=== PATIENT | female | born 1935 | race Caucasian/White ===

== ENCOUNTER 2021-05-10 11:01 | Inpatient (IN) | payer MEDICARE, OTHER, SELFPAY ==
--- NOTE | 2021-05-10 | ECHO_ITS ---
Patient Info Name: Lyndsay Manriquez Age: 86 years : 1935 Gender: Female Ht: 65 in Wt: 143 lbs BSA: 1.73 m2 HR: 103 bpm BP: 168 / 89 mmHg Heart Rhythm: Atrial Fibrillation Technical Quality: Fair Exam Date: 05/10/2021 4:38 PM Exam Location: [facility] Card Pulmonary Patient Status: Emergency Admit Date: 05/10/2021 Staff Ordering Physician: Makenzie Flowers APRN Core Analyst: Eleanor Mahoney RDCS Attending Provider: Adryan Clark MD Exam Type: CA echo doppler color flow Study Info Complete two-dimensional, color flow and Doppler transthoracic echocardiogram is performed. Summary 1. Complete two-dimensional, color flow and Doppler transthoracic echocardiogram is performed. 2. Left ventricular chamber dimension is mildly enlarged. 3. Left ventricular systolic function is mildly to moderately reduced, estimated at 40-45%. 4. There is mildly increased left ventricular wall thickness. 5. The left ventricular diastolic function is indeterminate. 6. There is moderate mitral valve regurgitation. 7. There is mild tricuspid valve regurgitation. 8. Moderate pulmonary hypertension, estimated pulmonary arterial systolic pressure is 46 mmHg. 9. Large left pleural effusion. Left Ventricle Left ventricular chamber dimension is mildly enlarged. Left ventricular systolic function is mildly to moderately reduced, estimated at 40-45%. There is mildly increased left ventricular wall thickness. The left ventricular diastolic function is indeterminate. Right Ventricle Right ventricular chamber dimension is normal. Right ventricular systolic function is normal. Left Atria Left atrial chamber dimension is mildly enlarged. Right Atria Right atrial chamber dimension is mildly enlarged. Aortic Valve The aortic valve is trileaflet. There is mild aortic valve sclerosis. There is no aortic valve stenosis. There is no aortic valve regurgitation. Pulmonic Valve The pulmonic valve is not well visualized. There is trace pulmonic regurgitation. Mitral Valve The mitral valve has thickened leaflets. There is moderate mitral valve regurgitation. The mitral valve annulus is moderately calcified. Tricuspid Valve The tricuspid valve leaflets are normal. There is mild tricuspid valve regurgitation. Moderate pulmonary hypertension, estimated pulmonary arterial systolic pressure is 46 mmHg. Pericardium/Pleural The pericardium appears epicardial fat pad. There is trivial pericardial effusion. Large left pleural effusion. Inferior Vena Cava Normal inferior vena cava with >50% collapse upon inspiration consistent with normal right atrial pressure, 5 mmHg. Aorta The aortic root size at the sinus of Valsalva is normal. There is mild aortic atherosclerosis. Left Ventricular Outflow Tract Name Value Normal LVOT 2D LVOT Diameter 2.0 cm LVOT Doppler LVOT Peak Gradient 3 mmHg LVOT Mean Gradient 1 mmHg LVOT VTI 15 cm LVOT VTI/AV VTI Ratio 0.5 LVOT Stroke Volume 48
--- NOTE | ~2021-05-10 | XR_ITS ---
XR chest 1V portable DATE: 05/11/2021 08:20 INDICATION: Orthopnea. Covid-positive. TECHNIQUE: Portable upright AP chest on May 11, 2021 at 0811 hours COMPARISON: May 10, 2021 portable AP chest at 1247 hours FINDINGS: There is cardiomegaly. There is pulmonary vascular congestion and redistribution. There are bilateral diffuse pulmonary infiltrates, most prominent in the right lung and left lower lung. Diffe rential diagnosis includes bilateral pneumonia and/or pulmonary edema. Minimal pleural effusions are suggested. No pneumothorax. Aortic calcification. Diffuse osteopenia. IMPRESSION: Cardiomegaly, pulmonary vascular congestion, bilateral infiltrates, suggesting congestive heart failure, pulmonary edema. Pneumonia is not excluded Little interval change since May 10, 2021 Reviewed, dictated and finalized at location B. STRIAL ELECTRICAL ENGINEER IMPRESSION: Cardiomegaly, pulmonary vascular congestion, bilateral infiltrates, suggesting congestive heart failure, pulmonary edema. Pneumonia is not exclude d Little interval change since May 10, 2021
--- NOTE | ~2021-05-10 | XR_ITS ---
EXAMINATION: XR chest 1V portable DATE: 05/10/2021 12:49 INDICATION: New onset atrial fibrillation. TECHNIQUE: A single frontal view of the chest was obtained. COMPARISON: Chest single view 11/29/2018, 11/04/2014 FINDINGS: There is a diffuse interstitial pattern in the lungs. There are airspace opacities in the p erihilar regions. No pleural effusion or pneumothorax. Cardiomegaly is noted. Surgical clips in the r ight upper quadrant are likely from cholecystectomy. IMPRESSION: 1. Diffuse lung disease, likely mild pulmonary edema. 2. Cardiomegaly. Reviewed, dictated and finalized at location A. [employer]
--- NOTE | ~2021-05-10 | US_ITS ---
EXAMINATION: US venous doppler [facility] DATE: 05/10/2021 17:28 INDICATION: Bilateral lower limb swelling TECHNIQUE: Grayscale ultrasound images without and with compression and Doppler ultrasound images of the bilateral lower extremity veins were obtained. COMPARISON: None. FINDINGS: The visualized portions of right common femoral vein, profunda (deep) femoral vein, femoral vein, pop liteal vein, posterior tibial veins, peroneal veins, gastrocnemius vein and greater saphenous vein ou tflow are patent. The visualized portions of left common femoral vein, profunda femoral vein, femoral vein, popliteal v ein, posterior tibial veins, peroneal veins, gastrocnemius vein and greater saphenous vein outflow ar e patent. IMPRESSION: 1. No deep venous thrombosis in either lower limb. Reviewed, dictated and finalized at location A. UTER SCIENCE TEACHER
--- NOTE | ~2021-05-10 | XR_ITS ---
EXAMINATION: XR chest 1V portable DATE: 05/13/2021 05:48 INDICATION: Shortness of breath TECHNIQUE: frontal view of the chest was obtained. COMPARISON: Chest radiograph dated 05/11/2021 FINDINGS: Cardiomegaly with pulmonary vascular congestion. Persistent groundglass opacities and mild increased interstitial pattern consistent with mild pulmonary edema. No pleural effusion or pneumothorax. Cardi omegaly. Cholecystectomy clips in right upper quadrant. IMPRESSION: 1. No significant change in diffuse bilateral lung disease and favor congestive heart failure related mild pulmonary edema although differential includes pneumonia. 2. Cardiomegaly. Reviewed, dictated and finalized at location A. LRY MODEL MAKER IMPRESSION: 1. No significant change in diffuse bilateral lung disease and favor congestive heart failure related mild pulmonary edema although differential includes pneu monia. 2. Cardiomegaly.
[2021-05-10 11:09] VITALS: BP 120/75; PULSE 103; RESP 16; TEMP 36.6; O2SAT 100
--- NOTE | 2021-05-10 11:12 | ECG_ITS ---
Measurements Intervals [place] Rate: 85 P: SC: 0 QRS: 20 QRSD: 126 T: -1 QT: 402 QTc: 480 Interpretive Statements SINUS RHYTHM FREQUENT ATRIAL PREMATURE COMPLEXES RIGHT BUNDLE BRANCH BLOCK BASELINE ARTIFACT- I, III, AVL, V3 ABNORMAL ECG Electronically Signed On 05-10-2021 12:07:48 BAG PRESSER by Elmer Coronel D.O.
[2021-05-10 12:29] VITALS: BP 151/87; PULSE 96; RESP 20; TEMP 36.7; O2SAT 99
[2021-05-10 12:38] LABS: Basophils Percent Auto 0.4 % (0.2-1.2); Eosinophils Percent Auto 0.5 % (0-4.4); Hematocrit 35.4 % (37.0-47.0); Hemoglobin 10.9 g/dL (12.0-15.0); Immature Granulocyte Absolute 0.02 K/mm3 (0.00-0.031); Immature Granulocyte Percent A 0.3 % (0-0.5); Lymphocytes Absolute Auto 1.53 K/mm3 (0.9-3.2); Lymphocytes Percent Auto 20.6 % (18.3-44.2); Mean Corpuscular HGB Conc 30.8 g/dl (32-36); Mean Corpuscular Volume 110.3 fl (80-100); Mean Platelet Volume 9.3 fl (7.4-10.4); Monocytes Absolute Auto 0.5 K/mm3 (0.1-0.6); Monocytes Percent Auto 6.2 % (2.6-8.5); Neutrophils Absolute Auto 5.3 K/mm3 (1.3-6.7); Platelet Count Result 226 k/mm3 (150-375); Red Blood Count 3.21 M/mm3 (4.2-5.4); Red Cell Distribution Width 15.5 % (11.5-14.5); White Blood Count 7.4 K/mm3 (4.5-10.0)
--- NOTE | 2021-05-10 12:38 | ED.GENADULT ---
HPI - General Adult General Chief complaint: Recheck/Abnormal Lab/Rx Stated complaint: new onset a fib Time Seen by Provider: 05/10/21 12:19 Source: patient and RN notes reviewed Limitations: no limitations History of Present Illness HPI narrative: 86-year-old female presented to the emergency department for evaluation of 3 days of generalized fatigue. Patient had follow-up with her primary care physician today and was diagnosed with atrial fibrillation. Upon arrival to the emergency department patient is in normal sinus rhythm with some PVCs. Patient denies any complaints and states she feels improved. Patient states she has had decreased p.o. intake over the last few days. Related Data Allergies Allergy/AdvReac Type Severity Reaction Status Date / Time No Known Allergies Allergy Verified 05/10/21 09:53 Review of Systems Review of Systems: CONSTITUTIONAL: Generalized fatigue over the last few days EYES: Denies visual changes, redness, or discharge. ENT: Denies rhinorrhea, congestion, sore throat, or otalgia. CARDIOVASCULAR: Denies chest pain, palpitations, or edema. RESPIRATORY: Denies cough or dyspnea. GASTROINTESTINAL: Denies abdominal pain, nausea, vomiting, or diarrhea. GENITOURINARY: Denies dysuria or hematuria. SKIN: Denies rash or itching. MUSCULOSKELETAL: Denies back pain, joint pain, or myalgia. NEUROLOGIC: Denies headache, numbness, or weakness. [facility] Past Medical History Medical History Benign reactive hypertension Diabetic neuropathy Glaucoma [place] (hard of hearing) Hx of fracture of femur Macular degeneration Surgical History Surgical History History of open reduction and internal fixation (ORIF) procedure Hx of cholecystectomy Hx of hysterectomy Family History Family History Mother Diabetes mellitus Social History Social History (Updated 05/10/21 @ 09:53 by Nohemy Todd) Social History: Years smoked: 40 Smoking status: Former smoker Tobacco type: cigarettes Second hand tobacco smoke exposure: No Smoking end date: 10/04/99 Alcohol intake: never Substance use: never Substance use type: does not use Gender identity (if verbalized by the patient): Female Sexual Orientation (if Verbalized by the Patient): Straight or Heterosexual Exam Narrative: APPEARANCE: Well appearing, no pain, no distress, well-nourished. HEAD: normocephalic, atraumatic. EYES: PERRLA/EOMI, conjunctivae clear. NECK: Supple. No adenopathy, no masses. RESPIRATORY: Airway patent, respirations nonlabored. Clear to auscultation bilaterally, no rales, rhonchi, wheezing. CARDIOVASCULAR: Regular rate and rhythm without murmurs rubs or gallops. ABDOMINAL: Soft, nontender, nondistended, normal bowel sounds MUSCULOSKELETAL: Moves all extremities. Strength/ROM intact, No edema, No calf tenderness. NEURO: Alert. Cranial nerves II through XII intact. Good gait. Good coordination SKIN: Warm, dry. Normal Color Course Course Emergency Course: Case discussed with the hospitalist and patient was accepted for admission. Due to the patient's elevated BNP and troponin cardiology was also consulted. No evidence of STEMI on EKG. Troponin is most likely a leak due to her elevated BNP. Patient was also found to be Covid positive. Consultations Consultation #1: Dr Rao was consulted and will see the patient as consult. Vital Signs Vital signs: Vital Signs Temperature 97.8 F 05/10/21 11:09 Pulse Rate 103 H 05/10/21 11:09 Respiratory Rate 16 05/10/21 11:09 Blood Pressure 120/75 05/10/21 11:09 Pulse Oximetry 100 05/10/21 11:09 Temperature 98.0 F 05/10/21 12:29 Pulse Rate 78 05/10/21 17:12 Respiratory Rate 18 05/10/21 17:12 Blood Pressure 138/78 05/10/21 17:12 Pulse Oximetry 99 05/10/21 17:12 Medical Decision Making
[2021-05-10 12:47] LABS: INR 1.1; Partial Thromboplastin Time 27.6 SECONDS (22.3-36.8); Prothrombin Time 13.8 Seconds (11.1-14.7)
[2021-05-10] MEDS: SODIUM CHLORIDE 0.9% IV 500 ML 999 ML IV CONT (12:47)
[2021-05-10 13:12] LABS: Alanine Aminotransferase 27 U/L (4-35); Albumin Level 3.9 g/dL (3.5-5.1); Alkaline Phosphatase 97 U/L (38-126); Anion Gap 9 mmol/L (8-16); Aspartate Amino Transferase 38 U/L (14-36); Bilirubin,Total 0.3 mg/dL (0.2-1.3); Blood Urea Nitrogen 21 mg/dL (7-17); Calcium 9.4 mg/dL (8.4-10.2); Carbon Dioxide 21 mmol/L (22-30); Chloride 110 mmol/L (98-107); Estimated CRCL calculation 27 ml/min; Estimated Glomerular Filt Rate 39; Glucose 164 mg/dL (65-110); Potassium 4.9 mmol/L (3.4-5.0); Sodium 140 mmol/L (137-145)
[2021-05-10 13:30] LABS: Troponin I 0.271 ng/mL (0.000-0.034)
[2021-05-10 14:08] VITALS: BP 136/80; PULSE 77; RESP 18; O2SAT 96
[2021-05-10 14:26] LABS: NT Pro B Type Natriuretic Pept 11000 pg/mL (5-100)
[2021-05-10 14:38] LABS: SARS-CoV-2 RNA PCR Positive
[2021-05-10] MEDS: FUROSEMIDE INJ 40 MG/4 ML VIAL IV PUSH (14:52)
[2021-05-10 15:15] VITALS: BP 168/89; PULSE 103; RESP 16; O2SAT 96
[2021-05-10 15:37] LABS: Add Urine Microscopic? YES; Appearance Urine Clear (Clear); Bilirubin Urine Negative (Negative); Blood Urine Negative (Negative); Color Urine Yellow (Yellow); Glucose Urine UA 1+ mg/dL (Negative); Ketones Urine Negative (Negative); Leukocyte Esterase Ur 1+ LEU/UL (Negative); Nitrate Urine Negative (Negative); Protein Urine 2+ mg/dL (Negative); RBC Urine 0-2 /hpf (0-2); Specific Grav Ur 1.019 (1.001-1.035); Squamous Epithelial Cell Urine Rare /hpf (Few); Urobilinogen Urine Negative mg/dL (<2.0); WBC Urine 16-20 /hpf
--- NOTE | 2021-05-10 15:41 | PM.IMHP ---
H&P: HPI History of Present Illness Date/Time: 05/10/21 15:41 Patient is an 86-year-old female with past medical history glaucoma, hypertension, diabetes mellitus, diabetic neuropathy and restless leg syndrome. She presents to the hospital due to generalized fatigue for the past 3 days. Patient a follow-up appointment with her primary care physician today and was diagnosed with AFib. Patient also endorsed orthopnea. Upon arrival to the emergency department a repeat EKG was performed which revealed normal sinus rhythm with PVCs. Patient did state she feels mildly improved. However she has had decreased oral intake and associated nausea, no emesis. While in the emergency department labs and imaging were obtained. WBC 7.4, hemoglobin 10.9, hematocrit 35.4, platelet 226, sodium 140, potassium 4.9, chloride 110, carbon dioxide 21, BUN 21, creatinine 1.3, and GFR of 39. Glucose was elevated at 164. AST mildly elevated at 38 other LFTs within normal limits. Troponin 0.271 and BNP elevated to 11,000. UA was obtained which revealed a abnormal urine specimen. she was incidently found to be positive for COVID-19, patient is not currently vaccinated. Cardiology was consulted for further evaluation for new CHF, elevated troponin and pending echocardiogram read. Pt received 40mg IVP Lasix in the ED. During my examination the patient had 2+ pitting edema to bilateral lower extremities with multiple scattered abrasions to bilateral lower extremity. She is mildly cognitively impaired and confused. She is able to follow simple commands and answer simple questions. Patient is extremely hard of hearing. She was at home alone. Although EHR reports the patient lives with a spouse. She has been admitted for COVID-19 pneumonia, CHF exacerbation-new diagnosis, and abnormal urine specimen. Chief Complaint: Covid 19, orthopnea, elevated troponin Review of Systems Review of Systems: All systems reviewed & are unremarkable except as noted in HPI and below PMFSH Past Medical History Medical History Benign reactive hypertension Diabetic neuropathy Glaucoma [place] (hard of hearing) Hx of fracture of femur Macular degeneration Surgical History Surgical History History of open reduction and internal fixation (ORIF) procedure Hx of cholecystectomy Hx of hysterectomy Family History Family History Mother Diabetes mellitus Social History Social History (Updated 05/10/21 @ 09:53 by Nohemy Todd) Social History: Years smoked: 40 Smoking status: Former smoker Tobacco type: cigarettes Second hand tobacco smoke exposure: No Smoking end date: 10/04/99 Alcohol intake: never Substance use: never Substance use type: does not use Gender identity (if verbalized by the patient): Female Sexual Orientation (if Verbalized by the Patient): Straight or Heterosexual Meds Home Medications and Allergies Home Medications Medication Instructions Recorded Confirmed Type blood sugar diagnostic #100 each 08/20/19 04/04/21 Rx alendronate 70 mg tablet 70 mg PO WEEKLY #14 tablet 10/25/20 04/04/21 Rx cyanocobalamin (vitamin B-12) 1,000 mcg IM MONTHLY #3 ml 10/25/20 04/04/21 Rx 1,000 mcg/mL injection solution ezetimibe 10 mg tablet See Rx Instructions .ROUTE 10/25/20 04/04/21 Rx .COMPLEX #90 tablet quinapril 40 mg tablet 40 mg PO DAILY #90 tablet 12/30/20 04/04/21 Rx fluticasone propionate 50 2 spray INTRANASAL BID #16 ml 03/15/21 04/04/21 Rx mcg/actuation nasal spray,suspension insulin detemir U-100 100 unit/mL See Rx Instructions .ROUTE 03/25/21 04/04/21 Rx (3 mL) subcutaneous pen .COMPLEX #15 ml ropinirole 2 mg tablet 2 mg PO TID #90 tablet 04/14/21 Rx Allergies Allergy/AdvReac Type Severity Reaction Status Date / Time No Known Allergies Allergy Verified
[2021-05-10 16:00] LABS: Troponin I 0.298 ng/mL (0.000-0.034)
[2021-05-10 17:12] VITALS: BP 138/78; PULSE 78; RESP 18; O2SAT 99
[2021-05-10 18:52] LABS: Troponin I 0.303 ng/mL (0.000-0.034)
[2021-05-10 21:51] VITALS: BMI 23.7
[2021-05-10 22:00] VITALS: BP 155/78; PULSE 114; PULSE 116; RESP 20; TEMP 35.8; O2SAT 99
--- NOTE | 2021-05-10 22:02 | ADMGEN ---
This patient, Lyndsay Manriquez, was admitted to IMU Room 211-01. Patient/family oriented to hospital policies and general routines including ID bracelet, bed and alarms, visiting hours, pain management, procedures, bathroom and other care routines, personal items, smoking policy, room service/diet, and visiting hours. Information on how to activate the Rapid Response Team has been discussed. Patient/Family are encouraged to report perceived risks to care and to ask questions if they do not understand what they are told or what they should do.
[2021-05-11] VITALS (10 sets, daily range): BP systolic 108–136; BP diastolic 53–91; PULSE 68–108; RESP 15–18; TEMP 36.6–37.3; O2SAT 95–98
--- NOTE | 2021-05-11 05:00 | ECG_ITS ---
Measurements Intervals [place] Rate: 89 P: MT: 0 QRS: 3 QRSD: 126 T: -5 QT: 406 QTc: 495 Interpretive Statements SINUS RHYTHM ATRIAL COUPLET AND ATRIAL PREMATURE COMPLEXES RIGHT BUNDLE BRANCH BLOCK MINIMAL Q WAVES- LAT/HIGH LAT LEADS BASELINE ARTIFACT- II, III, AVF, V3, V5 ABNORMAL ECG Electronically Signed On 05-11-2021 12:20:40 MEAT SCRUBBER by Elmer Coronel D.O.
[2021-05-11 05:04] LABS: Basophils Percent Auto 0.5 % (0.2-1.2); Eosinophils Absolute Auto 0.1 K/mm3 (0-0.3); Hematocrit 31.7 % (37.0-47.0); Immature Granulocyte Absolute 0.02 K/mm3 (0.00-0.031); Immature Granulocyte Percent A 0.3 % (0-0.5); Lymphocytes Absolute Auto 1.62 K/mm3 (0.9-3.2); Lymphocytes Percent Auto 25.4 % (18.3-44.2); Mean Corpuscular HGB Conc 31.5 g/dl (32-36); Mean Corpuscular Hemoglobin 33.2 pg (26-34); Mean Corpuscular Volume 105.3 fl (80-100); Mean Platelet Volume 9.4 fl (7.4-10.4); Monocytes Absolute Auto 0.5 K/mm3 (0.1-0.6); Monocytes Percent Auto 7.4 % (2.6-8.5); Neutrophils Absolute Auto 4.1 K/mm3 (1.3-6.7); Neutrophils Percent Auto 64.4 % (45.5-73.1); Platelet Count Result 205 k/mm3 (150-375); Red Blood Count 3.01 M/mm3 (4.2-5.4); Red Cell Distribution Width 15.5 % (11.5-14.5); White Blood Count 6.4 K/mm3 (4.5-10.0)
[2021-05-11 05:35] LABS: D Dimer 0.89 ug/mL (<0.48)
[2021-05-11 05:59] LABS: Alanine Aminotransferase 20 U/L (4-35); Albumin Level 3.2 g/dL (3.5-5.1); Alkaline Phosphatase 91 U/L (38-126); Anion Gap 6 mmol/L (8-16); Aspartate Amino Transferase 27 U/L (14-36); Bilirubin,Total 0.5 mg/dL (0.2-1.3); Blood Urea Nitrogen 18 mg/dL (7-17); CRP 1.9 mg/dL (<1.0); Calcium 8.8 mg/dL (8.4-10.2); Carbon Dioxide 24 mmol/L (22-30); Chloride 108 mmol/L (98-107); Estimated CRCL calculation 28 ml/min; Estimated Glomerular Filt Rate 43; Glucose 143 mg/dL (65-110); NT Pro B Type Natriuretic Pept 14800 pg/mL (5-100); Potassium 4.4 mmol/L (3.4-5.0); Sodium 138 mmol/L (137-145)
[2021-05-11] MEDS: EZETIMIBE 10 MG TABLET BY MOUTH (08:43)
[2021-05-11] MEDS: ASPIRIN 81 MG CHEWABLE TABLET PO (08:43)
[2021-05-11] MEDS: rOPINIRole HCL 1 MG TABLET 2 MG PO ×3 (08:44→17:35)
[2021-05-11] MEDS: lisinopriL 20 MG TABLET 40 MG PO (08:44)
[2021-05-11] MEDS: INSULIN GLARGINE (LANTUS) 1,000 UNITS/10 ML VIAL 10 UNITS SUB-Q (08:46)
[2021-05-11] MEDS: FUROSEMIDE INJ 40 MG/4 ML VIAL IV PUSH ×2 (08:46→17:36)
[2021-05-11 09:37] LABS: Glucose Point of Care 145 mg/dl (65-105)
--- NOTE | 2021-05-11 09:58 | PM.CNCAR ---
Assessment and Plan Assessment and plan (1) Acute HFrEF (heart failure with reduced ejection fraction): Code(s): I50.21 - Acute systolic (congestive) heart failure Status: Acute Assessment and Plan: New diagnosis moderate LV dysfunction EF 40-45% with acute decompensated heart failure with reduced ejection fraction etiology remains unclear at this time. Cannot exclude underlying CAD as contribution given diabetes mellitus, hypertension, advanced age mild troponin elevation. Cautious diuresis, accurate input and output, daily weight, less than 2 g daily sodium intake. Discussed implications of LV dysfunction, elevated troponin given her risk factors and probability of underlying CAD. While patient verbalized understanding she states she is not interested pursuing any invasive procedure or workup. Given that I explained the limited value proceeding with a stress test in which she would not agree to further evaluation of warranted. While we discussed this option she indicates she was not interested in proceeding with a stress test either. She wished only for conservative medical therapy citing her age. She acknowledged the potential risk in this regard and accepted. (2) Cardiomyopathy: Code(s): I42.9 - Cardiomyopathy, unspecified Status: Acute Assessment and Plan: New diagnosis mild to moderate LV dysfunction EF 40-45% without clear wall motion abnormalities mild LVH, moderate pulmonary hypertension RVSP 46 mm Hg, moderate MR, mild TR, mild biatrial enlargement. Etiology unknown possibly related to undiagnosed underlying CAD. Patient declines further workup in this regard. Continue lisinopril. Statin consideration if she could tolerate. Add Toprol XL 25 mg daily for LV support and reduction in tachyarrhythmia (3) PSVT (paroxysmal supraventricular tachycardia): Code(s): I47.1 - Supraventricular tachycardia Status: Acute Assessment and Plan: Brief intermittent SVT noted on telemetry, however, predominant sinus rhythm and sinus tachycardia with frequent premature atrial contractions. No clear atrial fibrillation identified, however, given her advanced age, risk factors, COVID positive status, frequent PACs development of atrial fibrillation quite likely. Continue telemetry for now. We discussed risk for embolic stroke if atrial fibrillation identified and potential recommendation for systemic anticoagulation. While not indicated at this time will continue to monitor. (4) NSVT (nonsustained ventricular tachycardia): Code(s): I47.2 - Ventricular tachycardia Status: Acute Assessment and Plan: Brief nonsustained VT noted on telemetry, asymptomatic. Conservative medical management. Add beta-carmina therapy. (5) Elevated troponin: Onset Date: ~05/10/21 Code(s): R77.8 - Other specified abnormalities of plasma proteins Status: Acute Assessment and Plan: Fairly flat curve may be a type 2 infarction without acute coronary syndrome and/or plaque rupture secondary to chronic kidney disease, decompensated heart failure and COVID positive status. While CAD has not been previously documented this cannot be excluded. As above, patient desires no further workup invasive or noninvasive. (6) Premature atrial contractions: Code(s): I49.1 - Atrial premature depolarization Status: Acute Assessment and Plan: No documentation of atrial fibrillation or prior history to date. She remains in sinus rhythm with frequent premature atrial contractions. However, given her age, risk factors and COVID positive status development of atrial fibrillation would not be unexpected. (7) COVID: Onset Date: ~05/10/21 Code(s): U07.1 - COVID-19 Status: Acute Assessment and Plan: COVID positive in isolation. Patient is unvaccinated. Management per primary service. Patient high risk for complications. 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
--- NOTE | 2021-05-11 11:11 | PM.IMPN ---
Progress Note: A&P Assessment and Plan (1) COVID: Onset Date: ~05/10/21 Code(s): U07.1 - COVID-19 Status: Acute Assessment and Plan: Place in COVID19 isolation precautions, cardiac monitoring, and continuous pulse ox Monitor serum electrolytes, CRP, Lactic acid, troponin, CBC, WBC, temperature curve and follow cultures Oxygen via NC; wean as tolerated. Keep spO2 greater than 91% Consider Consulting Pulmonary if the patient has an increased oxygen demand. Patient does not wear oxygen at baseline. When appropriate start CPAP or Vapotherm to maintain oxygen saturation Pt is not a candidate for Remdesivir and Dexamethasone, no current oxygen requirement albuterol MDI (2) Elevated troponin: Onset Date: ~05/10/21 Code(s): R77.8 - Other specified abnormalities of plasma proteins Status: Acute Assessment and Plan: Monitor serial troponins Keep serum potassium >4 and keep magnesium >2 Cardiology consulted, appreciate assistance and recommendations No significant interventions for the elevated troponin, consider relationship between chronic kidney disease, decompensated heart failure and positive COVID status. CAD cannot be ruled out completely (3) Elevated brain natriuretic peptide (BNP) level: Onset Date: ~05/10/21 Code(s): R79.89 - Other specified abnormal findings of blood chemistry Status: Acute Assessment and Plan: Monitor vital signs, I&Os, BUN/creatinine, daily weights Lasix 40 mg IV BID Echocardiogram performed revealed an LVEF of 40-45%. Mild left ventricular hypertrophy, moderate pulmonary hypertension, moderate mitral valve regurgitation, mild tricuspid valve regurgitation, and mild biatrial enlargement BLE venous duplex doppler- negative (4) New onset a-fib: Onset Date: ~05/10/21 Code(s): I48.91 - Unspecified atrial fibrillation Status: Acute Assessment and Plan: Continue telemetry monitoring No current documentation of AFib. Patient remains in sinus rhythm while on the floor. She does have frequent PACs. AFib may have been provoked unexpectedly by COVID?. Continue to monitor on tele (5) Type 2 diabetes mellitus with diabetic chronic kidney disease: Onset Date: Unknown Code(s): E11.22 - Type 2 diabetes mellitus with diabetic chronic kidney disease Status: Acute Assessment and Plan: Insulin Lispro sliding scale, Accu-checks qAc and HS and Hold oral hypoglycemics HgbA1c (6) COPD (chronic obstructive pulmonary disease): Code(s): J44.9 - Chronic obstructive pulmonary disease, unspecified Status: Acute Assessment and Plan: Monitor Oxygen saturation, Oxygen via NC; wean oxygen as tolerated, keep SpO2 greater than 88% Send sputum cultures if possible (7) UTI (urinary tract infection): Code(s): N39.0 - Urinary tract infection, site not specified Status: Acute Assessment and Plan: Obtain urine culture Follow temp curve, cultures, WBC, and VS Plan to de-escalate anti-biotics to cefdinir Patient reported urinary frequency Subjective Date/time seen: 05/11/21 11:11 Patient reports she feels better this morning. She was found to have 2 L of oxygen on per nasal cannula, nursing reports that this was placed on in the middle of the night for comfort. Patient does not require oxygen. RN to remove oxygen. SpO2 98% on room air. Vital signs otherwise stable. She continues to diurese with Lasix 40 mg b.i.d.. Cardiology evaluated the echocardiogram which revealed an LVEF of 40-45%. She has a new diagnosis of systolic heart failure. She will continue cautious diuresis, accurate I&Os and daily weights. Cardiac diet. No significant interventions for the elevated troponin, consider relationship between chronic kidney disease, decompensated heart failure and positive COVID status. No acute events overnight. Patient denies any chest pain, shortness breath, and nausea this
[2021-05-11] MEDS: INSULIN ASPART (*BKC) 100 UNITS/ML SUB-Q (13:08)
[2021-05-11] MEDS: ENOXAPARIN 40 MG/0.4 ML SYRINGE SUB-Q (13:09)
[2021-05-11 13:54] LABS: Glucose Point of Care 222 mg/dl (65-105)
[2021-05-11] MEDS: METOPROLOL SUCCINATE EXT REL 25 MG TABCR PO (17:35)
[2021-05-11 17:58] LABS: Glucose Point of Care 144 mg/dl (65-105)
[2021-05-11 20:43] LABS: Glucose Point of Care 216 mg/dl (65-105)
[2021-05-11 20:43] LABS: Glucose Point of Care 213 mg/dl (65-105)
[2021-05-11] MEDS: guaiFENesin/DEXTROMETHORPHAN 10 ML UDC PO (21:05)
[2021-05-11] MEDS: CEFDINIR 300 MG CAPSULE PO (21:05)
[2021-05-12] VITALS (13 sets, daily range): BP systolic 109–138; BP diastolic 46–76; PULSE 68–89; RESP 16–20; TEMP 36.5–37.5; O2SAT 89–99
[2021-05-12 09:17] LABS: Hematocrit 33.8 % (37.0-47.0); Hemoglobin 10.7 g/dL (12.0-15.0); Mean Corpuscular HGB Conc 31.7 g/dl (32-36); Mean Corpuscular Hemoglobin 34.4 pg (26-34); Mean Corpuscular Volume 108.7 fl (80-100); Mean Platelet Volume 9.6 fl (7.4-10.4); Platelet Count Result 215 k/mm3 (150-375); Red Blood Count 3.11 M/mm3 (4.2-5.4); Red Cell Distribution Width 15.8 % (11.5-14.5); White Blood Count 5.2 K/mm3 (4.5-10.0)
[2021-05-12 09:25] LABS: Alanine Aminotransferase 22 U/L (4-35); Albumin Level 3.6 g/dL (3.5-5.1); Alkaline Phosphatase 86 U/L (38-126); Anion Gap 5 mmol/L (8-16); Aspartate Amino Transferase 32 U/L (14-36); Bilirubin,Total 0.5 mg/dL (0.2-1.3); Blood Urea Nitrogen 29 mg/dL (7-17); Calcium 8.6 mg/dL (8.4-10.2); Carbon Dioxide 26 mmol/L (22-30); Chloride 107 mmol/L (98-107); Estimated CRCL calculation 24 ml/min; Estimated Glomerular Filt Rate 36; Glucose 161 mg/dL (65-110); Magnesium 1.8 mg/dL (1.6-2.3); Potassium 4.5 mmol/L (3.4-5.0); Sodium 138 mmol/L (137-145)
[2021-05-12 09:35] LABS: Glucose Point of Care 168 mg/dl (65-105)
[2021-05-12 09:35] LABS: NT Pro B Type Natriuretic Pept 10200 pg/mL (5-100)
--- NOTE | 2021-05-12 10:48 | WPDCDIQUERY2 ---
CDI Query Clarification Request - She has been admitted for COVID-19 pneumonia, CHF exacerbation-new diagnosis, and abnormal urine specimen. has been documented in the H&P -No further documentation of pneumonia Please clarify if covid pneumonia has been ruled in, ruled out or unable to determine. <Lyndsay Castellanos - Last Filed: 05/12/21 10:56> Provider Comments Further documentation is an my H&P. It reports that the patient has no active signs and symptoms related to COVID-19 pneumonia although she tested positive in the emergency department in to remain cautious <Makenzie Flowers APRN - Last Filed: 05/12/21 12:10>
[2021-05-12] MEDS: ASPIRIN 81 MG CHEWABLE TABLET PO (10:57)
--- NOTE | 2021-05-12 10:57 | P.CDI_ITS ---
CDI Query Clarification Request -05/10 Troponins 0.271, 0.298, 0303 -You have documented, Fairly flat curve may be a type 2 infarction without acute coronary syndrome and/or plaque rupture secondary to chronic kidney disease, decompensated heart failure and COVID positive status and She denies chest pain or palpitations. Troponins were obtained and were mildly elevated. She has no prior known history of CAD, CHF, DVT/PE, myocardial infarction or stroke. With no C/O of chest pain, no ischemic symptoms, ne EKG findings, please clarify diagnosis: * Non-ischemic myocardial injury * Type 2 [place] * Other * Unable to determine <Lyndsay Castellanos - Last Filed: 05/12/21 11:11> Type 2 infarction with explanation as documented related to CHF, renal failure, COVID-19 infection, and underlying cardiomyopathy. Not consistent with acute coronary syndrome and/or plaque rupture. <Mario Bustamante MD - Last Filed: 05/12/21 14:42>
[2021-05-12] MEDS: EZETIMIBE 10 MG TABLET BY MOUTH (10:58)
[2021-05-12] MEDS: CEFDINIR 300 MG CAPSULE PO ×2 (10:58→21:08)
[2021-05-12] MEDS: ENOXAPARIN 40 MG/0.4 ML SYRINGE SUB-Q (10:58)
[2021-05-12] MEDS: FUROSEMIDE INJ 40 MG/4 ML VIAL IV PUSH ×2 (10:59→18:02)
[2021-05-12] MEDS: lisinopriL 20 MG TABLET 40 MG PO (10:59)
[2021-05-12] MEDS: rOPINIRole HCL 1 MG TABLET 2 MG PO ×2 (11:00→18:01)
[2021-05-12] MEDS: INSULIN GLARGINE (LANTUS) 1,000 UNITS/10 ML VIAL 10 UNITS SUB-Q (11:02)
--- NOTE | 2021-05-12 11:06 | PCCCNOTE ---
On 05/12/21, the student, [Katherine Lama ], provided care and completed [facility] documentation on this patient. I have reviewed the student's documentation and agree with the findings.
--- NOTE | 2021-05-12 12:00 | PM.IMPN ---
Progress Note: A&P Assessment and Plan (1) COVID: Onset Date: ~05/10/21 Code(s): U07.1 - COVID-19 Status: Acute Assessment and Plan: Patient tested positive for COVID-19 in the emergency department. No current active symptoms. Continue for COVID-19 precautions as followed: Place in COVID19 isolation precautions, cardiac monitoring, and continuous pulse ox Oxygen via NC; wean as tolerated. Keep spO2 greater than 91% Pt is not a candidate for Remdesivir and Dexamethasone, no current oxygen requirement albuterol MDI PRN (2) Elevated troponin: Onset Date: ~05/10/21 Code(s): R77.8 - Other specified abnormalities of plasma proteins Status: Acute Assessment and Plan: Monitor serial troponins Keep serum potassium >4 and keep magnesium >2 Cardiology consulted, appreciate assistance and recommendations No significant interventions for the elevated troponin, consider relationship between chronic kidney disease, decompensated heart failure and positive COVID status. CAD cannot be ruled out completely (3) Elevated brain natriuretic peptide (BNP) level: Onset Date: ~05/10/21 Code(s): R79.89 - Other specified abnormal findings of blood chemistry Status: Acute Assessment and Plan: Monitor vital signs, I&Os, BUN/creatinine, daily weights Continue to diurese with Lasix 40 mg IV BID, appreciate assistance and recommendations by Cardiology Echocardiogram performed revealed an LVEF of 40-45%. Mild left ventricular hypertrophy, moderate pulmonary hypertension, moderate mitral valve regurgitation, mild tricuspid valve regurgitation, and mild biatrial enlargement BLE venous duplex doppler- negative I and O report-110 mL for the last 24 hours, weight significantly unchanged. (4) New onset a-fib: Onset Date: ~05/10/21 Code(s): I48.91 - Unspecified atrial fibrillation Status: Acute Assessment and Plan: Continue telemetry monitoring No current documentation of AFib. Patient remains in sinus rhythm while on the floor. She does have frequent PACs. AFib may have been provoked unexpectedly by COVID?. Continue to monitor on tele Brief episode of SVT noted on telemetry. Patient was started on a beta-carmina (5) Type 2 diabetes mellitus with diabetic chronic kidney disease: Onset Date: Unknown Code(s): E11.22 - Type 2 diabetes mellitus with diabetic chronic kidney disease Status: Acute Assessment and Plan: Insulin Lispro sliding scale, Accu-checks qAc and HS and Hold oral hypoglycemics HgbA1c (6) COPD (chronic obstructive pulmonary disease): Code(s): J44.9 - Chronic obstructive pulmonary disease, unspecified Status: Acute Assessment and Plan: Monitor Oxygen saturation, Oxygen via NC; wean oxygen as tolerated, keep SpO2 greater than 88% Send sputum cultures if possible (7) UTI (urinary tract infection): Code(s): N39.0 - Urinary tract infection, site not specified Status: Acute Assessment and Plan: Pending urine culture Follow cultures Cefdinir 300 b.i.d. Patient reported urinary frequency Subjective Date/time seen: 05/12/21 12:00 Patient was able to sit up side of the bed and discussed her plan of care. Patient reported that she has significant family in the hospital and she needs to get home to take care of her . Patient continues to be diuresed. Explained the risks and benefits of leading to early. Patient understood and was agreeable to stay 1 more night. She continues to be diuresed and Cardiology following. Patient is a new diagnosis of CHF. The patient reported that she does not wish to seek further medical intervention if needed. She would just like to be treated conservatively with medication management. She does not appear to be in distress. Patient reports she feels better. Swelling to bilateral lower extremities has improved. No acute events overnight. Vital
--- NOTE | 2021-05-12 12:21 | PM.PNCARD ---
Progress Note: A&P Assessment and Plan (1) Acute HFrEF (heart failure with reduced ejection fraction): Code(s): I50.21 - Acute systolic (congestive) heart failure <JOSE Benson - Last Filed: 05/12/21 12:34> Status: Acute <JOSE Benson - Last Filed: 05/12/21 12:34> Assessment and Plan: New diagnosis moderate LV dysfunction EF 40-45% with acute decompensated heart failure with reduced ejection fraction etiology remains unclear at this time. Cannot exclude underlying CAD as contribution given diabetes mellitus, hypertension, advanced age mild troponin elevation. However, patient does not wish to undergo ischemic workup, would like to manage with medical therapy. Cautious diuresis accurate input and output daily weight less than 2 g daily sodium intake. On medical therapy with lisinopril, metoprolol <JOSE Benson - Last Filed: 05/12/21 12:34> (2) Cardiomyopathy: Code(s): I42.9 - Cardiomyopathy, unspecified <JOSE Benson - Last Filed: 05/12/21 12:34> Status: Acute <JOSE Benson - Last Filed: 05/12/21 12:34> Assessment and Plan: New diagnosis mild to moderate LV dysfunction EF 40-45% without clear wall motion abnormalities mild LVH, moderate pulmonary hypertension RVSP 46 mm Hg, moderate MR, mild TR, mild biatrial enlargement. Etiology unknown possibly related to undiagnosed underlying CAD. Patient declines further workup in this regard. Continue lisinopril. Statin consideration if she could tolerate. Add Toprol XL 25 mg daily for LV support and reduction in tachyarrhythmia <JOSE Benson - Last Filed: 05/12/21 12:34> (3) PSVT (paroxysmal supraventricular tachycardia): Code(s): I47.1 - Supraventricular tachycardia <JOSE Benson - Last Filed: 05/12/21 12:34> Status: Acute <JOSE Benson - Last Filed: 05/12/21 12:34> Assessment and Plan: Brief intermittent SVT noted on telemetry, however, predominant sinus rhythm and sinus tachycardia with frequent premature atrial contractions. No clear atrial fibrillation identified, however, given her advanced age, risk factors, COVID positive status, frequent PACs development of atrial fibrillation quite likely. Continue telemetry for now. We discussed risk for embolic stroke if atrial fibrillation identified and potential recommendation for systemic anticoagulation. While not indicated at this time will continue to monitor. <JOSE Benson - Last Filed: 05/12/21 12:34> (4) NSVT (nonsustained ventricular tachycardia): Code(s): I47.2 - Ventricular tachycardia <JOSE Benson - Last Filed: 05/12/21 12:34> Status: Acute <JOSE Benson - Last Filed: 05/12/21 12:34> Assessment and Plan: Brief nonsustained VT noted on telemetry, asymptomatic. Conservative medical management. Add beta-carmina therapy. <JOSE Benson - Last Filed: 05/12/21 12:34> (5) Elevated troponin: Onset Date: ~05/10/21 <JOSE Benson - Last Filed: 05/12/21 12:34> Code(s): R77.8 - Other specified abnormalities of plasma proteins <JOSE Benson - Last Filed: 05/12/21 12:34> Status: Acute <JOSE Benson - Last Filed: 05/12/21 12:34> Assessment and Plan: Fairly flat curve may be a type 2 infarction without acute coronary syndrome and/or plaque rupture secondary to chronic kidney disease, decompensated heart failure and COVID positive status. While CAD has not been previously documented this cannot be excluded. As above, patient desires no further workup invasive or noninvasive. <JOSE Benson - Last Filed: 05/12/21 12:34> (6) Premature atrial contractions: Code(s): I49.1 - Atrial premature depolarization <JOSE Benson - Last Filed: 05/12/21 12:34> Status: Acute <CAROLYN Benson
[2021-05-12 13:11] LABS: Glucose Point of Care 215 mg/dl (65-105)
[2021-05-12 17:37] LABS: Glucose Point of Care 236 mg/dl (65-105)
[2021-05-12] MEDS: INSULIN ASPART (*BKC) 100 UNITS/ML SUB-Q (18:02)
[2021-05-12] MEDS: METOPROLOL SUCCINATE EXT REL 25 MG TABCR PO (18:02)
[2021-05-12 21:38] LABS: Glucose Point of Care 90 mg/dl (65-105)
[2021-05-13] VITALS (15 sets, daily range): BP systolic 103–127; BP diastolic 44–78; PULSE 62–90; RESP 14–26; TEMP 36.3–37.1; O2SAT 92–100
[2021-05-13 05:42] LABS: Hematocrit 30.8 % (37.0-47.0); Hemoglobin 9.8 g/dL (12.0-15.0); Mean Corpuscular HGB Conc 31.8 g/dl (32-36); Mean Corpuscular Hemoglobin 33.4 pg (26-34); Mean Corpuscular Volume 105.1 fl (80-100); Platelet Count Result 199 k/mm3 (150-375); Red Blood Count 2.93 M/mm3 (4.2-5.4); Red Cell Distribution Width 15.5 % (11.5-14.5); White Blood Count 5.7 K/mm3 (4.5-10.0)
[2021-05-13 05:55] LABS: Alanine Aminotransferase 28 U/L (4-35); Albumin Level 3.2 g/dL (3.5-5.1); Alkaline Phosphatase 84 U/L (38-126); Anion Gap 9 mmol/L (8-16); Aspartate Amino Transferase 42 U/L (14-36); Bilirubin,Total 0.3 mg/dL (0.2-1.3); Blood Urea Nitrogen 38 mg/dL (7-17); Calcium 8.5 mg/dL (8.4-10.2); Carbon Dioxide 22 mmol/L (22-30); Chloride 107 mmol/L (98-107); Estimated CRCL calculation 22 ml/min; Estimated Glomerular Filt Rate 33; Glucose 105 mg/dL (65-110); Magnesium 1.8 mg/dL (1.6-2.3); Potassium 3.9 mmol/L (3.4-5.0); Sodium 138 mmol/L (137-145)
[2021-05-13 09:20] LABS: NT Pro B Type Natriuretic Pept 9950 pg/mL (5-100)
[2021-05-13] MEDS: METOPROLOL SUCCINATE EXT REL 25 MG TABCR PO (09:25)
[2021-05-13] MEDS: ASPIRIN 81 MG CHEWABLE TABLET PO (09:25)
[2021-05-13] MEDS: CEFDINIR 300 MG CAPSULE PO ×2 (09:26→20:45)
[2021-05-13] MEDS: ENOXAPARIN 40 MG/0.4 ML SYRINGE SUB-Q (09:26)
[2021-05-13] MEDS: EZETIMIBE 10 MG TABLET BY MOUTH (09:27)
[2021-05-13] MEDS: lisinopriL 20 MG TABLET 40 MG PO (09:27)
[2021-05-13] MEDS: rOPINIRole HCL 1 MG TABLET 2 MG PO ×3 (09:28→18:00)
[2021-05-13] MEDS: EUCERIN CREAM 120 GM JAR 1 APPLIC TOPICAL (09:28)
[2021-05-13 09:31] LABS: Glucose Point of Care 122 mg/dl (65-105)
[2021-05-13] MEDS: INSULIN GLARGINE (LANTUS) 1,000 UNITS/10 ML VIAL 10 UNITS SUB-Q (09:35)
[2021-05-13] MEDS: FUROSEMIDE 40 MG TABLET PO (09:55)
[2021-05-13 13:25] LABS: Glucose Point of Care 235 mg/dl (65-105)
--- NOTE | 2021-05-13 14:24 | PM.IMPN ---
Progress Note: A&P Assessment and Plan (1) COVID: Onset Date: ~05/10/21 Code(s): U07.1 - COVID-19 Status: Acute Assessment and Plan: Patient tested positive for COVID-19 in the emergency department. No current active symptoms. Continue for COVID-19 precautions as followed: Place in COVID19 isolation precautions, cardiac monitoring, and continuous pulse ox Oxygen via NC; wean as tolerated. Keep spO2 greater than 91% Pt is not a candidate for Remdesivir and Dexamethasone, no current oxygen requirement albuterol MDI PRN (2) Elevated troponin: Onset Date: ~05/10/21 Code(s): R77.8 - Other specified abnormalities of plasma proteins Status: Acute Assessment and Plan: Monitor serial troponins Keep serum potassium >4 and keep magnesium >2 Cardiology consulted, appreciate assistance and recommendations No significant interventions for the elevated troponin, consider relationship between chronic kidney disease, decompensated heart failure and positive COVID status. CAD cannot be ruled out completely (3) Elevated brain natriuretic peptide (BNP) level: Onset Date: ~05/10/21 Code(s): R79.89 - Other specified abnormal findings of blood chemistry Status: Acute Assessment and Plan: Monitor vital signs, I&Os, BUN/creatinine, daily weights Continue to diurese with Lasix 40 mg oral daily, appreciate assistance and recommendations by Cardiology Echocardiogram performed revealed an LVEF of 40-45%. Mild left ventricular hypertrophy, moderate pulmonary hypertension, moderate mitral valve regurgitation, mild tricuspid valve regurgitation, and mild biatrial enlargement BLE venous duplex doppler- negative (4) New onset a-fib: Onset Date: ~05/10/21 Code(s): I48.91 - Unspecified atrial fibrillation Status: Acute Assessment and Plan: Continue telemetry monitoring No current documentation of AFib. Patient remains in sinus rhythm while on the floor. She does have frequent PACs. AFib may have been provoked unexpectedly by COVID?. Continue to monitor on tele Brief episode of SVT noted on telemetry. Patient was started on a beta-carmina (5) Type 2 diabetes mellitus with diabetic chronic kidney disease: Onset Date: Unknown Code(s): E11.22 - Type 2 diabetes mellitus with diabetic chronic kidney disease Status: Acute Assessment and Plan: Insulin Lispro sliding scale, Accu-checks qAc and HS and Hold oral hypoglycemics HgbA1c (6) COPD (chronic obstructive pulmonary disease): Code(s): J44.9 - Chronic obstructive pulmonary disease, unspecified Status: Acute Assessment and Plan: Monitor Oxygen saturation, Oxygen via NC; wean oxygen as tolerated, keep SpO2 greater than 88% Send sputum cultures if possible (7) UTI (urinary tract infection): Code(s): N39.0 - Urinary tract infection, site not specified Status: Acute Assessment and Plan: Pending urine culture Follow cultures Cefdinir 300 b.i.d. Patient reported urinary frequency Subjective Date/time seen: 05/13/21 14:25 patient was evaluated this morning at bedside. She appears to be doing significantly better. Dependent edema to bilateral lower extremities. Renal function did increase slightly, continue to monitor. Change IV Lasix to oral Lasix 40 mg 1 times daily. Patient is ready to go home. She was evaluated by Physical therapy and Occupational therapy. She does not require assistance at home. Patient has no concerns about discharge. Plan to DC on Saturday morning pending patient's clinical course. No acute events overnight reported by the RN. Patient denies any chest pain, shortness of breath, nausea or vomiting. Review of Systems Review of Systems: All systems reviewed & are unremarkable except as noted in HPI and below Exam Const: General: cooperative, healthy appearing and well groomed Nutritional Appearance: average body
[2021-05-13] MEDS: INSULIN ASPART (*BKC) 100 UNITS/ML SUB-Q ×2 (15:10→18:00)
[2021-05-13 16:52] LABS: Glucose Point of Care 298 mg/dl (65-105)
[2021-05-13 20:43] LABS: Glucose Point of Care 175 mg/dl (65-105)
[2021-05-14] VITALS (7 sets, daily range): BP systolic 114–131; BP diastolic 47–95; PULSE 58–68; RESP 14–18; TEMP 35.8–36.8; O2SAT 95–100
[2021-05-14] MEDS: ACETAMINOPHEN 325 MG TABLET 650 MG PO (03:12)
[2021-05-14] MEDS: ALPRAZolam (*CRX) 0.25 MG TABLET PO (05:57)
[2021-05-14] MEDS: FUROSEMIDE 40 MG TABLET PO (07:51)
[2021-05-14] MEDS: CEFDINIR 300 MG CAPSULE PO (07:51)
[2021-05-14] MEDS: lisinopriL 20 MG TABLET 40 MG PO (07:51)
[2021-05-14] MEDS: EZETIMIBE 10 MG TABLET BY MOUTH (07:51)
[2021-05-14] MEDS: ENOXAPARIN 40 MG/0.4 ML SYRINGE SUB-Q (07:52)
[2021-05-14] MEDS: INSULIN GLARGINE (LANTUS) 1,000 UNITS/10 ML VIAL 10 UNITS SUB-Q (07:53)
[2021-05-14] MEDS: METOPROLOL SUCCINATE EXT REL 25 MG TABCR PO (07:53)
[2021-05-14] MEDS: INSULIN ASPART (*BKC) 100 UNITS/ML SUB-Q (07:53)
[2021-05-14] MEDS: ASPIRIN 81 MG CHEWABLE TABLET PO (07:53)
[2021-05-14] MEDS: EUCERIN CREAM 120 GM JAR 1 APPLIC TOPICAL (07:54)
[2021-05-14] MEDS: rOPINIRole HCL 1 MG TABLET 2 MG PO (07:54)
[2021-05-14 08:09] LABS: Glucose Point of Care 213 mg/dl (65-105)
--- NOTE | 2021-05-14 08:28 | PM.DS ---
DS: Admitting Diagnosis Discharge Date May 14, 2021 Admitting Diagnosis Acute hypoxic respiratory failure Systolic heart failure-new diagnosis Diabetes mellitus type 2 Questionable new onset AFib? DS: Discharge Diagnosis Discharge Diagnosis (1) COVID: Onset Date: ~05/10/21 Code(s): U07.1 - COVID-19 Status: Acute Assessment and Plan: Patient tested positive for COVID-19 in the emergency department. No current active symptoms. Continue for COVID-19 precautions as followed: Place in COVID19 isolation precautions, cardiac monitoring, and continuous pulse ox Oxygen via NC; wean as tolerated. Keep spO2 greater than 91% Pt is not a candidate for Remdesivir and Dexamethasone, no current oxygen requirement albuterol MDI PRN (2) Elevated troponin: Onset Date: ~05/10/21 Code(s): R77.8 - Other specified abnormalities of plasma proteins Status: Acute Assessment and Plan: Monitor serial troponins Keep serum potassium >4 and keep magnesium >2 Cardiology consulted, appreciate assistance and recommendations No significant interventions for the elevated troponin, consider relationship between chronic kidney disease, decompensated heart failure and positive COVID status. CAD cannot be ruled out completely (3) Elevated brain natriuretic peptide (BNP) level: Onset Date: ~05/10/21 Code(s): R79.89 - Other specified abnormal findings of blood chemistry Status: Acute Assessment and Plan: Monitor vital signs, I&Os, BUN/creatinine, daily weights Continue to diurese with Lasix 40 mg oral daily, appreciate assistance and recommendations by Cardiology Echocardiogram performed revealed an LVEF of 40-45%. Mild left ventricular hypertrophy, moderate pulmonary hypertension, moderate mitral valve regurgitation, mild tricuspid valve regurgitation, and mild biatrial enlargement BLE venous duplex doppler- negative (4) New onset a-fib: Onset Date: ~05/10/21 Code(s): I48.91 - Unspecified atrial fibrillation Status: Acute Assessment and Plan: Continue telemetry monitoring No current documentation of AFib. Patient remains in sinus rhythm while on the floor. She does have frequent PACs. AFib may have been provoked unexpectedly by COVID?. Continue to monitor on tele Brief episode of SVT noted on telemetry. Patient was started on a beta-carmina (5) Type 2 diabetes mellitus with diabetic chronic kidney disease: Onset Date: Unknown Code(s): E11.22 - Type 2 diabetes mellitus with diabetic chronic kidney disease Status: Acute Assessment and Plan: Insulin Lispro sliding scale, Accu-checks qAc and HS and Hold oral hypoglycemics HgbA1c (6) COPD (chronic obstructive pulmonary disease): Code(s): J44.9 - Chronic obstructive pulmonary disease, unspecified Status: Acute Assessment and Plan: Monitor Oxygen saturation, Oxygen via NC; wean oxygen as tolerated, keep SpO2 greater than 88% Send sputum cultures if possible (7) UTI (urinary tract infection): Code(s): N39.0 - Urinary tract infection, site not specified Status: Acute Assessment and Plan: No growth in culture, stop antibiotic DS: Summary Hospital Course Reason for hospitalization: Acute systolic heart failure Hospital Course: Patient is an 86-year-old female with past medical history glaucoma, hypertension, diabetes mellitus, diabetic neuropathy and restless leg syndrome. She presents to the hospital due to generalized fatigue for the past 3 days. Patient a follow-up appointment with her primary care physician today and was diagnosed with AFib. Patient also endorsed orthopnea. Upon arrival to the emergency department a repeat EKG was performed which revealed normal sinus rhythm with PVCs. Patient did state she feels mildly improved. However she has had decreased oral intake and associated nausea, no emesis. While in the emergency depar
[2021-05-14 08:39] LABS: Hematocrit 36.5 % (37.0-47.0); Hemoglobin 10.5 g/dL (12.0-15.0); Mean Corpuscular HGB Conc 28.8 g/dl (32-36); Mean Corpuscular Hemoglobin 33.9 pg (26-34); Mean Corpuscular Volume 117.7 fl (80-100); Mean Platelet Volume 9.5 fl (7.4-10.4); Platelet Count Result 176 k/mm3 (150-375); Red Cell Distribution Width 15.7 % (11.5-14.5)
[2021-05-14 08:52] LABS: Anion Gap 9 mmol/L (8-16); Blood Urea Nitrogen 36 mg/dL (7-17); Calcium 8.9 mg/dL (8.4-10.2); Carbon Dioxide 21 mmol/L (22-30); Chloride 108 mmol/L (98-107); Estimated CRCL calculation 26 ml/min; Estimated Glomerular Filt Rate 39; Glucose 160 mg/dL (65-110); Sodium 138 mmol/L (137-145)
[2021-05-14 12:50] LABS: Glucose Point of Care 331 mg/dl (65-105)
== END 2021-05-14 13:26 | disposition home or self-care (01) | DRG 177 ==
LOC: ANHED 15:08 → ANHIMU 18:04
PROVIDERS: Emergency Medicine; Admitting Provider Family Medicine; Emergency Provider Emergency Medicine; PCP Family Medicine; Visit Provider Nurse Practitioner Family
DX: U07.1 COVID-19 (principal); I50.21 Acute systolic (congestive) heart failure; I21.A1 Myocardial infarction type 2; I13.0 Hypertensive heart and chronic kidney disease with heart failure and stage 1 through stage 4 chronic kidney disease, or unspecified chronic kidney disease; N39.0 Urinary tract infection, site not specified; I47.1 Supraventricular tachycardia; I42.9 Cardiomyopathy, unspecified; I47.2 Ventricular tachycardia; I49.1 Atrial premature depolarization; R35.0 Frequency of micturition; R79.89 Other specified abnormal findings of blood chemistry; R53.83 Other fatigue; R77.8 Other specified abnormalities of plasma proteins; E78.2 Mixed hyperlipidemia; E11.42 Type 2 diabetes mellitus with diabetic polyneuropathy; E11.22 Type 2 diabetes mellitus with diabetic chronic kidney disease; N18.30 Chronic kidney disease, stage 3 unspecified; G31.84 Mild cognitive impairment of uncertain or unknown etiology; G25.81 Restless legs syndrome; H91.90 Unspecified hearing loss, unspecified ear; H40.9 Unspecified glaucoma; H35.30 Unspecified macular degeneration; J44.9 Chronic obstructive pulmonary disease, unspecified; Z79.4 Long term (current) use of insulin; Z28.21 Immunization not carried out because of patient refusal; Z90.710 Acquired absence of both cervix and uterus; Z90.49 Acquired absence of other specified parts of digestive tract; Z87.891 Personal history of nicotine dependence
CPT/HCPCS: 36415; 71045; 80048; 80053; 81001; 82948; 83735; 83880; 84443; 84484; 85025; 85027; 85380; 85610; 85730; 86140; 87086; 93005; 93306; 93970; 96374; 97110; 97116; 97161; 97165; 97535; 99285; A9270; C9803; G0378; J1650; J1815; J1940; J7040; U0003; U0005

== ENCOUNTER 2021-05-24 14:53 | Outpatient (CLI) | payer OTHER, SELFPAY ==
--- NOTE | ~2021-05-24 | XR_ITS ---
XR chest 2V DATE: 05/24/2021 15:46 INDICATION: Congestive heart failure. Type 2 diabetes mellitus TECHNIQUE: AP and lateral views COMPARISON: May 13, 2021 portable AP chest FINDINGS: There is cardiomegaly. There is pulmonary vascular congestion and redistribution and pulmon michelle interstitial prominence including some Thad B-lines. There are diminished bilateral infiltrates since May 13, 2021. Aortic calcification. Small pleural effusions. Diffuse osteopenia. Status post cholecystectomy. IMPRESSION: Cardiomegaly, pulmonary vascular congestion, pulmonary interstitial edema, small pleural effusions, consistent with congestive heart failure, with improvement of pulmonary edema since 2021 Reviewed, dictated and finalized at location A. [employer] COORDINATOR IMPRESSION: Cardiomegaly, pulmonary vascular congestion, pulmonary interstitial edema, small pleural effusions, consistent with congestive heart failure, with improvement of pulmonary edema since May 13, 2021
[2021-05-24 15:27] LABS: Basophils Percent Auto 0.3 % (0.2-1.2); Eosinophils Absolute Auto 0.1 K/mm3 (0-0.3); Hematocrit 35.9 % (37.0-47.0); Hemoglobin 10.9 g/dL (12.0-15.0); Immature Granulocyte Absolute 0.02 K/mm3 (0.00-0.031); Immature Granulocyte Percent A 0.3 % (0-0.5); Lymphocytes Percent Auto 36.5 % (18.3-44.2); Mean Corpuscular HGB Conc 30.4 g/dl (32-36); Mean Corpuscular Hemoglobin 33.1 pg (26-34); Mean Corpuscular Volume 109.1 fl (80-100); Mean Platelet Volume 9.7 fl (7.4-10.4); Monocytes Absolute Auto 0.6 K/mm3 (0.1-0.6); Monocytes Percent Auto 8.7 % (2.6-8.5); Neutrophils Absolute Auto 3.4 K/mm3 (1.3-6.7); Neutrophils Percent Auto 52.2 % (45.5-73.1); Platelet Count Result 231 k/mm3 (150-375); Red Blood Count 3.29 M/mm3 (4.2-5.4); Red Cell Distribution Width 14.8 % (11.5-14.5); White Blood Count 6.6 K/mm3 (4.5-10.0)
[2021-05-24 15:40] LABS: Alanine Aminotransferase 23 U/L (4-35); Albumin Level 4.2 g/dL (3.5-5.1); Alkaline Phosphatase 87 U/L (38-126); Anion Gap 7 mmol/L (8-16); Aspartate Amino Transferase 34 U/L (14-36); Bilirubin,Total 0.2 mg/dL (0.2-1.3); Blood Urea Nitrogen 35 mg/dL (7-17); Calcium 8.8 mg/dL (8.4-10.2); Carbon Dioxide 31 mmol/L (22-30); Chloride 104 mmol/L (98-107); Estimated Glomerular Filt Rate 29; Glucose 161 mg/dL (65-110); Potassium 5.3 mmol/L (3.4-5.0); Sodium 142 mmol/L (137-145)
[2021-05-24 15:49] LABS: NT Pro B Type Natriuretic Pept 5300 pg/mL (5-100)
[2021-05-24 16:02] LABS: Hemoglobin A1C 7.2 % (<5.7)
== END 2021-05-24 14:54 | disposition home or self-care (01) ==
LOC: ANHLAB 15:00
PROVIDERS: PCP Family Medicine; Visit Provider Nurse Practitioner Gerontology
DX: E11.22 Type 2 diabetes mellitus with diabetic chronic kidney disease (principal); I50.9 Heart failure, unspecified; N18.30 Chronic kidney disease, stage 3 unspecified; I51.7 Cardiomegaly; J81.1 Chronic pulmonary edema; J90 Pleural effusion, not elsewhere classified
CPT/HCPCS: 36415; 71046; 80053; 83036; 83880; 85025

== ENCOUNTER 2021-06-24 01:07 | Inpatient (IN) | payer MEDICARE, OTHER, SELFPAY ==
[2021-06-24] VITALS (26 sets, daily range): BP systolic 108–153; BP diastolic 42–86; PULSE 64–95; RESP 18–44; TEMP 36.4–37.1; O2SAT 90–100; BMI 23.7
--- NOTE | ~2021-06-24 | XR_ITS ---
EXAMINATION: XR chest 1V portable INDICATION: Shortness of breath TECHNIQUE: Portable AP chest at 0154 hours COMPARISON: 05/24/2021 FINDINGS: There are diffuse interstitial and airspace opacities, right greater than left. There is no pleural effusion or pneumothorax. Cardiomegaly is noted. IMPRESSION: 1. Diffuse interstitial and airspace opacities, right greater than left, consistent with pneumonia an d/or pulmonary edema. 2. Cardiomegaly. Reviewed, dictated and finalized at location A. IMPRESSION: 1. Diffuse interstitial and airspace opacities, right greater than left, consis tent with pneumonia and/or pulmonary edema. 2. Cardiomegaly.
--- NOTE | ~2021-06-24 | NM_ITS ---
EXAMINATION: NM kavya stress w perfusion DATE: 06/26/2021 10:28 INDICATION: Heart failure. Cardiomyopathy. Elevated troponin. TECHNIQUE: Rest images were obtained following intravenous administration of 10.9 mCi Tc99m tetrofosm in (Myoview). The patient was infused intravenously with Lexiscan (regadenoson). Then, 33 mCi Tc99m t etrofosmin (Myoview) was administered intravenously, and stress images were obtained. Data was recons tructed into short axis and horizontal and vertical long axis SPECT images. Gated SPECT images were a lso obtained. COMPARISON: None. FINDINGS: There is a small, mild, fixed perfusion defect involving mid anterolateral and inferolatera l segments of left ventricle, consistent with infarct. No reversible component to suggest ischemia. There is no segmental wall motion abnormality. Left ventricular ejection fraction measures 48%. IMPRESSION: 1. Small area of mild infarct involving mid anterolateral and inferolateral segments of left ventricl e. 2. Left ventricular ejection fraction measuring 48%. Reviewed, dictated and finalized at location A. IMPRESSION: 1. Small area of mild infarct involving mid anterolateral and inferolateral seg ments of left ventricle. 2. Left ventricular ejection fraction measuring 48%.
--- NOTE | ~2021-06-24 | XR_ITS ---
EXAMINATION: XR chest 1V portable INDICATION: Shortness of breath TECHNIQUE: Portable AP chest at 0500 hours COMPARISON: 06/24/2021 FINDINGS: Diffuse interstitial and airspace opacities persist the lungs which have improved on the ri ght and increased in the left mid and upper lung zones. No pleural effusion or pneumothorax is identi fied. Cardiomegaly is noted. Surgical clips in the right upper quadrant are likely from prior cholecy stectomy. A healed fracture of the right humerus is noted. IMPRESSION: 1. Diffuse lung disease with slight improvement on the right and slight worsening on the left, consis tent with pneumonia and/or pulmonary edema. 2. Cardiomegaly. Reviewed, dictated and finalized at location A. IMPRESSION: 1. Diffuse lung disease with slight improvement on the right and slight worseni ng on the left, consistent with pneumonia and/or pulmonary edema. 2. Cardiomegaly.
--- NOTE | 2021-06-24 01:09 | ECG_ITS ---
Measurements Intervals Foster Rate: 88 P: UT: 0 QRS: -15 QRSD: 130 T: 6 QT: 376 QTc: 455 Interpretive Statements SINUS RHYTHM WITH OCCASIONAL PREMATURE VENTRICULAR CONTRACTION RIGHT BUNDLE BRANCH BLOCK [120+ ms QRS DURATION, UPRIGHT V1, 40+ ms S IN I/aVL/V4/V5/V6] BASELINE ARTIFACT NONSPECIFIC ST ABNORMALITY ABNORMAL ECG COMPARED TO ECG 05/11/2021 10:48:54 PVCS NOW PRESENT Electronically Signed On 06-24-2021 16:47:30 CDT by Mario Bustamante M.D.
[2021-06-24 01:27] LABS: Glucose Point of Care 149 mg/dl (65-105)
[2021-06-24 01:43] LABS: Basophils Percent Auto 0.3 % (0.2-1.2); Eosinophils Absolute Auto 0.1 K/mm3 (0-0.3); Eosinophils Percent Auto 0.8 % (0-4.4); Hematocrit 38.7 % (37.0-47.0); Hemoglobin 11.8 g/dL (12.0-15.0); Immature Granulocyte Absolute 0.05 K/mm3 (0.00-0.031); Immature Granulocyte Percent A 0.4 % (0-0.5); Lymphocytes Absolute Auto 1.64 K/mm3 (0.9-3.2); Lymphocytes Percent Auto 13.6 % (18.3-44.2); Mean Corpuscular HGB Conc 30.5 g/dl (32-36); Mean Corpuscular Hemoglobin 32.8 pg (26-34); Mean Corpuscular Volume 107.5 fl (80-100); Mean Platelet Volume 9.5 fl (7.4-10.4); Monocytes Absolute Auto 0.6 K/mm3 (0.1-0.6); Monocytes Percent Auto 5.2 % (2.6-8.5); Neutrophils Absolute Auto 9.6 K/mm3 (1.3-6.7); Neutrophils Percent Auto 79.7 % (45.5-73.1); Platelet Count Result 240 k/mm3 (150-375); Red Cell Distribution Width 14.9 % (11.5-14.5); White Blood Count 12.1 K/mm3 (4.5-10.0)
[2021-06-24 01:52] LABS: Alanine Aminotransferase 39 U/L (4-35); Albumin Level 4.3 g/dL (3.5-5.1); Alkaline Phosphatase 112 U/L (38-126); Anion Gap 10 mmol/L (8-16); Aspartate Amino Transferase 49 U/L (14-36); Bilirubin,Total 0.3 mg/dL (0.2-1.3); Blood Urea Nitrogen 38 mg/dL (7-17); Carbon Dioxide 25 mmol/L (22-30); Chloride 103 mmol/L (98-107); Estimated CRCL calculation 27 ml/min; Estimated Glomerular Filt Rate 39; Glucose 168 mg/dL (65-110); Potassium 4.6 mmol/L (3.4-5.0); Sodium 138 mmol/L (137-145)
[2021-06-24 02:00] LABS: NT Pro B Type Natriuretic Pept 9080 pg/mL (5-100)
[2021-06-24 02:19] LABS: SARS-CoV-2 RNA PCR Negative
--- NOTE | 2021-06-24 03:15 | ED.SOB ---
HPI - SOB/Dyspnea General Chief Complaint: Shortness of Breath/Dyspnea Stated Complaint: DIFF BREATHING AND SHAKING ALL OVER Time Seen by Provider: 06/24/21 01:19 History of Present Illness HPI Narrative: Patient is an 86-year-old female who presents ER with sudden onset shortness of breath. Patient reports she was seen at home when she suddenly felt short of breath and had new onset cough. Found to be hypoxic by EMS. Denies fevers or chills or sweats. No chest pain or heaviness. Patient recently admitted for [place]. She reports compliance with home medication including her Lasix. Related Data Home Medications Medication Instructions Recorded Confirmed Levemir FlexTouch U-100 Insuln 10 unit SUBCUT QAM 05/10/21 06/24/21 ezetimibe 10 mg PO DAILY 06/24/21 06/24/21 metoprolol succinate 25 mg PO DAILY 06/24/21 06/24/21 Allergies Allergy/AdvReac Type Severity Reaction Status Date / Time No Known Allergies Allergy Verified 06/24/21 01:26 Review of Systems Review of Systems: All systems reviewed & are unremarkable except as noted in HPI and below Constitutional: Constitutional: Denies chills, Denies fever(s) and Denies weakness ENT: Denies nasal congestion and Denies sore throat Cardiovascular: Cardiovascular: Denies rapid heart rate and Denies radiating jaw, neck or arm pain Respiratory: Respiratory: Denies cough, Reports dyspnea and Denies wheezing Gastrointestinal: Gastrointestinal: Denies abdominal pain, Denies diarrhea, Denies nausea and Denies vomiting Neurologic: Denies headache(s), Denies focal weakness and Denies numbness PMFSH Past Medical History Medical History Benign reactive hypertension Diabetic neuropathy Glaucoma [place] (hard of hearing) Hx of fracture of femur Macular degeneration Surgical History Surgical History History of open reduction and internal fixation (ORIF) procedure Hx of cholecystectomy Hx of hysterectomy Family History Family History Mother Diabetes mellitus Social History Social History (Updated 05/24/21 @ 14:15 by Nohemy Todd) Social History: Years smoked: 40 Smoking status: Former smoker Tobacco type: cigarettes Second hand tobacco smoke exposure: No Smoking end date: 10/04/99 Alcohol intake: never Substance use: never Substance use type: does not use Gender identity (if verbalized by the patient): Female Sexual Orientation (if Verbalized by the Patient): Straight or Heterosexual Spiritual care concerns: No Exam Narrative: GENERAL: Uncomfortable-appearing, well-nourished, and in mild distress. HEAD: Normocephalic, atraumatic. EYES: PERRL and EOMI. ENT: Mucous membranes moist. CHEST: Coarse crackles right greater than left. Mild respiratory distress. HEART: Irregular regular rate and rhythm. Normal peripheral pulses. ABDOMEN: Soft, nontender, nondistended. EXTREMITIES: Normal range of motion. No edema. SKIN: Warm, dry, no rash. NEURO: Alert and oriented x3. PSYCH: Normal mood and affect. Course Course Emergency Course: Patient feeling markedly improved with BiPAP. Receiving IV Lasix. Admit to hospitalist service. Due to sudden onset of dyspnea and cough it is felt more likely that patient is suffering from acute pulmonary edema and CHF as opposed to pneumonia. Vital Signs Vital signs: Vital Signs Temperature 97.6 F 06/24/21 01:09 Pulse Rate 94 06/24/21 01:09 Respiratory Rate 20 06/24/21 01:09 Blood Pressure 153/86 H 06/24/21 01:09 Pulse Oximetry 100 06/24/21 01:09 Temperature 97.8 F 06/24/21 04:00 Pulse Rate 85 06/24/21 04:27 Respiratory Rate 43 H 06/24/21 04:27 Blood Pressure 152/78 H 06/24/21 04:00 Pulse Oximetry 100 06/24/21 04:28 MDM - SOB/Dyspnea Lab Data Result diagrams: 06/24/21 01:33 06/24/21 0
[2021-06-24] MEDS: FUROSEMIDE INJ 40 MG/4 ML VIAL IV PUSH ×3 (03:30→21:37)
--- NOTE | 2021-06-24 04:32 | ADMGEN ---
This patient, Lyndsay Manriquez, was admitted to IMU Room 204-01. Patient/family oriented to hospital policies and general routines including ID bracelet, bed and alarms, visiting hours, pain management, procedures, bathroom and other care routines, personal items, smoking policy, room service/diet, and visiting hours. Information on how to activate the Rapid Response Team has been discussed. Patient/Family are encouraged to report perceived risks to care and to ask questions if they do not understand what they are told or what they should do.
[2021-06-24 08:28] LABS: Glucose Point of Care 89 mg/dl (65-105)
[2021-06-24] MEDS: METOPROLOL SUCCINATE EXT REL 25 MG TABCR PO (09:20)
[2021-06-24] MEDS: EZETIMIBE 10 MG TABLET PO (09:20)
[2021-06-24] MEDS: lisinopriL 20 MG TABLET 40 MG PO (09:20)
[2021-06-24] MEDS: rOPINIRole HCL 0.5 MG TABLET PO ×3 (09:20→17:12)
--- NOTE | 2021-06-24 09:27 | PM.IMHP ---
H&P: HPI History of Present Illness Date/Time: 06/24/21 09:27 Patient is an 86-year-old female with past medical history glaucoma, hypertension, diabetes mellitus, diabetic neuropathy and restless leg syndrome. She presents to the hospital due to generalized fatigue for the past 3 days.The patient was able to call 911 and was found to be hypoxic by the EMS. She was brought to [facility] for further evaluation. Upon arrival to the emergency department she required supplemental oxygen greater than 4 L in order to maintain SpO2 greater than 91%. The patient was unable to speak in complete sentences he was tachypneic. At that time the patient denied any chest pain or heaviness. Labs and imaging were obtained. The patient had a mild leukocytosis of 12.1, hemoglobin 11.8, hematocrit 38.7 and a platelet of 240, sodium 138, potassium 4.6, creatinine 1.3 and a BUN of 38-patient baseline, glucose 168 and mildly elevated AST and ALT ALT. BNP was elevated at 9080. Chest x-ray revealed bilateral infiltrates right greater than left consistent with pneumonia and/or pulmonary edema. Patient received 40 mg of IV Lasix in the emergency department and was placed on BiPAP. She is admitted to the hospitalist service and Cardiology was consulted for further evaluation of CHF exacerbation. Patient will be continued on IV furosemide b.i.d. and supplemental oxygen. PT/OT for further evaluation Chief Complaint: Shortness of breath Review of Systems Review of Systems: All systems reviewed & are unremarkable except as noted in HPI and below PMFSH Past Medical History Medical History Benign reactive hypertension Diabetic neuropathy Glaucoma [place] (hard of hearing) Hx of fracture of femur Macular degeneration Surgical History Surgical History History of open reduction and internal fixation (ORIF) procedure Hx of cholecystectomy Hx of hysterectomy Family History Family History Mother Diabetes mellitus Social History Social History (Updated 05/24/21 @ 14:15 by Nohemy Todd) Social History: Years smoked: 40 Smoking status: Former smoker Tobacco type: cigarettes Second hand tobacco smoke exposure: No Smoking end date: 10/04/99 Alcohol intake: never Substance use: never Substance use type: does not use Gender identity (if verbalized by the patient): Female Sexual Orientation (if Verbalized by the Patient): Straight or Heterosexual Spiritual care concerns: No Meds Home Medications and Allergies Home Medications Medication Instructions Recorded Confirmed Type blood sugar diagnostic #100 each 08/20/19 06/24/21 Rx cyanocobalamin (vitamin B-12) 1,000 mcg IM MONTHLY #3 ml 10/25/20 06/24/21 Rx 1,000 mcg/mL injection solution quinapril 40 mg tablet 40 mg PO DAILY #90 tablet 12/30/20 06/24/21 Rx Levemir FlexTouch U-100 Insuln 10 unit SUBCUT QAM 05/10/21 06/24/21 History furosemide 40 mg tablet 40 mg PO DAILY #30 tablet 05/24/21 06/24/21 Rx quetiapine 25 mg tablet 25 mg PO QHS #30 tablet 06/02/21 06/24/21 Rx alendronate 70 mg tablet See Rx Instructions .ROUTE 06/09/21 06/24/21 Rx .COMPLEX #12 tablet ropinirole 0.5 mg tablet 0.5 mg PO TID #90 tablet 06/09/21 06/24/21 Rx ezetimibe 10 mg PO DAILY 06/24/21 06/24/21 History metoprolol succinate 25 mg PO DAILY 06/24/21 06/24/21 History Allergies Allergy/AdvReac Type Severity Reaction Status Date / Time No Known Allergies Allergy Verified 06/24/21 01:26 Vital Signs Vital Signs - 24 hr 06/24/21 01:09 06/24/21 01:33 06/24/21 01:36 Temperature 97.6 F Pulse Rate 94 87 Respiratory Rate 20 34 H Blood Pressure 153/86 H Pulse Oximetry 100 99 100 06/24/21 01:37 06/24/21 01:39 06/24/21 02:16 Temperature Pulse Rate 86 84 76 Respiratory Rate 26 H Blood Pressure 136/74
[2021-06-24 10:57] LABS: Add Urine Microscopic? YES; Appearance Urine Clear (Clear); Bilirubin Urine Negative (Negative); Blood Urine Negative (Negative); Color Urine Yellow (Yellow); Glucose Urine UA Negative (Negative); Ketones Urine Negative (Negative); Leukocyte Esterase Ur Negative LEU/UL (NEGATIVE); Mucus Urine Rare /lpf; Nitrate Urine Negative (Negative); Protein Urine 1+ mg/dL (Negative); RBC Urine 0-2 /hpf (0-2); Specific Grav Ur 1.009 (1.001-1.035); Squamous Epithelial Cell Urine Rare /hpf (Few); Urobilinogen Urine Negative mg/dL (<2.0); WBC Urine 0-3 /hpf (0-3)
[2021-06-24 12:36] LABS: Glucose Point of Care 235 mg/dl (65-105)
[2021-06-24] MEDS: INSULIN ASPART (*BKC) 100 UNITS/ML SUB-Q ×2 (12:49→17:13)
--- NOTE | 2021-06-24 14:08 | PM.CNCAR ---
Assessment and Plan Assessment and plan (1) Acute on chronic HFrEF (heart failure with reduced ejection fraction): Code(s): I50.23 - Acute on chronic systolic (congestive) heart failure Status: Acute Assessment and Plan: Improved with BiPAP and diuresis initially with hypoxic respiratory failure. Still requires O2 supplementation although clinically she appears fairly euvolemic without significant edema or crackles on exam. EF 40-45% by echocardiogram. Previous recommendation to consider ischemic evaluation were declined. I discussed once again if she still wishes to defer any further evaluation which she was noncommittal. Subsequently family reports they would like to proceed with stress testing if appropriate on Saturday. -Check troponin -Continue IV diuresis Lasix 40 mg IV b.i.d., accurate input and output, daily weight. Low sodium intake. -Wean O2 supplementation as tolerated. I did discuss the concept of underlying CAD as potential contribute to ongoing symptoms, LV dysfunction and history of elevated troponin similar to our original discussion at time of diagnosis. I do not advise she required a left heart catheterization, however, I did discuss this possibility if we were to pursue noninvasive ischemic evaluation which was found to be abnormal. We discussed the risks with regards to bleeding, infection, stroke or worsening renal function and risks associated her advanced age. She would not be candidate for prior thoracic surgery or CABG if warranted. At this time, we do not know her LV dysfunction is ischemic versus nonischemic although given her risk factors advanced age CAD remains a primary concern. -resume aspirin 81 mg daily. Advise statin. Continue metoprolol, lisinopril. -NPO after midnight Saturday night in anticipation for Lexiscan nuclear stress test Saturday. Recommendation to follow. Need to make sure patient is stabilized from a respiratory perspective in the interval. Monitor renal function electrolytes with diuresis closely. (2) Cardiomyopathy: Code(s): I42.9 - Cardiomyopathy, unspecified Status: Acute Assessment and Plan: As above, mild to moderate LV dysfunction EF 40-45% by prior echocardiogram. (3) PSVT (paroxysmal supraventricular tachycardia): Code(s): I47.1 - Supraventricular tachycardia Status: Acute Assessment and Plan: Stable without recurrence of beta-carmina therapy. (4) Hypertension associated with diabetes: Code(s): E11.59 - Type 2 diabetes mellitus with other circulatory complications; I15.2 - Hypertension secondary to endocrine disorders Status: Acute Assessment and Plan: Reasonably controlled. Diabetes management per primary service. (5) CKD stage 3 due to type 2 diabetes mellitus: Code(s): E11.22 - Type 2 diabetes mellitus with diabetic chronic kidney disease; N18.30 - Chronic kidney disease, stage 3 unspecified Status: Acute Assessment and Plan: Stable, continue medical therapy. 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 History of Present Illness History of Present Illness Consult date/time: Date of service: 06/24/21 14:08 Cardiology consultation at the request of Makenzie Flowers of the [facility] service for opinion regarding CHF. Requesting physician: Makenzie Flowers APRN Consult reason: congestive heart failure Reason For Visit: CHF Exacerbation, Acute Respiratory Failure Narrative: Patient is a pleasant 86-year-old female with a past medical history significant for chronic kidney disease stage 3, type 2 diabetes mellitus, hypertension, hyperlipidemia, restless leg syndrome, mild to moderate LV systolic dysfunction, chronic heart failure with reduced ejection fractio
[2021-06-24] MEDS: ACETAMINOPHEN 325 MG TABLET 650 MG PO ×2 (15:24→21:41)
[2021-06-24 15:48] LABS: Troponin I 0.199 ng/mL (0.000-0.034)
[2021-06-24 16:13] LABS: Glucose Point of Care 273 mg/dl (65-105)
[2021-06-24] MEDS: QUEtiapine FUMARATE 25 MG TABLET PO (20:24)
[2021-06-24 20:50] LABS: Glucose Point of Care 196 mg/dl (65-105)
[2021-06-24] MEDS: INSULIN GLARGINE (*BKC) 100 UNITS/ML 10 UNITS SUB-Q (21:37)
[2021-06-25] VITALS (22 sets, daily range): BP systolic 95–125; BP diastolic 39–66; PULSE 62–80; RESP 16–36; TEMP 36.4–36.9; O2SAT 93–100
[2021-06-25 04:25] LABS: Basophils Percent Auto 0.3 % (0.2-1.2); Eosinophils Absolute Auto 0.2 K/mm3 (0-0.3); Eosinophils Percent Auto 3.4 % (0-4.4); Hematocrit 32.5 % (37.0-47.0); Hemoglobin 10.2 g/dL (12.0-15.0); Immature Granulocyte Absolute 0.01 K/mm3 (0.00-0.031); Immature Granulocyte Percent A 0.2 % (0-0.5); Lymphocytes Absolute Auto 2.88 K/mm3 (0.9-3.2); Lymphocytes Percent Auto 44.8 % (18.3-44.2); Mean Corpuscular HGB Conc 31.4 g/dl (32-36); Mean Corpuscular Hemoglobin 32.9 pg (26-34); Mean Corpuscular Volume 104.8 fl (80-100); Mean Platelet Volume 9.4 fl (7.4-10.4); Monocytes Absolute Auto 0.6 K/mm3 (0.1-0.6); Monocytes Percent Auto 9.3 % (2.6-8.5); Neutrophils Absolute Auto 2.7 K/mm3 (1.3-6.7); Platelet Count Result 166 k/mm3 (150-375); Red Cell Distribution Width 15.1 % (11.5-14.5); White Blood Count 6.4 K/mm3 (4.5-10.0)
[2021-06-25 05:24] LABS: Alanine Aminotransferase 24 U/L (4-35); Albumin Level 3.6 g/dL (3.5-5.1); Alkaline Phosphatase 80 U/L (38-126); Anion Gap 7 mmol/L (8-16); Aspartate Amino Transferase 28 U/L (14-36); Bilirubin,Total 0.5 mg/dL (0.2-1.3); Blood Urea Nitrogen 50 mg/dL (7-17); Calcium 8.5 mg/dL (8.4-10.2); Carbon Dioxide 26 mmol/L (22-30); Chloride 101 mmol/L (98-107); Estimated CRCL calculation 22 ml/min; Estimated Glomerular Filt Rate 31; Glucose 138 mg/dL (65-110); Magnesium 2.1 mg/dL (1.6-2.3); Potassium 4.7 mmol/L (3.4-5.0); Sodium 134 mmol/L (137-145)
[2021-06-25 08:05] LABS: Glucose Point of Care 153 mg/dl (65-105)
[2021-06-25] MEDS: METOPROLOL SUCCINATE EXT REL 25 MG TABCR PO (08:43)
[2021-06-25] MEDS: INSULIN GLARGINE (*BKC) 100 UNITS/ML 20 UNITS SUB-Q (08:43)
[2021-06-25] MEDS: rOPINIRole HCL 0.5 MG TABLET PO ×3 (08:43→16:28)
[2021-06-25] MEDS: FUROSEMIDE INJ 40 MG/4 ML VIAL IV PUSH (08:44)
[2021-06-25] MEDS: ASPIRIN 81 MG ENTERIC TABLET PO (08:44)
[2021-06-25] MEDS: ATORVASTATIN 20 MG TABLET PO (08:44)
--- NOTE | 2021-06-25 11:18 | PM.IMPN ---
Progress Note: A&P Assessment and Plan (1) CHF exacerbation: Code(s): I50.9 - Heart failure, unspecified Status: Acute Assessment and Plan: Monitor vital signs, I&Os, BUN/creatinine, daily weights, neuro status and patient is a fall risk Monitor serum electrolytes, Keep serum Potassium>4 and serum Magnesium>2 and CBC Echocardiogram performed May 10, 2021. She had an LVEF of 40-45% with moderate pulmonary hypertension Lasix 40 mg IV q12H Consult cardiology for further management, appreciate assistance and recommendations (2) Acute respiratory failure: Code(s): J96.00 - Acute respiratory failure, unspecified whether with hypoxia or hypercapnia Status: Acute Assessment and Plan: 2/2 above Patient currently requiring 4 L of oxygen per high-flow nasal cannula. Chest xray reviewed, believed to be less likely CAP, however will monitor the patients clinical course. (3) Weakness: Code(s): R53.1 - Weakness Status: Acute Assessment and Plan: PT/OT eval and treat (4) CKD stage 3 due to type 2 diabetes mellitus: Code(s): E11.22 - Type 2 diabetes mellitus with diabetic chronic kidney disease; N18.30 - Chronic kidney disease, stage 3 unspecified Status: Acute Assessment and Plan: Monitor renal function (5) Type 2 diabetes mellitus with diabetic chronic kidney disease: Onset Date: Unknown Code(s): E11.22 - Type 2 diabetes mellitus with diabetic chronic kidney disease Status: Acute Assessment and Plan: Insulin Lispro sliding scale, Accu-checks qAc and HS and Hold oral hypoglycemics Consistent carb diet (6) Tachyarrhythmia: Code(s): R00.0 - Tachycardia, unspecified Status: Acute Assessment and Plan: Monitor serum electrolytes, and cbc Keep serum potassium >4 and keep magnesium >2 Consulted Cardiology for further management, appreciate assistance and recommendations During the patient's last hospitalization it was reported that she had a brief episode of AFib however it was found to have intermittent SVT with predominant rhythm was sinus with sinus tachycardia frequent PACs. No clear AFib was identified. The patient was subsequently started on metoprolol succinate 25 mg daily for tachyarrhythmia and LV dysfunction Subjective Date/time seen: 06/25/21 11:18 Patient is alert and oriented. She denies any chest pain, shortness a breath, acute changes during the night. Patient will have a stress test performed with Cardiology on 06/26/2021 and she will be made NPO tonight midnight. He no acute changes reported by RN during the night. Patient's troponin was mildly elevated normal labs, creatinine is mildly elevated from her baseline. Baseline 1.4. Repeat chest x-ray showed slight improvement of the right and slight worsening of left, consistent with pneumonia or pulmonary edema. Given the patient's lack of leukocytosis suggestive of pulmonary edema. We will continue diuresis with 40 mg of furosemide b.i.d.. Review of Systems Review of Systems: All systems reviewed & are unremarkable except as noted in HPI and below Exam Narrative: General: No acute distress. Mental Status: Awake, alert and oriented to person, place, and time with clear speech. Skin: Skin in warm, dry and intact without rashes or lesions. Head: Normocephalic and atraumatic. Eyes: Conjunctivae are clear without exudates or hemorrhage. Sclera is non-icteric. EOM are intact, PERRLA. Ears: The external ear and canal are non-tender and without swelling or discharge. Nose: Nasal mucosa is pink and moist. Septum midline. Nares patent bilaterally. Throat: Oral mucosa pink and moist with good dentition. Tongue midline. Neck: The neck supple without adenopathy. Trachea midline. No JVD. Cardiac: S1 and S2 regular rate and irregular rhythm. No murmurs, gallops, or rubs auscultated. Respiratory: Chest wall symmetric, nontender and without deformity or trauma. Respi
[2021-06-25] MEDS: INSULIN ASPART (*BKC) 100 UNITS/ML SUB-Q (12:07)
[2021-06-25 12:16] LABS: Glucose Point of Care 335 mg/dl (65-105)
--- NOTE | 2021-06-25 15:35 | PM.PNCARD ---
Progress Note: A&P Assessment and Plan (1) Acute on chronic HFrEF (heart failure with reduced ejection fraction): Code(s): I50.23 - Acute on chronic systolic (congestive) heart failure Status: Acute Assessment and Plan: Improved with BiPAP and diuresis initially with hypoxic respiratory failure. Still requires O2 supplementation although clinically she appears fairly euvolemic without significant edema or crackles on exam. EF 40-45% by echocardiogram. Recommendation to consider ischemic evaluation declined last admission. -troponin mildly elevated 0.199. Patient chronically elevated fairly flat troponin since April. Do not suspect this is a function of acute myocardial infarction but can not exclude underlying demand ischemia. Given recent COVID can not entirely exclude mild pericarditis although patient without chest pain at any time. Primary concern would be underlying CAD is explanation for troponin elevation, exacerbation of recurrent heart failure, and LV dysfunction. This was discussed at length with the patient and her daughter. All questions answered to their satisfaction. The now wished to proceed with further evaluation with Lexiscan nuclear stress test. We discussed the risks, limitations and potential benefits of noninvasive and possible recommendation for invasive angiography. Explained my concerns given patient's advanced age, multiple comorbidities, acute on chronic renal insufficiency relative risk benefit medical management versus invasive angiography. While they understand these risks they are least willing to further evaluate things with noninvasive study. We with through various scenarios in this regard which may influence how we proceed. They understand but would like further clarification given patient's ongoing symptoms. -NPO after midnight for Lexiscan nuclear stress test. Further recommendation to follow. -Continue IV diuresis may need to reduce Lasix as volume status appears to be nearing euvolemia and acute on chronic renal insufficiency. Monitor renal function electrolytes closely. Continue accurate input and output, daily weight. Low sodium intake. -Wean O2 supplementation as tolerated. -added aspirin 81 mg daily and statin. Continue metoprolol, lisinopril. Reduce lisinopril given renal insufficiency and relative hypotension. -NPO after midnight Saturday night in anticipation for Lexiscan nuclear stress test Saturday. Recommendation to follow. Need to make sure patient is stabilized from a respiratory perspective in the interval. Monitor renal function electrolytes with diuresis closely. (2) Cardiomyopathy: Code(s): I42.9 - Cardiomyopathy, unspecified Status: Acute Assessment and Plan: As above, mild to moderate LV dysfunction EF 40-45% by prior echocardiogram. Lexiscan stress test in a.m. for further clarification for CAD/myocardial ischemia as underlying etiology. Explained at length any decision for further evaluation in hopes benefit her must be made in concert with the associated risks. They understand and agree. (3) PSVT (paroxysmal supraventricular tachycardia): Code(s): I47.1 - Supraventricular tachycardia Status: Acute Assessment and Plan: Stable without recurrence of beta-carmina therapy. (4) Hypertension associated with diabetes: Code(s): E11.59 - Type 2 diabetes mellitus with other circulatory complications; I15.2 - Hypertension secondary to endocrine disorders Status: Acute Assessment and Plan: Reasonably controlled although relatively hypotensive this morning. Reduce lisinopril to 10 mg daily. Reduce Lasix to daily likely will be able to transition to oral regimen.. Diabetes management per primary service. (5) CKD stage 3 due to type 2 diabetes mellitus: Code(s): E11.22 - Type 2 diabetes mellitus with diabetic chronic kidney disease; N18.30 - Chronic kidney disease, stage 3 unspecified Sta
[2021-06-25 16:44] LABS: Glucose Point of Care 104 mg/dl (65-105)
[2021-06-25 19:58] LABS: Glucose Point of Care 266 mg/dl (65-105)
[2021-06-25] MEDS: QUEtiapine FUMARATE 25 MG TABLET PO (20:03)
[2021-06-25] MEDS: ACETAMINOPHEN 325 MG TABLET 650 MG PO (20:03)
[2021-06-25] MEDS: INSULIN GLARGINE (*BKC) 100 UNITS/ML 10 UNITS SUB-Q (20:04)
[2021-06-26] VITALS (11 sets, daily range): BP systolic 106–128; BP diastolic 47–49; PULSE 61–84; RESP 18–22; TEMP 36.1–36.6; O2SAT 94–98
--- NOTE | 2021-06-26 | EST_ITS ---
Patient Info Name: Lyndsay Manriquez Age: 86 years : 1935 Gender: Female Ht: 66 in Wt: 148 lbs BSA: 1.78 m2 HR: 71 bpm BP: 138 / 67 mmHg Heart Rhythm: Sinus Rhythm Exam Date: 06/26/2021 9:05 AM Exam Location: [facility] Stress Patient Status: Inpatient Admit Date: 06/25/2021 Staff Ordering Physician: Mario Bustamante MD Attending Provider: Anika Grant MD Exercise Technologist: Ewa Velez CT Nurse: MATHEUS FABIAN Exam Type: CA stress kavya w NM Study Info Indications I51.7 - Cardiomegaly A regadenoson stress test was performed. Summary 1. ECG portion of pharmacological stress test did not meet criteria for ischemia. Correlate with myocardial perfusion imaging. Protocol: Lexiscan Stress ECG Details Stage: REST Duration (min): 1 min : 4 sec HR (bpm): 75 SBP (mmHg): 138 DBP (mmHg): 67 Stage: REST Duration (min): 6 min : 25 sec HR (bpm): 69 SBP (mmHg): 138 DBP (mmHg): 67 Stage: STAGE 1 Duration (min): 1 min : 0 sec HR (bpm): 75 SBP (mmHg): 132 DBP (mmHg): 64 Stage: RECOVERY Duration (min): 1 min : 0 sec HR (bpm): 82 SBP (mmHg): 132 DBP (mmHg): 64 Stage: RECOVERY Duration (min): 2 min : 0 sec HR (bpm): 81 SBP (mmHg): 132 DBP (mmHg): 64 Stage: RECOVERY Duration (min): 3 min : 0 sec HR (bpm): 80 SBP (mmHg): 138 DBP (mmHg): 64 Stage: RECOVERY Duration (min): 3 min : 30 sec HR (bpm): 80 SBP (mmHg): 138 DBP (mmHg): 64 Rest HR: 69 bpm Peak HR: 84 bpm Rest Sys BP: 138 mmHg Peak Sys BP: 138 mmHg Max Pred HR: 135 bpm % Max Pred HR: 62 % Target HR: 115 bpm Max RPP: 11,592 bpm*mmHg Total Time: 1 min : 0 sec Rest Maravilla BP: 67 mmHg Peak Maravilla BP: 64 mmHg Total Dose: 0.4 mg Resting ECG Sinus rhythm, incomplete right bundle-branch block, PACs, nonspecific ST-T abnormality. Stress ECG Do not meet criteria for ischemia. Arrhythmias PVCs, PACs. Report Signatures
[2021-06-26 04:32] LABS: Basophils Percent Auto 0.5 % (0.2-1.2); Eosinophils Absolute Auto 0.3 K/mm3 (0-0.3); Eosinophils Percent Auto 4.9 % (0-4.4); Hematocrit 31.1 % (37.0-47.0); Hemoglobin 9.8 g/dL (12.0-15.0); Immature Granulocyte Absolute 0.01 K/mm3 (0.00-0.031); Immature Granulocyte Percent A 0.2 % (0-0.5); Lymphocytes Absolute Auto 2.26 K/mm3 (0.9-3.2); Lymphocytes Percent Auto 41.2 % (18.3-44.2); Mean Corpuscular HGB Conc 31.5 g/dl (32-36); Mean Corpuscular Hemoglobin 33.3 pg (26-34); Mean Corpuscular Volume 105.8 fl (80-100); Mean Platelet Volume 9.7 fl (7.4-10.4); Monocytes Absolute Auto 0.5 K/mm3 (0.1-0.6); Monocytes Percent Auto 9.5 % (2.6-8.5); Neutrophils Absolute Auto 2.4 K/mm3 (1.3-6.7); Neutrophils Percent Auto 43.7 % (45.5-73.1); Platelet Count Result 178 k/mm3 (150-375); Red Blood Count 2.94 M/mm3 (4.2-5.4); Red Cell Distribution Width 14.6 % (11.5-14.5); White Blood Count 5.5 K/mm3 (4.5-10.0)
[2021-06-26 04:41] LABS: Alanine Aminotransferase 23 U/L (4-35); Albumin Level 3.6 g/dL (3.5-5.1); Alkaline Phosphatase 74 U/L (38-126); Anion Gap 8 mmol/L (8-16); Aspartate Amino Transferase 23 U/L (14-36); Bilirubin,Total 0.3 mg/dL (0.2-1.3); Blood Urea Nitrogen 60 mg/dL (7-17); Calcium 8.4 mg/dL (8.4-10.2); Carbon Dioxide 24 mmol/L (22-30); Chloride 106 mmol/L (98-107); Cholesterol 146 mg/dL (0-200); Estimated CRCL calculation 22 ml/min; Estimated Glomerular Filt Rate 31; Glucose 73 mg/dL (65-110); HDL Direct 40 mg/dL; Potassium 4.2 mmol/L (3.4-5.0); Sodium 138 mmol/L (137-145); Triglycerides 103 mg/dL (<150)
[2021-06-26 04:52] LABS: LDL Cholesterol Direct 67 mg/dL
--- NOTE | 2021-06-26 09:29 | PM.PNCARD ---
Progress Note: A&P Assessment and Plan (1) Acute on chronic HFrEF (heart failure with reduced ejection fraction): Code(s): I50.23 - Acute on chronic systolic (congestive) heart failure Status: Acute Assessment and Plan: Improved with BiPAP and diuresis initially with hypoxic respiratory failure. Still requires O2 supplementation although clinically she appears fairly euvolemic without significant edema or crackles on exam. EF 40-45% by echocardiogram. Underwent Lexiscan stress test this morning. Further recommendations to follow review of results. Will shift her to p.o. furosemide today, 40mg daily for now. May need to decrease depending on kidney function, stable today. Continue accurate input and output Daily weight. Low sodium intake. Wean O2 supplementation as tolerated. Added aspirin 81 mg daily and statin. Continue metoprolol, lisinopril. (2) Cardiomyopathy: Code(s): I42.9 - Cardiomyopathy, unspecified Status: Acute Assessment and Plan: As above, mild to moderate LV dysfunction EF 40-45% by prior echocardiogram. Lexiscan stress test completed this morning for further clarification for CAD/myocardial ischemia as underlying etiology. Further recs when results are available. (3) PSVT (paroxysmal supraventricular tachycardia): Code(s): I47.1 - Supraventricular tachycardia Status: Acute Assessment and Plan: Stable without recurrence. Continue beta carmina. (4) Hypertension associated with diabetes: Code(s): E11.59 - Type 2 diabetes mellitus with other circulatory complications; I15.2 - Hypertension secondary to endocrine disorders Status: Acute Assessment and Plan: Reasonably controlled although relatively hypotensive this morning. Reduce lisinopril to 10 mg daily. Reduce Lasix to daily likely will be able to transition to oral regimen.. Diabetes management per primary service. (5) CKD stage 3 due to type 2 diabetes mellitus: Code(s): E11.22 - Type 2 diabetes mellitus with diabetic chronic kidney disease; N18.30 - Chronic kidney disease, stage 3 unspecified Status: Acute Assessment and Plan: Acute on chronic renal insufficiency med changes as above. Continue medical therapy. (6) Mixed diabetic hyperlipidemia associated with type 2 diabetes mellitus: Code(s): E11.69 - Type 2 diabetes mellitus with other specified complication; E78.2 - Mixed hyperlipidemia Status: Acute Assessment and Plan: Atorvastatin 20 mg at bedtime added. LDL 67 Subjective Date/time seen: 06/26/21 09:29 Cardiology follow up for CHF Patient feels well this morning and does not have any complaints of any kind. She denies any chest pain, no shortness of breath. Review of Systems Review of Systems: All systems reviewed & are unremarkable except as noted in HPI and below Constitutional: Constitutional: Reports as per HPI, Reports no additional constitutional complaints, Denies frequent falls and Denies headache(s) Eyes: Eyes: Reports as per HPI and Reports no additional eye complaints ENT: Reports system reviewed and no additional complaints, except as documented, Reports as per HPI, Denies headache(s) and Reports hearing loss Cardiovascular: Cardiovascular: Reports as per HPI, Reports no additional cardiovascular complaints, Denies chest pain at rest, Denies chest pain with activity, Reports pedal edema, Denies irregular heart rhythm, Reports leg edema, Denies lightheadedness, Denies palpitations and Denies dyspnea on exertion Respiratory: Respiratory: Reports as per HPI, Reports no additional respiratory complaints and Denies dyspnea on exertion Gastrointestinal: Gastrointestinal: Reports as per HPI and Reports no additional gastrointestinal complaints Genitourinary: Genitourinary: Reports as per HPI Musculoskeletal: Musculoskeletal: Reports no additional musculoskeletal complaints, Reports as per HPI and Reports arthralgia
[2021-06-26 10:10] LABS: Glucose Point of Care 102 mg/dl (65-105)
--- NOTE | 2021-06-26 11:00 | PM.DS ---
DS: Admitting Diagnosis Discharge Date 06/26/21 1100 Admitting Diagnosis CHF exacerbation DS: Discharge Diagnosis Discharge Diagnosis (1) CHF exacerbation: Code(s): I50.9 - Heart failure, unspecified Status: Acute Assessment and Plan: Monitor vital signs, I&Os, BUN/creatinine, daily weights, neuro status and patient is a fall risk Monitor serum electrolytes, Keep serum Potassium>4 and serum Magnesium>2 and CBC Echocardiogram performed May 10, 2021. She had an LVEF of 40-45% with moderate pulmonary hypertension Lasix 40 mg IV q12H Consult cardiology for further management, appreciate assistance and recommendations Acute on Chronic exacerbation of combined systolic and diastolic dysfunction (2) Acute respiratory failure: Code(s): J96.00 - Acute respiratory failure, unspecified whether with hypoxia or hypercapnia Status: Acute Assessment and Plan: 2/2 above Patient currently requiring 4 L of oxygen per high-flow nasal cannula. Chest xray reviewed, believed to be less likely CAP, however will monitor the patients clinical course. (3) Weakness: Code(s): R53.1 - Weakness Status: Acute Assessment and Plan: PT/OT eval and treat (4) CKD stage 3 due to type 2 diabetes mellitus: Code(s): E11.22 - Type 2 diabetes mellitus with diabetic chronic kidney disease; N18.30 - Chronic kidney disease, stage 3 unspecified Status: Acute Assessment and Plan: Monitor renal function (5) Type 2 diabetes mellitus with diabetic chronic kidney disease: Onset Date: Unknown Code(s): E11.22 - Type 2 diabetes mellitus with diabetic chronic kidney disease Status: Acute Assessment and Plan: Insulin Lispro sliding scale, Accu-checks qAc and HS and Hold oral hypoglycemics Consistent carb diet (6) Tachyarrhythmia: Code(s): R00.0 - Tachycardia, unspecified Status: Acute Assessment and Plan: Monitor serum electrolytes, and cbc Keep serum potassium >4 and keep magnesium >2 Consulted Cardiology for further management, appreciate assistance and recommendations During the patient's last hospitalization it was reported that she had a brief episode of AFib however it was found to have intermittent SVT with predominant rhythm was sinus with sinus tachycardia frequent PACs. No clear AFib was identified. The patient was subsequently started on metoprolol succinate 25 mg daily for tachyarrhythmia and LV dysfunction DS: Summary Hospital Course Hospital Course: Patient is an 86-year-old female with a past medical history of glaucoma, hypertension, diabetes, diabetic neuropathy and restless leg syndrome who presented the hospital for general fatigue for the past 3 days. When she presented the hospital patient was noted to have general fatigue and was found to be hypoxic by EMS. She was placed on supplemental oxygen and was noted to be in acute respiratory failure. Patient could not complete can sentences and was very tachypneic. Patient was placed on BiPAP and was given diuretics. Chest x-ray showed pulmonary vascular congestion, edema, effusions suggests congestive heart failure diuretics were changed to IV b.i.d. after diuresis patient was noted to have better breathing. Cardiology was consulted and patient went for a Lexiscan. Lexiscan showed that she had an EF of 49% and a couple areas of infarction of the lateral left ventricle. BNP was also noted to be elevated 9080. Renal function is borderline but is at the high end of her baseline. Patient denies any chest pain, shortness of breath, nausea, vomiting, diarrhea, weakness or fatigue. Patient is denies any urinary dysfunction and states that she feels back to her baseline is ready to go home. I did talk to Cardiology who did change her Lasix back to p.o. this morning. I reiterated the need for her to make sure that she takes her weight every day. Patient is stable for dis
[2021-06-26] MEDS: INSULIN GLARGINE (*BKC) 100 UNITS/ML 20 UNITS SUB-Q (11:09)
[2021-06-26] MEDS: rOPINIRole HCL 0.5 MG TABLET PO (11:10)
[2021-06-26] MEDS: lisinopriL 10 MG TABLET PO (11:10)
[2021-06-26] MEDS: FUROSEMIDE 40 MG TABLET PO (11:10)
[2021-06-26] MEDS: ASPIRIN 81 MG ENTERIC TABLET PO (11:11)
[2021-06-26] MEDS: ATORVASTATIN 20 MG TABLET PO (11:11)
[2021-06-26] MEDS: METOPROLOL SUCCINATE EXT REL 25 MG TABCR PO (11:12)
== END 2021-06-26 12:21 | disposition home or self-care (01) | DRG 291 ==
LOC: ANHED 01:40 → ANHIMU 03:44
PROVIDERS: Internal Medicine Cardiovascular Disease; Nurse Practitioner Family; Admitting Provider Internal Medicine; Emergency Provider Emergency Medicine; PCP Family Medicine; Visit Provider Nurse Practitioner
DX: I13.0 Hypertensive heart and chronic kidney disease with heart failure and stage 1 through stage 4 chronic kidney disease, or unspecified chronic kidney disease (principal); I50.43 Acute on chronic combined systolic (congestive) and diastolic (congestive) heart failure; J96.01 Acute respiratory failure with hypoxia; I47.1 Supraventricular tachycardia; I42.9 Cardiomyopathy, unspecified; N18.30 Chronic kidney disease, stage 3 unspecified; Z20.822 Contact with and (suspected) exposure to COVID-19; D72.829 Elevated white blood cell count, unspecified; E78.2 Mixed hyperlipidemia; E11.22 Type 2 diabetes mellitus with diabetic chronic kidney disease; E11.40 Type 2 diabetes mellitus with diabetic neuropathy, unspecified; E11.59 Type 2 diabetes mellitus with other circulatory complications; G25.81 Restless legs syndrome; H35.30 Unspecified macular degeneration; H91.90 Unspecified hearing loss, unspecified ear; H40.9 Unspecified glaucoma; I25.2 Old myocardial infarction; I27.20 Pulmonary hypertension, unspecified; E11.69 Type 2 diabetes mellitus with other specified complication; I15.2 Hypertension secondary to endocrine disorders; R60.0 Localized edema; R53.1 Weakness; Z90.49 Acquired absence of other specified parts of digestive tract; Z90.710 Acquired absence of both cervix and uterus; Z87.891 Personal history of nicotine dependence; Z79.4 Long term (current) use of insulin; Z86.16 Personal history of COVID-19
CPT/HCPCS: 36415; 71045; 78452; 80053; 80061; 81001; 82948; 83735; 83880; 84484; 85025; 93005; 93017; 94002; 94003; 94660; 96374; 96376; 97110; 97161; 97165; 99285; A9270; A9502; C9803; G0378; J1815; J1940; J2785; U0003; U0005

== ENCOUNTER 2021-08-01 10:37 | Outpatient (CLI) | payer OTHER, SELFPAY ==
[2021-08-01 11:20] LABS: Basophils Absolute Auto 0.1 K/mm3 (0.0-0.1); Basophils Percent Auto 0.8 % (0.2-1.2); Eosinophils Absolute Auto 0.3 K/mm3 (0-0.3); Hematocrit 34.8 % (37.0-47.0); Hemoglobin 10.6 g/dL (12.0-15.0); Immature Granulocyte Absolute 0.02 K/mm3 (0.00-0.031); Immature Granulocyte Percent A 0.3 % (0-0.5); Lymphocytes Absolute Auto 1.85 K/mm3 (0.9-3.2); Lymphocytes Percent Auto 24.8 % (18.3-44.2); Mean Corpuscular HGB Conc 30.5 g/dl (32-36); Mean Corpuscular Hemoglobin 32.9 pg (26-34); Mean Corpuscular Volume 108.1 fl (80-100); Mean Platelet Volume 9.8 fl (7.4-10.4); Monocytes Absolute Auto 0.6 K/mm3 (0.1-0.6); Monocytes Percent Auto 7.9 % (2.6-8.5); Neutrophils Absolute Auto 4.6 K/mm3 (1.3-6.7); Neutrophils Percent Auto 62.2 % (45.5-73.1); Platelet Count Result 222 k/mm3 (150-375); Red Blood Count 3.22 M/mm3 (4.2-5.4); Red Cell Distribution Width 14.2 % (11.5-14.5); White Blood Count 7.5 K/mm3 (4.5-10.0)
[2021-08-01 12:40] LABS: Folic Acid > 20.0 ng/mL (2.76->20)
== END 2021-08-01 10:38 | disposition home or self-care (01) ==
PROVIDERS: PCP Family Medicine; Visit Provider Family Medicine
DX: E11.9 Type 2 diabetes mellitus without complications (principal); E03.9 Hypothyroidism, unspecified; I10 Essential (primary) hypertension; R53.1 Weakness; D64.9 Anemia, unspecified
CPT/HCPCS: 36415; 82607; 82746; 83036; 84443; 85025

== ENCOUNTER 2021-08-23 13:56 | Emergency (ER) | payer OTHER, SELFPAY ==
--- NOTE | ~2021-08-23 | XR_ITS ---
EXAMINATION: XR ankle LT min 3V DATE: 08/23/2021 14:17 INDICATION: Left ankle pain and swelling and deformity. Fall. TECHNIQUE: 4 views of left ankle were obtained. COMPARISON: None. FINDINGS: There is an oblique fracture of distal fibula with medial aspect of the fracture line at th e level of the tibial plafond. The distal fracture fragment demonstrates 2 mm posterolateral displace ment. There is heterotopic ossification distal to medial malleolus. There is widening of medial ankle mortise. There is mild midfoot osteoarthritis. There are enthesophytes at the posterior and plantar aspects of calcaneal tuberosity. Ankle soft tissue swelling is noted. IMPRESSION: 1. Oblique fracture of distal fibula. 2. Heterotopic ossification distal to medial malleolus, which may be acute avulsion fracture or chron ic finding. Widening of the medial ankle mortise may be from a deltoid ligament tear or avulsion frac ture. Reviewed, dictated and finalized at location A. IMPRESSION: 1. Oblique fracture of distal fibula. 2. Heterotopic ossification distal to medial malleolus, which may be acute avul patrice fracture or chronic finding. Widening of the medial ankle mortise may be f rom a deltoid ligament tear or avulsion fracture.
[2021-08-23 13:58] VITALS: BP 139/44; PULSE 74; RESP 18; TEMP 36.8; O2SAT 95
[2021-08-23] MEDS: ACETAMINOPHEN 500 MG TABLET 1000 MG PO (16:12)
[2021-08-23 16:14] VITALS: BP 136/62; PULSE 72; RESP 20; O2SAT 97
--- NOTE | 2021-08-23 17:12 | ED.LOWEXIN ---
HPI - Extremity Injury (Lower) General Chief Complaint: Extremity Injury, Lower Stated Complaint: fall ankle pain L Time Seen by Provider: 08/23/21 14:07 Source: RN notes reviewed History of Present Illness HPI Narrative: Patient presents emergency department from home via EMS for left ankle pain. Patient states that she was in her basement when she tripped over a rug in the basement and fell she states she landed on carpet and twisted her ankle when she fell she denies striking her head or loss of consciousness she denies any pain other than her left ankle states she normally does not walk with a cane or walker states she did not take anything for pain and is requesting no pain medication at this time. Patient states pain is worse in the left ankle when she walks she denies any pain in the hip or knee Related Data Home Medications Medication Instructions Recorded Confirmed metoprolol succinate 25 mg 25 mg PO DAILY 06/24/21 08/01/21 tablet,extended release 24 hr Allergies Allergy/AdvReac Type Severity Reaction Status Date / Time No Known Allergies Allergy Verified 08/23/21 14:04 Review of Systems Review of Systems: Gen.: Denies fevers or chills Eyes: Denies eye pain or visual change ENT: Denies congestion Respiratory: Denies shortness of breath or cough CV: Denies chest pain or palpitations GI: Denies abdominal pain nausea, emesis Musculoskeletal: D see HPI Neuro: Denies numbness, tingling, weakness or focal weakness Skin: Denies rash Except as documented, all other systems reviewed and negative PMFSH Past Medical History Medical History Benign reactive hypertension Diabetic neuropathy Glaucoma [place] (hard of hearing) Hx of fracture of femur Macular degeneration Surgical History Surgical History History of open reduction and internal fixation (ORIF) procedure Hx of cholecystectomy Hx of hysterectomy Family History Family History Mother Diabetes mellitus Social History Social History Social History: Years smoked: 40 Smoking status: Former smoker Tobacco type: cigarettes Second hand tobacco smoke exposure: No Smoking end date: 07/12/00 Alcohol intake: never Substance use: never Substance use type: does not use Gender identity (if verbalized by the patient): Female Sexual Orientation (if Verbalized by the Patient): Straight or Heterosexual Spiritual care concerns: No Exam Narrative: APPEARANCE: No acute distress, nontoxic, resting in bed EYES: EOMI, PERRL HEENT: Normocephalic, atraumatic, OMM Neck: Supple no midline tenderness palpation full range of motion without pain RESPIRATORY: No respiratory distress Clear to auscultation bilaterally with no rhonchi wheezing or rales. CARDIOVASCULAR: Regular rate and rhythm without murmurs rubs or gallops. ABDOMINAL: Soft, nontender, nondistended, no rebound or guarding MUSCULOSKELETAl: Moves all extremities. No clubbing, cyanosis or edema. No tenderness palpation of bilateral upper and her right lower extremity, no tenderness of the left hip or knee, tender palpation of the left medial lateral ankle with swelling present dorsalis pedis pulse 2+ neurovascular intact NEURO: Awake and alert x 4. Following commands, speech normal, no focal deficits SKIN:: Warm, dry. No rashes lesions or abrasions PSYCHIATRIC: Normal affect/mood, Course Course Emergency Course: Discussed with patient her x-ray results discussed returning home with assistance by family versus admitting for rehab placement the patient's 3 days ago family is present the patient would prefer to return home discussed with orthopedics Discussed with Dr. Harding who was able to review the patient's imaging. This time he feels the patient
== END 2021-08-23 18:29 | disposition home or self-care (01) ==
PROVIDERS: Emergency Provider Emergency Medicine; PCP Family Medicine
DX: S82.832A Other fracture of upper and lower end of left fibula, initial encounter for closed fracture (principal); I10 Essential (primary) hypertension; E11.40 Type 2 diabetes mellitus with diabetic neuropathy, unspecified; H40.9 Unspecified glaucoma; H35.30 Unspecified macular degeneration; Z87.891 Personal history of nicotine dependence; Z79.4 Long term (current) use of insulin; Z79.82 Long term (current) use of aspirin; W18.09XA Striking against other object with subsequent fall, initial encounter
CPT/HCPCS: 29515; 73610; 99284; A9270

== ENCOUNTER 2021-11-07 10:14 | Outpatient (CLI) | payer OTHER, SELFPAY ==
[2021-11-07 10:46] LABS: Hematocrit 37.1 % (37.0-47.0); Hemoglobin 11.9 g/dL (12.0-15.0)
[2021-11-07 10:56] LABS: Anion Gap 10 mmol/L (8-16); Blood Urea Nitrogen 34 mg/dL (7-17); Calcium 9.1 mg/dL (8.4-10.2); Carbon Dioxide 30 mmol/L (22-30); Chloride 100 mmol/L (98-107); Estimated Glomerular Filt Rate 39; Glucose 104 mg/dL (65-110); Potassium 5.4 mmol/L (3.4-5.0); Sodium 140 mmol/L (137-145)
[2021-11-07 11:10] LABS: Prothrombin Time 13.1 Seconds (11.1-14.7)
== END 2021-11-07 10:15 | disposition home or self-care (01) ==
LOC: ANHSURGERY 10:23
PROVIDERS: Anesthesiology; PCP Family Medicine; Visit Provider Plastic Surgery
DX: D64.9 Anemia, unspecified (principal); E11.22 Type 2 diabetes mellitus with diabetic chronic kidney disease; N18.30 Chronic kidney disease, stage 3 unspecified; Z01.818 Encounter for other preprocedural examination
CPT/HCPCS: 36415; 80048; 85014; 85018; 85610; 85730

== ENCOUNTER 2021-11-09 01:18 | Day surgery (SDC) | payer OTHER, SELFPAY ==
[2021-11-06 09:49] VITALS: BMI 22.6
--- NOTE | 2021-11-06 10:04 | PC.NURSE ---
PRE-OP INSTRUCTIONS, PLEASE READ CAREFULLY Report to the Outpatient Waiting Room, entrance under the green pavilion located off [facility], at time _0700_ on date _11/09/21_. OR Time: _0900_. - You and your visitor will be asked to self-screen and do not enter if you have any COVID symptoms. - Only one visitor and NO children visitors are allowed at this time. - The patient visitor is requested to leave or wait in car when not with patient due to restrictions. - A mask is required within the hospital. Patients may have clear liquids (water, carbonated beverages, clear teas, apple juice) until 3 hours prior to surgery (0600 AM) with a maximum of 20 ounces. - No food from midnight until time of surgery Take the following medications with a SIP of water the morning of surgery: _METOPROLOL, - MAY REMAIN ON ASPIRIN PER DR. CALDWELL_ Medications to discontinue per physician ___N/A , Date to take last dose Please no make-up, nail english, hairspray, perfume, deodorant, or body powder the day of surgery. No jewelry (including any body piercings) or valuables the day of surgery, leave them at home. Please take a shower or bath the night before, or the morning of, surgery with an antibacterial soap. Wear comfortable, loose fitting clothing. Children are encouraged to wear pajamas. - Jewelry must be removed prior to entering the operating room. Rings and piercings that are not removed may be cut off. - The hospital will not accept responsibility for valuables. - Please leave all valuables, including medications, at home the day of surgery. If you are going home after surgery, a licensed sprinkler truck driver must drive you home. - NO public transportation without another adult. - We recommend that an adult stay with you for 24 hours following discharge. - We also recommend that you do not drive, make important decision, drink alcoholic beverages, or take any drugs that were not prescribed by your health care provider for at least 24 hours after your discharge time. Follow any additional instructions given to you from your surgeon. If you or anyone in your household have experienced Covid symptoms in the past week, please notify your surgeon or the nurse liaison at the phone number below for possible testing. Telephone instructions given to _PT'S DAUGHTER (BRETT)__and asked if any additional questions and then verbalized understanding. Patient advised to call surgeon office or pre surgery nurse liaison [phone] if any additional questions.
--- NOTE | 2021-11-09 07:06 | WPDHPUPDATE1 ---
History and Physical Update Update Date/Time: 11/09/21 07:06 History and Physical has been reviewed, including an updated exam of the patient. There are NO changes in the patient's condition. Risks, benefits, and alternatives have been discussed and questions answered. Patient agrees to proceed with procedure.
[2021-11-09] MEDS: LACTATED RINGERS 1,000 ML 30 ML IV CONT (07:45)
[2021-11-09 07:56] LABS: Glucose Point of Care 72 mg/dl (65-105)
[2021-11-09 08:00] VITALS: BP 144/66; PULSE 65; RESP 16; TEMP 36.1; O2SAT 100
--- NOTE | 2021-11-09 08:47 | WPDANESEPPF ---
Anes - Initial Pre Proc Eval Procedure: Operation Date: 11/09/21 09:00 Proposed Procedures p Excision Squamous Cell Carcinoma Right Mid Pre-Tibia with Frozen Section and Full Thickness Skin Graft - Avni Rubin MD Date/Time: 11/09/21 08:47 Surgeon: Avni Rubin MD Pre Op Diagnosis: sq cell ca right mid pre-tibia Patient Data Age: 86 Gender: F Height: 1.68 m Weight: 57.65 kg Last Vital Signs Temp 96.9 F L 11/09/21 08:00 Pulse 65 11/09/21 08:00 Resp 16 11/09/21 08:00 BP 144/66 H 11/09/21 08:00 Pulse Ox 100 11/09/21 08:00 Allergies Allergy/AdvReac Type Severity Reaction Status Date / Time No Known Allergies Allergy Verified 11/09/21 08:21 Home Medications Medication Instructions Recorded Confirmed Type cyanocobalamin (vitamin B-12) 1,000 mcg IM MONTHLY #3 mL 10/25/20 11/09/21 Rx 1,000 mcg/mL injection solution quinapril 40 mg tablet 40 mg PO DAILY #90 tabs 12/30/20 11/09/21 Rx alendronate 70 mg tablet See Rx Instructions .Route 06/09/21 11/09/21 Rx .COMPLEX #12 tabs metoprolol succinate 25 mg 25 mg PO DAILY 06/24/21 11/09/21 History tablet,extended release 24 hr aspirin 81 mg tablet,delayed 81 mg PO QAM #30 tabs 06/26/21 11/09/21 Rx release insulin detemir U-100 100 unit/mL 25 unit (0.25 mL) subcut QAM #15 mL 06/29/21 11/09/21 Rx (3 mL) subcutaneous pen (Levemir FlexTouch U-100 Insulin) quetiapine 25 mg tablet See Rx Instructions .Route 07/28/21 11/09/21 Rx .COMPLEX #90 tabs atorvastatin 20 mg tablet 20 mg PO DAILY #90 tabs 08/01/21 11/09/21 Rx lancets (Accu-Chek Softclix #100 ea 08/22/21 11/09/21 Rx Lancets) ropinirole 2 mg tablet See Rx Instructions .Route 09/20/21 11/09/21 Rx .COMPLEX #180 tabs polysaccharide iron complex 150 mg See Rx Instructions .Route 10/02/21 11/09/21 Rx iron capsule .COMPLEX #90 caps blood sugar diagnostic (Accu-Chek #300 strips 10/11/21 11/09/21 Rx Guide test strips) insulin detemir U-100 100 unit/mL See Rx Instructions .Route 11/06/21 11/09/21 Rx (3 mL) subcutaneous pen (Levemir .COMPLEX #15 mL FlexTouch U-100 Insulin) Laboratory Tests 11/09/21 07:51 POC Capillary Glucose 72 mg/dl mg/dl (65-105) Patient hx anesthesia problems: none Family hx anesthesia problems: none Results Review: All pre-operative results and documents have been reviewed as part of the pre-operative evaluation. [facility] Past Medical History Medical History (Updated 09/05/21 @ 11:49 by Orion Harding MD) Benign reactive hypertension Diabetes Diabetic neuropathy Glaucoma High cholesterol [place] (hard of hearing) Hx of fracture of femur Hypertension Macular degeneration Skin cancer Surgical History Surgical History History of open reduction and internal fixation (ORIF) procedure Hx of cholecystectomy Hx of hysterectomy Family History Family History Mother Diabetes mellitus Social History Social History (Updated 08/31/21 @ 10:33 by Shirley Sapp, RT(R)) Social History: Smoking packs per day: 0.5 Smoking cigarettes per day: 10.0 Years smoked: 30 Smoking pack-years: 15.00 Smoking status: Former smoker Tobacco type: cigarettes Second hand tobacco smoke exposure: No Smoking end date: 10/03/16 Alcohol intake: never Substance use: never Substance use type: does not use Living arrangements: with family Additional living arrangements comments: PT LIVES WITH DAUGHTER - BRETT Gender identity (if verbalized by the patient): Female Sexual Orientation (if Verbalized by the Patient): Straight or Heterosexual Spiritual care concerns: No Anes - Eval Final PreProcedure Day of Procedure 11/09/21 08:47 Patient weight: normal Heart: irregular rhythm Lungs: clear to auscultation Airway: Mallampati scale class II Neurological: alert and or
[2021-11-09] MEDS: LIDO 1%/EPINEPHRINE 1:100,000 50 ML VIAL 20 ML INFILTRATE (09:23)
--- NOTE | 2021-11-09 09:24 | SUR.OPER ---
Frozen section specimen sent with with SELENA Calero and received in pathology by
[2021-11-09 09:50] VITALS: BP 126/44; PULSE 69; RESP 16; TEMP 36.3; O2SAT 98
[2021-11-09 10:20] VITALS: BP 133/48; PULSE 61; RESP 16
[2021-11-09 10:45] VITALS: BP 141/48; PULSE 70; RESP 16
--- NOTE | 2021-11-09 12:01 | W.PM.PROC2 ---
Procedure Note - Detailed Date of Procedure 11/09/21 Pre-op Diagnosis sq cell ca right mid pre-tibia Post-op Diagnosis Same Procedure Performed 2.5 cm excision of squamous cell carcinoma of the right pretibial with frozen section and full-thickness skin graft 7.5 sq cm Surgeon Avni Rubin MD Cable Splicing Technician Leeann Anesthesia MAC Indications Biopsy-proven squamous cell carcinoma Description of Procedure The biopsy site on the right mid Pre tibia was marked in the holding area. Also marked was the right thigh donor site. She was taken to the operating room where she was placed supine on the operating table. She was given IV sedation. The right lower extremity was prepped and draped in usual fashion. The area to be excised around the biopsy site and adjacent keratotic mass was marked with a pen. This area was widely infiltrated with 1% lidocaine with epinephrine. The specimen was excised down to periosteum. The tibia was not exposed. The specimen was marked at its most superior end for orientation and sent for frozen section. The pathologist revealed that no tumor was present at the margin. The dimensions for skin graft harvest were marked on the thigh. This area was infiltrated with 1% lidocaine with epinephrine. The full-thickness skin was incised. The skin was elevated with a 15 blade off the dermis. It required almost no additional defatting. The donor area was reduced by excising the full-thickness of remaining dermis. The wound margins were undermined about 2 cm on all sides. That wound was closed with intradermal 2-0 Vicryl and glue. A standing cone was removed at the superior end. The full-thickness graft was applied to the recipient area and fixed with a running 5 0 nylon. A few quilting sutures were placed across the middle portion. The dressing included Mepilex sponge, gauze, Kerlix roll and 4 in Agustin wrap from the ankle to the knee. The patient was discharged from the operating room in stable condition. She is sent home with prescription for cephalexin 500 mg t.i.d. 15. And hydrocodone 5/325 number 6.
== END 2021-11-09 10:55 | disposition home or self-care (01) ==
PROVIDERS: PCP Family Medicine; Visit Provider Plastic Surgery
PROC: (CPT 11603; principal; 2021-11-09 09:00)
DX: C44.722 Squamous cell carcinoma of skin of right lower limb, including hip (principal); I10 Essential (primary) hypertension; E11.40 Type 2 diabetes mellitus with diabetic neuropathy, unspecified; E78.00 Pure hypercholesterolemia, unspecified; H40.9 Unspecified glaucoma; Z87.891 Personal history of nicotine dependence; Z79.82 Long term (current) use of aspirin; Z79.4 Long term (current) use of insulin
CPT/HCPCS: 11603; 15220; 36415; 80048; 82948; 85014; 85018; 85610; 85730; 88305; 88331; A9270; J2704; J3010; J7120

== ENCOUNTER 2022-01-08 08:51 | Outpatient (CLI) | payer OTHER, SELFPAY ==
[2022-01-08 09:09] LABS: Basophils Percent Auto 0.6 % (0.2-1.2); Eosinophils Absolute Auto 0.2 K/mm3 (0-0.3); Eosinophils Percent Auto 2.7 % (0-4.4); Hematocrit 36.1 % (37.0-47.0); Hemoglobin 11.6 g/dL (12.0-15.0); Immature Granulocyte Absolute 0.02 K/mm3 (0.00-0.031); Immature Granulocyte Percent A 0.3 % (0-0.5); Lymphocytes Absolute Auto 3.08 K/mm3 (0.9-3.2); Lymphocytes Percent Auto 44.2 % (18.3-44.2); Mean Corpuscular HGB Conc 32.1 g/dl (32-36); Mean Corpuscular Hemoglobin 35.7 pg (26-34); Mean Corpuscular Volume 111.1 fl (80-100); Mean Platelet Volume 9.4 fl (7.4-10.4); Monocytes Absolute Auto 0.5 K/mm3 (0.1-0.6); Monocytes Percent Auto 7.2 % (2.6-8.5); Neutrophils Absolute Auto 3.1 K/mm3 (1.3-6.7); Platelet Count Result 191 k/mm3 (150-375); Red Blood Count 3.25 M/mm3 (4.2-5.4); Red Cell Distribution Width 13.1 % (11.5-14.5)
[2022-01-08 09:19] LABS: Alanine Aminotransferase 28 U/L (6-35); Albumin Level 4.3 g/dL (3.5-5.1); Alkaline Phosphatase 89 U/L (38-126); Anion Gap 9 mmol/L (8-16); Aspartate Amino Transferase 29 U/L (14-36); Bilirubin,Total 0.4 mg/dL (0.2-1.3); Blood Urea Nitrogen 63 mg/dL (7-17); Carbon Dioxide 25 mmol/L (22-30); Chloride 106 mmol/L (98-107); Estimated Glomerular Filt Rate 29; Glucose 126 mg/dL (65-110); Potassium 4.8 mmol/L (3.4-5.0); Sodium 140 mmol/L (137-145)
[2022-01-08 10:06] LABS: Hemoglobin A1C 7.2 % (<5.7)
== END 2022-01-08 08:52 | disposition home or self-care (01) ==
PROVIDERS: PCP Family Medicine; Visit Provider Physician Assistant
DX: E11.69 Type 2 diabetes mellitus with other specified complication (principal); N18.30 Chronic kidney disease, stage 3 unspecified; E11.22 Type 2 diabetes mellitus with diabetic chronic kidney disease; E78.2 Mixed hyperlipidemia; D64.9 Anemia, unspecified
CPT/HCPCS: 36415; 80053; 83036; 85025

== ENCOUNTER 2022-05-09 00:32 | Day surgery (SDC) | payer OTHER, SELFPAY ==
--- NOTE | 2022-04-30 13:21 | PC.NURSE ---
Report to the Outpatient Waiting Room, entrance under the green pavilion located off [facility], at time __0600 on date _05/09/22 . Planned Procedure Time: _0730 . Time changes happen often and if your time is changed the preop area will call you the afternoon before. - You and your visitor will be asked to self-screen and do not enter if you have any COVID symptoms. - Only one visitor is requested with a max of two and NO children visitors are allowed at this time. - The patient visitor may be requested to leave or wait in car when not with patient due to distancing restrictions. - A mask is optional within the hospital at this time. Patients may have clear liquids (water, carbonated beverages, clear teas, apple juice) until 3 hours prior to surgery with a maximum of 20 ounces. - No food from midnight until time of surgery - Infants may have breast milk until 4 hours before surgery, infant formula 6 hours prior to surgery. - Children will be allowed to drink immediately following surgery. If applicable, please bring a bottle or sippy cup to assist with drinking. Juice, water, soda, and popsicles are readily available. For infants on formula, please bring formula the day of surgery. Pacifiers are allowed. Take the following medications with a SIP of water the morning of surgery: ___METOPROLOL DO NOT STOP ANY OF YOUR OTHER PRESCRIPTION MEDICATIONS PRIOR TO SURGERY ?EXCEPT THE FOLLOWING Medications to discontinue per physician ___ALL VITAMINS/SUPPLEMENTS 3 DAYS PRE OP . LAST DOSE 05/05/22 Please no make-up, nail georgian, hairspray, perfume, deodorant, or body powder the day of surgery. No jewelry (including any body piercings) or valuables the day of surgery, leave them at home. Please take a shower or bath the night before, or the morning of, surgery with an antibacterial soap. Wear comfortable, loose fitting clothing. Children are encouraged to wear pajamas. - Jewelry must be removed prior to entering the operating room. Rings and piercings that are not removed may be cut off. - The hospital will not accept responsibility for valuables. - Please leave all valuables, including medications, at home the day of surgery. If you are going home after surgery, a licensed local delivery truck driver must drive you home. - NO public transportation without another adult if you receive anesthesia. - We recommend that an adult stay with you for 24 hours following discharge. - We also recommend that you do not drive, make important decision, drink alcoholic beverages, or take any drugs that were not prescribed by your health care provider for at least 24 hours after your discharge time. Follow any additional instructions given to you from your surgeon. If you or anyone in your household have experienced Covid symptoms in the past week, please notify your surgeon or the nurse liaison at the phone number below for possible testing. Telephone instructions given to _DAUGHTER EFREN MAZARIEGOS and asked if any additional questions and then verbalized understanding. Patient advised to call surgeon office or pre surgery nurse liaison [phone] if any additional questions.
[2022-04-30 13:29] VITALS: BMI 22.6
--- NOTE | 2022-05-09 07:15 | WPDHPUPDATE1 ---
History and Physical Update Update Date/Time: 05/09/22 07:15 History and Physical has been reviewed, including an updated exam of the patient. There are NO changes in the patient's condition. Risks, benefits, and alternatives have been discussed and questions answered. Patient agrees to proceed with procedure.
--- NOTE | 2022-05-09 07:17 | WPDANESEPPF ---
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 Patient Data Age: 87 Gender: F Height: 1.68 m Weight: 63.6 kg Allergies Allergy/AdvReac Type Severity Reaction Status Date / Time No Known Allergies Allergy Verified 04/30/22 13:09 Home Medications Medication Instructions Recorded Confirmed Type lancets (Accu-Chek Softclix #100 ea 08/22/21 04/17/22 Rx Lancets) blood sugar diagnostic (Accu-Chek #300 strips 10/11/21 04/17/22 Rx Guide test strips) furosemide 40 mg tablet 40 mg PO DAILY CHF #90 tabs 11/13/21 04/30/22 Rx cyanocobalamin (vitamin B-12) 1,000 mcg IM MONTHLY #3 mL 12/25/21 04/30/22 Rx 1,000 mcg/mL injection solution alendronate 70 mg tablet See Rx Instructions .Route 03/12/22 04/30/22 Rx .COMPLEX #12 tabs polysaccharide iron complex 150 mg See Rx Instructions .Route 03/12/22 04/30/22 Rx iron capsule .COMPLEX #90 caps aspirin 81 mg tablet,delayed 81 mg PO QAM #90 tabs 04/17/22 04/30/22 Rx release atorvastatin 20 mg tablet 20 mg PO DAILY #90 tabs 04/17/22 04/30/22 Rx benazepril 40 mg tablet 40 mg PO DAILY #90 tabs 04/17/22 04/30/22 Rx metoprolol succinate 25 mg 25 mg PO DAILY #90 tabs 04/17/22 04/30/22 Rx tablet,extended release 24 hr quetiapine 25 mg tablet See Rx Instructions .Route 04/17/22 04/30/22 Rx .COMPLEX #90 tabs ropinirole 4 mg tablet 4 mg PO TID #90 tabs 04/17/22 04/30/22 Rx ezetimibe 10 mg tablet (Zetia) 10 mg PO DAILY 04/30/22 04/30/22 History insulin detemir U-100 100 unit/mL 25 unit (0.25 mL) subcut BID #15 mL 04/30/22 04/30/22 Rx (3 mL) subcutaneous pen (Levemir FlexPen) multivitamin 1 tablet PO DAILY 04/30/22 04/30/22 History Patient hx anesthesia problems: none Family hx anesthesia problems: none Results Review: All pre-operative results and documents have been reviewed as part of the pre-operative evaluation. [facility] Past Medical History Medical History Benign reactive hypertension Diabetes Diabetic neuropathy Glaucoma High cholesterol [place] (hard of hearing) Hx of fracture of femur Hypertension Macular degeneration Skin cancer Surgical History Surgical History History of open reduction and internal fixation (ORIF) procedure Hx of cholecystectomy Hx of hysterectomy Family History Family History Mother Diabetes mellitus Social History Social History Social History: Smoking packs per day: 0.5 Smoking cigarettes per day: 10.0 Years smoked: 30 Smoking pack-years: 15.00 Smoking status: Former smoker Tobacco type: cigarettes Second hand tobacco smoke exposure: No Smoking end date: 03/25/16 Alcohol intake: never Substance use: never Substance use type: does not use Living arrangements: with family Additional living arrangements comments: PT LIVES WITH DAUGHTER - BRETT Occupation/Education: retired Gender identity (if verbalized by the patient): Female Sexual Orientation (if Verbalized by the Patient): Straight or Heterosexual Spiritual care concerns: No Anes - Eval Final PreProcedure Day of Procedure 05/09/22 07:17 Patient weight: normal Heart: regular rate and rhythm Lungs: clear to auscultation Airway: Mallampati scale class II Neurological: alert and oriented Last oral intake: >/= 8 hours ASA classification: III Emergent: no Anesthetic plan: proceed Anesthesia type and monitoring: general GIVS and standard monitoring Results Review: All pre-operative res
[2022-05-09] MEDS: LACTATED RINGERS 1,000 ML 30 ML IV CONT (07:45)
[2022-05-09 07:54] LABS: Glucose Point of Care 90 mg/dl (65-105)
[2022-05-09 07:56] VITALS: BP 105/42; PULSE 59; RESP 20; TEMP 36.3; O2SAT 99
[2022-05-09] MEDS: LIDO 1%/EPINEPHRINE 1:100,000 20 ML VIAL 5 ML INFILTRATE (09:42)
[2022-05-09 10:45] VITALS: BP 106/43; PULSE 77; RESP 16; TEMP 36.8; O2SAT 97
[2022-05-09 10:49] LABS: Glucose Point of Care 125 mg/dl (65-105)
[2022-05-09 11:15] VITALS: BP 96/42; PULSE 71; RESP 16
--- NOTE | 2022-05-09 11:38 | W.PM.PROC2 ---
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 The patient was then taken to the operating room she was placed supine on the operating table. She was given sedation anesthetic. The left lower extremity was prepped and draped in usual fashion below the knee and in the area of the lateral thigh for potential skin graft. The site around the crusted mass on the distal medial leg was marked for a reasonable appearing incision, approximately 2 cm. This area was widely infiltrated with 1% lidocaine with epinephrine. The skin was incised through the full thickness into the subcutaneous tissue. The most superior aspect was marked with a suture for 12 o'clock. The specimen was then taken off the patient in the subcutaneous layer and sent to pathology. The pathologist reports that the margins were free but he did not indicate he saw additional squamous cell carcinoma in Situ. We will search the permanent report for an answer to that.. While waiting for the report, we tried to relax the skin at the leg around the wound and extensively undermined the wound margins 1/2-2 cm in all directions. This allowed complex repair with intradermal 3-0 Vicryl at multiple sites and interrupted 4-0 nylon in the skin. A soft moderately compressive bandage with Coban was applied. Estimated Blood Loss 2 Tourniquet Time 0 Drains No Packing No Pathology Yes Complications No immediate complications Condition Stable Disposition Same day
== END 2022-05-09 11:50 | disposition home or self-care (01) ==
PROVIDERS: PCP Family Medicine; Visit Provider Plastic Surgery
PROC: (CPT 11602; principal; 2022-05-09 09:00)
DX: D04.72 Carcinoma in situ of skin of left lower limb, including hip (principal); I10 Essential (primary) hypertension; E11.40 Type 2 diabetes mellitus with diabetic neuropathy, unspecified; E78.00 Pure hypercholesterolemia, unspecified; H35.30 Unspecified macular degeneration; H40.9 Unspecified glaucoma; Z79.82 Long term (current) use of aspirin; Z79.4 Long term (current) use of insulin; Z87.891 Personal history of nicotine dependence
CPT/HCPCS: 11602; 13121; 82948; 88305; 88331; 88332; A9270; J2370; J2704; J3010; J7120

== ENCOUNTER 2022-07-25 10:44 | Outpatient (CLI) | payer OTHER, SELFPAY ==
--- NOTE | ~2022-07-25 | XR_ITS ---
EXAMINATION: XR chest 2V DATE: 07/25/2022 11:07 INDICATION: Congestive heart failure. Shortness of breath. TECHNIQUE: Frontal and lateral views of the chest were obtained. COMPARISON: Chest single view 06/25/2021 FINDINGS: There is a diffuse interstitial pattern, consistent with mild pulmonary edema. No pleural e ffusion or pneumothorax. The heart size is normal. Surgical clips in the right upper quadrant are lik robin from cholecystectomy. There is an old healed fracture of proximal left humerus. IMPRESSION: 1. Mild pulmonary edema. Reviewed, dictated and finalized at location A. IMPRESSION: 1. Mild pulmonary edema.
== END 2022-07-25 10:45 | disposition home or self-care (01) ==
PROVIDERS: PCP Family Medicine; Visit Provider Physician Assistant
DX: I50.9 Heart failure, unspecified (principal); I50.21 Acute systolic (congestive) heart failure; I42.9 Cardiomyopathy, unspecified; I50.23 Acute on chronic systolic (congestive) heart failure; R06.02 Shortness of breath
CPT/HCPCS: 71046

== ENCOUNTER 2022-08-03 10:14 | Outpatient (CLI) | payer OTHER, SELFPAY ==
--- NOTE | ~2022-08-03 | XR_ITS ---
XR toe 2nd RT min 2V 08/03/2022 10:52 Indication: Diabetic ulcer. Procedure: 4 views of the right second toe Comparison: No prior studies for comparison. Findings: There are healing right third and fourth metatarsal neck fractures with callus formation. O steopenia. 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 Lisfranc joint is intac t. Small degenerative calcaneal enthesophyte. Impression: 1: Healing right third and fourth metatarsal neck fractures. Reviewed, dictated and finalized at location B. Impression: 1: Healing right third and fourth metatarsal neck fractures.
== END 2022-08-03 10:15 | disposition home or self-care (01) ==
LOC: ANHIMG 10:20
PROVIDERS: PCP Family Medicine; Visit Provider Physician Assistant
DX: S92.344A Nondisplaced fracture of fourth metatarsal bone, right foot, initial encounter for closed fracture (principal); S92.334A Nondisplaced fracture of third metatarsal bone, right foot, initial encounter for closed fracture; E11.621 Type 2 diabetes mellitus with foot ulcer; L97.509 Non-pressure chronic ulcer of other part of unspecified foot with unspecified severity; X58.XXXA Exposure to other specified factors, initial encounter
CPT/HCPCS: 73660

== ENCOUNTER 2022-09-14 08:58 | Emergency (ER) | payer OTHER, SELFPAY ==
--- NOTE | ~2022-09-14 | XR_ITS ---
XR hip LT 2V w AP pelvis 09/14/2022 09:39 Indication: Left hip pain after recent fall Procedure: 3 views left hip Comparison: No prior studies for comparison. Findings: Mild osteoarthritis left hip. No acute fracture or traumatic malalignment. There is a dynam ic compression screw involving the right femoral neck. Pelvic rings are intact. There is osteitis pub is. Osteopenia. There is atherosclerosis. Lower lumbar spondylosis partially visualized. Impression: 1: No acute fracture. Reviewed, dictated and finalized at location [] Impression: 1: No acute fracture.
--- NOTE | ~2022-09-14 | CT_ITS ---
EXAMINATION: CT lumbar spine wo con DATE: 09/14/2022 09:33 INDICATION: Low back pain post fall TECHNIQUE: Computed tomography (CT) of the lumbar spine was performed without intravenous contrast. A utomated exposure control and iterative reconstruction technique were employed. The dose-length produ ct was 584.74 mGy-cm. COMPARISON: None FINDINGS: Alignment is normal. Minimal chronic appearing likely physiologic anterior wedging at T12 and L1. Man y vertebral body heights are normal. No acute fracture. There are bridging or nearly bridging osteoph ytes at multiple levels in the spine, consistent with diffuse idiopathic skeletal hyperostosis (DISH) . Moderate disc height loss at L2-L3. Multilevel mild disc height loss at remaining levels from T11 t o 12 through L5-S1, several with vacuum phenomena. Bilateral renal atrophy with focal cortical scarri ng at the upper pole the right kidney. 1 cm exophytic cyst at the upper pole the right kidney. 7 mm h igh attenuation proteinaceous/hemorrhagic exophytic cyst at the lower pole of the left kidney. Sigmoi d diverticulosis without diverticulitis. The following disc levels are specifically discussed: T11-T12: The disc does not extend beyond the endplate margin. There is mild bilateral facet joint ost eoarthritis. There is no central canal stenosis. T12-L1: The disc does not extend beyond the endplate margin. There is mild right and moderate left fa cet joint osteoarthritis. There is no neural foraminal stenosis. There is no central canal stenosis. L1-L2: Left paracentral disc protrusion. There is moderate bilateral facet joint osteoarthritis. Ther e is mild left neural foraminal stenosis. There is mild central canal stenosis. L2-L3: Disc is bulging with likely partially calcified central disc extrusion extending cephalad to t he level of the inferior endplate of L2. There is mild bilateral facet joint osteoarthritis. There is mild bilateral neural foraminal stenosis. There is mild central canal stenosis. L3-L4: Disc is bulging. There is mild to moderate bilateral facet joint osteoarthritis. There is mild to moderate bilateral neural foraminal stenosis. There is mild to moderate central canal stenosis. L4-L5: Disc is bulging. There is moderate bilateral facet joint osteoarthritis. There is moderate cornelius ateral neural foraminal stenosis. There is moderate central canal stenosis. L5-S1: Disc is bulging. There is moderate bilateral facet joint osteoarthritis. There is mild to mode rate right and moderate left neural foraminal stenosis. There is mild central canal stenosis. IMPRESSION: 1. Moderate lumbar spondylosis. No acute osseous abnormality. Reviewed, dictated and finalized at location A.
[2022-09-14 09:04] VITALS: BP 169/61; PULSE 62; RESP 18; TEMP 36.4; O2SAT 100
--- NOTE | 2022-09-14 09:14 | ED.FALL ---
HPI - Fall General Chief Complaint: Fall Stated Complaint: back injury after fall Time Seen by Provider: 09/14/22 09:01 History of Present Illness HPI Narrative: 87-year-old female presents to the emergency room today for complaints of left hip pain and low back pain. She has a history of a ground-level fall about 2 weeks ago. She did not get any treatment after the fall. She has been having pain in her left hip and in her low back since the fall. She has been able to ambulate but reports that she has increased pain with weightbearing. She has been taking Celebrex and Tylenol but has not gotten much relief with this. She denies having any headache or dizziness. She denies any other injury from the fall. She does have a skin tear that is healing on her left lower leg. Related Data Home Medications Medication Instructions Recorded Confirmed ezetimibe 10 mg tablet (Zetia) 10 mg PO DAILY 04/30/22 08/08/22 multivitamin 1 tablet PO DAILY 04/30/22 08/08/22 Allergies Allergy/AdvReac Type Severity Reaction Status Date / Time No Known Allergies Allergy Verified 08/08/22 10:01 Review of Systems Review of Systems: CONSTITUTIONAL: Denies fever, chills, or sweats. EYES: Denies visual changes, redness, or discharge. ENT: Denies rhinorrhea, congestion, sore throat, or otalgia. CARDIOVASCULAR: Denies chest pain, palpitations, or edema. RESPIRATORY: Denies cough or dyspnea. GASTROINTESTINAL: Denies abdominal pain, nausea, vomiting, or diarrhea. GENITOURINARY: Denies dysuria or hematuria. SKIN: Denies rash or itching. Healing skin tear left lower leg MUSCULOSKELETAL: As per HPI NEUROLOGIC: Denies headache, numbness, dizziness, or weakness. PSYCHIATRIC: Denies anxiety or depression. [facility] Past Medical History Medical History Benign reactive hypertension Diabetes Diabetic neuropathy Glaucoma High cholesterol [place] (hard of hearing) Hx of fracture of femur Hypertension Macular degeneration Skin cancer Surgical History Surgical History History of open reduction and internal fixation (ORIF) procedure Hx of cholecystectomy Hx of hysterectomy Family History Family History Mother Diabetes mellitus Social History Social History Social History: Smoking packs per day: 0.5 Smoking cigarettes per day: 10.0 Years smoked: 30 Smoking pack-years: 15.00 Smoking status: Former smoker Tobacco type: cigarettes Second hand tobacco smoke exposure: No Smoking end date: 03/25/16 Alcohol intake: never Substance use: never Substance use type: does not use Living arrangements: with family Additional living arrangements comments: PT LIVES WITH DAUGHTER - BRETT Occupation/Education: retired Gender identity (if verbalized by the patient): Female Sexual Orientation (if Verbalized by the Patient): Straight or Heterosexual Spiritual care concerns: No Exam Narrative: GENERAL: Well-appearing, well-nourished, and in no acute distress. HEAD: Normocephalic, atraumatic. EYES: PERRLA and EOMI. NECK: Supple. No adenopathy or masses. CHEST: Clear to auscultation. No respiratory distress. No wheezes rales or rhonchi HEART: Regular rate and rhythm. No murmur heard. Normal peripheral pulses. ABDOMEN: Soft, nontender, nondistended, normal active bowel sounds. EXTREMITIES: Normal range of motion. No edema. No leg shortening. No tenderness with palpation of the left hip. No midline spinal tenderness of the lumbar spine. SKIN: Warm, dry, no rash. NEURO: No focal deficits. Alert and oriented x3. No focal weakness. No numbness or tingling. PSYCH: Normal mood and affect. Course Vital Signs Vital signs: Vital Signs Temperature 36.4 C 09/14/22 09:04 Pulse R
[2022-09-14 09:53] LABS: Basophils Percent Auto 0.4 % (0.2-1.2); Eosinophils Absolute Auto 0.2 K/mm3 (0-0.3); Eosinophils Percent Auto 3.9 % (0-4.4); Hematocrit 37.5 % (37.0-47.0); Hemoglobin 12.1 g/dL (12.0-15.0); Immature Granulocyte Absolute 0.02 K/mm3 (0.00-0.031); Immature Granulocyte Percent A 0.4 % (0-0.5); Lymphocytes Absolute Auto 1.87 K/mm3 (0.9-3.2); Lymphocytes Percent Auto 32.9 % (18.3-44.2); Mean Corpuscular HGB Conc 32.3 g/dl (32-36); Mean Corpuscular Volume 108.4 fl (80-100); Mean Platelet Volume 9.6 fl (7.4-10.4); Monocytes Absolute Auto 0.5 K/mm3 (0.1-0.6); Monocytes Percent Auto 8.3 % (2.6-8.5); Neutrophils Absolute Auto 3.1 K/mm3 (1.3-6.7); Neutrophils Percent Auto 54.1 % (45.5-73.1); Platelet Count Result 183 k/mm3 (150-375); Red Blood Count 3.46 M/mm3 (4.2-5.4); Red Cell Distribution Width 13.9 % (11.5-14.5); White Blood Count 5.7 K/mm3 (4.5-10.0)
[2022-09-14 10:07] LABS: Alanine Aminotransferase 21 U/L (6-35); Albumin Level 4.2 g/dL (3.5-5.1); Alkaline Phosphatase 87 U/L (38-126); Anion Gap 9 mmol/L (8-16); Aspartate Amino Transferase 30 U/L (14-36); Bilirubin,Total 0.4 mg/dL (0.2-1.3); Blood Urea Nitrogen 48 mg/dL (7-17); Calcium 8.5 mg/dL (8.4-10.2); Carbon Dioxide 25 mmol/L (22-30); Chloride 108 mmol/L (98-107); Estimated CRCL calculation 19 ml/min; Estimated Glomerular Filt Rate 27; Glucose 97 mg/dL (65-110); Platelet Estimate Adequate (Adequate); Sodium 142 mmol/L (137-145)
[2022-09-14 10:08] LABS: Macrocytosis 1+ (NORMAL); Schistocytes None Seen (NORMAL)
[2022-09-14 10:14] LABS: Ethanol < 10 mg/dL (<10)
[2022-09-14 10:40] VITALS: BP 150/61; PULSE 85; RESP 22; O2SAT 95
== END 2022-09-14 10:56 | disposition home or self-care (01) ==
PROVIDERS: Emergency Provider Nurse Practitioner Family; PCP Family Medicine
DX: M25.552 Pain in left hip (principal); M54.50 Low back pain, unspecified; E11.9 Type 2 diabetes mellitus without complications; I10 Essential (primary) hypertension; Z87.891 Personal history of nicotine dependence
CPT/HCPCS: 36415; 72131; 73502; 80053; 80307; 85025; 99284

== ENCOUNTER 2022-10-30 11:08 | Outpatient (CLI) | payer OTHER, SELFPAY ==
--- NOTE | ~2022-10-30 | XR_ITS ---
EXAMINATION: XR toe 2nd RT min 2V DATE: 10/30/2022 11:35 INDICATION: Diabetic presenting with foot ulcer at the right second toe TECHNIQUE: Dorsal plantar, lateral and oblique views of the right second toe were obtained. COMPARISON: 08/03/2022 FINDINGS: Diffuse osteopenia. Interval progression of now advanced healing fracture at the necks of the third a nd fourth metatarsals. No acute fracture. No evident cortical erosions or osteolysis to suggest osteo myelitis. Mild polyarticular osteoarthritis at multiple joints in the visualized mid and forefoot. No soft tissue gas or radiopaque foreign bodies. 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 2. Interval progression of now advanced healing at a now chronic fractures at the right third and fou rth metatarsal necks. Reviewed, dictated and finalized at location L. 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 2. Interval progression of now advanced healing at a now chronic fractures at t he right third and fourth metatarsal necks.
== END 2022-10-30 11:09 | disposition home or self-care (01) ==
PROVIDERS: PCP Family Medicine; Visit Provider Physician Assistant
DX: E11.621 Type 2 diabetes mellitus with foot ulcer (principal); L97.509 Non-pressure chronic ulcer of other part of unspecified foot with unspecified severity
CPT/HCPCS: 73660

== ENCOUNTER 2024-04-20 08:35 | Inpatient (IN) | payer MEDICARE, OTHER, SELFPAY ==
[2024-04-20] VITALS (14 sets, daily range): BP systolic 119–153; BP diastolic 62–108; PULSE 88–117; RESP 20–26; TEMP 36.4–36.6; O2SAT 94–97; BMI 20.1
--- NOTE | ~2024-04-20 | XR_ITS ---
Clinical Indication: Shortness of breath PA and lateral views of the chest: Comparison: 04/16/2024 Findings: Extensive hazy pulmonary disease compatible with moderate to advanced pulmonary edema. No d efinite pleural effusions.. Cardiomediastinal silhouette is stable. Bones and soft tissues are unrem arkable. Impression: Moderate to advanced pulmonary edema pattern. Findings are mildly worsened from prior exam. Reviewed, dictated and finalized at location . WIG HACKLER Impression: Moderate to advanced pulmonary edema pattern. Findings are mildly worsened from prior exam.
--- NOTE | ~2024-04-20 | XR_ITS ---
XR abdomen/kub 1V 04/24/2024 12:15 Indication: Urinary retention. Constipation. Procedure: KUB Comparison: No prior studies for comparison. Findings: There are cholecystectomy clips. Bowel gas pattern nonobstructive. Moderate colonic fecal l oading. Severe lumbar spondylosis. There is radiopaque material in the central aspect of the abdomen, possibly residual contrast in bowel. There is possible mild interstitial edema in the lung bases. Re commend correlation with chest x-ray.. Impression: 1: Nonobstructive bowel gas pattern. Reviewed, dictated and finalized at location A. UTER OPERATIONS SPECIALIST Impression: 1: Nonobstructive bowel gas pattern.
--- OUTSIDE RECORDS SUMMARY | 2024-04-20 08:51 | XMS_ITS | Encounter Summary ---
Author Organization [facility] Address [address] [place] [address] Care Team Providers Care Third Helper Name Role Phone Aravind Morales MD Primary Care Provider [phone] Deborah Llamas MD Primary Care Provider + Encounter Details Date Type Department Care Team (Late st Contact Info) Description 07/19/2021 Lab Requisition [facility] Care D[facility] Lab [address], [facility] [place] [id number] Ghassan Morgan MD [address] [place] [address] Social History Tobacco Use Types Packs/Day Years Used Date Smoking Tobacco: Never Assessed Sex and Gender Information Value Date Recorded Sex Assigned at Not on file Gender Identity Not on file Sexual Orientation Not on file documented as of this encounter Plan of Treatment Not on file documented as of this encounter Procedures Procedure Name Priority Date/Time Associated Diagnosis Comments DERMATOPATHOLOGY Routine 07/18/2021 12:0 0 AM CDT documented in this encounter Results * DERMATOPATHOLOGY (07/18/2021 12:00 AM CDT) Case Report Dermatopathology Report ? Case: [id number] ? Authorizing Provider: ??Ghassan Morgan MD ?Collected: ? 07/18/2021 12:00 AM ? Ordering Location: ? [facility] Lab ?Received: ?07/19/2021 02:02 PM ? Pathologist: ? Daphne Reddy MD ? Specimens: ?? A) - Skin, right calf ? B) - Skin, left sup deltoid ? 2 1:33 PM CDT DERMATOPATHOLOGY LABORATORY Final Diagnosis Specimen A. 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 SKIN, left sup deltoid: ACTINIC KERATOSIS (L57.0) DERMAL SCAR (L90.5) 2 1:33 PM CDT DERMATOPATHOLOGY LABORATORY Clinical History A: R/O: KA, SCC B: R/O: SCC 2 1:33 PM CDT DERMATOPATHOLOGY LABORATORY Gross Description Specimen A: Received is one formalin filled container labeled with the patient's name and designated right calf. The specimen consists of a shave biopsy measuring [id number]. Jar 0. Specimen B: Received is one formalin filled container labeled with the patient's name and designated left sup deltoid. The specimen consists of a shave biopsy measuring [id number]. There is an additional piece of tissue measuring [id number]. Jar 0. 2 1:33 PM CDT DERMATOPATHOLOGY LABORATORY Microscopic Description Specimen A. SKIN, right calf: Sections show an endo exophytic crateriform lesion with a keratotic plug, formed by confluent follicle-like structures with relatively large keratinocytes and neutrophilic abscesses. Specimen B. SKIN, left sup deltoid: There is focal parakeratosis. The lower half of the epidermis shows disorderly maturation of keratinocytes with nuclear pleomorphism. There are fibroblasts and collagen bundles oriented parallel to the skin surface with elongated blood vessels, some of which are oriented perpendicular to the skin surface. 2 1:33 PM CDT DERMATOPATHOLOGY LABORATORY Disclaimer An external and internal positive and negative controls are appropriate for the histochemical, immunohistochemical and immunofluorescence stain(s) in this case (if any), except where stated explicitly. The performance characteristics of the stain(s) cited in this report were developed and its performance characteristic determined by the Dermatopathology Laboratory at [facility], directed by Dr. Tasha Nielsen. These tests need not be, and therefore are not, approved by the [place] Food and Drug Administration. The tests are used for clinical purposes. Billing Codes Specimen Charges Stain Charges 15425 [id number] 1 1 2 1:33 PM CDT DERMATOPATHOLOGY LABORATORY Embedded Images 2 1:33 PM CDT DERMATOPATHOLOGY LABORATORY Pathology/Cytology TISSUE SPECIMEN FROM SKIN / Unknown 07/18/2021 07/19/2021 2:02 PM CDT Miscellaneous samples (specimen) TISSUE SPECIMEN FROM SKIN / Unknown 07/18/2021 07/19/2021 2:02 PM CDT Ghassan Morgan MD LAB - PATHOLOGY/CYTO LOGY ORDERABLES DERMATOPATHOLOGY LABORATORY [facility] - Department of Dermatology [address], [address] [phone] documented in this encounter Visit Diagnoses Not on filedocumented in this encounter Care Teams Third Helper Relationship Specialty Start Date End Date Aravind Morales MD [address] [place] [address] PCP - General 01/01/18 11/16/21 Deborah Llamas MD [address] [place] [address] PCP - General 11/17/21 documented as of this encounter
--- OUTSIDE RECORDS SUMMARY | 2024-04-20 08:51 | XMS_ITS | Encounter Summary ---
Author Organization [facility] Address [address] [place] [address] Care Team Providers Care Veterinarian Assistant Name Role Phone Aravind Morales MD Primary Care Provider [phone] Deborah Llamas MD Primary Care Provider + Encounter Details Date Type Department Care Team (Late st Contact Info) Description 05/03/2021 Lab Requisition [facility] Care DermPath Lab [address] [facility] [place] [phone] Ghassan Morgan MD [address] [place] [address] Social History Tobacco Use Types Packs/Day Years Used Date Smoking Tobacco: Never Assessed Sex and Gender Information Value Date Recorded Sex Assigned at Not on file Gender Identity Not on file Sexual Orientation Not on file documented as of this encounter Plan of Treatment Not on file documented as of this encounter Procedures Procedure Name Priority Date/Time Associated Diagnosis Comments DERMATOPATHOLOGY Routine 05/02/2021 12:0 0 AM MICROBIAL SPECIALIST documented in this encounter Results * DERMATOPATHOLOGY (05/02/2021 12:00 AM MICROBIAL SPECIALIST) Case Report Dermatopathology Report ? Case: [id number] ? Authorizing Provider: ??Ghassan Morgan MD ?Collected: ? 05/02/2021 12:00 AM ? Ordering Location: ? [facility] DermPath Lab ?Received: ?05/03/2021 12:34 PM ? Pathologist: ? Alondra Nielsen MD ? Specimen: ?Skin, left superior deltoid ? 2 6:39 PM [facility] DERMATOPATHOLOGY LABORATORY Final Diagnosis Specimen A. SKIN, left superior deltoid: SQUAMOUS CELL CARCINOMA, WELL DIFFERENTIATED (C44.529) 2 6:39 PM [facility] DERMATOPATHOLOGY LABORATORY Clinical History R/O SCCA. 2 6:39 PM [facility] DERMATOPATHOLOGY LABORATORY Gross Description Specimen A: Received is one formalin filled container labeled with the patient's name and designated left superior deltoid. The specimen consists of a curettage and desiccation biopsy measuring [id number], trisected, & 6f2l3sm. Jar 0. 2 6:39 PM [facility] DERMATOPATHOLOGY LABORATORY Microscopic Description Specimen A. SKIN, left superior deltoid: Arising in the epidermis and extending into the dermis there are irregularly shaped aggregates of keratinocytes showing evidence of premature cornification. 2 6:39 PM [facility] DERMATOPATHOLOGY LABORATORY Disclaimer An external and internal positive and negative controls are appropriate for the histochemical, immunohistochemical and immunofluorescence stain(s) in this case (if any), except where stated explicitly. The performance characteristics of the stain(s) cited in this report were developed and its performance characteristic determined by the Dermatopathology Laboratory at [facility], directed by Dr. Tasha Nielsen. These tests need not be, and therefore are not, approved by the [place] Food and Drug Administration. The tests are used for clinical purposes. Billing Codes Specimen Charges Stain Charges 20789 1 2 6:39 PM MICROBIAL SPECIALIST DERMATOPATHOLOGY LABORATORY Embedded Images 2 6:39 PM MICROBIAL SPECIALIST DERMATOPATHOLOGY LABORATORY Pathology/Cytolog y TISSUE SPECIMEN FROM SKIN / Unknown 05/02/2021 05/03/2021 12:34 PM MICROBIAL SPECIALIST Ghassan Morgan MD LAB - PATHOLOGY/CYTO LOGY ORDERABLES DERMATOPATHOLOGY LABORATORY [facility] - Department of Dermatology [address], [address] [phone] documented in this encounter Visit Diagnoses Not on filedocumented in this encounter Care Teams Veterinarian Assistant Relationship Specialty Start Date End Date Aravind Morales MD [address] [place] [address] PCP - General 01/01/18 11/16/21 Deborah Llamas MD [address] [facility] [address] [facility] [address] [place] [address] PCP - General 11/17/21 documented as of this encounter
--- OUTSIDE RECORDS SUMMARY | 2024-04-20 08:51 | XMS_ITS | Continuity of Care Document ---
Author Organization [facility] Address [address] [place] [address] [place] [address] Phone Care Team Providers Care Architectural Drafting Instructor Name Role Phone Blessing Galindo Unavailable Unavailable Procedures Procedure Date Office/outpatient Visit, Est Office/outpatient Visit, Est Eye Exam & Treatment Refraction Advance Directives Directive Yes / No Effective Date File Name No Information Encounters Encounter Description Practice Location Reason(s) For Visit Diagnoses Date Provider Providers Copied on Encounter Office/outpat ient Visit, [facility], [address] [place] [address] [address], [place], [place], [id number], tel:[phone] [facility] No Information 8-201 0 Josie Sheriffn. [address] , [address], [place], [place], [facility], . tel:[phone] Office/outpat ient Visit, [facility], [address] [place] [address] [address], [place], [place], [id number], tel:[phone] [facility] No Information 7-200 8 Josie Sheriffn. [address] , [address], [place], [place], [facility], . tel:[phone] [facility], [address] [place] [address] [address], [place], [place], [id number], tel:[phone] [facility] No Information 0-200 7 Galindo Blessing. [address] , [address], [place], [address], [place]. tel:[phone] Family History Family Member Type Diagnosis Age At Onset No Information Payers Payer name Insurance type Covered libertarian ID Authoriza tion(s) No Information Social History [...]
--- OUTSIDE RECORDS SUMMARY | 2024-04-20 08:51 | XMS_ITS | Referral Summary ---
Author Organization [facility] Address [address] [place] [address] Care Team Providers Care Him Assistant Name Role Phone Deborah Llamas MD Primary Care Provider + Source Comments [facility],non-owned Affiliates and Associated Physician Practices is amultiple site organization consisting of ambulatory clinics and hospital sitesin [place], [place], [place] and [place]. This disclosure is being madepursuant to the Care Everywhere program and may not contain all information available regarding this patient. Last updated 17.[facility] [employer] Social History Tobacco Use Types Packs/Day Years Used Date Smoking Tobacco: Never Assessed Sex and Gender Information Value Date Recorded Sex Assigned at Not on file Gender Identity Not on file Sexual Orientation Not on file Plan of Treatment Not on file Care Teams Him Assistant Relationship Specialty Start Date End Date Deborah Llamas MD [address] [place] [address] PCP - General 11/17/21
--- OUTSIDE RECORDS SUMMARY | 2024-04-20 08:51 | XMS_ITS | Patient Health Summary ---
Author Organization [facility] Address [address] [facility] [place] [address] Care Team Providers Care Assembler Liquid Center Name Role Phone Deborah Llamas MD Primary Care Provider + Note from [facility],non-owned Affiliates and Associated Physician Practices is amultiple site organization consisting of ambulatory clinics and hospital sitesin [place], [place], [place] and [place]. This disclosure is being madepursuant to the Care Everywhere program and may not contain all information available regarding this patient. Last updated 17.[facility] Social History Tobacco Use Types Packs/Day Years Used Date Smoking Tobacco: Never Assessed Sex and Gender Information Value Date Recorded Sex Assigned at Not on file Gender Identity Not on file Sexual Orientation Not on file Procedures * DERMATOPATHOLOGY(Performed 04/10/2022) * DERMATOPATHOLOGY(Performed 09/20/2021) * DERMATOPATHOLOGY(Performed 07/18/2021) * DERMATOPATHOLOGY(Performed 07/04/2021) * DERMATOPATHOLOGY(Performed 05/02/2021) * DERMATOPATHOLOGY(Performed 03/01/2021) * DERMATOPATHOLOGY(Performed 10/11/2020) * DERMATOPATHOLOGY(Performed 02/16/2020) * DERMATOPATHOLOGY(Performed 02/09/2020) * DERMATOPATHOLOGY(Performed 11/25/2018) * DERMATOPATHOLOGY(Performed 07/23/2018) * DERMATOPATHOLOGY(Performed 04/09/2018) * DERMATOPATHOLOGY(Performed 12/31/2017) Results * DERMATOPATHOLOGY (04/10/2022 12:00 AM EMOTIONAL SUPPORT TEACHER) Only the most recent of13 resultswithin the time period is included. Case Report Dermatopathology Report ? Case: [id number] ? Authorizing Provider: ??Ghassan Morgan MD ?Collected: ? 04/10/2022 12:00 AM ? Ordering Location: ? [facility] DermPath Lab ?Received: ?04/11/2022 02:15 PM ? Pathologist: ? Pam Orourke MD ? Specimen: ?Skin, left distal medial leg ? 3 1:57 PM [facility] DERMATOPATHOLOGY LABORATORY Final Diagnosis Specimen A. 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 The specimen consists of a shave biopsy measuring [id number] mm. Jar 0. 3 1:57 PM [facility] DERMATOPATHOLOGY LABORATORY Microscopic Description Specimen A. SKIN, left distal medial leg: The epidermis shows parakeratosis, full thickness disorderly maturation of keratinocytes, mitoses at different levels, and dyskeratotic cells. 3 1:57 PM [facility] DERMATOPATHOLOGY LABORATORY Disclaimer An external and internal positive and negative controls are appropriate for the histochemical, immunohistochemical and immunofluorescence stain(s) in this case (if any), except where stated explicitly. The performance characteristics of the stain(s) cited in this report were developed and its performance characteristic determined by the Dermatopathology Laboratory at [facility], directed by Dr. Tasha Nielsen. These tests need not be, and therefore are not, approved by the [place] Food and Drug Administration. The tests are used for clinical purposes. Billing Codes Specimen Charges Stain Charges 81804 1 3 1:57 PM EMOTIONAL SUPPORT TEACHER DERMATOPATHOLOGY LABORATORY Embedded Images 3 1:57 PM EMOTIONAL SUPPORT TEACHER DERMATOPATHOLOGY LABORATORY Pathology/Cytolog y TISSUE SPECIMEN FROM SKIN / Unknown 04/10/2022 04/11/2022 2:15 PM EMOTIONAL SUPPORT TEACHER Ghassan Morgan MD LAB - PATHOLOGY/CYTO LOGY ORDERABLES DERMATOPATHOLOGY LABORATORY [facility] - Department of Dermatology Specialized Medicine [address] [place] [address], [address] [phone] Care Teams Assembler Liquid Center Relationship Specialty Start Date End Date Deborah Llamas MD [address] [place] [address] PCP - General 11/17/21
--- OUTSIDE RECORDS SUMMARY | 2024-04-20 08:51 | XMS_ITS | Encounter Summary ---
Author Organization [facility] Address [address] [place] [address] Care Team Providers Care Aquaculture And Fisheries Professor Name Role Phone Aravind Morales MD Primary Care Provider [phone] Deborah Llamas MD Primary Care Provider + Encounter Details Date Type Department Care Team (Late st Contact Info) Description 07/05/2021 Lab Requisition [facility] Care DermPath Lab [address] [facility] [facility] [place] [phone] Ghassan Morgan MD [address] [place] [address] Social History Tobacco Use Types Packs/Day Years Used Date Smoking Tobacco: Never Assessed Sex and Gender Information Value Date Recorded Sex Assigned at Not on file Gender Identity Not on file Sexual Orientation Not on file documented as of this encounter Plan of Treatment Not on file documented as of this encounter Procedures Procedure Name Priority Date/Time Associated Diagnosis Comments DERMATOPATHOLOGY Routine 07/04/2021 12:0 0 AM CDT documented in this encounter Results * DERMATOPATHOLOGY (07/04/2021 12:00 AM CDT) Case Report Dermatopathology Report ? Case: [id number] ? Authorizing Provider: ??Ghassan Morgan MD ?Collected: ? 07/04/2021 12:00 AM ? Ordering Location: ? [facility] DermPath Lab ?Received: ?07/05/2021 02:53 PM ? Pathologist: ? Pam Orourke MD ? Specimen: ?Skin, left dorsal ulnar proximal hand ? 2 1:56 PM [facility] DERMATOPATHOLOGY LABORATORY Final Diagnosis Specimen A. 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 The specimen consists of a shave biopsy measuring 73h72q2 mm,inked and trisected. Jar 0. 2 1:56 PM [facility] DERMATOPATHOLOGY LABORATORY Microscopic Description Specimen A. SKIN, left dorsal ulnar proximal hand: Arising in the epidermis and extending into the dermis there are irregularly shaped aggregates of keratinocytes showing evidence of premature cornification. This lesion is not present at the sampled margin of the specimen. There is adjacent hyperkeratosis alternating with parakeratosis. There is epidermal hyperplasia with disorderly maturation of keratinocytes with nuclear pleomorphism confined to the lower half of the epidermis. This lesion is present at the margin of the specimen. Lymphocytes, histiocytes, and multinucleated giant cells are present within the dermis. There is focal dermal fibrosis. 2 1:56 PM CDT DERMATOPATHOLOGY LABORATORY Disclaimer An external and internal positive and negative controls are appropriate for the histochemical, immunohistochemical and immunofluorescence stain(s) in this case (if any), except where stated explicitly. The performance characteristics of the stain(s) cited in this report were developed and its performance characteristic determined by the Dermatopathology Laboratory at [facility], directed by Dr. Tasha Nielsen. These tests need not be, and therefore are not, approved by the [place] Food and Drug Administration. The tests are used for clinical purposes. Billing Codes Specimen Charges Stain Charges 80719 1 2 1:56 PM CDT DERMATOPATHOLOGY LABORATORY Embedded Images 2 1:56 PM CDT DERMATOPATHOLOGY LABORATORY Pathology/Cytolog y TISSUE SPECIMEN FROM SKIN / Unknown 07/04/2021 07/05/2021 2:53 PM CDT Ghassan Morgan MD LAB - PATHOLOGY/CYTO LOGY ORDERABLES Performing Organization Address [facility]/State/ZIP Co de Phone Number DERMATOPATHOLOGY LABORATORY [facility] - Department of Dermatology [facility] [address] [place] [address], [address] [phone] documented in this encounter Visit Diagnoses Not on filedocumented in this encounter Care Teams Aquaculture And Fisheries Professor Relationship Specialty Start Date End Date Aravind Moralse MD [address] [place] [address] PCP - General 01/01/18 11/16/21 Deborah Llamas MD [address] [place] [address] PCP - General 11/17/21 documented as of this encounter
--- OUTSIDE RECORDS SUMMARY | 2024-04-20 08:51 | XMS_ITS | Encounter Summary ---
Author Organization [facility] Address [address] [facility] [place] [address] Care Team Providers Care Parole Agent Name Role Phone Aravind Morales MD Primary Care Provider [phone] Deborah Llamas MD Primary Care Provider + Encounter Details Date Type Department Care Team (Late st Contact Info) Description 09/21/2021 Lab Requisition [facility] Care DermPath Lab [address] [facility] [facility] [place] [phone] Ghassan Morgan MD [address] [place] [address] Social History Tobacco Use Types Packs/Day Years Used Date Smoking Tobacco: Never Assessed Sex and Gender Information Value Date Recorded Sex Assigned at Not on file Gender Identity Not on file Sexual Orientation Not on file documented as of this encounter Plan of Treatment Not on file documented as of this encounter Procedures Procedure Name Priority Date/Time Associated Diagnosis Comments DERMATOPATHOLOGY Routine 09/20/2021 12:0 0 AM CDT documented in this encounter Results * DERMATOPATHOLOGY (09/20/2021 12:00 AM CDT) Case Report Dermatopathology Report ? Case: [id number] ? Authorizing Provider: ??Ghassan Morgan MD ?Collected: ? 09/20/2021 12:00 AM ? Ordering Location: ? [facility] DermPath Lab ?Received: ?09/21/2021 12:08 PM ? Pathologist: ? Alondra Nielsen MD ? Specimens: ?? A) - Skin, right mid pretibia ? B) - Skin, right superior lateral right lower leg ? C) - Skin, right posterior superior lateral right lower leg ? 2 5:11 PM CDT DERMATOPATHOLOGY LABORATORY Final Diagnosis Specimen A. 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 SKIN, right superior lateral right lower leg: HYPERPLASTIC (HYPERTROPHIC) ACTINIC KERATOSIS WITH ASSOCIATED CHANGES OF PRURIGO NODULARIS (L57.0) Specimen C. 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 2 5:11 PM CDT DERMATOPATHOLOGY LABORATORY Gross Description Specimen A: Received is one formalin filled container labeled with the patient's name and designated right mid pretibia. The specimen consists of a shave biopsy measuring [id number], bisected. Jar 0+. Specimen B: Received is one formalin filled container labeled with the patient's name and designated right superior lateral right lower leg. The specimen consists of a shave biopsy measuring [id number]. Jar 0. Specimen C: Received is one formalin filled container labeled with the patient's name and designated right posterior superior lateral right lower leg. The specimen consists of a shave biopsy measuring [id number]. Jar 0. 2 5:11 PM T DERMATOPATHOLOGY LABORATORY Microscopic Description Specimen A. SKIN, right mid pretibia: Sections show an endo exophytic crateriform lesion with a keratotic plug, formed by confluent follicle-like structures with relatively large keratinocytes and neutrophilic abscesses. Specimen B. SKIN, right superior lateral right lower leg: There is hyperkeratosis alternating with parakeratosis. There is epidermal hyperplasia with disorderly maturation of keratinocytes with nuclear pleomorphism confined to the lower half of the epidermis. There is a dome-shaped portion of skin with psoriasiform epidermal hyperplasia, compact hyperkeratosis, and fibrosis of the papillary dermis associated with a superficial perivascular lymphohistiocytic infiltrate. Specimen C. SKIN, right posterior superior lateral right lower leg: The epidermis shows parakeratosis, full thickness disorderly maturation of keratinocytes, mitoses at different levels, and dyskeratotic cells. 2 5:11 PM T DERMATOPATHOLOGY LABORATORY Disclaimer An external and internal positive and negative controls are appropriate for the histochemical, immunohistochemical and immunofluorescence stain(s) in this case (if any), except where stated explicitly. The performance characteristics of the stain(s) cited in this report were developed and its performance characteristic determined by the Dermatopathology Laboratory at [facility], directed by Dr. Tasha Nielsen. These tests need not be, and therefore are not, approved by the [place] Food and Drug Administration. The tests are used for clinical purposes. Billing Codes Specimen Charges Stain Charges 41233 93346 36402 1 1 1 2 5:11 PM CDT DERMATOPATHOLOGY LABORATORY Embedded Images 2 5:11 PM T DERMATOPATHOLOGY LABORATORY Pathology/Cytology TISSUE SPECIMEN FROM SKIN / Unknown 09/20/2021 09/21/2021 12:08 PM CDT Miscellaneous samples (specimen) TISSUE SPECIMEN FROM SKIN / Unknown 09/20/2021 09/21/2021 12:08 PM CDT Miscellaneous samples (specimen) TISSUE SPECIMEN FROM SKIN / Unknown 09/20/2021 09/21/2021 12:08 PM CDT Ghassan Morgan MD LAB - PATHOLOGY/CYTO LOGY ORDERABLES DERMATOPATHOLOGY LABORATORY [facility] - Department of Dermatology [address], [address] [phone] documented in this encounter Visit Diagnoses Not on filedocumented in this encounter Care Teams Parole Agent Relationship Specialty Start Date End Date Aravind Morales MD [address] [facility] [facility] [address] [place] [address] PCP - General 01/01/18 11/16/21 Deborah Llamas MD [address] [place] [address] PCP - General 11/17/21 documented as of this encounter
--- OUTSIDE RECORDS SUMMARY | 2024-04-20 08:52 | XMS_ITS | Encounter Summary ---
Author Organization [facility] Address [address] [facility] [place] [address] Care Team Providers Care Furnace Maintenance Name Role Phone Aravind Morales MD Primary Care Provider [phone] [phone] Deborah Llamas MD Primary Care Provider + Encounter Details Date Type Department Care Team (Late st Contact Info) Description 03/03/2021 Lab Requisition [facility] Care DermPath Lab [address] [facility] [facility] [place] [id number] Ghassan Morgan MD [address] [place] [address] Social History Tobacco Use Types Packs/Day Years Used Date Smoking Tobacco: Never Assessed Sex and Gender Information Value Date Recorded Sex Assigned at Not on file Gender Identity Not on file Sexual Orientation Not on file documented as of this encounter Plan of Treatment Not on file documented as of this encounter Procedures Procedure Name Priority Date/Time Associated Diagnosis Comments DERMATOPATHOLOGY Routine 03/01/2021 12:0 0 AM FABRIC INSPECTOR documented in this encounter Results * DERMATOPATHOLOGY (03/01/2021 12:00 AM FABRIC INSPECTOR) Case Report Dermatopathology Report ? Case: [id number] ? Authorizing Provider: ??Ghassan Morgan MD ?Collected: ? 03/01/2021 12:00 AM ? Ordering Location: ? [facility] DermPath Lab ?Received: ?03/03/2021 12:35 PM ? Pathologist: ? Kierra Meadows, ? MD ? Specimen: ?Skin, left medial calf ? 1 1:[address] [facility] DERMATOPATHOLOGY LABORATORY Final Diagnosis Specimen A. SKIN, left medial calf: SQUAMOUS CELL CARCINOMA, WELL DIFFERENTIATED (C44.729) NOT PRESENT AT SAMPLED MARGIN 1 1:[address] [facility] DERMATOPATHOLOGY LABORATORY Clinical History R/O KA. Check margins. 1 1:[address] [facility] DERMATOPATHOLOGY LABORATORY Gross Description Specimen A: Received is one formalin filled container labeled with the patient's name and designated left medial calf. The specimen consists of a curettage and desiccation biopsy measuring [id number], serially sectioned and submitted in cassettes 1-2. The margin is inked green. Jar 0+. 1 1:[address] [facility] DERMATOPATHOLOGY LABORATORY Microscopic Description Specimen A. SKIN, left medial calf: Arising in the epidermis and extending into the dermis there are irregularly shaped aggregates of keratinocytes showing evidence of premature cornification. This lesion is not present at the sampled margin of the specimen. 1 1:[address] [facility] DERMATOPATHOLOGY LABORATORY Disclaimer An external and internal positive and negative controls are appropriate for the histochemical, immunohistochemical and immunofluorescence stain(s) in this case (if any), except where stated explicitly. The performance characteristics of the stain(s) cited in this report were developed and its performance characteristic determined by the Dermatopathology Laboratory at [facility], directed by Dr. Tasha Nielsen. These tests need not be, and therefore are not, approved by the [place] Food and Drug Administration. The tests are used for clinical purposes. Billing Codes Specimen Charges Stain Charges 47448 1 1 1:47 PM FABRIC INSPECTOR DERMATOPATHOLOGY LABORATORY Embedded Images 1 1:47 PM FABRIC INSPECTOR DERMATOPATHOLOGY LABORATORY Pathology/Cytolog y TISSUE SPECIMEN FROM SKIN / Unknown 03/01/2021 03/03/2021 12:35 PM FABRIC INSPECTOR Ghassan Morgan MD LAB - PATHOLOGY/CYTO LOGY ORDERABLES DERMATOPATHOLOGY LABORATORY [facility] - Department of Dermatology [facility] [address] [place] [address], [address]rd [address] [phone] documented in this encounter Visit Diagnoses Not on filedocumented in this encounter Care Teams Furnace Maintenance Relationship Specialty Start Date End Date rAavind Morales MD [address] [place] [address] PCP - General 01/01/18 11/16/21 Deborah Llamas MD [address] [place] [address] PCP - General 11/17/21 documented as of this encounter
--- OUTSIDE RECORDS SUMMARY | 2024-04-20 08:52 | XMS_ITS | Encounter Summary ---
Author Organization [facility] Address [address] [place] [address] Care Team Providers Care Mutuel Machine Operator Name Role Phone Aravind Morales MD Primary Care Provider [phone] Deborah Llamas MD Primary Care Provider + Encounter Details Date Type Department Care Team (Late st Contact Info) Description 04/10/2018 Lab Requisition [facility] Care DermPath Lab [address] [facility] [place] [id number] Ghassan Morgan MD [address] [address] Social History Tobacco Use Types Packs/Day Years Used Date Smoking Tobacco: Never Assessed Sex and Gender Information Value Date Recorded Sex Assigned at Not on file Gender Identity Not on file Sexual Orientation Not on file documented as of this encounter Plan of Treatment Not on file documented as of this encounter Procedures Procedure Name Priority Date/Time Associated Diagnosis Comments DERMATOPATHOLOGY Routine 04/09/2018 12:0 0 AM GRAPHICS PROGRAMMER documented in this encounter Results * DERMATOPATHOLOGY (04/09/2018 12:00 AM GRAPHICS PROGRAMMER) Case Report Dermatopathology Report ? Case: [id number] ? Authorizing Provider: ??Ghassan Morgan MD ?Collected: ? 04/09/2018 12:00 AM ? Pathologist: ? Thania Shepherd MD ? Received: ?04/10/2018 12:20 PM ? Specimens: ?? A) - Skin, left med calf ? B) - Skin, left ditsal med calf ? 9 1:19 PM [facility] DERMATOPATHOLOGY LABORATORY Final Diagnosis Specimen A. 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 9 1:19 PM [facility] DERMATOPATHOLOGY LABORATORY Gross Description Specimen A: Received is one formalin filled container labeled with the patient's name and designated left med calf. The specimen consists of a curettage and desiccation biopsy measuring [id number], bisected. Jar 0+. Specimen B: Received is one formalin filled container labeled with the patient's name and designated left ditsal med calf. The specimen consists of a curettage and desiccation biopsy measuring [id number], bisected. Jar 0. 9 1:19 PM [facility] DERMATOPATHOLOGY LABORATORY Microscopic Description Specimen A. SKIN, left med calf: Arising in the epidermis and extending into the dermis there are irregularly shaped aggregates of keratinocytes showing evidence of premature cornification. COMMENT: the lesion has some features of a keratoacanthoma type of squamous cell carcinoma. Specimen B. SKIN, left ditsal med calf: Arising in the epidermis and extending into the dermis there are irregularly shaped aggregates of keratinocytes showing evidence of premature cornification. 9 1:19 PM [facility] DERMATOPATHOLOGY LABORATORY Disclaimer An external and internal positive and negative controls are appropriate for the histochemical, immunohistochemical and immunofluorescence stain(s) in this case (if any), except where stated explicitly. The performance characteristics of the stain(s) cited in this report were developed and its performance characteristic determined by the Dermatopathology Laboratory at [facility], directed by Dr. Tasha Nielsen. These tests need not be, and therefore are not, approved by the [place] Food and Drug Administration. The tests are used for clinical purposes. Billing Codes Specimen Charges Stain Charges 11772 28015 1 1 9 1:19 PM GRAPHICS PROGRAMMER DERMATOPATHOLOGY LABORATORY Embedded Images 1:19 PM [facility] DERMATOPATHOLOGY LABORATORY Pathology/Cytology TISSUE SPECIMEN FROM SKIN / Unknown 04/09/2018 04/10/2018 12:20 PM GRAPHICS PROGRAMMER Miscellaneous samples (specimen) TISSUE SPECIMEN FROM SKIN / Unknown 04/09/2018 04/10/2018 12:20 PM GRAPHICS PROGRAMMER Ghassan Morgan MD LAB - PATHOLOGY/CYTO LOGY ORDERABLES DERMATOPATHOLOGY LABORATORY [facility] - Department of Dermatology [address] [place] [address], 5th Floor Lab [address] [phone] documented in this encounter Visit Diagnoses Not on filedocumented in this encounter Care Teams Mutuel Machine Operator Relationship Specialty Start Date End Date Aravind Morales MD [address] [place] [address] PCP - General 01/01/18 11/16/21 Deborah Llamas MD [address] [place] [address] PCP - General 11/17/21 documented as of this encounter
--- OUTSIDE RECORDS SUMMARY | 2024-04-20 08:52 | XMS_ITS | Encounter Summary ---
Author Organization [facility] Address [address] [facility] [place] [address] Care Team Providers Care Employee Communications Coordinator Name Role Phone Deborah Llamas MD Primary Care Provider + Encounter Details Date Type Department Care Team (Late st Contact Info) Description 04/11/2022 Lab Requisition [facility] [address] [facility] [place] [id number] Ghassan Morgan MD [address] [place], [place] [id number] Social History Tobacco Use Types Packs/Day Years Used Date Smoking Tobacco: Never Assessed Sex and Gender Information Value Date Recorded Sex Assigned at Not on file Gender Identity Not on file Sexual Orientation Not on file documented as of this encounter Plan of Treatment Not on file documented as of this encounter Procedures Procedure Name Priority Date/Time Associated Diagnosis Comments DERMATOPATHOLOGY Routine 04/10/2022 12:0 0 AM SLUNK SKINNER documented in this encounter Results * DERMATOPATHOLOGY (04/10/2022 12:00 AM SLUNK SKINNER) Case Report Dermatopathology Report ? Case: [id number] ? Authorizing Provider: ??Ghassan Morgan MD ?Collected: ? 04/10/2022 12:00 AM ? Ordering Location: ? [facility] ?Received: ?04/11/2022 02:15 PM ? Pathologist: ? Pam Orourke MD ? Specimen: ?Skin, left distal medial leg ? 3 1:57 PM [facility] DERMATOPATHOLOGY LABORATORY Final Diagnosis Specimen A. 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 The specimen consists of a shave biopsy measuring [id number] mm. Jar 0. 3 1:57 PM [facility] DERMATOPATHOLOGY LABORATORY Microscopic Description Specimen A. SKIN, left distal medial leg: The epidermis shows parakeratosis, full thickness disorderly maturation of keratinocytes, mitoses at different levels, and dyskeratotic cells. 3 1:57 PM [facility] DERMATOPATHOLOGY LABORATORY Disclaimer An external and internal positive and negative controls are appropriate for the histochemical, immunohistochemical and immunofluorescence stain(s) in this case (if any), except where stated explicitly. The performance characteristics of the stain(s) cited in this report were developed and its performance characteristic determined by the Dermatopathology Laboratory at [facility], directed by Dr. Tasha Nielsen. These tests need not be, and therefore are not, approved by the [place] Food and Drug Administration. The tests are used for clinical purposes. Billing Codes Specimen Charges Stain Charges 39312 1 3 1:57 PM SLUNK SKINNER DERMATOPATHOLOGY LABORATORY Embedded Images 3 1:57 PM [facility] DERMATOPATHOLOGY LABORATORY Pathology/Cytolog y TISSUE SPECIMEN FROM SKIN / Unknown 04/10/2022 04/11/2022 2:15 PM SLUNK SKINNER Ghassan Morgan MD LAB - PATHOLOGY/CYTO LOGY ORDERABLES DERMATOPATHOLOGY LABORATORY [facility] - Department of Dermatology [facility] Medicine [address] [place] [address], [address]rd [address] [phone] documented in this encounter Visit Diagnoses Not on filedocumented in this encounter Care Teams Employee Communications Coordinator Relationship Specialty Start Date End Date Deborah Llamas MD [address] [place] [address] PCP - General 11/17/21 documented as of this encounter
--- OUTSIDE RECORDS SUMMARY | 2024-04-20 08:52 | XMS_ITS | Encounter Summary ---
Author Organization [facility] Address [address] [facility] [place] [address] Care Team Providers Care Clerical Proofreader Name Role Phone Aravind Morales MD Primary Care Provider [phone] [phone] Deborah Llamas MD Primary Care Provider + Encounter Details Date Type Department Care Team (Late st Contact Info) Description 11/26/[address] Lab Requisition [facility] Care DermPath Lab [address] [facility] [place] [id number] Ghassan Morgan MD [address] [place] [address] Social History Tobacco Use Types Packs/Day Years Used Date Smoking Tobacco: Never Assessed Sex and Gender Information Value Date Recorded Sex Assigned at Not on file Gender Identity Not on file Sexual Orientation Not on file documented as of this encounter Plan of Treatment Not on file documented as of this encounter Procedures Procedure Name Priority Date/Time Associated Diagnosis Comments DERMATOPATHOLOGY Routine 11/25/2018 12:0 0 AM CDT documented in this encounter Results * DERMATOPATHOLOGY (11/25/2018 12:00 AM CDT) Case Report Dermatopathology Report ? Case: [id number] ? Authorizing Provider: ??Ghassan Morgan MD ?Collected: ? 11/25/2018 12:00 AM ? Ordering Location: ? [facility] DermPath Lab ?Received: ?11/26/2018 11:47 AM ? Pathologist: ? Alondra Nielsen MD ? Specimens: ?? A) - Skin, left lower midline pretibia ? B) - Skin, left lower anteromedial leg ? C) - Skin, left lower triceps ? 9 2:20 PM CDT DERMATOPATHOLOGY LABORATORY Final Diagnosis Specimen A. 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 SKIN, left lower anteromedial leg: HYPERPLASTIC (HYPERTROPHIC) ACTINIC KERATOSIS (L57.0) Specimen C. SKIN, left lower triceps: SQUAMOUS CELL CARCINOMA, KERATOACANTHOMA TYPE (C44.629) 9 2:20 PM CDT DERMATOPATHOLOGY LABORATORY Clinical History A-C: R/O SCC. 9 2:20 PM CDT DERMATOPATHOLOGY LABORATORY Gross Description Specimen A: Received is one formalin filled container labeled with the patient's name and designated left lower midline pretibia. The specimen consists of a curettage and desiccation biopsy measuring [id number]. Jar 0. Specimen B: Received is one formalin filled container labeled with the patient's name and designated left lower anteromedial leg. The specimen consists of a curettage and desiccation biopsy measuring [id number]. Jar 0. Specimen C: Received is one formalin filled container labeled with the patient's name and designated left lower triceps. The specimen consists of a curettage and desiccation biopsy measuring [id number]. Jar 0. 2:20 PM CDT DERMATOPATHOLOGY LABORATORY Microscopic Description Specimen A. SKIN, left lower midline pretibia: Sections show an endo exophytic crateriform lesion with a keratotic plug, formed by confluent follicle-like structures with relatively large keratinocytes and neutrophilic abscesses. Specimen B. SKIN, left lower anteromedial leg: There is hyperkeratosis alternating with parakeratosis. There is epidermal hyperplasia with disorderly maturation of keratinocytes with nuclear pleomorphism confined to the lower half of the epidermis. Specimen C. SKIN, left lower triceps: Sections show an endo exophytic crateriform lesion with a keratotic plug, formed by confluent follicle-like structures with relatively large keratinocytes and neutrophilic abscesses. 2:20 PM CDT DERMATOPATHOLOGY LABORATORY Disclaimer An external and internal positive and negative controls are appropriate for the histochemical, immunohistochemical and immunofluorescence stain(s) in this case (if any), except where stated explicitly. The performance characteristics of the stain(s) cited in this report were developed and its performance characteristic determined by the Dermatopathology Laboratory at [facility], directed by Dr. Tasha Nielsen. These tests need not be, and therefore are not, approved by the [place] Food and Drug Administration. The tests are used for clinical purposes. Billing Codes Specimen Charges Stain Charges 99804 38501 59964 1 1 1 2:20 PM CDT DERMATOPATHOLOGY LABORATORY Embedded Images 2:20 PM CDT DERMATOPATHOLOGY LABORATORY Pathology/Cytology TISSUE SPECIMEN FROM SKIN / Unknown 11/25/2018 11/26/2018 11:47 AM CDT Miscellaneous samples (specimen) TISSUE SPECIMEN FROM SKIN / Unknown 11/25/2018 11/26/2018 11:47 AM CDT Miscellaneous samples (specimen) TISSUE SPECIMEN FROM SKIN / Unknown 11/25/2018 11/26/2018 11:47 AM CDT Ghassan Morgan MD LAB - PATHOLOGY/CYTO LOGY ORDERABLES DERMATOPATHOLOGY LABORATORY [facility] - Department of Dermatology [address] [place] [address] 5th Floor Lab [address] [phone] documented in this encounter Visit Diagnoses Not on filedocumented in this encounter Care Teams Clerical Proofreader Relationship Specialty Start Date End Date Aravind Morales MD [address] [facility] [address] [place] [address] PCP - General 01/01/18 11/16/21 Deborah Llamas MD [address] [facility] [address] [place] [address] PCP - General 11/17/21 documented as of this encounter
--- OUTSIDE RECORDS SUMMARY | 2024-04-20 08:52 | XMS_ITS | Clinical Summary ---
Author Organization [facility] [address] Address [address] [place] [address] Care Team Providers Care Mounting Machine Operator Name Role Phone Deborah Llamas MD Primary Care Provider Allergies No known active allergies Medications alendronate (FOSAMAX) 70 mg tablet TAKE 1 TABLET BY MOUTH ONCE WEEKLY 05/04/19 22 Active ezetimibe (ZETIA) 10 mg tablet Take 10 mg by mouth daily Active cyanocobalamin (Vitamin B-12) 1,000 mcg tabletIndications:Pr evention of Vitamin B12 Deficiency Take 1,000 mcg by mouth daily Active LEVEMIR 100 unit/mL (3 mL) pen for injection INJECT 20 UNITS SUBCTANEOUS EVERY MORNING AND 10 UNITS EVERY EVENING 03/25/19 22 Active quinapriL (ACCUPRIL) 40 mg tablet 40 MG BY MOUTH DAILY 03/08/20 21 Active rOPINIRole (REQUIP) 2 mg tablet Take 2 mg by mouth 3 (three) times a day 04/19/19 22 Active furosemide (LASIX) 40 mg tablet Take 1 tablet (40 mg total) by mouth daily 30 tablet 3 06/09/19 22 Active aspirin 81 mg enteric coated tablet Take 1 tablet (81 mg total) by mouth every morning 90 tablet 3 07/26/19 22 Active atorvastatin (LIPITOR) 20 mg tablet Take 1 tablet (20 mg total) by mouth daily 90 tablet 3 07/26/19 22 Active polysaccharide iron complex (NU-IRON) 150 mg iron capsule Take by mouth daily 10/03/19 22 Active QUEtiapine (SEROquel) 25 mg tablet Take 25 mg by mouth nightly at bedtime. 09/25/19 22 Active metoprolol XL (TOPROL-XL) 25 mg extended release tabletIndications:Ch ronic systolic congestive heart failure (CMS/HCC) ([facility]),PSVT (paroxysmal supraventricular tachycardia) (HCC) Take 1 tablet (25 mg total) by mouth daily 90 tablet 3 11/21/19 22 Active sacubitriL-valsartan (ENTRESTO) 49-51 mg tabletIndications:ch ronic heart failure Take 1 tablet by mouth 2 (two) times a day 60 tablet 11 02/23/20 22 Active Active Problems Problem Noted Date Diagnosed Date Chronic HFrEF (heart failure with reduced ejection fraction) (CMS/HCC) 02/22/2022 Cardiomyopathy, ischemic 02/22/2022 PSVT (paroxysmal supraventricular tachycardia) 1 04/25/2021 Parkinson's disease 02/22/2022 Dizziness 02/22/2022 Abnormal stress test 02/22/2022 Hypertension associated with diabetes 02/22/2022 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 2 diabetes mellitus 02/22/2022 Surgical History Surgery Date Site/Laterality Comments ORIF FEMORAL SHAFT FRACTURE W/ PLATES AND SCREWS CHOLECYSTECTOMY HYSTERECTOMY Medical History Medical History Date Comments Covid A-fib (CMS/HCC) (HCC) Hypertension Diabetes mellitus (HCC) Glaucoma Restless leg syndrome Edema COPD (chronic obstructive pulmonary disease) (HC C) CHF (congestive heart failure) (CMS/HCC) ([facility]) 0 05/10/2021 Tremor Family History Medical History Relation Name Comments Emphysema Father Diabetes Mother Relation Name Status Comments Father (Age 84) Mother (Age 73) Social History Tobacco Use Types Packs/Day Years Used Date Smoking Tobacco: Former Cigarettes Q uit: 2021 Smokeless Tobacco: Never Tobacco Cessation:Counseling Given: Not Answered Comments Unknown Sex and Gender Information Value Date Recorded Sex Assigned at Not on file Legal Sex Female 10:44 AM FIRER GLOST KILN Gender Identity Not on file Sexual Orientation Not on file Obstetrics History Last Filed Vital Signs Vital Sign Reading Time Taken Comments Blood Pressure 124/68 02/22/2022 10:51 AM FIRER GLOST KILN Pulse 96 02/22/2022 10:51 AM FIRER GLOST KILN Temperature - - Respiratory Rate - - Oxygen Saturation 99% 02/22/2022 10:51 AM FIRER GLOST KILN Inhaled Oxygen Concentration - - Weight 63.1 kg (139 lb 3.2 oz) 02/22/2022 10:51 AM FIRER GLOST KILN Height 167.6 cm (5' 6 ) 02/22/2022 10:51 AM FIRER GLOST KILN Body Mass Index 22.47 02/22/2022 10:51 AM FIRER GLOST KILN Plan of Treatment Health Maintenance Due Date Last Done Comments Albumin Creatinine Ratio, Urine 1936 Depression Screening 1936 Fall Risk Assessment 1936 Hemoglobin A1C 1936 eGFR 1936 Dilated Eye Exam 1936 Foot Exam 1936 Hepatitis B Screening 1954 Zoster Vaccine (1 of 2) 1986 Well Visit 65+ 2001 Lipid Panel 02/22/2023 02/22/2022 Covid-19 Vaccine (4 - 2023-2 5 season) 2023 02/25/2021, 07/30/2020, 07/04/2020 Influenza Vaccine (#1) 2023 , 12/24/2019, 01/24/2019, Additional history exists DTaP/Tdap/Td Vaccine (2 - Td or Tdap) 07/15/2024 07/15/2014, 01/18/2004 Pneumococcal vaccine 65+ Completed 01/07/2016, 12/25 Procedures Procedure Name Priority Date/Time Associated Diagnosis Comments POCT LIPID PANEL Routine 02/22/2022 12:2 0 PM FIRER GLOST KILN Mixed diabetic hyperlipidemia associated with type 2 diabetes mellitus (CMS/HCC) (HCC) from Last 3 Months or Most Recently Relevant to Health Maintenance Results * POCT lipid panel (02/22/2022 12:20 PM FIRER GLOST KILN) Cholesterol, POC 109 mg/dL Comment:GLU = 150 HDL, POC 50 mg/dL Triglycerides, POC 150 mg/dL LDL Cholesterol POC 29 mg/dL Chol/HDL Ratio, POC 0.6 Non-HDL Cholesterol, POC 59 mg/dL Cholesterol Total, POC 109 mg/dL Capillary blood 02/22/2022 1 2:20 PM FIRER GLOST KILN us Mario Bustamante MD POINT OF CARE TEST ORDER GAGE Final Result from Last 3 Months or Most Recently Relevant to Health [place] [address] [facility] [place] [address] Care Teams Mounting Machine Operator Relationship Specialty Start Date End Date Deborah Llamas MD [address] [place] [address] PCP - General Family Medicine 05/03/20
--- OUTSIDE RECORDS SUMMARY | 2024-04-20 08:52 | XMS_ITS | Encounter Summary ---
Author Organization [facility] Address [address] [facility] [address] Care Team Providers Care Raw Stock Drier Tender Name Role Phone Aravind Morales MD Primary Care Provider [phone] [phone] Deborah Llamas MD Primary Care Provider + Encounter Details Date Type Department Care Team (Late st Contact Info) Description 02/17/2020 Lab Requisition [facility] Care DermPath Lab [address] [place] [phone] Ghassan Morgan MD [address] [place] [address] Social History Tobacco Use Types Packs/Day Years Used Date Smoking Tobacco: Never Assessed Sex and Gender Information Value Date Recorded Sex Assigned at Not on file Gender Identity Not on file Sexual Orientation Not on file documented as of this encounter Plan of Treatment Not on file documented as of this encounter Procedures Procedure Name Priority Date/Time Associated Diagnosis Comments DERMATOPATHOLOGY Routine 02/16/2020 12:0 0 AM MECHANICAL ENGINEERING DRAFTSPERSON documented in this encounter Results * DERMATOPATHOLOGY (02/16/2020 12:00 AM MECHANICAL ENGINEERING DRAFTSPERSON) Case Report Dermatopathology Report ? Case: [id number] ? Authorizing Provider: ??Ghassan Morgan MD ?Collected: ? 02/16/2020 12:00 AM ? Ordering Location: ? [facility] DermPath Lab ?Received: ?02/17/2020 11:22 AM ? Pathologist: ? Daphne Reddy MD ? Specimen: ?Skin, left mid anterior medial pretibia ? 0 1:42 PM [facility] DERMATOPATHOLOGY LABORATORY Final Diagnosis Specimen A. SKIN, left mid anterior medial pretibia: SQUAMOUS CELL CARCINOMA, WELL DIFFERENTIATED (C44.729) 0 1:42 PM [facility] DERMATOPATHOLOGY LABORATORY Clinical History R/O SCC,HAK 0 1:42 PM [facility] DERMATOPATHOLOGY LABORATORY Gross Description Specimen A: Received is one formalin filled container labeled with the patient's name and designated left mid anterior medial pretibia. The specimen consists of a curettage and desiccation biopsy measuring [id number] mm. Jar 0. 0 1:42 PM [facility] DERMATOPATHOLOGY LABORATORY Microscopic Description Specimen A. SKIN, left mid anterior medial pretibia: Arising in the epidermis and extending into the dermis there are irregularly shaped aggregates of keratinocytes showing evidence of premature cornification. 0 1:42 PM [facility] DERMATOPATHOLOGY LABORATORY Disclaimer An external and internal positive and negative controls are appropriate for the histochemical, immunohistochemical and immunofluorescence stain(s) in this case (if any), except where stated explicitly. The performance characteristics of the stain(s) cited in this report were developed and its performance characteristic determined by the Dermatopathology Laboratory at [facility], directed by Dr. Tasha Nielsen. These tests need not be, and therefore are not, approved by the [place] Food and Drug Administration. The tests are used for clinical purposes. Billing Codes Specimen Charges Stain Charges 54160 1 0 1:42 PM MECHANICAL ENGINEERING DRAFTSPERSON DERMATOPATHOLOGY LABORATORY Embedded Images 0 1:42 PM MECHANICAL ENGINEERING DRAFTSPERSON DERMATOPATHOLOGY LABORATORY Pathology/Cytolog y TISSUE SPECIMEN FROM SKIN / Unknown 02/16/2020 02/17/2020 11:22 AM MECHANICAL ENGINEERING DRAFTSPERSON Ghassan Morgan MD LAB - PATHOLOGY/CYTO LOGY ORDERABLES DERMATOPATHOLOGY LABORATORY [facility] - Department of Dermatology [facility] Medicine [address] [place] [address], [address] [phone] documented in this encounter Visit Diagnoses Not on filedocumented in this encounter Care Teams Raw Stock Drier Tender Relationship Specialty Start Date End Date Aravind Morales MD [address] [place] [address] PCP - General 01/01/18 11/16/21 Deborah Llamas MD [address] [place] [address] PCP - General 11/17/21 documented as of this encounter
--- OUTSIDE RECORDS SUMMARY | 2024-04-20 08:52 | XMS_ITS | Referral Summary ---
Author Organization [facility] [address] Address [address] [place] [address] Care Team Providers Care Logistics Technician Name Role Phone Deborah Llamas MD Primary [...] tabletIndications:Ch ronic systolic congestive heart failure (CMS/HCC) ([facility]),PSVT (paroxysmal supraventricular tachycardia) ([facility]) Take 1 tablet (25 mg total) by [...] associated with type 2 diabetes mellitus 02/22/2022 Social History Tobacco Use Types Packs/Day Years Used Date Smoking Tobacco: Former Cigarettes Q uit: 2021 Smokeless Tobacco: Never Tobacco Cessation:Counseling Given: Not Answered Comments Unknown Sex and Gender Information Value Date Recorded Sex Assigned at Not on file Legal Sex Female 10:44 AM NATIONAL ACCOUNT MANAGER Gender Identity Not on file Sexual Orientation Not on file Last Filed Vital Signs Vital Sign Reading Time Taken Comments Blood Pressure 124/68 02/22/2022 10:51 AM NATIONAL ACCOUNT MANAGER Pulse 96 02/22/2022 10:51 AM NATIONAL ACCOUNT MANAGER Temperature - - Respiratory Rate - - Oxygen Saturation 99% 02/22/2022 10:51 AM NATIONAL ACCOUNT MANAGER Inhaled Oxygen Concentration - - Weight 63.1 kg (139 lb 3.2 oz) 02/22/2022 10:51 AM NATIONAL ACCOUNT MANAGER Height 167.6 cm (5' 6 ) 02/22/2022 10:51 AM NATIONAL ACCOUNT MANAGER Body Mass Index 22.47 02/22/2022 10:51 AM NATIONAL ACCOUNT MANAGER Plan of Treatment Not on file Procedures Procedure Name Priority Date/Time Associated Diagnosis Comments POCT LIPID PANEL Routine 02/22/2022 12:2 0 PM NATIONAL ACCOUNT MANAGER Mixed diabetic hyperlipidemia associated with type 2 diabetes mellitus (CMS/HCC) ([facility]) from Last 3 Months or Most Recently Relevant to Health Maintenance Results * POCT lipid panel (02/22/2022 12:20 PM NATIONAL ACCOUNT MANAGER) Cholesterol, POC 109 mg/dL Comment:GLU = 150 HDL, POC 50 mg/dL Triglycerides, POC 150 mg/dL LDL Cholesterol POC 29 mg/dL Chol/HDL Ratio, POC 0.6 Non-HDL Cholesterol, POC 59 mg/dL Cholesterol Total, POC 109 mg/dL Capillary blood 02/22/2022 1 2:20 PM NATIONAL ACCOUNT MANAGER us Mario Bustamante MD POINT OF CARE TEST ORDER GAGE Final Result from Last 3 Months or Most Recently Relevant to Health [place] [id number] [facility] [employer] FOR BL[employer]ABIES[employer]tt[employer] HMO/PPO Address: [address] [place] [address] Care Teams Logistics Technician Relationship Specialty Start Date End Date Deborah Llamas MD [address] [place] [address] PCP - General Family Medicine 05/03/20
--- OUTSIDE RECORDS SUMMARY | 2024-04-20 08:52 | XMS_ITS | Encounter Summary ---
Author Organization [facility] Address [address] [facility] [place] [address] Care Team Providers Care Director Of Web Marketing Name Role Phone Aravind Morales MD Primary Care Provider [phone] Deborah Llamas MD Primary Care Provider + Encounter Details Date Type Department Care Team (Late st Contact Info) Description 02/10/2020 Lab Requisition [facility] Care DermPath Lab [address] [place] [phone] Ghassan Morgan MD [address] [place] [address] Social History Tobacco Use Types Packs/Day Years Used Date Smoking Tobacco: Never Assessed Sex and Gender Information Value Date Recorded Sex Assigned at Not on file Gender Identity Not on file Sexual Orientation Not on file documented as of this encounter Plan of Treatment Not on file documented as of this encounter Procedures Procedure Name Priority Date/Time Associated Diagnosis Comments DERMATOPATHOLOGY Routine 02/09/2020 12:0 0 AM STAIN WIPER documented in this encounter Results * DERMATOPATHOLOGY (02/09/2020 12:00 AM STAIN WIPER) Case Report Dermatopathology Report ? Case: [id number] ? Authorizing Provider: ??Ghassan Morgan MD ?Collected: ? 02/09/2020 12:00 AM ? Ordering Location: ? [facility] DermPath Lab ?Received: ?02/10/2020 12:55 PM ? Pathologist: ? Pam Orourke MD ? Specimen: ?Skin, left distal lateral lower leg ? 0 4:20 PM [facility] DERMATOPATHOLOGY LABORATORY Final Diagnosis Specimen A. SKIN, left distal lateral lower leg: SQUAMOUS PROLIFERATION (D48.5) (see microscopic description and comment) 0 4:20 PM [facility] DERMATOPATHOLOGY LABORATORY Clinical History R/O KA. 0 4:20 PM [facility] DERMATOPATHOLOGY LABORATORY Gross Description Specimen A: Received is one formalin filled container labeled with the patient's name and designated left distal lateral lower leg. The specimen consists of a curettage and desiccation biopsy measuring 44x07n9el, bisected. Jar 0. 0 4:20 PM [facility] DERMATOPATHOLOGY LABORATORY Microscopic Description Specimen A. SKIN, left distal lateral lower leg: Sections show an endophytic squamous proliferation with maturational disarray and nuclear pleomorphism of keratinocytes predominantly within the lower portion of the epidermis. There is focal parakeratosis. COMMENT: The differential diagnosis includes a hypertrophic actinic keratosis with endophytic features, and a keratoacanthoma with features of regression. 0 4:20 PM [facility] DERMATOPATHOLOGY LABORATORY Disclaimer An external and internal positive and negative controls are appropriate for the histochemical, immunohistochemical and immunofluorescence stain(s) in this case (if any), except where stated explicitly. The performance characteristics of the stain(s) cited in this report were developed and its performance characteristic determined by the Dermatopathology Laboratory at [facility], directed by Dr. Tasha Nielsen. These tests need not be, and therefore are not, approved by the [place] Food and Drug Administration. The tests are used for clinical purposes. Billing Codes Specimen Charges Stain Charges 21669 1 0 4:20 PM STAIN WIPER DERMATOPATHOLOGY LABORATORY Embedded Images 0 4:20 PM STAIN WIPER DERMATOPATHOLOGY LABORATORY Pathology/Cytolog y TISSUE SPECIMEN FROM SKIN / Unknown 02/09/2020 02/10/2020 12:55 PM STAIN WIPER Ghassan Morgan MD LAB - PATHOLOGY/CYTO LOGY ORDERABLES DERMATOPATHOLOGY LABORATORY [facility] - Department of Dermatology [address], [address] [phone] documented in this encounter Visit Diagnoses Not on filedocumented in this encounter Care Teams Director Of Web Marketing Relationship Specialty Start Date End Date Aravind Morales MD [address] [place] [address] PCP - General 01/01/18 11/16/21 Deborah Llamas MD [address] [place] [address] PCP - General 11/17/21 documented as of this encounter
--- OUTSIDE RECORDS SUMMARY | 2024-04-20 08:52 | XMS_ITS | Encounter Summary ---
Author Organization [facility] Address [address] [facility] [place] [address] Care Team Providers Care Traffic Manager Name Role Phone Aravind Morales MD Primary Care Provider [phone] [phone] Deborah Llamas MD Primary Care Provider + Encounter Details Date Type Department Care Team (Late st Contact Info) Description 01/01/2018 Lab Requisition [facility] Care DermPath Lab [address] [facility] [place] [phone] Ghassan Morgan MD [address] [place] [address] Social History Tobacco Use Types Packs/Day Years Used Date Smoking Tobacco: Never Assessed Sex and Gender Information Value Date Recorded Sex Assigned at Not on file Gender Identity Not on file Sexual Orientation Not on file documented as of this encounter Plan of Treatment Not on file documented as of this encounter Procedures Procedure Name Priority Date/Time Associated Diagnosis Comments DERMATOPATHOLOGY Routine 12/31/2017 12:0 0 AM CDT documented in this encounter Results * DERMATOPATHOLOGY (12/31/2017 12:00 AM CDT) Case Report Dermatopathology Report ? Case: [id number] ? Authorizing Provider: ??Ghassan Morgan MD ?Collected: ? 12/31/2017 12:00 AM ? Pathologist: ? Alondra Nielsen MD ? Received: ?01/01/2018 12:22 PM ? Specimens: ?? A) - Skin, right distal ext ulnar FA ? B) - Skin, dorsal left hand ? 5:03 PM CDT DERMATOPATHOLOGY LABORATORY Final Diagnosis Specimen A. 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 SKIN, dorsal left hand: HYPERPLASTIC (HYPERTROPHIC) ACTINIC KERATOSIS (L57.0) OVERLYING CUTANEOUS HORN (L85.8) 5:03 PM T DERMATOPATHOLOGY LABORATORY Clinical History A-B: R/O SCC-KA, BCC. 5:03 PM T DERMATOPATHOLOGY LABORATORY Gross Description Specimen A: Received is one formalin filled container labeled with the patient's name and designated right distal ext ulnar FA. The specimen consists of a shave biopsy measuring [id number]. Jar 0+. Specimen B: Received is one formalin filled container labeled with the patient's name and designated dorsal left hand. The specimen consists of a shave biopsy measuring 3j7j5cx. Jar 0+. 5:03 PM CDT DERMATOPATHOLOGY LABORATORY Microscopic Description Specimen A. SKIN, right distal ext ulnar FA: There is a cup-shaped lesion with central hyperkeratosis with elements of parakeratosis. The epithelial cells making up the montgomery of the cup show abundant eosinophilic cytoplasm. There is immaturity of the keratinocytes in the outermost layers of this epithelium. In the dermis there is marked fibroplasia with a mixed inflammatory infiltrate containing eosinophils. Specimen B. SKIN, dorsal left hand: There is hyperkeratosis alternating with parakeratosis. There is epidermal hyperplasia with disorderly maturation of keratinocytes with nuclear pleomorphism confined to the lower half of the epidermis. There is a column of marked compact hyperkeratosis. 8 5:03 PM CDT DERMATOPATHOLOGY LABORATORY Disclaimer An external and internal positive and negative controls are appropriate for the histochemical, immunohistochemical and immunofluorescence stain(s) in this case (if any), except where stated explicitly. The performance characteristics of the stain(s) cited in this report were developed and its performance characteristic determined by the Dermatopathology Laboratory at [facility]. These tests need not be, and therefore are not, approved by the [place] Food and Drug Administration. The tests are used for clinical purposes. Billing Codes Specimen Charges Stain Charges 76517 49256 1 1 8 5:03 PM CDT DERMATOPATHOLOGY LABORATORY Embedded Images 8 5:03 PM CDT DERMATOPATHOLOGY LABORATORY Pathology/Cytology TISSUE SPECIMEN FROM SKIN / Unknown 12/31/2017 01/01/2018 12:22 PM CDT Miscellaneous samples (specimen) TISSUE SPECIMEN FROM SKIN / Unknown 12/31/2017 01/01/2018 12:22 PM CDT Ghassan Morgan MD LAB - PATHOLOGY/CYTO LOGY ORDERABLES DERMATOPATHOLOGY LABORATORY [facility] - Department of Dermatology [address] [place] [address], 5th Floor Lab [address] [phone] documented in this encounter Visit Diagnoses Not on filedocumented in this encounter Care Teams Traffic Manager Relationship Specialty Start Date End Date Aravind Morales MD [address] [place] [address] PCP - General 01/01/18 11/16/21 Deborah Llamas MD [address] [place] [address] PCP - General 11/17/21 documented as of this encounter
--- OUTSIDE RECORDS SUMMARY | 2024-04-20 08:52 | XMS_ITS | Clinical Summary ---
Author Organization [facility] Address [address] [place] [address] Care Team Providers Care Recordak Operator Name Role Phone Deborah Llamas MD Primary Care Provider + Source Comments [facility],non-owned Affiliates and Associated Physician Practices is amultiple site organization consisting of ambulatory clinics and hospital sitesin [place], [place], [place] and [place]. This disclosure is being madepursuant to the Care Everywhere program and may not contain all information available regarding this patient. Last updated 17.[facility] Social History Tobacco Use Types Packs/Day Years Used Date Smoking Tobacco: Never Assessed Sex and Gender Information Value Date Recorded Sex Assigned at Not on file Gender Identity Not on file Sexual Orientation Not on file Plan of Treatment Health Maintenance Due Date Last Done Comments BONE DENSITY TESTING 1936 DTAP/TDAP/TD VACCINES (1 - Tdap) 1955 PNEUMOCOCCAL VACCINE 50+ (1 of 1 - PCV) 1986 ZOSTER VACCINE (1 of 2) 1986 Respiratory Syncytial Virus (RSV) Vaccine Pt: or over 60 yrs (1 - 1-dose 75+ series) 2011 COVID-19 VACCINE ( - 2023-2 5 season) 2023 INFLUENZA VACCINE (#1) 2023 DEPRESSION SCREENING 03/25/2024 HEPATITIS B VACCINE Aged Out No longe r eligible based on patient's age to complete this topic HIB VACCINE Aged Out No longer eligi ble based on patient's age to complete this topic HPV VACCINE Aged Out No longer eligi ble based on patient's age to complete this topic MENINGOCOCCAL (Group B) VACCINE Aged Out No longer eligible based on patient's age to complete this topic MENINGOCOCCAL VACCINE Aged Out No kymberly bryan eligible based on patient's age to complete this topic Care Teams Recordak Operator Relationship Specialty Start Date End Date Deborah Llamas MD [address] [place] [address] PCP - General 11/17/21
--- OUTSIDE RECORDS SUMMARY | 2024-04-20 08:52 | XMS_ITS | Encounter Summary ---
Author Organization [facility] Address [address] [facility] [place] [address] Care Team Providers Care Fashion Director Party Plan Sales Name Role Phone Aravind Morales MD Primary Care Provider [phone] [phone] Deborah Llamas MD Primary Care Provider + Encounter Details Date Type Department Care Team (Late st Contact Info) Description 07/24/2018 Lab Requisition [facility] Care DermPath Lab [address] [facility] [place] [phone] Ghassan Morgan MD [address] [place] [address] Social History Tobacco Use Types Packs/Day Years Used Date Smoking Tobacco: Never Assessed Sex and Gender Information Value Date Recorded Sex Assigned at Not on file Gender Identity Not on file Sexual Orientation Not on file documented as of this encounter Plan of Treatment Not on file documented as of this encounter Procedures Procedure Name Priority Date/Time Associated Diagnosis Comments DERMATOPATHOLOGY Routine 07/23/2018 12:0 0 AM CDT documented in this encounter Results * DERMATOPATHOLOGY (07/23/2018 12:00 AM CDT) Case Report Dermatopathology Report ? Case: [id number] ? Authorizing Provider: ??Ghassan Morgan MD ?Collected: ? 07/23/2018 12:00 AM ? Pathologist: ? Thania Shepherd MD ? Received: ?07/24/2018 02:04 PM ? Specimen: ?Skin, left lower medial calf ? 2:04 PM CDT DERMATOPATHOLOGY LABORATORY Final Diagnosis Specimen A. 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 2:04 PM CDT DERMATOPATHOLOGY LABORATORY Gross Description Specimen A: Received is one formalin filled container labeled with the patient's name and designated left lower medial calf. The specimen consists of a curettage and desiccation biopsy measuring [id number]. Jar 0. 2:04 PM CDT DERMATOPATHOLOGY LABORATORY Microscopic Description Specimen A. SKIN, left lower medial calf: Arising in the epidermis and extending into the dermis there are irregularly shaped aggregates of keratinocytes showing evidence of premature cornification. 2:04 PM T DERMATOPATHOLOGY LABORATORY Disclaimer An external and internal positive and negative controls are appropriate for the histochemical, immunohistochemical and immunofluorescence stain(s) in this case (if any), except where stated explicitly. The performance characteristics of the stain(s) cited in this report were developed and its performance characteristic determined by the Dermatopathology Laboratory at [facility], directed by Dr. Tasha Nielsen. These tests need not be, and therefore are not, approved by the [place] Food and Drug Administration. The tests are used for clinical purposes. Billing Codes Specimen Charges Stain Charges 15247 1 2:04 PM CDT DERMATOPATHOLOGY LABORATORY Embedded Images 2:04 PM CDT DERMATOPATHOLOGY LABORATORY Pathology/Cytolog y TISSUE SPECIMEN FROM SKIN / Unknown 07/23/2018 07/24/2018 2:04 PM CDT Ghassan Morgan MD LAB - PATHOLOGY/CYTO LOGY ORDERABLES DERMATOPATHOLOGY LABORATORY [facility] - Department of Dermatology [address] [place] [address], 5th Floor Lab [address] [phone] documented in this encounter Visit Diagnoses Not on filedocumented in this encounter Care Teams Fashion Director Party Plan Sales Relationship Specialty Start Date End Date Aravind Morales MD [address] [place] [address] PCP - General 01/01/18 11/16/21 Deborah Llamas MD [address] [place] [address] PCP - General 11/17/21 documented as of this encounter
--- OUTSIDE RECORDS SUMMARY | 2024-04-20 08:52 | XMS_ITS | Encounter Summary ---
Author Organization [facility] Address [address] [place] [address] Care Team Providers Care Bakery Demonstrator Name Role Phone Aravind Morales MD Primary Care Provider [phone] Deborah Llamas MD Primary Care Provider + Encounter Details Date Type Department Care Team (Late st Contact Info) Description 10/12/2020 Lab Requisition [facility] Care D[facility] Lab [address] [facility] [place] [id number] Ghassan Morgan MD [address] [place] [address] Social History Tobacco Use Types Packs/Day Years Used Date Smoking Tobacco: Never Assessed Sex and Gender Information Value Date Recorded Sex Assigned at Not on file Gender Identity Not on file Sexual Orientation Not on file documented as of this encounter Plan of Treatment Not on file documented as of this encounter Procedures Procedure Name Priority Date/Time Associated Diagnosis Comments DERMATOPATHOLOGY Routine 10/11/2020 12:0 0 AM CDT documented in this encounter Results * DERMATOPATHOLOGY (10/11/2020 12:00 AM CDT) Case Report Dermatopathology Report ? Case: [id number] ? Authorizing Provider: ??Ghassan Morgan MD ?Collected: ? 10/11/2020 12:00 AM ? Ordering Location: ? [facility] Lab ?Received: ?10/12/2020 02:29 PM ? Pathologist: ? Pam Orourke MD ? Specimens: ?? A) - Skin, right medial lower calf superior ? B) - Skin, right medial lower calf inferior ? 1 4:[address] [facility]OLOG[facility] Final Diagnosis Specimen A. SKIN, right medial lower calf superior: SQUAMOUS CELL CARCINOMA, WELL DIFFERENTIATED (C44.722) Specimen B. SKIN, right medial lower calf inferior: SQUAMOUS CELL CARCINOMA, WELL DIFFERENTIATED (C44.722) 1 4:[address] [facility] Clinical History A-B: R/O SCC. 1 4:[address] [facility] Gross Description Specimen A: Received is one formalin filled container labeled with the patient's name and designated right medial lower calf superior. The specimen consists of a curettage and desiccation biopsy measuring [id number], bisected. Jar 0. Specimen B: Received is one formalin filled container labeled with the patient's name and designated right medial lower calf inferior. The specimen consists of a curettage and desiccation biopsy measuring [id number]. Jar 0. 1 4:[address] [facility] Microscopic Description Specimen A. SKIN, right medial lower calf superior: Arising in the epidermis and extending into the dermis there are irregularly shaped aggregates of keratinocytes showing evidence of premature cornification. Specimen B. SKIN, right medial lower calf inferior: Arising in the epidermis and extending into the dermis there are irregularly shaped aggregates of keratinocytes showing evidence of premature cornification. 1 4:07 PM CDT DERMATOPATHOLOGY LABORATORY Disclaimer An external and internal positive and negative controls are appropriate for the histochemical, immunohistochemical and immunofluorescence stain(s) in this case (if any), except where stated explicitly. The performance characteristics of the stain(s) cited in this report were developed and its performance characteristic determined by the Dermatopathology Laboratory at [facility], directed by Dr. Tasha Nielsen. These tests need not be, and therefore are not, approved by the [place] Food and Drug Administration. The tests are used for clinical purposes. Billing Codes Specimen Charges Stain Charges 66106 38877 1 1 1 4:07 PM CDT DERMATOPATHOLOGY LABORATORY Embedded Images 1 4:07 PM CDT DERMATOPATHOLOGY LABORATORY Pathology/Cytology TISSUE SPECIMEN FROM SKIN / Unknown 10/11/2020 10/12/2020 2:29 PM CDT Miscellaneous samples (specimen) TISSUE SPECIMEN FROM SKIN / Unknown 10/11/2020 10/12/2020 2:29 PM CDT Ghassan Morgan MD LAB - PATHOLOGY/CYTO LOGY ORDERABLES Performing Organization Address [facility]/State/ZIP Co de Phone Number DERMATOPATHOLOGY LABORATORY [facility] - Department of Dermatology [facility] Medicine [address] [place] [address], [address] [phone] documented in this encounter Visit Diagnoses Not on filedocumented in this encounter Care Teams Bakery Demonstrator Relationship Specialty Start Date End Date Aravind Morales MD [address] [place] [address] PCP - General 01/01/18 11/16/21 Deborah Llamas MD [address] [place] [address] PCP - General 11/17/21 documented as of this encounter
--- NOTE | 2024-04-20 08:57 | ECG_ITS ---
Test Date: 2024-04-20 08:46:22 Measurements Intervals [place] Rate: 111 P: 0 NC: 0 QRS: -6 QRSD: 125 T: 7 QT: 356 QTc: 485 Interpretive Statements ATRIAL FIBRILLATION WITH RAPID VENTRICULAR RESPONSE RIGHT BUNDLE BRANCH BLOCK [120+ ms QRS DU artifact,poor quality ekg RATION, UPRIGHT V1, 40+ ms S IN I/aVL/V4/V5/V6] No previous ECG available for comparison Electronically Signed On 04-20-2024 21:18:55 MANUFACTURING TECHNOLOGY PROFESSOR by Kip Dejesus M.D.
[2024-04-20 09:07] LABS: Basophils Percent Auto 0.4 % (0.2-1.2); Eosinophils Absolute Auto 0.2 K/mm3 (0-0.3); Eosinophils Percent Auto 2.9 % (0-4.4); Hematocrit 35.6 % (37.0-47.0); Hemoglobin 11.1 g/dL (12.0-15.0); Immature Granulocyte Absolute 0.02 K/mm3 (0.00-0.031); Immature Granulocyte Percent A 0.3 % (0-0.5); Lymphocytes Absolute Auto 2.46 K/mm3 (0.9-3.2); Lymphocytes Percent Auto 32.9 % (18.3-44.2); Mean Corpuscular HGB Conc 31.2 g/dl (32-36); Mean Corpuscular Hemoglobin 34.9 pg (26-34); Mean Corpuscular Volume 111.9 fl (80-100); Mean Platelet Volume 10.3 fl (7.4-10.4); Monocytes Absolute Auto 0.6 K/mm3 (0.1-0.6); Monocytes Percent Auto 7.6 % (2.6-8.5); Neutrophils Absolute Auto 4.2 K/mm3 (1.3-6.7); Neutrophils Percent Auto 55.9 % (45.5-73.1); Platelet Count Result 228 k/mm3 (150-375); Red Blood Count 3.18 M/mm3 (4.2-5.4); Red Cell Distribution Width 13.8 % (11.5-14.5); White Blood Count 7.5 K/mm3 (4.5-10.0)
[2024-04-20 09:14] LABS: Alanine Aminotransferase 23 U/L (6-35); Albumin Level 4.1 g/dL (3.5-5.1); Alkaline Phosphatase 90 U/L (38-126); Anion Gap 15 mmol/L (4-12); Aspartate Amino Transferase 27 U/L (14-36); Bilirubin,Total 0.5 mg/dL (0.2-1.3); Blood Urea Nitrogen 24 mg/dL (7-17); Calcium 8.6 mg/dL (8.4-10.2); Carbon Dioxide 24 mmol/L (22-30); Chloride 104 mmol/L (98-107); Estimated CRCL calculation 21 ml/min; Estimated Glomerular Filt Rate 35; Glucose 141 mg/dL (65-110); Potassium 4.1 mmol/L (3.4-5.0); Sodium 143 mmol/L (137-145)
--- NOTE | 2024-04-20 09:27 | ED_ITS ---
HPI - SOB/Dyspnea General Chief Complaint: Shortness of Breath/Dyspnea Stated Complaint: COPD, SOB Time Seen by Provider: 04/20/24 08:37 History of Present Illness HPI Narrative: Patient is an 81-year-old female who presents ER with shortness of breath. Endorses orthopnea worsening over last week. Has seen PCP and has had her Lasix increased after having an abnormal chest x-ray and BNP. No chest pain. No documented hypoxia. She did have increased edema last week but has gone down to some degree. Patient is scheduled to follow-up with Dr. Love about her heart failure. Patient family unsure if she has history of atrial fibrillation. Related Data Home Medications ?Medication ?Instructions ?Recorded ?Confirmed ?Last Taken ?Type multivitamin 1 tablet PO DAILY 04/30/22 04/20/24 04/20/24 09:00 History alendronate 70 mg tablet 70 mg PO WEEKLY 04/20/24 04/20/24 Unknown History celecoxib 200 mg capsule 200 mg PO Q24H 04/20/24 04/20/24 04/20/24 09:00 History cyanocobalamin (vitamin B-12) 1,000 mcg IM WEEKLY 04/20/24 04/20/24 Unknown History 1,000 mcg/mL injection solution insulin glargine 100 unit/mL (3 27 unit subcut BID 04/20/24 04/20/24 04/19/24 16:00 History mL) subcutaneous pen (Basaglar KwikPen U-100 Insulin) Allergies Allergy/AdvReac Type Severity Reaction Status Date / Time No Known Allergies Allergy Verified 04/20/24 08:51 Review of Systems 2 Review of Systems: All systems reviewed & are unremarkable except as noted in HPI and below Constitutional: Constitutional: Reports no additional constitutional complaints ENT: Reports system reviewed and no additional complaints, except as documented Cardiovascular: Cardiovascular: Reports no additional cardiovascular complaints Respiratory: Respiratory: Reports no additional respiratory complaints Gastrointestinal: Gastrointestinal: Reports no additional gastrointestinal complaints [facility] Past Medical History Medical History Afib CHF (congestive heart failure) Skin cancer Hypertension High cholesterol Diabetes Glaucoma Macular degeneration Hx of fracture of femur [place] (hard of hearing) Benign reactive hypertension Diabetic neuropathy Surgical History Surgical History History of open reduction and internal fixation (ORIF) procedure Hx of cholecystectomy Hx of hysterectomy Family History Family History Mother Diabetes mellitus Social History Social History Social History: Smoking packs per day: 0.5 Smoking cigarettes per day: 10.0 Years smoked: 30 Smoking pack-years: 15.00 Smoking status: Never smoker Tobacco type: cigarettes Second hand tobacco smoke exposure: No Smoking end date: 03/25/16 Alcohol intake: never Substance use: never Substance use type: does not use Do You Feel Safe in your Home?: Yes Lack of Transportation: No Lack of Food: Never True Current Housing: I Have Housing Concerned About Future Housing: No Difficulty Paying Gas/Electric Bills: No Difficulty Paying for Meds: No Currently Unemployed: No Education: High School Diploma/GED Difficulty w/ Childcare or Family Care: No Living arrangements: with family Additional living arrangements comments: PT LIVES WITH DAUGHTER - BRETT Occupation/Education: retired Gender identity (if verbalized by the patient): Female Sexual Orientation (if Verbalized by the Patient): Straight or Heterosexual Spiritual care concerns: No Exam 2 Narrative: GENERAL: Well-appearing, well-nourished, and in no acute distress. HEAD: Normocephalic, atraumatic. ENT: Mucous membranes moist. NECK: Supple. CHEST: Bilateral crackles. No respiratory distress. HEART: Irregularly irregular rate and rhythm Normal peripheral pulses. ABDOMEN: Soft, nontender, nondistended. EXTREMITIES: Normal range of motion. 1+ edema. SKIN: Warm, dry, no rash. NEURO: Alert and oriented x3. PSYCH: Normal mood and affect. Course Course Emergency Course: Patient given Lopressor that improved her heart rate. EKG may be frequent PACs but given the fast rate in the rapid variance it is felt to be AFib with RVR. She will also be given diuresis. Troponin mildly elevated though she has no chest pain. May be strain pattern. Admit to hospitalist service. Cardiology consulted. Vital Signs Vital signs: Vital Signs Temperature 97.7 F 04/20/24 08:40 Pulse Rate 114 H 04/20/24 08:40 Respiratory Rate 26 H 04/20/24 08:40 Blood Pressure 138/91 H 04/20/24 08:40 Pulse Oximetry 96 04/20/24 08:40 Oxygen Delivery Room Air 04/20/24 08:40 Temperature 98 F 04/20/24 16:00 Pulse Rate 88 04/20/24 18:00 Respiratory Rate 20 04/20/24 16:00 Blood Pressure 119/76 04/20/24 16:00 Pulse Oximetry 96 04/20/24 16:00 Oxygen Delivery Room Air 04/20/24 16:00 MDM - SOB/Dyspnea Lab Data 04/20/24 08:54 04/20/24 08:54 Labs: Lab Results 04/20/24 Range/Units 08:54 WBC 7.5 (4.5-10.0) K/mm3 RBC 3.18 L (4.2-5.4) M/mm3 Hgb 11.1 L (12.0-15.0) g/dL Hct 35.6 L (37.0-47.0) % MCV 111.9 H (80-100) fl MCH 34.9 H (26-34) pg MCHC 31.2 L (32-36) g/dl RDW 13.8 (11.5-14.5) % Plt Count 228 (150-375) k/mm3 MPV 10.3 (7.4-10.4) fl Immature Gran % (Auto) 0.3 (0-0.5) % Neut % (Auto) 55.9 (45.5-73.1) % Lymph % (Auto) 32.9 (18.3-44.2) % Cannon % (Auto) 7.6 (2.6-8.5) % Eos % (Auto) 2.9 (0-4.4) % Baso % (Auto) 0.4 (0.2-1.2) % Lymph # (Auto) 2.46 (0.9-3.2) K/mm3 Cannon # (Auto) 0.6 (0.1-0.6) K/mm3 Eos # (Auto) 0.2 (0-0.3) K/mm3 Baso # (Auto) 0.0 (0.0-0.1) K/mm3 Abs Immat Gran (auto) 0.02 (0.00-0.031) K/mm3 Absolute Neuts (auto) 4.2 (1.3-6.7) K/mm3 Absolute Nucleated RBC 0.000 (0.0-0.012) K/mm3 Nucleated RBC % 0.0 (0.0-0.2) % Platelet Estimate Adequate (Adequate) Anisocytosis 1+ Macrocytosis 1+ (NORMAL) Jessy Cells 1+ Schistocytes None seen PT 14.3 (11.1-14.7) Seconds INR 1.1 APTT 27.0 (22.3-36.8) Seconds Sodium 143 (137-145) mmol/L Potassium 4.1 (3.4-5.0) mmol/L Chloride 104 (98-107) mmol/L Carbon Dioxide 24 (22-30) mmol/L Anion Gap 15 H (4-12) mmol/L BUN 24 H (7-17) mg/dL Creatinine 1.40 H (0.7-1.0) mg/dL Estim Creat Clear Calc 21 ml/min Estimated GFR 35 L (59 - ) Glucose 141 H (65-110) mg/dL Calcium 8.6 (8.4-10.2) mg/dL Total Bilirubin 0.5 (0.2-1.3) mg/dL AST 27 (14-36) U/L ALT 23 (6-35) U/L Alkaline Phosphatase 90 (38-126) U/L Troponin I 0.065 H* (0.000-0.034) ng/mL NT-Pro-B Natriuret Pep 5740 H (19.9-100) pg/mL Total Protein 8.0 (6.3-8.2) g/dL Albumin 4.1 (3.5-5.1) g/dL Imaging Data Radiologist's impression: ITS Impressions Chest X-Ray 04/20/24 10:16 Impression: Moderate to advanced pulmonary edema pattern. Findings are mildly worsened from prior exam. Critical Care Time Critical Care Time Critical Care Time: Yes Total Critical Care Time: 35 Discharge Plan Discharge Clinical Impression: CHF exacerbation, Atrial fibrillation with RVR Patient Disposition: Still a Patient Condition: Stable
[2024-04-20 09:28] LABS: Anisocytosis 1+; Macrocytosis 1+ (NORMAL); Platelet Estimate Adequate (Adequate)
[2024-04-20 09:29] LABS: Burr Cells 1+; INR 1.1; Prothrombin Time 14.3 Seconds (11.1-14.7); Schistocytes None Seen
--- OUTSIDE RECORDS SUMMARY | 2024-04-20 09:31 | XMS_ITS | Data Portability ---
Author Organization [facility], Main Office Address [address] [place] [address] Care Team Providers Care Wire Winding Machine Tender Name Role Phone ALINA HERNANDEZ Primary Care Provider ALINA HERNANDEZ Referring Provider Assessment Encounter Date Assessment Date Assessment LastModified by Organization Details LastModified Time 05/29/2022 05/29/2022 Patient returns and she had a fall and injured her right knee. She previously had this femur rodded for a hip fracture. She has pain in the knee and little bit of pain in the ankle. Motion of the knee is from about 5-105 degrees grinding crepitus and pain. Her x-rays show degenerative changes but no fracture. I think she contused her knee. She does have a moderate amount of arthritis. She was not hurting a lot before the fall so will try to treat this conservatively hopefully to get better without success with conservative treatment. I injected with 20 mg Kenalog 4 cc 1% lidocaine. For prescription drug management will try Celebrex for pain and inflammation. Follow-up in a month discussed. hyun Not available 05/29/2022 15:08:59 Plan of Treatment Reminders Order Date Submit Date Provider Last Modified By Organization Details Last Modified Time Details Appointments None recorded. Lab None recorded. Referral None recorded. Procedures injection/a spiration joint/bursa (PROC) - in office procedure, administere d by provider 2022 023 [email or web address] In-Office Order, Internal Use Only DO Not Attach Compendium DO Not Attach Compendium, Do Not Delete/merge, [id number] 15:04:53 Surgeries None recorded. Imaging XR, knee 2022 023 [email or web address] [place], [address], [place], [address], 3 09:26:11 Medication Orders Kenalog 10 mg/mL suspension for injection [address]armacy [address], [address] [place], [address], 3 15:05:11 ropivacaine (PF) 5 mg/mL (0.5 %) injection solution [address]25[address], [address] [place], [address], 3 15:05:11 celecoxib 200 mg capsule 2022 023 [address] [place], [address], 3 15:06:11 Patient TargetsNo targets recorded. Patient InstructionsNo instructions recorded. Reason for Referral None Reported. Results Created Date Observation Date Name Description Value Unit Range Abnormal Flag Note LastModifiedBy Organization Detail LastModifiedTime 07/27/19 21 XR, hand No observ ation record ed. [id number] [facility] [place] [address] [facility] [address], [place], [address], 05/23/2022 03:00:57 05/30/19 23 XR, knee No observ ation record ed. [address] [place] [address] [facility] [address], [address], 05/29/2022 15:08:36 Result Notes None recorded. Problems Name Problem SNOMED Code Status Onset Date Resolution Date Notes Provider Name and Address Organization Details Recorded Time Lumbar spondylosi s 926241845 Active Not Available [facility] 3 02:50:36 Low back pain 315438615 Active Not Available [facility] 3 02:50:36 Closed fracture of neck of femur 214547995 Active Not Available [facility] 3 02:50:36 Pain of right knee joint 5034684253377 00 Active [address] [facility], [place] 3 14:42:11 Problem Notes None recorded. Procedures Surgical History Date Name Laterality Status Provider Name and Address Organization Details Recorded Time 3 Ortho - Cortisone Injection completed Neal Jurado MD [address] [facility], [facility] [address], [place], [address], [facility] [employer] 05/29/2022 15:07:11 8 procedure on lower leg completed Vero Aguirre ATC L [facility] 05/29/2022 14:48:50 Imaging Results Imaging Date Name Status LastModified by Organiz ation Details LastModified Time 07/26/2020 XR, hand completed [id number] [facility] [place] [address] [facility] [address], [place], [address], 05/23/2022 03:00:57 05/29/2022 XR, knee completed [facility] [place] [address] [facility] [address], [place], [address], 05/29/2022 15:08:36 Procedure Notes None recorded. Medical Equipment None Reported. Medications Name Sig Start Date Stop Date Status Note LastModified by Organization Details LastModified Time quetiapine 25 mg tablet TAKE 1 TABLET BY MOUTH EVERYDAY AT BEDTIME active Not Available Not Available No t Available celecoxib 200 mg capsule TAKE 1 CAPSULE BY MOUTH EVERY DAY active Not Available Not Available No t Available furosemide 40 mg tablet TAKE 1 TABLET BY MOUTH EVERY DAY active Not Available Not Available No t Available metformin 500 mg tablet Take 1 tablet twice a day by oral route. 2020 active Not Available Not Available Not Avai lable cefuroxime axetil 250 mg tablet 10/29 completed Not Available Not Available Not Available atorvastati n 20 mg tablet TAKE 1 TABLET BY MOUTH EVERY DAY active Not Available Not Available No t Available azithromyci n 250 mg tablet TAKE 2 TABLETS BY MOUTH TODAY, THEN TAKE 1 TABLET DAILY FOR 4 DAYS 07/26 completed Not Available Not Available Not Available glyburide 5 mg tablet 07/26 completed Not Available Not Available Not Available glyburide 2.5 mg tablet TAKE 2 TABLETS BY MOUTH EVERY MORNING AND 1 TAB EVERY EVENING 07/26 completed Not Available Not Available Not Available hydrocodone 5 mg-acetamin ophen 325 mg tablet TAKE 1 TABLET BY MOUTH EVERY 6 HOURS NEEDED FOR PAIN active Not Available Not Available No t Available polysacchar quoc iron complex 150 mg iron capsule TAKE 1 CAPSULE BY MOUTH EVERY DAY active Not Available Not Available No t Available prednisone 20 mg tablet 10/29 completed Not Available Not Available Not Available alendronate 70 mg tablet TAKE 1 TABLET BY MOUTH ONE TIME PER WEEK active Not Available Not Available No t Available Accu-Chek Softclix Lancets CHECK BLOOD SUGARS TWICE A DAY active Not Available Not Available No t Available aspirin 81 mg tablet,david yed release TAKE 1 TABLET BY MOUTH EVERY DAY IN THE MORNING active Not Available Not Available No t Available tramadol 50 mg tablet TAKE 1 TABLET BY MOUTH EVERY 6 HOURS NEEDED FOR PAIN active Not Available Not Available No t Available triamterene 37.5 mg-hydrochl orothiazide 25 mg capsule 11/04 completed Not Available Not Available Not Available glyburide 2.5 mg-metformi n 500 mg tablet 10/29 completed Not Available Not Available Not Available quinapril 40 mg tablet TAKE 1 TABLET BY MOUTH EVERY DAY active Not Available Not Available No t Available fluorouraci l 5 % topical solution APPLY TO AFFECTED AREA TWICE A DAY FOR 14 DAYS, OFF FOR 14 DAYS, THEN REPEAT FOR 14 DAYS active Not Available Not Available No t Available Kenalog 10 mg/mL suspension for injection Take 20 mg by injection route. 2022 active [facility]: 0003- 0494- 20 Not Available Not Available Not Available ropinirole 2 mg tablet TAKE 1 TABLET BY MOUTH TWICE A DAY active Not Available Not Available No t Available cephalexin 500 mg capsule TAKE 1 CAOSULE BY MOUTH EVERY 8 HOURS active Not Available Not Available No t Available cyanocobala min (vit B-12) 1,000 mcg/mL injection solution INJECT 1ML INTRAMUSC ULARLY MONTHLY active Not Available Not Available No t Available ropinirole 0.5 mg tablet TAKE 1 TABLET BY MOUTH THREE TIMES A DAY active Not Available Not Available No t Available gabapentin 300 mg capsule 07/26 completed Not Available Not Available Not Available triamterene 37.5 mg-hydrochl orothiazide 25 mg tablet 10/29 completed Not Available Not Available Not Available diclofenac sodium 75 mg tablet,david yed release TAKE 1 TABLET(S) 2 TIMES A DAY BY ORAL ROUTE WITH FOOD 07/26 completed Not Available Not Available Not Available mometasone 0.1 % topical ointment APPLY TWICE A DAY TO RIGHT EAR RASH FOR 3 WEEKS active Not Available Not Available No t Available mupirocin 2 % topical ointment APPLY TWICE DAILY TO RIGHT EAR RASH FOR 2 WEEKS active Not Available Not Available No t Available metoprolol succinate ER 25 mg tablet,exte nded release 24 hr TAKE 1 TABLET BY MOUTH EVERY DAY active Not Available Not Available No t Available zolpidem 10 mg tablet 07/26 completed Not Available Not Available Not Available benazepril 40 mg tablet TAKE 1 TABLET BY MOUTH EVERY DAY active Not Available Not Available No t Available fluticasone propionate 50 mcg/actuati on nasal spray,suspe nsion USE 1-2 SPRAYS IN EACH NOSTRIL TWICE A DAY NEEDED 07/26 completed Not Available Not Available Not Available metformin ER 500 mg tablet,exte nded release 24 hr TAKE 1 TABLET BY MOUTH EVERY DAY 07/26 completed Not Available Not Available Not Available ropinirole 4 mg tablet TAKE 1 TABLET BY MOUTH THREE TIMES A DAY active Not Available Not Available No t Available neomycin-po lymyxin-hyd rocort 3.5 mg-10,000 unit/mL-1 % ear drops,susp 10/29 completed Not Available Not Available Not Available ezetimibe 10 mg tablet TAKE 1 TABLET BY MOUTH EVERY DAY 07/26 completed Not Available Not Available Not Available Restasis 0.05 % eye drops in a dropperette 10/29 completed Not Available Not Available Not Available Ciprodex 0.3 %-0.1 % ear drops,suspe nsion active Not Available Not Available Not Available BD Ultra-Fine Mini Pen Needle 31 gauge x 3/16 10/29 completed Not Available Not Available Not Available acetaminoph en 07/26 completed Not Available Not Available Not Available quinapril 40 mg 12/17 completed Not Available Not Available Not Available gabapentin 07/26 completed Not Available Not Available Not Available lidocaine (PF) 10 mg/mL (1 %) injection solution In office injection administe red by the provider active [facility]: 0409- 4276- 17 Not Available Not Available Not Available Januvia 50 mg tablet Take 1 tablet every day by oral route. 07/26 completed Not Available Not Available Not Available Lantus Solostar U-100 Insulin 100 unit/mL (3 mL) subcutaneou s pen 10/29 completed Not Available Not Available Not Available ropivacaine (PF) 5 mg/mL (0.5 %) injection solution Take 20 mg by injection route. 2022 active [facility] 53180 -[phone]- [phone] Not Available Not Available Not Available Levemir FlexTouch U-100 Insulin 100 unit/mL (3 mL) subcutaneou s pen INJECT 25 UNITS SUBCUTANE OUSLY TWICE DAILY active Not Available Not Available No t Available Xiidra 5 % eye drops in a dropperette INSTILL ONE DROP INTO BOTH EYES TWICE A DAY. THIS IS REPLACING RESTASIS DUE TO INSURANCE 07/26 completed Not Available Not Available Not Available Accu-Chek Guide test strips USE TO CHECK BLOOD SUGAR TWICE A DAY active Not Available Not Available No t Available OneTouch Ultra Blue Test Strip active Not Available Not Available N ot Available Dexcom G6 Sensor device DIRECTED active Not Available Not Available No t Available Fluzone High-Dose (PF) 180 mcg/0.5 mL intramuscul ar syringe active Not Available Not Available N ot Available Fluzone High-Dose (PF) 180 mcg/0.5 mL intramuscul ar syringe TO BE ADMINISTE RED BY PHARMACIS T FOR IMMUNIZAT ION active Not Available Not Available No t Available Vitals Date Recorded Body height Body mass index (BMI) Body weight Provider Name and Address Organization Details Last Updated DateTime 05/29/2022 170.18 cm 21.5 kg/m2 01245.15 g Vero Aguirre, NII L [place] [facility] 05/29/2022 14:41:28 Date Recorded Body mass index (BMI) Body height Body weight Provider Name and Address Organization Details Last Updated DateTime 07/26/2020 22.6 kg/m2 167.64 cm 76881.93 g Not Available [facility] 05/23/2022 02:46:43 Social History Question Answer Notes LastModified by Organizat ion Details LastModified Time Tobacco Smoking Status Current Every Day Smoker Vero Aguirre, ATC L null, [place] [facility] 05/29/2022 14:48:19 What Is Your Level Of Alcohol Consumption? None [id number] Information not available 05/23/2022 What Was The Date Of Your Most Recent Tobacco Screening? 07/26/2020 [id number] Information not available 05/23/2022 How Much Tobacco Do You Smoke? 0.5 PPD Information not available 05/29/2022 Sex: Unknown Functional Status None recorded. Mental Status None recorded. Family History Relationship Description Onset Age of this Age Resolved Age Notes LastModified by Organization Details LastModified Time Unspecified Relation Hypertensive disorder childr en Not available 05/29/2022 14:46:44 Medical History Condition Response SKIN PROBLEMS Y DIABETES, TYPE Y HYPERTENSION Y Gynecological HistoryNo gynecological history recorded. Obstetrics History GPAL:G 0 P 0 0 0 0 Past Encounters Encounter ID Performer Location Encounter Start Date Encounter Closed Date Diagnosis/Indication Diagnosis SNOMED-CT Code Diagnosis ICD10 Code Diagnosis Note [id number] [facility] [place] [address] [place] [address] 07/26/2020 00:00:00 07/26/2020 10:51:43 [id number] Neal Jurado MD [facility] [place] [address] [place] [address] 05/29/2022 14:23:56 05/29/2022 15:41:49 Pain of right knee joint 8153022923 79760 M25.561 Health Concerns Section Related Observation LastModified by Organization Detai ls LastModified Time None Recorded Concern Status LastModified by Organization Details LastModified Time None Recorded Advance Directives Directive None Recorded Payers Encounter Date Sequence Insurance Name Policy Number Policy [place] Covered Member ID [place] Member ID Guarantor Name 05/29/2022 1 FOR[facility]LY [facility] [employer]EF[employer] PLAN (PPO) [id number] Abran Declan [id number] Lyndsay Manriquez Notes Date Note Type Note Provider Name and Address Organization Details Recorded Time 05/29/2022 text/html KneeReported bypatient.Location: bilateral Quality:aching; throbbing; dull Severity:moderate Duration:continuous since onset Timing:chronic Alleviating Factors:sitting; lying down; rest; elevation Aggravating Factors:bending/squ atting; weightbearing Associated Symptoms:no weakness; no numbness; no tingling; no redness; no ecchymosis; no catching/locking; no popping/clicking; no buckling; no instability; no radiation down leg; no drainage; no fever; no chills; no weight loss; no change in bowel/bladder habits;swelling;war mth;grinding Neal Jurado MD [address] [place] [address], [address], [place] [facility] 05/29/2022 15:10:03 OBGyn Episode No OBEpisode recorded.
--- OUTSIDE RECORDS SUMMARY | 2024-04-20 09:31 | XMS_ITS | Encounter Summary ---
Author Organization [facility] Address [address] [facility] [place] [address] Care Team Providers Care Entry Level Drafter Name Role Phone Deborah Llamas MD Primary Care Provider + Encounter Details Date Type Department Care Team (Late st Contact Info) Description 04/11/2022 Lab Requisition [facility] [address] [facility], [place] [id number] Ghassan Morgan MD [address] [place], [place] [id number] Social History Tobacco Use Types Packs/Day Years [...] Comments DERMATOPATHOLOGY Routine 04/10/2022 12:0 0 AM RESIDENTIAL INSURANCE INSPECTOR documented in this encounter Results * DERMATOPATHOLOGY (04/10/2022 12:00 AM RESIDENTIAL INSURANCE INSPECTOR) Case Report Dermatopathology Report ? Case: [id number] ? Authorizing Provider: ??Ghassan Morgan MD ?Collected: ? 04/10/2022 12:00 AM ? Ordering Location: ? [facility] ?Received: ?04/11/2022 02:15 PM ? Pathologist: ? Pam Orourke MD ? Specimen: ?Skin, left distal medial leg ? 3 1:57 PM [facility] DERMATOPATHOLOGY LABORATORY Final Diagnosis Specimen A. 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 The specimen consists of a shave biopsy measuring [id number] mm. Jar 0. 3 1:57 PM [facility] DERMATOPATHOLOGY LABORATORY Microscopic Description Specimen A. SKIN, left distal medial leg: The epidermis shows parakeratosis, full thickness disorderly maturation of keratinocytes, mitoses at different levels, and dyskeratotic cells. 3 1:57 PM [facility] DERMATOPATHOLOGY LABORATORY Disclaimer An external and internal positive and negative controls are appropriate for the histochemical, immunohistochemical and immunofluorescence stain(s) in this case (if any), except where stated explicitly. The performance characteristics of the stain(s) cited in this report were developed and its performance characteristic determined by the Dermatopathology Laboratory at [facility], directed by Dr. Tasha Nielsen. These tests need not be, and therefore are not, approved by the [place] Food and Drug Administration. The tests are used for clinical purposes. Billing Codes Specimen Charges Stain Charges 93497 1 3 1:57 PM RESIDENTIAL INSURANCE INSPECTOR DERMATOPATHOLOGY LABORATORY Embedded Images 3 1:57 PM RESIDENTIAL INSURANCE INSPECTOR DERMATOPATHOLOGY LABORATORY Pathology/Cytolog y TISSUE SPECIMEN FROM SKIN / Unknown 04/10/2022 04/11/2022 2:15 PM RESIDENTIAL INSURANCE INSPECTOR Ghassan Morgan MD LAB - PATHOLOGY/CYTO LOGY ORDERABLES DERMATOPATHOLOGY LABORATORY [facility] - Department of Dermatology [facility] [address] [place] [address], [address] [phone] documented in this encounter Visit Diagnoses Not on filedocumented in this encounter Care Teams Entry Level Drafter Relationship Specialty Start Date End Date Deborah Llamas MD [address] [place] [address] PCP - General 11/17/21 documented as of this encounter
--- OUTSIDE RECORDS SUMMARY | 2024-04-20 09:31 | XMS_ITS | Encounter Summary ---
Author Organization [facility] Address [address] [facility] [place] [address] Care Team Providers Care Mains And Service Supervisor Name Role Phone Aravind Morales MD Primary Care Provider [phone] Deborah Llamas MD Primary Care Provider + Encounter Details Date Type Department Care Team (Late st Contact Info) Description 05/03/2021 Lab Requisition [facility] [address] [facility], [place] [phone] Ghassan Morgan MD [address] [place] [address] Social History Tobacco Use Types Packs/Day Years [...] Comments DERMATOPATHOLOGY Routine 05/02/2021 12:0 0 AM SENIOR IOS SOFTWARE ENGINEER documented in this encounter Results * DERMATOPATHOLOGY (05/02/2021 12:00 AM SENIOR IOS SOFTWARE ENGINEER) Case Report Dermatopathology Report ? Case: [id number] ? Authorizing Provider: ??Ghassan Morgan MD ?Collected: ? 05/02/2021 12:00 AM ? Ordering Location: ? [facility] Lab ?Received: ?05/03/2021 12:34 PM ? Pathologist: ? Alondra Nielsen MD ? Specimen: ?Skin, left superior deltoid ? 2 6:39 PM [facility] DERMATOPATHOLOGY LABORATORY Final Diagnosis Specimen A. SKIN, left superior deltoid: SQUAMOUS CELL CARCINOMA, WELL DIFFERENTIATED (C44.529) 2 6:39 PM [facility] DERMATOPATHOLOGY LABORATORY Clinical History R/O SCCA. 2 6:39 PM [facility] DERMATOPATHOLOGY LABORATORY Gross Description Specimen A: Received is one formalin filled container labeled with the patient's name and designated left superior deltoid. The specimen consists of a curettage and desiccation biopsy measuring 69c65o6oz, trisected, & 1c0q3lf. Jar 0. 2 6:39 PM [facility] DERMATOPATHOLOGY LABORATORY Microscopic Description Specimen A. SKIN, left superior deltoid: Arising in the epidermis and extending into the dermis there are irregularly shaped aggregates of keratinocytes showing evidence of premature cornification. 2 6:39 PM [facility] DERMATOPATHOLOGY LABORATORY Disclaimer An external and internal positive and negative controls are appropriate for the histochemical, immunohistochemical and immunofluorescence stain(s) in this case (if any), except where stated explicitly. The performance characteristics of the stain(s) cited in this report were developed and its performance characteristic determined by the Dermatopathology Laboratory at [facility], directed by Dr. Tasha Nielsen. These tests need not be, and therefore are not, approved by the [place] Food and Drug Administration. The tests are used for clinical purposes. Billing Codes Specimen Charges Stain Charges 53064 1 2 6:39 PM SENIOR IOS SOFTWARE ENGINEER DERMATOPATHOLOGY LABORATORY Embedded Images 2 6:39 PM SENIOR IOS SOFTWARE ENGINEER DERMATOPATHOLOGY LABORATORY Pathology/Cytolog y TISSUE SPECIMEN FROM SKIN / Unknown 05/02/2021 05/03/2021 12:34 PM SENIOR IOS SOFTWARE ENGINEER Ghassan Morgan MD LAB - PATHOLOGY/CYTO LOGY ORDERABLES DERMATOPATHOLOGY LABORATORY [facility] - Department of Dermatology [address], [address] [phone] documented in this encounter Visit Diagnoses Not on filedocumented in this encounter Care Teams Mains And Service Supervisor Relationship Specialty Start Date End Date Aravind Morales MD [address] [place] [address] PCP - General 01/01/18 11/16/21 Deborah Llamas MD [address] [facility] [address] [place] [address] PCP - General 11/17/21 documented as of this encounter
--- OUTSIDE RECORDS SUMMARY | 2024-04-20 09:31 | XMS_ITS | Encounter Summary ---
Author Organization [facility] Address [address] [facility] [place] [address] Care Team Providers Care Oil Field Pipeline Supervisor Name Role Phone Aravind Morales MD Primary Care Provider [phone] [phone] Deborah Llamas MD Primary Care Provider + Encounter Details Date Type Department Care Team (Late st Contact Info) Description 02/10/[address] [facility] [address] [place] [phone] Ghassan Morgan MD [address] [place] [address] Social History Tobacco Use Types Packs/Day Years [...] Comments DERMATOPATHOLOGY Routine 02/09/2020 12:0 0 AM CANDY MAKER documented in this encounter Results * DERMATOPATHOLOGY (02/09/2020 12:00 AM CANDY MAKER) Case Report Dermatopathology Report ? Case: [id number] ? Authorizing Provider: ??Ghassan Morgan MD ?Collected: ? 02/09/2020 12:00 AM ? Ordering Location: ? [facility] DermPath Lab ?Received: ?02/10/2020 12:55 PM ? Pathologist: ? Pam Orourke MD ? Specimen: ?Skin, left distal lateral lower leg ? 0 4:20 PM [facility] DERMATOPATHOLOGY LABORATORY Final Diagnosis Specimen A. SKIN, left distal lateral lower leg: SQUAMOUS PROLIFERATION (D48.5) (see microscopic description and comment) 0 4:20 PM [facility] DERMATOPATHOLOGY LABORATORY Clinical History R/O KA. 0 4:20 PM [facility] DERMATOPATHOLOGY LABORATORY Gross Description Specimen A: Received is one formalin filled container labeled with the patient's name and designated left distal lateral lower leg. The specimen consists of a curettage and desiccation biopsy measuring [id number], bisected. Jar 0. 0 4:20 PM [facility] DERMATOPATHOLOGY LABORATORY Microscopic Description Specimen A. SKIN, left distal lateral lower leg: Sections show an endophytic squamous proliferation with maturational disarray and nuclear pleomorphism of keratinocytes predominantly within the lower portion of the epidermis. There is focal parakeratosis. COMMENT: The differential diagnosis includes a hypertrophic actinic keratosis with endophytic features, and a keratoacanthoma with features of regression. 0 4:20 PM [facility] DERMATOPATHOLOGY LABORATORY Disclaimer An external and internal positive and negative controls are appropriate for the histochemical, immunohistochemical and immunofluorescence stain(s) in this case (if any), except where stated explicitly. The performance characteristics of the stain(s) cited in this report were developed and its performance characteristic determined by the Dermatopathology Laboratory at [facility], directed by Dr. Tasha Nielsen. These tests need not be, and therefore are not, approved by the [place] Food and Drug Administration. The tests are used for clinical purposes. Billing Codes Specimen Charges Stain Charges 47413 1 0 4:20 PM [facility] MA[facility] DERMATOPATHOLOGY LABORATORY Embedded Images 0 4:20 PM [facility] DERMATOPATHOLOGY LABORATORY Pathology/Cytolog y TISSUE SPECIMEN FROM SKIN / Unknown 02/09/2020 02/10/2020 12:55 PM CANDY MAKER Ghassan Morgan MD LAB - PATHOLOGY/CYTO LOGY ORDERABLES DERMATOPATHOLOGY LABORATORY [facility] - Department of Dermatology [address], [address] [phone] documented in this encounter Visit Diagnoses Not on filedocumented in this encounter Care Teams Oil Field Pipeline Supervisor Relationship Specialty Start Date End Date Aravind Morales MD [address] [place] [address] PCP - General 01/01/18 11/16/21 Deborah Llamas MD [address] [place] [address] PCP - General 11/17/21 documented as of this encounter
--- OUTSIDE RECORDS SUMMARY | 2024-04-20 09:31 | XMS_ITS | Continuity of Care Document ---
Author Organization [facility] Address [address] [place] [address] [place] [address] Phone Care Team Providers Care Movie Star Name Role Phone Blessing Galindo Unavailable Unavailable Procedures Procedure Date Office/outpatient Visit, Est Office/outpatient Visit, Est Eye Exam & Treatment Refraction Advance Directives Directive Yes / No Effective Date File Name No Information Encounters Encounter Description Practice Location Reason(s) For Visit Diagnoses Date Provider Providers Copied on Encounter Office/outpat ient Visit, [facility], [address] [place] [address] [address], [place], [place], [id number], tel:[phone] [facility] No Information 8-201 0 Josie Sheriffn. [address] , [address], [place], [place], [facility], . tel:[phone] Office/outpat ient Visit, [facility], [address] [place] [address] [address], [place], [place], [id number], tel:[phone] [facility] No Information 7-200 8 Josie Sheriffn. [address] [facility] [facility] , [address], [place], [place], [facility], . tel:[phone] [facility], [address] [place] [address] [address], [place], [place], [id number], tel:[phone] [facility] No Information 0-200 7 Galindo Blessing. [address] , [address], [place], [address], [place]. tel:[phone] Family History Family Member Type Diagnosis Age At Onset No Information Payers Payer name Insurance type Covered constitution party ID Authoriza tion(s) No Information Social History [...]
--- OUTSIDE RECORDS SUMMARY | 2024-04-20 09:31 | XMS_ITS | Encounter Summary ---
Author Organization [facility] Address [address] [facility] [place] [address] Care Team Providers Care Seo Associate Name Role Phone Aravind Morales MD Primary Care Provider [phone] Deborah Llamas MD Primary Care Provider + Encounter Details Date Type Department Care Team (Late st Contact Info) Description 07/05/2021 Lab Requisition [facility] Care D[facility] [address] [facility] [place] [phone] Ghassan Morgan MD [address] [place] [address] Social History Tobacco Use Types Packs/Day Years [...] CDT) Case Report Dermatopathology Report ? Case: [id number] ? Authorizing Provider: ??Ghassan Morgan MD ?Collected: ? 07/04/2021 12:00 AM ? Ordering Location: ? [facility] DermPath Lab ?Received: ?07/05/2021 02:53 PM ? Pathologist: ? Pam Orourke MD ? Specimen: ?Skin, left dorsal ulnar proximal hand ? 2 1:56 PM [facility] DERMATOPATHOLOGY LABORATORY Final Diagnosis Specimen A. 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 The specimen consists of a shave biopsy measuring [id number] mm,inked and trisected. Jar 0. 2 1:56 PM [facility] DERMATOPATHOLOGY LABORATORY Microscopic Description Specimen A. SKIN, [...] characteristic determined by the Dermatopathology Laboratory at [facility], directed by Dr. Tasha Nielsen. These tests need not be, and therefore are not, approved by the [place] Food and Drug Administration. The tests are used for clinical purposes. Billing Codes Specimen Charges Stain Charges 15380 1 2 1:56 PM CDT DERMATOPATHOLOGY LABORATORY Embedded Images 2 1:56 PM CDT DERMATOPATHOLOGY LABORATORY Pathology/Cytolog y TISSUE SPECIMEN FROM SKIN / Unknown 07/04/2021 07/05/2021 2:53 PM CDT Ghassan Morgan MD LAB - PATHOLOGY/CYTO LOGY ORDERABLES Performing Organization Address [facility]/State/ZIP Co de Phone Number DERMATOPATHOLOGY LABORATORY [facility] - Department of Dermatology [facility] Medicine [address] [place] [address], [address] [phone] documented in this encounter Visit Diagnoses Not on filedocumented in this encounter Care Teams Seo Associate Relationship Specialty Start Date End Date Aravind Morales MD [address] [place] [address] PCP - General 01/01/18 11/16/21 Deborah Llamas MD [address] [place] [address] PCP - General 11/17/21 documented as of this encounter
--- OUTSIDE RECORDS SUMMARY | 2024-04-20 09:31 | XMS_ITS | Encounter Summary ---
Author Organization [facility] Address [address] [place] [address] Care Team Providers Care Ob/Gyn Doctor Name Role Phone Aravind Morales MD Primary Care Provider [phone] [phone] Deborah Llamas MD Primary Care Provider + Encounter Details Date Type Department Care Team (Late st Contact Info) Description 07/24/2018 Lab Requisition [facility] Care D[facility] Lab [address] [facility] [place] [phone] Ghassan Morgan MD [address] [place] [address] Social History Tobacco Use Types Packs/Day Years [...] CDT) Case Report Dermatopathology Report ? Case: [id number] ? Authorizing Provider: ??Ghassan Morgan MD ?Collected: [...] of a curettage and desiccation biopsy measuring 55e47q6vj. Jar 0. 2:04 PM CDT DERMATOPATHOLOGY LABORATORY [...] characteristic determined by the Dermatopathology Laboratory at [facility], directed by Dr. Tasha Nielsen. These tests need not be, and therefore are not, approved by the [place] Food and Drug Administration. The tests are used for clinical purposes. Billing Codes Specimen Charges Stain Charges 39403 1 2:04 PM CDT DERMATOPATHOLOGY LABORATORY Embedded Images 2:04 PM CDT DERMATOPATHOLOGY LABORATORY Pathology/Cytolog y TISSUE SPECIMEN FROM SKIN / Unknown 07/23/2018 07/24/2018 2:04 PM CDT Ghassan Morgan MD LAB - PATHOLOGY/CYTO LOGY ORDERABLES DERMATOPATHOLOGY LABORATORY [facility] - Department of Dermatology [address] [place] [address], 5th Floor Lab [address] [phone] documented in this encounter Visit Diagnoses Not on filedocumented in this encounter Care Teams Ob/Gyn Doctor Relationship Specialty Start Date End Date Aravind Morales MD [address] [place] [address] PCP - General 01/01/18 11/16/21 Deborah Llamas MD [address] [place] [address] PCP - General 11/17/21 documented as of this encounter
--- OUTSIDE RECORDS SUMMARY | 2024-04-20 09:31 | XMS_ITS | Patient Health Summary ---
Author Organization [facility] Address [address] [facility] [place] [address] Care Team Providers Care Quality Technician Name Role Phone Deborah Llamas MD Primary Care Provider + Note from [facility],non-owned Affiliates and Associated Physician Practices is amultiple site organization consisting of ambulatory clinics and hospital sitesin [place], [place], [place] and [place]. This disclosure is being madepursuant to the Care Everywhere program and may not contain all information available regarding this patient. Last updated 17.[facility] Social History Tobacco Use Types [...] 12/31/2017) Results * DERMATOPATHOLOGY (04/10/2022 12:00 AM CONTRACTING SUPPORT SPECIALIST) Only the most recent of13 resultswithin the time period is included. Case Report Dermatopathology Report ? Case: [id number] ? Authorizing Provider: ??Ghassan Morgan MD ?Collected: ? 04/10/2022 12:00 AM ? Ordering Location: ? [facility] DermPath Lab ?Received: ?04/11/2022 02:15 PM ? Pathologist: ? Pam Orourke MD ? Specimen: ?Skin, left distal medial leg ? 3 1:57 PM [facility] DERMATOPATHOLOGY LABORATORY Final Diagnosis Specimen A. 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 The specimen consists of a shave biopsy measuring 75b51v1 mm. Jar 0. 3 1:57 PM [facility] DERMATOPATHOLOGY LABORATORY Microscopic Description Specimen A. SKIN, left distal medial leg: The epidermis shows parakeratosis, full thickness disorderly maturation of keratinocytes, mitoses at different levels, and dyskeratotic cells. 3 1:57 PM [facility] DERMATOPATHOLOGY LABORATORY Disclaimer An external and internal positive and negative controls are appropriate for the histochemical, immunohistochemical and immunofluorescence stain(s) in this case (if any), except where stated explicitly. The performance characteristics of the stain(s) cited in this report were developed and its performance characteristic determined by the Dermatopathology Laboratory at [facility], directed by Dr. Tasha Nielsen. These tests need not be, and therefore are not, approved by the [place] Food and Drug Administration. The tests are used for clinical purposes. Billing Codes Specimen Charges Stain Charges 90535 1 3 1:57 PM CONTRACTING SUPPORT SPECIALIST DERMATOPATHOLOGY LABORATORY Embedded Images 3 1:57 PM CONTRACTING SUPPORT SPECIALIST DERMATOPATHOLOGY LABORATORY Pathology/Cytolog y TISSUE SPECIMEN FROM SKIN / Unknown 04/10/2022 04/11/2022 2:15 PM CONTRACTING SUPPORT SPECIALIST Ghassan Morgan MD LAB - PATHOLOGY/CYTO LOGY ORDERABLES DERMATOPATHOLOGY LABORATORY [facility] - Department of Dermatology [facility] Specialized Medicine [address] [place] [address], [address] [phone] Care Teams Quality Technician Relationship Specialty Start Date End Date Deborah Llamas MD [address] [place] [address] PCP - General 11/17/21
--- OUTSIDE RECORDS SUMMARY | 2024-04-20 09:31 | XMS_ITS | Referral Summary ---
Author Organization [facility] Address [address] [place] [address] Care Team Providers Care Floor Manager Name Role Phone Deborah Llamas MD Primary Care Provider + Source Comments [facility],non-owned Affiliates and Associated Physician Practices is amultiple site organization consisting of ambulatory clinics and hospital sitesin [place], [place], [place] and [place]. This disclosure is being madepursuant to the Care Everywhere program and may not contain all information available regarding this patient. Last updated 17.[facility] [employer] Social History Tobacco Use Types Packs/Day Years Used Date Smoking Tobacco: Never Assessed Sex and Gender Information Value Date Recorded Sex Assigned at Not on file Gender Identity Not on file Sexual Orientation Not on file Plan of Treatment Not on file Care Teams Floor Manager Relationship Specialty Start Date End Date Deborah Llamas MD [address] [place] [address] PCP - General 11/17/21
--- OUTSIDE RECORDS SUMMARY | 2024-04-20 09:31 | XMS_ITS | Encounter Summary ---
Author Organization [facility] Address [address] [facility] [place] [address] Care Team Providers Care Supervisor Particleboard Name Role Phone Aravind Morales MD Primary Care Provider [phone] Deborah Llamas MD Primary Care Provider + Encounter Details Date Type Department Care Team (Late st Contact Info) Description 03/03/2021 Lab Requisition [facility] Care Derm[facility] Lab [address] [facility] [place] [phone] Ghassan Morgan MD [address] [place] [address] Social History Tobacco Use Types Packs/Day Years [...] Comments DERMATOPATHOLOGY Routine 03/01/2021 12:0 0 AM INTENSIVE CARE MEDICINE SPECIALIST documented in this encounter Results * DERMATOPATHOLOGY (03/01/2021 12:00 AM INTENSIVE CARE MEDICINE SPECIALIST) Case Report Dermatopathology Report ? Case: [id number] ? Authorizing Provider: ??Ghassan Morgan MD ?Collected: ? 03/01/2021 12:00 AM ? Ordering Location: ? [facility] DermPath Lab ?Received: ?03/03/2021 12:35 PM ? Pathologist: ? Kierra Meadows, ? MD ? Specimen: ?Skin, left medial calf ? 1 1:47 PM [facility] DERMATOPATHOLOGY LABORATORY Final Diagnosis Specimen A. SKIN, left medial calf: SQUAMOUS CELL CARCINOMA, WELL DIFFERENTIATED (C44.729) NOT PRESENT AT SAMPLED MARGIN 1 1:47 PM [facility] DERMATOPATHOLOGY LABORATORY Clinical History R/O KA. Check margins. 1 1:47 PM [facility] DERMATOPATHOLOGY LABORATORY Gross Description Specimen A: Received is one formalin filled container labeled with the patient's name and designated left medial calf. The specimen consists of a curettage and desiccation biopsy measuring 41m23r3pt, serially sectioned and submitted in cassettes 1-2. The margin is inked green. Jar 0+. 1 1:47 PM [facility] DERMATOPATHOLOGY LABORATORY Microscopic Description Specimen A. SKIN, left medial calf: Arising in the epidermis and extending into the dermis there are irregularly shaped aggregates of keratinocytes showing evidence of premature cornification. This lesion is not present at the sampled margin of the specimen. 1 1:47 PM [facility] DERMATOPATHOLOGY LABORATORY Disclaimer An external and internal positive and negative controls are appropriate for the histochemical, immunohistochemical and immunofluorescence stain(s) in this case (if any), except where stated explicitly. The performance characteristics of the stain(s) cited in this report were developed and its performance characteristic determined by the Dermatopathology Laboratory at [facility], directed by Dr. Tasha Nielsen. These tests need not be, and therefore are not, approved by the [place] Food and Drug Administration. The tests are used for clinical purposes. Billing Codes Specimen Charges Stain Charges 86051 1 1 1:47 PM INTENSIVE CARE MEDICINE SPECIALIST DERMATOPATHOLOGY LABORATORY Embedded Images 1 1:47 PM INTENSIVE CARE MEDICINE SPECIALIST DERMATOPATHOLOGY LABORATORY Pathology/Cytolog y TISSUE SPECIMEN FROM SKIN / Unknown 03/01/2021 03/03/2021 12:35 PM INTENSIVE CARE MEDICINE SPECIALIST Ghassan Morgan MD LAB - PATHOLOGY/CYTO LOGY ORDERABLES DERMATOPATHOLOGY LABORATORY [facility] - Department of Dermatology [facility] Medicine [address] [place] [address], [address] [phone] documented in this encounter Visit Diagnoses Not on filedocumented in this encounter Care Teams Supervisor Particleboard Relationship Specialty Start Date End Date Aravind Morales MD [address] [place] [address] PCP - General 01/01/18 11/16/21 Deborah Llamas MD [address] [place] [address] PCP - General 11/17/21 documented as of this encounter
--- OUTSIDE RECORDS SUMMARY | 2024-04-20 09:31 | XMS_ITS | Encounter Summary ---
Author Organization [facility] Address [address] [facility] [place] [address] Care Team Providers Care Evidence Specialist Name Role Phone Aravind Morales MD Primary Care Provider [phone] [phone] Deborah Llamas MD Primary Care Provider + Encounter Details Date Type Department Care Team (Late st Contact Info) Description 07/19/2021 Lab Requisition [facility] Care DermPath Lab [address] [facility] [place] [phone] Ghassan Morgan MD [address] [place] [address] Social History Tobacco Use Types Packs/Day Years [...] CDT) Case Report Dermatopathology Report ? Case: [id number] ? Authorizing Provider: ??Ghassan Morgan MD ?Collected: ? 07/18/2021 12:00 AM ? Ordering Location: ? [facility] DermPath Lab ?Received: ?07/19/2021 02:02 PM ? [...] specimen consists of a shave biopsy measuring 30u16b2my. Jar 0. Specimen B: Received is one formalin filled container labeled with the patient's name and designated left sup deltoid. The specimen consists of a shave biopsy measuring 3x9p6zt. There is an additional piece of tissue measuring 4n6g4vb. Jar 0. 2 1:33 PM CDT DERMATOPATHOLOGY [...] purposes. Billing Codes Specimen Charges Stain Charges 11385 76157 1 1 2 1:33 PM CDT DERMATOPATHOLOGY LABORATORY Embedded Images 2 1:33 PM CDT DERMATOPATHOLOGY LABORATORY Pathology/Cytology TISSUE SPECIMEN FROM SKIN / Unknown 07/18/2021 07/19/2021 2:02 PM CDT Miscellaneous samples (specimen) TISSUE SPECIMEN FROM SKIN / Unknown 07/18/2021 07/19/2021 2:02 PM CDT Ghassan Morgan MD LAB - PATHOLOGY/CYTO LOGY ORDERABLES DERMATOPATHOLOGY LABORATORY [facility] - Department of Dermatology [address], [address] [phone] documented in this encounter Visit Diagnoses Not on filedocumented in this encounter Care Teams Evidence Specialist Relationship Specialty Start Date End Date Aravind Morales MD [address] [place] [address] PCP - General 01/01/18 11/16/21 Deborah Llamas MD [address] [place] [address] PCP - General 11/17/21 documented as of this encounter
--- OUTSIDE RECORDS SUMMARY | 2024-04-20 09:31 | XMS_ITS | Encounter Summary ---
Author Organization [facility] Address [address] [facility] [place] [address] Care Team Providers Care Food Science Professor Name Role Phone Aravind Morales MD Primary Care Provider +1 [phone] Deborah Llamas MD Primary Care Provider + Encounter Details Date Type Department Care Team (Late st Contact Info) Description 11/26/2018 Lab Requisition [facility] Care DermPath Lab [address] [facility] [place] [phone] Ghassan Morgan MD [address] [place] [address] Social History Tobacco Use Types Packs/Day Years [...] CDT) Case Report Dermatopathology Report ? Case: [id number] ? Authorizing Provider: ??Ghassan Morgan MD ?Collected: ? 11/25/2018 12:00 AM ? Ordering Location: ? [facility] DermPath Lab ?Received: ?11/26/2018 11:47 AM ? [...] of a curettage and desiccation biopsy measuring 87w50a0nu. Jar 0. Specimen B: Received is one formalin filled container labeled with the patient's name and designated left lower anteromedial leg. The specimen consists of a curettage and desiccation biopsy measuring [id number]. Jar 0. Specimen C: Received is one formalin filled container labeled with the patient's name and designated left lower triceps. The specimen consists of a curettage and desiccation biopsy measuring 23o70n1wr. Jar 0. 2:20 PM CDT DERMATOPATHOLOGY LABORATORY [...] characteristic determined by the Dermatopathology Laboratory at [facility], directed by Dr. Tasha Nielsen. These tests need not be, and therefore are not, approved by the [place] Food and Drug Administration. The tests are used for clinical purposes. Billing Codes Specimen Charges Stain Charges 39574 72730 46377 1 1 1 2:20 PM CDT DERMATOPATHOLOGY [...] DERMATOPATHOLOGY LABORATORY [facility] - Department of Dermatology [address] [place] [address] 5th Floor Lab [address] [phone] documented in this encounter Visit Diagnoses Not on filedocumented in this encounter Care Teams Food Science Professor Relationship Specialty Start Date End Date Aravind Morales MD [address] [facility] [address] [place] [address] PCP - General 01/01/18 11/16/21 Deborah Llamas MD [address] [facility] [address] [place] [address] PCP - General 11/17/21 documented as of this encounter
--- OUTSIDE RECORDS SUMMARY | 2024-04-20 09:31 | XMS_ITS | Encounter Summary ---
Author Organization [facility] Address [address] [facility] [place] [address] Care Team Providers Care Shift Foreman Name Role Phone Aravind Morales MD Primary Care Provider [phone] [phone] Deborah Llamas MD Primary Care Provider + Encounter Details Date Type Department Care Team (Late st Contact Info) Description 02/17/2020 Lab Requisition [facility] Care DermPath Lab [address] [place] [phone] Ghassan Morgan MD [address] [place] [address] Social History Tobacco Use Types Packs/Day Years [...] Comments DERMATOPATHOLOGY Routine 02/16/2020 12:0 0 AM OPTIMIZATION ANALYST documented in this encounter Results * DERMATOPATHOLOGY (02/16/2020 12:00 AM OPTIMIZATION ANALYST) Case Report Dermatopathology Report ? Case: [id number] ? Authorizing Provider: ??Ghassan Morgan MD ?Collected: ? 02/16/2020 12:00 AM ? Ordering Location: ? [facility] DermPath Lab ?Received: ?02/17/2020 11:22 AM ? Pathologist: ? Daphne Reddy MD ? Specimen: ?Skin, left mid anterior medial pretibia ? 0 1:42 PM [facility] DERMATOPATHOLOGY LABORATORY Final Diagnosis Specimen A. SKIN, left mid anterior medial pretibia: SQUAMOUS CELL CARCINOMA, WELL DIFFERENTIATED (C44.729) 0 1:42 PM [facility] DERMATOPATHOLOGY LABORATORY Clinical History R/O SCC,HAK 0 1:42 PM [facility] DERMATOPATHOLOGY LABORATORY Gross Description Specimen A: Received is one formalin filled container labeled with the patient's name and designated left mid anterior medial pretibia. The specimen consists of a curettage and desiccation biopsy measuring 59g22k8 mm. Jar 0. 0 1:42 PM [facility] DERMATOPATHOLOGY LABORATORY Microscopic Description Specimen A. SKIN, left mid anterior medial pretibia: Arising in the epidermis and extending into the dermis there are irregularly shaped aggregates of keratinocytes showing evidence of premature cornification. 0 1:42 PM [facility] DERMATOPATHOLOGY LABORATORY Disclaimer An external and internal positive and negative controls are appropriate for the histochemical, immunohistochemical and immunofluorescence stain(s) in this case (if any), except where stated explicitly. The performance characteristics of the stain(s) cited in this report were developed and its performance characteristic determined by the Dermatopathology Laboratory at [facility], directed by Dr. Tasha Nielsen. These tests need not be, and therefore are not, approved by the [place] Food and Drug Administration. The tests are used for clinical purposes. Billing Codes Specimen Charges Stain Charges 26450 1 0 1:42 PM OPTIMIZATION ANALYST DERMATOPATHOLOGY LABORATORY Embedded Images 0 1:42 PM OPTIMIZATION ANALYST DERMATOPATHOLOGY LABORATORY Pathology/Cytolog y TISSUE SPECIMEN FROM SKIN / Unknown 02/16/2020 02/17/2020 11:22 AM OPTIMIZATION ANALYST Ghassan Morgan MD LAB - PATHOLOGY/CYTO LOGY ORDERABLES DERMATOPATHOLOGY LABORATORY [facility] - Department of Dermatology [facility] Medicine [address] [place] [address], [address]rd [address] [phone] documented in this encounter Visit Diagnoses Not on filedocumented in this encounter Care Teams Shift Foreman Relationship Specialty Start Date End Date Aravind Morales MD [address] [place] [address] PCP - General 01/01/18 11/16/21 Deborah Llamas MD [address] [place] [address] PCP - General 11/17/21 documented as of this encounter
--- OUTSIDE RECORDS SUMMARY | 2024-04-20 09:31 | XMS_ITS | Encounter Summary ---
Author Organization [facility] Address [address] [place] [address] Care Team Providers Care Pipe Line Gauger Name Role Phone Aravind Morales MD Primary Care Provider [phone] [phone] Deborah Llamas MD Primary Care Provider + Encounter Details Date Type Department Care Team (Late st Contact Info) Description 04/10/[address] [facility] Care DermPath Lab [address] [facility] [place] [phone] Ghassan Morgan MD [address] [place] [address] Social History Tobacco Use Types Packs/Day Years [...] Comments DERMATOPATHOLOGY Routine 04/09/2018 12:0 0 AM SLITTER SCORER documented in this encounter Results * DERMATOPATHOLOGY (04/09/2018 12:00 AM SLITTER SCORER) Case Report Dermatopathology Report ? Case: [id number] ? Authorizing Provider: ??Ghassan Morgan MD ?Collected: ? 04/09/2018 12:00 AM ? Pathologist: ? Thania Shepherd MD ? Received: ?04/10/2018 12:20 PM ? Specimens: ?? A) - Skin, left med calf ? B) - Skin, left ditsal med calf ? 9 1:19 PM [facility] DERMATOPATHOLOGY LABORATORY Final Diagnosis Specimen A. 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 9 1:19 PM [facility] DERMATOPATHOLOGY LABORATORY Gross Description Specimen A: Received is one formalin filled container labeled with the patient's name and designated left med calf. The specimen consists of a curettage and desiccation biopsy measuring [id number], bisected. Jar 0+. Specimen B: Received is one formalin filled container labeled with the patient's name and designated left ditsal med calf. The specimen consists of a curettage and desiccation biopsy measuring 24d83r8ip, bisected. Jar 0. 9 1:19 PM [facility] DERMATOPATHOLOGY LABORATORY Microscopic Description Specimen A. [...] evidence of premature cornification. 9 1:19 PM [facility] DERMATOPATHOLOGY LABORATORY Disclaimer An external and internal positive and negative controls are appropriate for the histochemical, immunohistochemical and immunofluorescence stain(s) in this case (if any), except where stated explicitly. The performance characteristics of the stain(s) cited in this report were developed and its performance characteristic determined by the Dermatopathology Laboratory at [facility], directed by Dr. Tasha Nielsen. These tests need not be, and therefore are not, approved by the [place] Food and Drug Administration. The tests are used for clinical purposes. Billing Codes Specimen Charges Stain Charges 06411 81493 1 1 9 1:19 PM SLITTER SCORER DERMATOPATHOLOGY LABORATORY Embedded Images 1:19 PM [facility] DERMATOPATHOLOGY LABORATORY Pathology/Cytology TISSUE SPECIMEN FROM SKIN / Unknown 04/09/2018 04/10/2018 12:20 PM SLITTER SCORER Miscellaneous samples (specimen) TISSUE SPECIMEN FROM SKIN / Unknown 04/09/2018 04/10/2018 12:20 PM SLITTER SCORER Ghassan Morgan MD LAB - PATHOLOGY/CYTO LOGY ORDERABLES DERMATOPATHOLOGY LABORATORY [facility] - Department of Dermatology [address] [place] [address], 5th Floor Lab [address] [phone] documented in this encounter Visit Diagnoses Not on filedocumented in this encounter Care Teams Pipe Line Gauger Relationship Specialty Start Date End Date Aravind Morales MD [address] [place] [address] PCP - General 01/01/18 11/16/21 Deborah Llamas MD [address] [place] [address] PCP - General 11/17/21 documented as of this encounter
--- OUTSIDE RECORDS SUMMARY | 2024-04-20 09:31 | XMS_ITS | Clinical Summary ---
Author Organization [facility] Address [address] [place] [address] Care Team Providers Care Fire Alarm Dispatcher Name Role Phone Deborah Llamas MD Primary Care Provider + Source Comments [facility],non-owned Affiliates and Associated Physician Practices is amultiple site organization consisting of ambulatory clinics and hospital sitesin [place], [place], [place] and [place]. This disclosure is being madepursuant to the Care Everywhere program and may not contain all information available regarding this patient. Last updated 17.[facility] Social History Tobacco Use Types Packs/Day Years [...] age to complete this topic Care Teams Fire Alarm Dispatcher Relationship Specialty Start Date End Date Deborah Llamas MD [address] [place] [address] PCP - General 11/17/21
--- OUTSIDE RECORDS SUMMARY | 2024-04-20 09:31 | XMS_ITS | Encounter Summary ---
Author Organization [facility] Address [address] [facility] [place] [address] Care Team Providers Care Layout Mechanic Name Role Phone Aravind Morales MD Primary Care Provider [phone] [phone] Deborah Llamas MD Primary Care Provider + Encounter Details Date Type Department Care Team (Late st Contact Info) Description 09/21/2021 Lab Requisition [facility] Care DermPath Lab [address] [facility] [facility] [place] [phone] Ghassan Morgan MD [address] [place] [address] Social History Tobacco Use Types Packs/Day Years [...] CDT) Case Report Dermatopathology Report ? Case: [id number] ? Authorizing Provider: ??Ghassan Morgan MD ?Collected: ? 09/20/2021 12:00 AM ? Ordering Location: ? [facility] DermPath Lab ?Received: ?09/21/2021 12:08 PM ? [...] specimen consists of a shave biopsy measuring 56h45x9fu, bisected. Jar 0+. Specimen B: Received is one formalin filled container labeled with the patient's name and designated right superior lateral right lower leg. The specimen consists of a shave biopsy measuring 93o55p0jq. Jar 0. Specimen C: Received is one formalin filled container labeled with the patient's name and designated right posterior superior lateral right lower leg. The specimen consists of a shave biopsy measuring 55x80w6aq. Jar 0. 2 5:11 PM T DERMATOPATHOLOGY [...] characteristic determined by the Dermatopathology Laboratory at [facility], directed by Dr. Tasha Nielsen. These tests need not be, and therefore are not, approved by the [place] Food and Drug Administration. The tests are used for clinical purposes. Billing Codes Specimen Charges Stain Charges 52512 25867 63836 1 1 1 2 5:11 PM CDT [...] PATHOLOGY/CYTO LOGY ORDERABLES DERMATOPATHOLOGY LABORATORY [facility] - Department of Dermatology [address], 3rd [address] [phone] documented in this encounter Visit Diagnoses Not on filedocumented in this encounter Care Teams Layout Mechanic Relationship Specialty Start Date End Date Aravind Morales MD [address] [facility] [address] [place] [address] PCP - General 01/01/18 11/16/21 Deborah Llamas MD [address] [place] [address] PCP - General 11/17/21 documented as of this encounter
--- OUTSIDE RECORDS SUMMARY | 2024-04-20 09:31 | XMS_ITS | Encounter Summary ---
Author Organization [facility] Address [address] [facility] [place] [address] Care Team Providers Care Large Animal Husbandry Technician Name Role Phone Aravind Morales MD Primary Care Provider [phone] [phone] Deborah Llamas MD Primary Care Provider + Encounter Details Date Type Department Care Team (Late st Contact Info) Description 10/12/2020 Lab Requisition [facility] Care DermPath Lab [address] [facility] [facility] [place] [phone] Ghassan Morgan MD [address] [place] [address] Social History Tobacco Use Types Packs/Day Years [...] CDT) Case Report Dermatopathology Report ? Case: [id number] ? Authorizing Provider: ??Ghassan Morgan MD ?Collected: ? 10/11/2020 12:00 AM ? Ordering Location: ? [facility] DermPath Lab ?Received: ?10/12/2020 02:29 PM ? Pathologist: ? Pam Orourke MD ? Specimens: ?? A) - Skin, right medial lower calf superior ? B) - Skin, right medial lower calf inferior ? 1 4:07 PM [facility] DERMATOPATHOLOGY LABORATORY Final Diagnosis Specimen A. SKIN, right medial lower calf superior: SQUAMOUS CELL CARCINOMA, WELL DIFFERENTIATED (C44.722) Specimen B. SKIN, right medial lower calf inferior: SQUAMOUS CELL CARCINOMA, WELL DIFFERENTIATED (C44.722) 1 4:07 PM [facility] DERMATOPATHOLOGY LABORATORY Clinical History A-B: R/O SCC. 1 4:07 PM [facility] DERMATOPATHOLOGY LABORATORY Gross Description Specimen A: Received is one formalin filled container labeled with the patient's name and designated right medial lower calf superior. The specimen consists of a curettage and desiccation biopsy measuring [id number], bisected. Jar 0. Specimen B: Received is one formalin filled container labeled with the patient's name and designated right medial lower calf inferior. The specimen consists of a curettage and desiccation biopsy measuring 72q32k9rj. Jar 0. 1 4:07 PM [facility] DERMATOPATHOLOGY LABORATORY Microscopic Description Specimen A. [...] by the Dermatopathology Laboratory at [facility], directed by Dr. Tasha Nielsen. These tests need not be, and therefore are not, approved by the [place] Food and Drug Administration. The tests are used for clinical purposes. Billing Codes Specimen Charges Stain Charges 49041 06228 1 1 1 4:07 PM CDT DERMATOPATHOLOGY LABORATORY Embedded Images 1 4:07 PM CDT DERMATOPATHOLOGY LABORATORY Pathology/Cytology TISSUE SPECIMEN FROM SKIN / Unknown 10/11/2020 10/12/2020 2:29 PM CDT Miscellaneous samples (specimen) TISSUE SPECIMEN FROM SKIN / Unknown 10/11/2020 10/12/2020 2:29 PM CDT Ghassan Morgan MD LAB - PATHOLOGY/CYTO LOGY ORDERABLES Performing Organization Address [facility]/State/ZIP Co de Phone Number DERMATOPATHOLOGY LABORATORY [facility] - Department of Dermatology [facility] Medicine [address] [place] [address], [address]rd [address] [phone] documented in this encounter Visit Diagnoses Not on filedocumented in this encounter Care Teams Large Animal Husbandry Technician Relationship Specialty Start Date End Date Aravind Morales MD [address] [place] [address] PCP - General 01/01/18 11/16/21 Deborah Llamas MD [address] [place] [address] PCP - General 11/17/21 documented as of this encounter
--- OUTSIDE RECORDS SUMMARY | 2024-04-20 09:31 | XMS_ITS | Encounter Summary ---
Author Organization [facility] Address [address] [facility] [place] [address] Care Team Providers Care Steam Pipe Fitter Name Role Phone Aravind Morales MD Primary Care Provider [phone] [phone] Deborah Llamas MD Primary Care Provider + Encounter Details Date Type Department Care Team (Late st Contact Info) Description 01/01/2018 Lab Requisition [facility] Care DermPath Lab [address] [facility] [place] [phone] Ghassan Morgan MD [address] [address] Social History Tobacco Use Types Packs/Day Years [...] CDT) Case Report Dermatopathology Report ? Case: [id number] ? Authorizing Provider: ??Ghassan Morgan MD ?Collected: [...] specimen consists of a shave biopsy measuring [id number]. Jar 0+. Specimen B: Received is one formalin filled container labeled with the patient's name and designated dorsal left hand. The specimen consists of a shave biopsy measuring 6e8j5hn. Jar 0+. 5:03 PM CDT DERMATOPATHOLOGY LABORATORY [...] characteristic determined by the Dermatopathology Laboratory at [facility]. These tests need not be, and therefore are not, approved by the [place] Food and Drug Administration. The tests are used for clinical purposes. Billing Codes Specimen Charges Stain Charges 49361 62818 1 1 8 5:03 PM CDT DERMATOPATHOLOGY LABORATORY Embedded Images 8 5:03 PM CDT DERMATOPATHOLOGY LABORATORY Pathology/Cytology TISSUE SPECIMEN FROM SKIN / Unknown 12/31/2017 01/01/2018 12:22 PM CDT Miscellaneous samples (specimen) TISSUE SPECIMEN FROM SKIN / Unknown 12/31/2017 01/01/2018 12:22 PM CDT Ghassan Morgan MD LAB - PATHOLOGY/CYTO LOGY ORDERABLES DERMATOPATHOLOGY LABORATORY [facility] - Department of Dermatology [address] [place] [address], 5th Floor Lab [address] [phone] documented in this encounter Visit Diagnoses Not on filedocumented in this encounter Care Teams Steam Pipe Fitter Relationship Specialty Start Date End Date Aravind Morales MD [address] [place] [address] PCP - General 01/01/18 11/16/21 Deborah Llamas MD [address] [place] [address] PCP - General 11/17/21 documented as of this encounter
[2024-04-20 09:34] LABS: NT Pro B Type Natriuretic Pept 5740 pg/mL (19.9-100); Troponin I 0.065 ng/mL (0.000-0.034)
[2024-04-20] MEDS: METOPROLOL TARTRATE INJ 5 MG/5 ML VIAL IV PUSH (09:54)
[2024-04-20] MEDS: FUROSEMIDE INJ 40 MG/4 ML VIAL IV PUSH ×2 (11:21→22:03)
--- NOTE | 2024-04-20 11:49 | ECG_ITS ---
Test Date: 2024-04-20 11:59:29 Measurements Intervals [place] Rate: 89 P: 0 OK: 0 QRS: -21 QRSD: 118 T: -12 QT: 391 QTc: 478 Interpretive Statements sinus rhythm frequent supraventricular ectopic contractions BORDERLINE LEFT AXIS DEVIATION [QRS AXIS < -20] INCOMPLETE RIGHT BUNDLE BRANCH BLOCK [90+ ms QRS DURATION, TERMINAL R IN V1/V2, 40+ ms S IN I/aVL/V4/V5/V6] artifact Compared to ECG 04/20/2024 08:46:22 Incomplete right bundle-branch block now present Right bundle-branch block no longer present Electronically Signed On 04-20-2024 13:39:50 M1 ARMOR CREWMAN by Kip Dejesus M.D.
[2024-04-20 12:50] LABS: Troponin I 0.056 ng/mL (0.000-0.034)
--- NOTE | 2024-04-20 13:33 | P.HP_ITS ---
H&P: HPI History of Present Illness Date/Time: 04/20/24 13:33 Chief Complaint: Shortness of breath Narrative: 81-year-old female with past medical history of CHF, CKD, skin cancer, hypertension, diabetes, and hyperlipidemia presents to the hospital for shortness of breath. Patient has been complaining of shortness of breath for the last couple weeks with edema. She has been to her clinical practice consultant and has medication changes. However last night she was still unable to sleep and lay flat she was up several times throughout the night. Her son felt that she needed to come to the hospital for further management. Patient is extremely hard of hearing Patient denies fevers chills nausea or vomiting. In the ED she has elevated troponin at 0.056, BNP of 5740, and pulmonary edema on chest x-ray. In the ED she was given 40 mg IV Lasix and 5 mg of metoprolol IV. Review of Systems Review of Systems: 12 systems were reviewed and are negativ e except for as per HPI. [facility] Past Medical History Medical History Afib CHF (congestive heart failure) Skin cancer Hypertension High cholesterol Diabetes Glaucoma Macular degeneration Hx of fracture of femur [place] (hard of hearing) Benign reactive hypertension Diabetic neuropathy Surgical History Surgical History History of open reduction and internal fixation (ORIF) procedure Hx of cholecystectomy Hx of hysterectomy Family History Family History Mother Diabetes mellitus Social History Social History Social History: Smoking packs per day: 0.5 Smoking cigarettes per day: 10.0 Years smoked: 30 Smoking pack-years: 15.00 Smoking status: Never smoker Tobacco type: cigarettes Second hand tobacco smoke exposure: No Smoking end date: 03/25/16 Alcohol intake: never Substance use: never Substance use type: does not use Do You Feel Safe in your Home?: Yes Lack of Transportation: No Lack of Food: Never True Current Housing: I Have Housing Concerned About Future Housing: No Difficulty Paying Gas/Electric Bills: No Difficulty Paying for Meds: No Currently Unemployed: No Education: High School Diploma/GED Difficulty w/ Childcare or Family Care: No Living arrangements: with family Additional living arrangements comments: PT LIVES WITH DAUGHTER - BRETT Occupation/Education: retired Gender identity (if verbalized by the patient): Female Sexual Orientation (if Verbalized by the Patient): Straight or Heterosexual Spiritual care concerns: No Meds Home Medications and Allergies Home Medications ?Medication ?Instructions ?Recorded ?Confirmed ?Type lancets (Accu-Chek Softclix #100 ea 08/22/21 04/20/24 Rx Lancets) multivitamin 1 tablet PO DAILY 04/30/22 04/20/24 History blood sugar diagnostic (Accu-Chek #200 strips 09/10/22 04/20/24 Rx Guide test strips) pen needle, diabetic 31 gauge x #100 ea 10/08/22 04/20/24 Rx 3/16 (BD Ultra-Fine Mini Pen Needle) atorvastatin 20 mg tablet See Rx Instructions .Route 10/08/23 04/20/24 Rx .COMPLEX #90 tabs ropinirole 2 mg tablet See Rx Instructions .Route 11/12/23 04/20/24 Rx .COMPLEX #200 tabs aripiprazole 5 mg tablet See Rx Instructions .Route 01/02/24 04/20/24 Rx .COMPLEX #90 tabs quetiapine 50 mg tablet See Rx Instructions .Route 01/02/24 04/20/24 Rx .COMPLEX #180 tabs benazepril 40 mg tablet See Rx Instructions .Route 03/09/24 04/20/24 Rx .COMPLEX #90 tabs furosemide 40 mg tablet 40 mg PO QAM #90 tabs 04/16/24 04/20/24 Rx alendronate 70 mg tablet 70 mg PO WEEKLY 04/20/24 04/20/24 History celecoxib 200 mg capsule 200 mg PO Q24H 04/20/24 04/20/24 History cyanocobalamin (vitamin B-12) 1,000 mcg IM WEEKLY 04/20/24 04/20/24 History 1,000 mcg/mL injection solution insulin glargine 100 unit/mL (3 27 unit subcut BID 04/20/24 04/20/24 History mL) subcutaneous pen (Basaglar KwikPen U-100 Insulin) Allergies Allergy/AdvReac Type Severity Reaction Status Date / Time No Known Allergies Allergy Verified 04/20/24 08:51 Vital Signs Vital Signs - 24 hr 04/20/24 08:40 04/20/24 08:52 04/20/24 08:52 Temperature 97.7 F Pulse Rate 114 H 117 H Respiratory Rate 26 H Blood Pressure 138/91 H Pulse Oximetry 96 97 Oxygen Delivery Room Air Room Air 04/20/24 09:54 04/20/24 09:57 04/20/24 11:21 Temperature Pulse Rate 107 H 90 89 Respiratory Rate 26 H 20 Blood Pressure 141/108 H 134/79 Pulse Oximetry 95 95 Oxygen Delivery 04/20/24 13:01 04/20/24 13:18 Temperature 97.5 F L Pulse Rate 89 94 Respiratory Rate 26 H 20 Blood Pressure 120/89 Pulse Oximetry 96 94 Oxygen Delivery Room Air Exam Narrative: General: Chronically ill, hard of hearing HEENT: normocephalic, atraumatic. Mucous membranes moist. EOMI, PERRLA, bilateral sclera anicteric, no conjunctival injection. Neck supple without JVD, lymphadenopathy, or bruit. Respiratory: clear to ascultation bilaterally. No rales/rhonic/wheezes. Cardiovascular: Regular rate and rhythm, normal S1-S2 upon ascultation. No murmurs, rubs, or clicks. PMI is nondisplaced, capillary refill less than 3 second. Abdomen: Soft, round, no pulsatile masses, nondistended and nontender. No tania ound, no guarding. No CVA tenderness, no hepatosplenomegaly. Bowel sounds present to all four quadrants. No high pitch or tinkling sounds, resonant to percussion. Extremities: No cyanosis, clubbing, or edema present. Pulses are palpable 2/2. Active ROM to all four extremities. Neuro: Alert and orientated x 4. PERRLA. Cranial nerves 2-12 intact without focal deficit. Skin: Warm, dry, and intact, without rash, erythema, or lesion. Psych: pleasant, cooperative, normal speech, normal affect, no hallucinations, no dysarthia H&P: Results Labs Labs: Short CBC 04/20/24 Range/Units 08:54 WBC 7.5 (4.5-10.0) K/mm3 Hgb 11.1 L (12.0-15.0) g/dL Hct 35.6 L (37.0-47.0) % Plt Count 228 (150-375) k/mm3 BMP 04/20/24 08:54 Sodium 143 Potassium 4.1 Chloride 104 Carbon Dioxide 24 BUN 24 H Creatinine 1.40 H Glucose 141 H Calcium 8.6 Cardiac Enzymes 04/20/24 04/20/24 Range/Units 08:54 11:57 Troponin I 0.065 H* 0.056 H* (0.000-0.034) ng/mL Liver Function 04/20/24 Range/Units 08:54 Total Bilirubin 0.5 (0.2-1.3) mg/dL AST 27 (14-36) U/L ALT 23 (6-35) U/L Alkaline Phosphatase 90 (38-126) U/L Albumin 4.1 (3.5-5.1) g/dL Assessment and Plan Assessment and plan (1) Acute HFrEF (heart failure with reduced ejection fraction): Code(s): I50.21 - Acute systolic (congestive) heart failure Status: Acute Assessment and Plan: Echocardiogram April 2021 EF 40-45% Cardiology consulted IV Lasix b.i.d. Daily weight Low-sodium diet and fluid restriction Echocardiogram pending Continue statin (2) Type 2 diabetes mellitus with diabetic chronic kidney disease: Onset Date: Unknown Qualifiers: Chronic kidney disease stage: stage 3 (moderate) Chronic kidney disease stage 3 subtype: stage 3b (GFR 30-44) Diabetes mellitus termite treater helper insulin use: with termite treater helper use Qualified Code(s): E11.22 - Type 2 diabetes mellitus with diabetic chronic kidney disease; N18.32 - Chronic kidney disease, stage 3b; Z79.4 - retirement (current) use of insulin Code(s): E11.22 - Type 2 diabetes mellitus with diabetic chronic kidney disease Status: Acute Assessment and Plan: Diabetic diet SSI Accu-Cheks a.c. HS Plan Restart home antidepressant and Seroquel Quality VTE Prophylaxis VTE prophylaxis: mechanical ordered and pharmacologic ordered Hospitalist MIPS Advance Care Plan I have confirmed that the patient's Advanced Care Plan is present, code status is documented, or surrogate decision maker is listed in patient medical record.: Yes Medication Reconciliation I have utilized all available resources to obtain, update and review the patients current medications (includes all prescriptions, OTC, herbals, cannabis, and nutritional supplements).: Yes
--- NOTE | 2024-04-20 14:10 | ADMGEN ---
This patient, Lyndsay Manriquez, was admitted to IMU Room 205-01. Patient/family oriented to hospital policies and general routines including ID bracelet, bed and alarms, visiting hours, pain management, procedures, bathroom and other care routines, personal items, smoking policy, room service/diet, and visiting hours. Information on how to activate the Rapid Response Team has been discussed. Patient/Family are encouraged to report perceived risks to care and to ask questions if they do not understand what they are told or what they should do.
--- NOTE | 2024-04-20 14:41 | P.CONCA_ITS ---
Assessment and Plan Assessment and plan (1) Acute on chronic HFrEF (heart failure with reduced ejection fraction): Code(s): I50.23 - Acute on chronic systolic (congestive) heart failure Status: Acute Assessment and Plan: Acute on chronic systolic heart failure presenting with orthopnea, PND, edema. She is feeling better after receiving IV furosemide and has no significant peripheral edema. Moderate pulmonary edema on CXR. * Continue with IV furosemide today * Daily BMP while diuresing * Strict I&O * Daily weights * Hold benazepril with the intention of shifting to Entresto after 36 hr washout period * Add Toprol XL * If BP and renal function tolerate Toprol and Entresto would also recommend spironolactone and jardiance. Can be optimized as outpatient (2) Cardiomyopathy: Qualifiers: Cardiomyopathy type: ischemic Qualified Code(s): I25.5 - Ischemic cardiomyopathy Code(s): I42.9 - Cardiomyopathy, unspecified Status: Acute Assessment and Plan: Probably ischemic (abnormal nuclear stress in 2021, did not have follow up angiogram). EF 40-45% -TTE ordered to reassess LV function, last echo in 2021 (3) Premature atrial contractions: Code(s): I49.1 - Atrial premature depolarization Status: Acute Assessment and Plan: She is in sinus rhythm with frequent PAC's. Telemtry and ECG's reviewed; no clear evidence of atrial fibrillation. Will continue to monitor on telemetry. History of Present Illness History of Present Illness Consult date/time: 04/20/24 14:41 Reason For Visit: heart failure exacerbation,tachycardia Narrative: Lyndsay Manriquez is an 89 year old female with cardiomyopathy, last known EF 40-45%. This is a patient who was previously followed by Dr. Bustamante. She has not been seen in our office since February of 2022. This is a patient who comes to the hospital with a chief complaint of shortness of breath. She began to experience orthopnea and paroxysmal nocturnal dyspnea about 4 days ago. She also endorses worsening lower extremity edema. She saw her primary care doctor because of this and he prescribed furosemide. Per the patient and her son, this improved her lower extremity edema almost to the point of resolution. She denies feeling any chest pain, palpitations. She denies syncope, presyncope. At the time of my evaluation, she reports that she is feeling better, does not have any shortness of breath. Review of Systems 2 Review of Systems: All systems reviewed & are unremarkable except as noted in HPI and below PMFSH Past Medical History Medical History Afib CHF (congestive heart failure) Skin cancer Hypertension High cholesterol Diabetes Glaucoma Macular degeneration Hx of fracture of femur [place] (hard of hearing) Benign reactive hypertension Diabetic neuropathy Surgical History Surgical History History of open reduction and internal fixation (ORIF) procedure Hx of cholecystectomy Hx of hysterectomy Family History Family History Mother Diabetes mellitus Social History Social History Social History: Smoking packs per day: 0.5 Smoking cigarettes per day: 10.0 Years smoked: 30 Smoking pack-years: 15.00 Smoking status: Never smoker Tobacco type: cigarettes Second hand tobacco smoke exposure: No Smoking end date: 03/25/16 Alcohol intake: never Substance use: never Substance use type: does not use Do You Feel Safe in your Home?: Yes Lack of Transportation: No Lack of Food: Never True Current Housing: I Have Housing Concerned About Future Housing: No Difficulty Paying Gas/Electric Bills: No Difficulty Paying for Meds: No Currently Unemployed: No Education: High School Diploma/GED Difficulty w/ Childcare or Family Care: No Living arrangements: with family Additional living arrangements comments: PT LIVES WITH DAUGHTER - BRETT Occupation/Education: retired Gender identity (if verbalized by the patient): Female Sexual Orientation (if Verbalized by the Patient): Straight or Heterosexual Spiritual care concerns: No Meds Home Medications and Allergies Home Medications ?Medication ?Instructions ?Recorded ?Confirmed ?Type lancets (Accu-Chek Softclix #100 ea 08/22/21 04/20/24 Rx Lancets) multivitamin 1 tablet PO DAILY 04/30/22 04/20/24 History blood sugar diagnostic (Accu-Chek #200 strips 09/10/22 04/20/24 Rx Guide test strips) pen needle, diabetic 31 gauge x #100 ea 10/08/22 04/20/24 Rx 3/16 (BD Ultra-Fine Mini Pen Needle) atorvastatin 20 mg tablet See Rx Instructions .Route 10/08/23 04/20/24 Rx .COMPLEX #90 tabs ropinirole 2 mg tablet See Rx Instructions .Route 11/12/23 04/20/24 Rx .COMPLEX #200 tabs aripiprazole 5 mg tablet See Rx Instructions .Route 01/02/24 04/20/24 Rx .COMPLEX #90 tabs quetiapine 50 mg tablet See Rx Instructions .Route 01/02/24 04/20/24 Rx .COMPLEX #180 tabs benazepril 40 mg tablet See Rx Instructions .Route 03/09/24 04/20/24 Rx .COMPLEX #90 tabs furosemide 40 mg tablet 40 mg PO QAM #90 tabs 04/16/24 04/20/24 Rx alendronate 70 mg tablet 70 mg PO WEEKLY 04/20/24 04/20/24 History celecoxib 200 mg capsule 200 mg PO Q24H 04/20/24 04/20/24 History cyanocobalamin (vitamin B-12) 1,000 mcg IM WEEKLY 04/20/24 04/20/24 History 1,000 mcg/mL injection solution insulin glargine 100 unit/mL (3 27 unit subcut BID 04/20/24 04/20/24 History mL) subcutaneous pen (Basaglar KwikPen U-100 Insulin) Allergies Allergy/AdvReac Type Severity Reaction Status Date / Time No Known Allergies Allergy Verified 04/20/24 08:51 Vital Signs Vital Signs - 24 hr 04/20/24 08:40 04/20/24 08:52 04/20/24 08:52 Temperature 36.5 C Pulse Rate 114 H 117 H Respiratory Rate 26 H Blood Pressure 138/91 H Pulse Oximetry 96 97 Oxygen Delivery Room Air Room Air 04/20/24 09:54 04/20/24 09:57 04/20/24 11:21 Temperature Pulse Rate 107 H 90 89 Respiratory Rate 26 H 20 Blood Pressure 141/108 H 134/79 Pulse Oximetry 95 95 Oxygen Delivery 04/20/24 13:01 04/20/24 13:15 04/20/24 13:18 Temperature 36.4 C L 36.4 C Pulse Rate 89 101 H 94 Respiratory Rate 26 H 20 20 Blood Pressure 120/89 119/69 Pulse Oximetry 96 94 94 Oxygen Delivery Room Air Exam 2 Const: General: comfortable, no acute distress, alert and awake O rientation/consciousness: patient oriented x3 HENMT: Head: normal to inspection Eyes: General: appearance normal, both eyes and all related structures P upils: Equal, round and reactive pupils present Neck: Neck: normal visual inspection, supple and no JVD Carotids: normal carotid upstroke Resp: Effort & Inspection: normal respiratory effort Auscultation: clear to auscultation bilaterally and rales on the right in the lower lung espinosa Cardio: Rate: regular rate Rhythm: regular rhythm Heart sounds: S1 normal heart sound present, S2 normal heart sound present and no murmurs GI: Auscultation: normal bowel sounds Skin: General skin exam: normal color Neuro: General: patient oriented x3 Cranial nerves: Yes Equal, round and reactive pupils present Extrem: General: normal to inspection Other: no edema Psych: Appearance: grossly normal Mental Status: mental status grossly normal Results Labs and Meds 04/20/24 08:54 04/20/24 08:54 Lab results: Cardiac Enzymes 04/20/24 04/20/24 Range/Units 08:54 11:57 AST 27 (14-36) U/L Troponin I 0.065 H* 0.056 H* (0.000-0.034) ng/mL Coagulation 04/20/24 Range/Units 08:54 PT 14.3 (11.1-14.7) Seconds APTT 27.0 (22.3-36.8) Seconds CBC 04/20/24 Range/Units 08:54 WBC 7.5 (4.5-10.0) K/mm3 RBC 3.18 L (4.2-5.4) M/mm3 Hgb 11.1 L (12.0-15.0) g/dL Hct 35.6 L (37.0-47.0) % Plt Count 228 (150-375) k/mm3 Lymph # (Auto) 2.46 (0.9-3.2) K/mm3 [place] # (Auto) 0.6 (0.1-0.6) K/mm3 Eos # (Auto) 0.2 (0-0.3) K/mm3 Baso # (Auto) 0.0 (0.0-0.1) K/mm3 Comprehensive Metabolic Panel 04/20/24 Range/Units 08:54 Sodium 143 (137-145) mmol/L Potassium 4.1 (3.4-5.0) mmol/L Chloride 104 (98-107) mmol/L Carbon Dioxide 24 (22-30) mmol/L BUN 24 H (7-17) mg/dL Creatinine 1.40 H (0.7-1.0) mg/dL Glucose 141 H (65-110) mg/dL Calcium 8.6 (8.4-10.2) mg/dL AST 27 (14-36) U/L ALT 23 (6-35) U/L Alkaline Phosphatase 90 (38-126) U/L Total Protein 8.0 (6.3-8.2) g/dL Albumin 4.1 (3.5-5.1) g/dL Patient Weight 04/20/24 23:59 Weight 56.6 kg
--- OUTSIDE RECORDS SUMMARY | 2024-04-20 16:04 | XMS_ITS | Patient Health Summary ---
Author Organization [facility] Address [address] [address] Care Team Providers Care Christian Science Healer Name Role Phone Deborah Llamas MD Primary Care Provider + Note from [facility],non-owned Affiliates and Associated Physician Practices is amultiple site organization consisting of ambulatory clinics and hospital sitesin [place], [place], [place] and [place]. This disclosure is being madepursuant to the Care Everywhere program and may not contain all information available regarding this patient. Last updated 17.[facility] Social History Tobacco Use Types Packs/Day Years [...] 12/31/2017) Results * DERMATOPATHOLOGY (04/10/2022 12:00 AM BASKETBALL ASSEMBLER) Only the most recent of13 resultswithin the time period is included. Case Report Dermatopathology Report ? Case: [id number] ? Authorizing Provider: ??Ghassan Morgan MD ?Collected: ? 04/10/2022 12:00 AM ? Ordering Location: ? [facility] ?Received: ?04/11/2022 02:15 PM ? Pathologist: ? Pam Orourke MD ? Specimen: ?Skin, left distal medial leg ? 3 1:57 PM [facility] Final Diagnosis Specimen A. SKIN, left distal medial leg: SQUAMOUS CELL CARCINOMA IN SITU (JOHNSON'S DISEASE) (D04.72) 3 1:57 PM [facility] Clinical History R/O BCC, SCC, HAK 3 1:57 PM [facility] Gross Description Specimen A: Received is one formalin filled container labeled with the patient's name and designated left distal medial leg. The specimen consists of a shave biopsy measuring [id number] mm. Jar 0. 3 1:57 PM [facility] Microscopic Description Specimen A. SKIN, left distal medial leg: The epidermis shows parakeratosis, full thickness disorderly maturation of keratinocytes, mitoses at different levels, and dyskeratotic cells. 3 1:57 PM [facility] Disclaimer An external and internal positive and negative controls are appropriate for the histochemical, immunohistochemical and immunofluorescence stain(s) in this case (if any), except where stated explicitly. The performance characteristics of the stain(s) cited in this report were developed and its performance characteristic determined by the Dermatopathology Laboratory at [facility], directed by Dr. Tasha Nielsen. These tests need not be, and therefore are not, approved by the [place] Food and Drug Administration. The tests are used for clinical purposes. Billing Codes Specimen Charges Stain Charges 05416 1 3 1:57 PM BASKETBALL ASSEMBLER DERMATOPATHOLOGY LABORATORY Embedded Images 3 1:57 PM BASK[employer]BALL ASSEMBLER DERMATOPATHOLOGY LABORATORY Pathology/Cytolog y TISSUE SPECIMEN FROM SKIN / Unknown 04/10/2022 04/11/2022 2:15 PM BASKETBALL ASSEMBLER Ghassan Morgan MD LAB - PATHOLOGY/CYTO LOGY ORDERABLES DERMATOPATHOLOGY LABORATORY [facility] - Department of Dermatology [facility] Specialized Medicine [address] [place] [address], [address] [phone] Care Teams Christian Science Healer Relationship Specialty Start Date End Date Deborah Llamas MD [address] [place] [address] PCP - General 11/17/21
--- OUTSIDE RECORDS SUMMARY | 2024-04-20 16:04 | XMS_ITS | Continuity of Care Document ---
Author Organization [facility] Address [address] [place] [address] [place] [address] Phone Care Team Providers Care Associate Field Service Engineer Name Role Phone Blessing Galindo Unavailable Unavailable Procedures Procedure Date Office/outpatient Visit, Est Office/outpatient Visit, Est Eye Exam & Treatment Refraction Advance Directives Directive Yes / No Effective Date File Name No Information Encounters Encounter Description Practice Location Reason(s) For Visit Diagnoses Date Provider Providers Copied on Encounter [place] [facility] [place] [address] [place] [address] [address], [place], [place], [id number], tel:[phone] [facility] No Information 8-201 0 Josie Sheriffn. [address] [place] , [address], [place], [place], [facility], . tel:[phone] [place] [facility] [place] [address] [place] [address] [address], [place], [place], [id number], tel:[phone] [facility] No Information 7-200 8 Josie Sheriffn. [address] , [address], [place], [place], [facility], . tel:[phone] [facility], [address] [place] [address] [address], [place], [place], [id number], tel:[phone] [facility] No Information 0-200 7 Galindo Blessing. [address] , [address], [place], [address], [place]. tel:[phone] Family History Family Member Type Diagnosis Age [...]
--- OUTSIDE RECORDS SUMMARY | 2024-04-20 16:04 | XMS_ITS | Encounter Summary ---
Author Organization [facility] Address [address] [facility] [place] [address] Care Team Providers Care Supervisor Record Press Name Role Phone Aravind Morales MD Primary Care Provider [phone] [phone] Deborah Llamas MD Primary Care Provider + Encounter Details Date Type Department Care Team (Late st Contact Info) Description 03/03/2021 Lab Requisition [facility] Care DermPath Lab [address] [facility], [facility] [place] [phone] Ghassan Morgan MD [address] [place] [address] Social History Tobacco Use Types Packs/Day Years [...] Comments DERMATOPATHOLOGY Routine 03/01/2021 12:0 0 AM KAIAKO KURA KAUP[facility]A MAORI documented in this encounter Results * DERMATOPATHOLOGY (03/01/2021 12:00 AM KAIAKO KURA KAUPAPA MAORI) Case Report Dermatopathology Report ? Case: [id number] ? Authorizing Provider: ??Gahssan Morgan MD ?Collected: ? 03/01/2021 12:00 AM ? Ordering Location: ? [facility] DermPath Lab ?Received: ?03/03/2021 12:35 PM ? Pathologist: ? Kierra Meadows, ? MD ? Specimen: ?Skin, left medial calf ? 1 1:47 PM [facility] DERMATOPATHOLOGY LABORATORY Final Diagnosis Specimen A. SKIN, left medial calf: SQUAMOUS CELL CARCINOMA, WELL DIFFERENTIATED (C44.729) NOT PRESENT AT SAMPLED MARGIN 1 1:47 PM [facility] DERMATOPATHOLOGY LABORATORY Clinical History R/O KA. Check margins. 1 1:47 PM [facility] DERMATOPATHOLOGY LABORATORY Gross Description Specimen A: Received is one formalin filled container labeled with the patient's name and designated left medial calf. The specimen consists of a curettage and desiccation biopsy measuring [id number], serially sectioned and submitted in cassettes 1-2. The margin is inked green. Jar 0+. 1 1:47 PM [facility] DERMATOPATHOLOGY LABORATORY Microscopic Description Specimen A. SKIN, left medial calf: Arising in the epidermis and extending into the dermis there are irregularly shaped aggregates of keratinocytes showing evidence of premature cornification. This lesion is not present at the sampled margin of the specimen. 1 1:47 PM [facility] DERMATOPATHOLOGY LABORATORY [...] purposes. Billing Codes Specimen Charges Stain Charges 48170 1 1 1:47 PM [facility] DERMATOPATHOLOGY LABORATORY Embedded Images 1 1:47 PM [facility] DERMATOPATHOLOGY LABORATORY Pathology/Cytolog y TISSUE SPECIMEN FROM SKIN / Unknown 03/01/2021 03/03/2021 12:35 PM [facility]ORI Ghassan Morgan MD LAB - PATHOLOGY/CYTO LOGY ORDERABLES DERMATOPATHOLOGY LABORATORY [facility] - Department of Dermatology [facility] Medicine [address] [place] [address], [address]rd Floor [address] [phone] documented in this encounter Visit Diagnoses Not on filedocumented in this encounter Care Teams Supervisor Record Press Relationship Specialty Start Date End Date Aravind Morales MD [address] [place] [address] PCP - General 01/01/18 11/16/21 Deborah Llamas MD [address] [place] [address] PCP - General 11/17/21 documented as of this encounter
--- OUTSIDE RECORDS SUMMARY | 2024-04-20 16:04 | XMS_ITS | Encounter Summary ---
Author Organization [facility] Address [address] [facility] [place] [address] Care Team Providers Care Pipe Smoking Machine Offbearer Name Role Phone Aravind Morales MD Primary Care Provider [phone] [phone] Deborah Llamas MD Primary Care Provider + Encounter Details Date Type Department Care Team (Late st Contact Info) Description 05/03/[address] [facility] Care DermPath Lab [address] [facility], [place] [phone] Ghassan Morgan MD [address] [place] [address] Social History Tobacco Use Types Packs/Day Years [...] Comments DERMATOPATHOLOGY Routine 05/02/2021 12:0 0 AM WOMEN DESIGNER documented in this encounter Results * DERMATOPATHOLOGY (05/02/2021 12:00 AM WOMEN DESIGNER) Case Report Dermatopathology Report ? Case: [id number] ? Authorizing Provider: ??Ghassan Morgan MD ?Collected: ? 05/02/2021 12:00 AM ? Ordering Location: ? [facility] DermPath Lab ?Received: ?05/03/2021 12:34 PM ? Pathologist: ? Alondra Nielsen MD ? Specimen: ?Skin, left superior deltoid ? 2 6:39 PM [facility] DERMATOPATHOLOGY LABORATORY Final Diagnosis Specimen A. SKIN, left superior deltoid: SQUAMOUS CELL CARCINOMA, WELL DIFFERENTIATED (C44.529) 2 6:39 PM [facility] DERMATOPATHOLOGY LABORATORY Clinical History R/O SCCA. 2 6:39 PM [facility] DERMATOPATHOLOGY LABORATORY Gross Description Specimen A: Received is one formalin filled container labeled with the patient's name and designated left superior deltoid. The specimen consists of a curettage and desiccation biopsy measuring 66x94g8no, trisected, & 1s2w8as. Jar 0. 2 6:39 PM [facility] DERMATOPATHOLOGY LABORATORY Microscopic Description Specimen A. SKIN, left superior deltoid: Arising in the epidermis and extending into the dermis there are irregularly shaped aggregates of keratinocytes showing evidence of premature cornification. 2 6:39 PM [facility] DERMATOPATHOLOGY LABORATORY Disclaimer An external and internal positive and negative controls are appropriate for the histochemical, immunohistochemical and immunofluorescence stain(s) in this case (if any), except where stated explicitly. The performance characteristics of the stain(s) cited in this report were developed and its performance characteristic determined by the Dermatopathology Laboratory at [facility], directed by Dr. Tasha Nielsen. These tests need not be, and therefore are not, approved by the [place] Food and Drug Administration. The tests are used for clinical purposes. Billing Codes Specimen Charges Stain Charges 28492 1 2 6:39 PM [facility]OMEN DES[employer] DERMATOPATHOLOGY LABORATORY Embedded Images 2 6:39 PM [facility]OM[facility] DES[facility] DERMATOPATHOLOGY LABORATORY Pathology/Cytolog y TISSUE SPECIMEN FROM SKIN / Unknown 05/02/2021 05/03/2021 12:34 PM WOMEN DESIGNER Ghassan Morgan MD LAB - PATHOLOGY/CYTO LOGY ORDERABLES DERMATOPATHOLOGY LABORATORY [facility] - Department of Dermatology [address], [address] [phone] documented in this encounter Visit Diagnoses Not on filedocumented in this encounter Care Teams Pipe Smoking Machine Offbearer Relationship Specialty Start Date End Date Aravind Morales MD [address] [place] [address] PCP - General 01/01/18 11/16/21 Deborah Llamas MD [address] [facility] [address] [place] [address] PCP - General 11/17/21 documented as of this encounter
--- OUTSIDE RECORDS SUMMARY | 2024-04-20 16:04 | XMS_ITS | Encounter Summary ---
Author Organization [facility] Address [address] [facility] [place] [address] Care Team Providers Care Market Intelligence Consultant Name Role Phone Aravind Morales MD Primary Care Provider [phone] [phone] Deborah Llamas MD Primary Care Provider + Encounter Details Date Type Department Care Team (Late st Contact Info) Description 01/01/2018 Lab Requisition [facility] Care DermPath Lab [address] [facility], [facility] [place] [phone] Ghassan Morgan MD [address] [place] [address] Social History Tobacco Use Types Packs/Day Years [...] CDT) Case Report Dermatopathology Report ? Case: [id number] ? Authorizing Provider: ??Ghassan Morgan MD ?Collected: [...] specimen consists of a shave biopsy measuring 23w08j5dt. Jar 0+. Specimen B: Received is one formalin filled container labeled with the patient's name and designated dorsal left hand. The specimen consists of a shave biopsy measuring 9v9v1xo. Jar 0+. 5:03 PM CDT DERMATOPATHOLOGY LABORATORY [...] characteristic determined by the Dermatopathology Laboratory at [facility]. These tests need not be, and therefore are not, approved by the [place] Food and Drug Administration. The tests are used for clinical purposes. Billing Codes Specimen Charges Stain Charges 37985 79012 1 1 8 5:03 PM CDT DERMATOPATHOLOGY LABORATORY Embedded Images 8 5:03 PM CDT DERMATOPATHOLOGY LABORATORY Pathology/Cytology TISSUE SPECIMEN FROM SKIN / Unknown 12/31/2017 01/01/2018 12:22 PM CDT Miscellaneous samples (specimen) TISSUE SPECIMEN FROM SKIN / Unknown 12/31/2017 01/01/2018 12:22 PM CDT Ghassan Morgan MD LAB - PATHOLOGY/CYTO LOGY ORDERABLES DERMATOPATHOLOGY LABORATORY [facility] - Department of Dermatology [address] [place] [address], 5th Floor Lab [address] [phone] documented in this encounter Visit Diagnoses Not on filedocumented in this encounter Care Teams Market Intelligence Consultant Relationship Specialty Start Date End Date Aravind Morales MD [address] [place] [address] PCP - General 01/01/18 11/16/21 Deborah Llamas MD [address] [place] [address] PCP - General 11/17/21 documented as of this encounter
--- OUTSIDE RECORDS SUMMARY | 2024-04-20 16:04 | XMS_ITS | Encounter Summary ---
Author Organization [facility] Address [address] [facility] [place] [address] Care Team Providers Care Cloud Developer Name Role Phone Aravind Morales MD Primary Care Provider [phone] [phone] Deborah Llamas MD Primary Care Provider + Encounter Details Date Type Department Care Team (Late st Contact Info) Description 09/21/2021 Lab Requisition [facility] Care DermPath Lab [address] [facility] [phone] Ghassan Morgan MD [address] [place] [address] Social History Tobacco Use Types Packs/Day Years [...] CDT) Case Report Dermatopathology Report ? Case: [id number] ? Authorizing Provider: ??Ghassan Morgan MD ?Collected: ? 09/20/2021 12:00 AM ? Ordering Location: ? [facility] DermPath Lab ?Received: ?09/21/2021 12:08 PM [...] specimen consists of a shave biopsy measuring 64k59b5ug, bisected. Jar 0+. Specimen B: Received is one formalin filled container labeled with the patient's name and designated right superior lateral right lower leg. The specimen consists of a shave biopsy measuring 51s30m1ef. Jar 0. Specimen C: Received is one formalin filled container labeled with the patient's name and designated right posterior superior lateral right lower leg. The specimen consists of a shave biopsy measuring 99a62x1uj. Jar 0. 2 5:11 PM T DERMATOPATHOLOGY [...] characteristic determined by the Dermatopathology Laboratory at [facility], directed by Dr. Tasha Nielsen. These tests need not be, and therefore are not, approved by the [place] Food and Drug Administration. The tests are used for clinical purposes. Billing Codes Specimen Charges Stain Charges 00685 26877 38344 1 1 1 2 5:11 PM CDT [...] LAB - PATHOLOGY/CYTO LOGY ORDERABLES DERMATOPATHOLOGY LABORATORY [facility] - Department of Dermatology [address], 3[address] Floor [address] [phone] documented in this encounter Visit Diagnoses Not on filedocumented in this encounter Care Teams Cloud Developer Relationship Specialty Start Date End Date Aravind Morales MD [address] [facility] [address] [place] [address] PCP - General 01/01/18 11/16/21 Deborah Llamas MD [address] [place] [address] PCP - General 11/17/21 documented as of this encounter
--- OUTSIDE RECORDS SUMMARY | 2024-04-20 16:04 | XMS_ITS | Referral Summary ---
Author Organization [facility] Address [address] [facility] [place] [address] Care Team Providers Care Belt Operator Name Role Phone Deborah Llamas MD Primary Care Provider + Source Comments [facility],non-owned Affiliates and Associated Physician Practices is amultiple site organization consisting of ambulatory clinics and hospital sitesin [place], [place], [place] and [place]. This disclosure is being madepursuant to the Care Everywhere program and may not contain all information available regarding this patient. Last updated 17.[facility] [employer] Social History Tobacco Use Types Packs/Day Years Used Date Smoking Tobacco: Never Assessed Sex and Gender Information Value Date Recorded Sex Assigned at Not on file Gender Identity Not on file Sexual Orientation Not on file Plan of Treatment Not on file Care Teams Belt Operator Relationship Specialty Start Date End Date Deborah Llamas MD [address] [place] [address] PCP - General 11/17/21
--- OUTSIDE RECORDS SUMMARY | 2024-04-20 16:04 | XMS_ITS | Encounter Summary ---
Author Organization [facility] Address [address] [facility] [place] [address] Care Team Providers Care Hand Therapist Name Role Phone Aravind Morales MD Primary Care Provider [phone] [phone] Deborah Llamas MD Primary Care Provider + Encounter Details Date Type Department Care Team (Late st Contact Info) Description 07/05/2021 Lab Requisition [facility] Care DermPath Lab [address] [facility], [facility] [place] [phone] Ghassan Morgan MD [address] [place] [address] Social History Tobacco Use Types Packs/Day Years [...] CDT) Case Report Dermatopathology Report ? Case: [id number] ? Authorizing Provider: ??Ghassan Morgan MD ?Collected: ? 07/04/2021 12:00 AM ? Ordering Location: ? [facility] DermPath Lab ?Received: ?07/05/2021 02:53 PM ? Pathologist: ? Pam Orourke MD ? Specimen: ?Skin, left dorsal ulnar proximal hand ? 2 1:56 PM [facility] DERMATOPATHOLOGY LABORATORY Final Diagnosis Specimen A. 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 The specimen consists of a shave biopsy measuring 21s52v1 mm,inked and trisected. Jar 0. 2 1:56 PM [facility] DERMATOPATHOLOGY LABORATORY Microscopic Description Specimen A. [...] characteristic determined by the Dermatopathology Laboratory at [facility], directed by Dr. Tasha Nielsen. These tests need not be, and therefore are not, approved by the [place] Food and Drug Administration. The tests are used for clinical purposes. Billing Codes Specimen Charges Stain Charges 58188 1 2 1:56 PM CDT DERMATOPATHOLOGY LABORATORY Embedded Images 2 1:56 PM CDT DERMATOPATHOLOGY LABORATORY Pathology/Cytolog y TISSUE SPECIMEN FROM SKIN / Unknown 07/04/2021 07/05/2021 2:53 PM CDT Ghassan Morgan MD LAB - PATHOLOGY/CYTO LOGY ORDERABLES Performing Organization Address [facility]/State/ZIP Co de Phone Number DERMATOPATHOLOGY LABORATORY [facility] - Department of Dermatology [facility] Medicine [address] [place] [address], 3rd Floor [address] [phone] documented in this encounter Visit Diagnoses Not on filedocumented in this encounter Care Teams Hand Therapist Relationship Specialty Start Date End Date Aravind Morales MD [address] [place] [address] PCP - General 01/01/18 11/16/21 Deborah Llamas MD [address] [place] [address] PCP - General 11/17/21 documented as of this encounter
--- OUTSIDE RECORDS SUMMARY | 2024-04-20 16:04 | XMS_ITS | Clinical Summary ---
Author Organization [facility] [employer] Address [address] [facility] [place] [address] Care Team Providers Care First Aid Director Name Role Phone Deborah Llamas MD Primary Care Provider + Source Comments [facility] [employer],non-owned Affiliates and Associated Physician Practices is amultiple site organization consisting of ambulatory clinics and hospital sitesin [place], [place], [place] and [place]. This disclosure is being madepursuant to the Care Everywhere program and may not contain all information available regarding this patient. Last updated 17.[facility] [employer] Social History Tobacco Use Types Packs/Day Years [...] age to complete this topic Care Teams First Aid Director Relationship Specialty Start Date End Date Deborah Llamas MD [address] [place] [address] PCP - General 11/17/21
--- OUTSIDE RECORDS SUMMARY | 2024-04-20 16:04 | XMS_ITS | Encounter Summary ---
Author Organization [facility] Address [address] [facility] [place] [address] Care Team Providers Care Golf Ball Cover Treater Name Role Phone Aravind Morales MD Primary Care Provider [phone] [phone] Deborah Llamas MD Primary Care Provider + Encounter Details Date Type Department Care Team (Late st Contact Info) Description 07/24/2018 Lab Requisition [facility] Care DermPath Lab [address] [facility], [facility] [place] [phone] Ghassan Morgan MD [address] [address] Social History Tobacco Use Types Packs/Day Years [...] CDT) Case Report Dermatopathology Report ? Case: [id number] ? Authorizing Provider: ??Ghassan Morgan MD ?Collected: [...] of a curettage and desiccation biopsy measuring 30v09o7hb. Jar 0. 2:04 PM CDT DERMATOPATHOLOGY LABORATORY [...] determined by the Dermatopathology Laboratory at [facility], directed by Dr. Tasha Nielsen. These tests need not be, and therefore are not, approved by the [place] Food and Drug Administration. The tests are used for clinical purposes. Billing Codes Specimen Charges Stain Charges 64401 1 2:04 PM CDT DERMATOPATHOLOGY LABORATORY Embedded Images 2:04 PM CDT DERMATOPATHOLOGY LABORATORY Pathology/Cytolog y TISSUE SPECIMEN FROM SKIN / Unknown 07/23/2018 07/24/2018 2:04 PM CDT Ghassan Morgan MD LAB - PATHOLOGY/CYTO LOGY ORDERABLES DERMATOPATHOLOGY LABORATORY [facility] - Department of Dermatology [address] [place] [address], 5th Floor Lab [address] [phone] documented in this encounter Visit Diagnoses Not on filedocumented in this encounter Care Teams Golf Ball Cover Treater Relationship Specialty Start Date End Date Aravind Morales MD [address] [place] [address] PCP - General 01/01/18 11/16/21 Deborah Llamas MD [address] [place] [address] PCP - General 11/17/21 documented as of this encounter
--- OUTSIDE RECORDS SUMMARY | 2024-04-20 16:04 | XMS_ITS | Encounter Summary ---
Author Organization [facility] Address [address] [facility] [place] [address] Care Team Providers Care Languages And Literature Instructor Name Role Phone Aravind Morales MD Primary Care Provider [phone] [phone] Deborah Llamas MD Primary Care Provider + Encounter Details Date Type Department Care Team (Late st Contact Info) Description 02/17/2020 Lab Requisition [facility] Care DermPath Lab [address] [place] [phone] Ghassan Morgan MD [address] [address] Social History Tobacco Use Types Packs/Day Years [...] Comments DERMATOPATHOLOGY Routine 02/16/2020 12:0 0 AM FOOT WORKER documented in this encounter Results * DERMATOPATHOLOGY (02/16/2020 12:00 AM FOOT WORKER) Case Report Dermatopathology Report ? Case: [id number] ? Authorizing Provider: ??Ghassan Morgan MD ?Collected: ? 02/16/2020 12:00 AM ? Ordering Location: ? [facility] DermPath Lab ?Received: ?02/17/2020 11:22 AM ? Pathologist: ? Daphne Reddy MD ? Specimen: ?Skin, left mid anterior medial pretibia ? 0 1:42 PM [facility] DERMATOPATHOLOGY LABORATORY Final Diagnosis Specimen A. SKIN, left mid anterior medial pretibia: SQUAMOUS CELL CARCINOMA, WELL DIFFERENTIATED (C44.729) 0 1:42 PM [facility] DERMATOPATHOLOGY LABORATORY Clinical History R/O SCC,HAK 0 1:42 PM [facility] DERMATOPATHOLOGY LABORATORY Gross Description Specimen A: Received is one formalin filled container labeled with the patient's name and designated left mid anterior medial pretibia. The specimen consists of a curettage and desiccation biopsy measuring 25m83k2 mm. Jar 0. 0 1:42 PM [facility] DERMATOPATHOLOGY LABORATORY Microscopic Description Specimen A. SKIN, left mid anterior medial pretibia: Arising in the epidermis and extending into the dermis there are irregularly shaped aggregates of keratinocytes showing evidence of premature cornification. 0 1:42 PM [facility] DERMATOPATHOLOGY LABORATORY Disclaimer An external and internal positive and negative controls are appropriate for the histochemical, immunohistochemical and immunofluorescence stain(s) in this case (if any), except where stated explicitly. The performance characteristics of the stain(s) cited in this report were developed and its performance characteristic determined by the Dermatopathology Laboratory at [facility], directed by Dr. Tasha Nielsen. These tests need not be, and therefore are not, approved by the [place] Food and Drug Administration. The tests are used for clinical purposes. Billing Codes Specimen Charges Stain Charges 42462 1 0 1:42 PM FOOT WORKER DERMATOPATHOLOGY LABORATORY Embedded Images 0 1:42 PM FOOT WORKER DERMATOPATHOLOGY LABORATORY Pathology/Cytolog y TISSUE SPECIMEN FROM SKIN / Unknown 02/16/2020 02/17/2020 11:22 AM FOOT WORKER Ghassan Morgan MD LAB - PATHOLOGY/CYTO LOGY ORDERABLES DERMATOPATHOLOGY LABORATORY [facility] - Department of Dermatology [facility] Medicine [address] [place] [address], [address] [phone] documented in this encounter Visit Diagnoses Not on filedocumented in this encounter Care Teams Languages And Literature Instructor Relationship Specialty Start Date End Date Aravind Morales MD [address] [place] [address] PCP - General 01/01/18 11/16/21 Deborah Llamas MD [address] [place] [address] PCP - General 11/17/21 documented as of this encounter
--- OUTSIDE RECORDS SUMMARY | 2024-04-20 16:04 | XMS_ITS | Encounter Summary ---
Author Organization [facility] Address [address] [facility] [place] [address] Care Team Providers Care Assembler Molded Frames Name Role Phone Aravind Morales MD Primary Care Provider [phone] [phone] Deborah Llamas MD Primary Care Provider + Encounter Details Date Type Department Care Team (Late st Contact Info) Description 07/19/2021 Lab Requisition [facility] Care D[facility] Lab [address] [facility] [place] [phone] Ghassan Morgan MD [address] [place] [address] Social History Tobacco Use Types Packs/Day Years [...] CDT) Case Report Dermatopathology Report ? Case: [id number] ? Authorizing Provider: ??Ghassan Morgan MD ?Collected: ? 07/18/2021 12:00 AM ? Ordering Location: ? [facility] DermPath Lab ?Received: ?07/19/2021 02:02 PM ? [...] specimen consists of a shave biopsy measuring [id number]. Jar 0. Specimen B: Received is one formalin filled container labeled with the patient's name and designated left sup deltoid. The specimen consists of a shave biopsy measuring 7l7a4xx. There is an additional piece of tissue measuring 1v1b0kp. Jar 0. 2 1:33 PM CDT DERMATOPATHOLOGY [...] purposes. Billing Codes Specimen Charges Stain Charges 81581 15028 1 1 2 1:33 PM CDT DERMATOPATHOLOGY LABORATORY Embedded Images 2 1:33 PM CDT DERMATOPATHOLOGY LABORATORY Pathology/Cytology TISSUE SPECIMEN FROM SKIN / Unknown 07/18/2021 07/19/2021 2:02 PM CDT Miscellaneous samples (specimen) TISSUE SPECIMEN FROM SKIN / Unknown 07/18/2021 07/19/2021 2:02 PM CDT Ghassan Morgan MD LAB - PATHOLOGY/CYTO LOGY ORDERABLES DERMATOPATHOLOGY LABORATORY [facility] - Department of Dermatology [address], [address] [phone] documented in this encounter Visit Diagnoses Not on filedocumented in this encounter Care Teams Assembler Molded Frames Relationship Specialty Start Date End Date Aravind Morales MD [address] [place] [address] PCP - General 01/01/18 11/16/21 Deborah Llamas MD [address] [place] [address] PCP - General 11/17/21 documented as of this encounter
--- OUTSIDE RECORDS SUMMARY | 2024-04-20 16:04 | XMS_ITS | Encounter Summary ---
Author Organization [facility] Address [address] [facility] [place] [address] Care Team Providers Care Marketing Community Liaison Name Role Phone Aravind Morales MD Primary Care Provider [phone] [phone] Deborah Llamas MD Primary Care Provider + Encounter Details Date Type Department Care Team (Late st Contact Info) Description 04/10/2018 Lab Requisition [facility] Care DermPath Lab [address] [facility] [place] [phone] Ghassan Morgan MD [address] [place] [address] Social History Tobacco Use Types Packs/Day Years [...] Comments DERMATOPATHOLOGY Routine 04/09/2018 12:0 0 AM SERVICE CENTER MANAGER documented in this encounter Results * DERMATOPATHOLOGY (04/09/2018 12:00 AM SERVICE CENTER MANAGER) Case Report Dermatopathology Report ? Case: [id number] ? Authorizing Provider: ??Ghassan Morgan MD ?Collected: ? 04/09/2018 12:00 AM ? Pathologist: ? Thania Shepherd MD ? Received: ?04/10/2018 12:20 PM ? Specimens: ?? A) - Skin, left med calf ? B) - Skin, left ditsal med calf ? 9 1:19 PM [facility] DERMATOPATHOLOGY LABORATORY Final Diagnosis Specimen A. 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 SKIN, left ditsal med calf: SQUAMOUS CELL CARCINOMA, WELL DIFFERENTIATED (C44.729) 9 1:19 PM [facility] DERMATOPATHOLOGY LABORATORY Clinical History A-B: R/O KA. 9 1:19 PM [facility] DERMATOPATHOLOGY LABORATORY Gross Description Specimen A: Received is one formalin filled container labeled with the patient's name and designated left med calf. The specimen consists of a curettage and desiccation biopsy measuring 13q49d2iz, bisected. Jar 0+. Specimen B: Received is one formalin filled container labeled with the patient's name and designated left ditsal med calf. The specimen consists of a curettage and desiccation biopsy measuring 48b72o1kl, bisected. Jar 0. 9 1:19 PM [facility] DERMATOPATHOLOGY LABORATORY Microscopic [...] evidence of premature cornification. 9 1:19 PM [facility] DERMATOPATHOLOGY LABORATORY Disclaimer An external and internal positive and negative controls are appropriate for the histochemical, immunohistochemical and immunofluorescence stain(s) in this case (if any), except where stated explicitly. The performance characteristics of the stain(s) cited in this report were developed and its performance characteristic determined by the Dermatopathology Laboratory at [facility], directed by Dr. Tasha Nielsen. These tests need not be, and therefore are not, approved by the [place] Food and Drug Administration. The tests are used for clinical purposes. Billing Codes Specimen Charges Stain Charges 28710 06754 1 1 9 1:19 PM SERVICE CENTER MANAGER DERMATOPATHOLOGY LABORATORY Embedded Images 1:19 PM [facility] DERMATOPATHOLOGY LABORATORY Pathology/Cytology TISSUE SPECIMEN FROM SKIN / Unknown 04/09/2018 04/10/2018 12:20 PM SERVICE CENTER MANAGER Miscellaneous samples (specimen) TISSUE SPECIMEN FROM SKIN / Unknown 04/09/2018 04/10/2018 12:20 PM SERVICE CENTER MANAGER Ghassan Morgan MD LAB - PATHOLOGY/CYTO LOGY ORDERABLES DERMATOPATHOLOGY LABORATORY [facility] - Department of Dermatology [address] [place] [address], 5th Floor Lab [address] [phone] documented in this encounter Visit Diagnoses Not on filedocumented in this encounter Care Teams Marketing Community Liaison Relationship Specialty Start Date End Date Aravind Morales MD [address] [place] [address] PCP - General 01/01/18 11/16/21 Deborah Llamas MD [address] [place] [address] PCP - General 11/17/21 documented as of this encounter
--- OUTSIDE RECORDS SUMMARY | 2024-04-20 16:05 | XMS_ITS | Encounter Summary ---
Author Organization [facility] Address [address] [facility] [place] [address] Care Team Providers Care Boring Mill Operator Name Role Phone Deborah Llamas MD Primary Care Provider + Encounter Details Date Type Department Care Team (Late st Contact Info) Description 04/11/2022 Lab Requisition [facility] [address] [facility] [place] [phone] Ghassan Morgan MD [address] [place], [place] [id number] Social History Tobacco Use Types Packs/Day Years [...] Comments DERMATOPATHOLOGY Routine 04/10/2022 12:0 0 AM SCENIC DESIGNER documented in this encounter Results * DERMATOPATHOLOGY (04/10/2022 12:00 AM SCENIC DESIGNER) Case Report Dermatopathology Report ? Case: [id number] ? Authorizing Provider: ??Ghassan Morgan MD ?Collected: ? 04/10/2022 12:00 AM ? Ordering Location: ? [facility] ?Received: ?04/11/2022 02:15 PM ? Pathologist: ? Pam Orourke MD ? Specimen: ?Skin, left distal medial leg ? 3 1:57 PM [facility] DERMATOPATHOLOGY LABORATORY Final Diagnosis Specimen A. 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 The specimen consists of a shave biopsy measuring 88m45j3 mm. Jar 0. 3 1:57 PM [facility] DERMATOPATHOLOGY LABORATORY Microscopic Description Specimen A. SKIN, left distal medial leg: The epidermis shows parakeratosis, full thickness disorderly maturation of keratinocytes, mitoses at different levels, and dyskeratotic cells. 3 1:57 PM [facility] DERMATOPATHOLOGY LABORATORY Disclaimer An external and internal positive and negative controls are appropriate for the histochemical, immunohistochemical and immunofluorescence stain(s) in this case (if any), except where stated explicitly. The performance characteristics of the stain(s) cited in this report were developed and its performance characteristic determined by the Dermatopathology Laboratory at [facility], directed by Dr. Tasha Nielsen. These tests need not be, and therefore are not, approved by the [place] Food and Drug Administration. The tests are used for clinical purposes. Billing Codes Specimen Charges Stain Charges 68303 1 3 1:57 PM SCENIC DESIGNER DERMATOPATHOLOGY LABORATORY Embedded Images 3 1:57 PM SCENIC DESIGNER DERMATOPATHOLOGY LABORATORY Pathology/Cytolog y TISSUE SPECIMEN FROM SKIN / Unknown 04/10/2022 04/11/2022 2:15 PM SCENIC DESIGNER Ghassan Morgan MD LAB - PATHOLOGY/CYTO LOGY ORDERABLES DERMATOPATHOLOGY LABORATORY [facility] - Department of Dermatology [facility] Specialized Medicine [address] [place] [address], [address] [phone] documented in this encounter Visit Diagnoses Not on filedocumented in this encounter Care Teams Boring Mill Operator Relationship Specialty Start Date End Date Deborah Llamas MD [address] [place] [address] PCP - General 11/17/21 documented as of this encounter
--- OUTSIDE RECORDS SUMMARY | 2024-04-20 16:05 | XMS_ITS | Encounter Summary ---
Author Organization [facility] Address [address] [facility] [place] [address] Care Team Providers Care Factory Expert Name Role Phone Aravind Morales MD Primary Care Provider [phone] [phone] Deborah Llamas MD Primary Care Provider + Encounter Details Date Type Department Care Team (Late st Contact Info) Description 02/10/2020 Lab Requisition [facility] Care DermPath Lab [address] [place] [phone] Ghassan Morgan MD [address] [place] [address] Social History Tobacco Use Types Packs/Day Years [...] Comments DERMATOPATHOLOGY Routine 02/09/2020 12:0 0 AM LABORER SYRUP MACHINE documented in this encounter Results * DERMATOPATHOLOGY (02/09/2020 12:00 AM LABORER SYRUP MACHINE) Case Report Dermatopathology Report ? Case: [id number] ? Authorizing Provider: ??Ghassan Morgan MD ?Collected: ? 02/09/2020 12:00 AM ? Ordering Location: ? [facility] DermPath Lab ?Received: ?02/10/2020 12:55 PM ? Pathologist: ? aPm Orourke MD ? Specimen: ?Skin, left distal lateral lower leg ? 0 4:20 PM [facility] DERMATOPATHOLOGY LABORATORY Final Diagnosis Specimen A. SKIN, left distal lateral lower leg: SQUAMOUS PROLIFERATION (D48.5) (see microscopic description and comment) 0 4:20 PM [facility] DERMATOPATHOLOGY LABORATORY Clinical History R/O KA. 0 4:20 PM [facility] DERMATOPATHOLOGY LABORATORY Gross Description Specimen A: Received is one formalin filled container labeled with the patient's name and designated left distal lateral lower leg. The specimen consists of a curettage and desiccation biopsy measuring 12w52w4ge, bisected. Jar 0. 0 4:20 PM [facility] DERMATOPATHOLOGY LABORATORY Microscopic Description Specimen A. SKIN, left distal lateral lower leg: Sections show an endophytic squamous proliferation with maturational disarray and nuclear pleomorphism of keratinocytes predominantly within the lower portion of the epidermis. There is focal parakeratosis. COMMENT: The differential diagnosis includes a hypertrophic actinic keratosis with endophytic features, and a keratoacanthoma with features of regression. 0 4:20 PM [facility] DERMATOPATHOLOGY LABORATORY Disclaimer An external and internal positive and negative controls are appropriate for the histochemical, immunohistochemical and immunofluorescence stain(s) in this case (if any), except where stated explicitly. The performance characteristics of the stain(s) cited in this report were developed and its performance characteristic determined by the Dermatopathology Laboratory at [facility], directed by Dr. Tasha Nielsen. These tests need not be, and therefore are not, approved by the [place] Food and Drug Administration. The tests are used for clinical purposes. Billing Codes Specimen Charges Stain Charges 11862 1 0 4:20 PM LABORER SYRUP MACHINE DERMATOPATHOLOGY LABORATORY Embedded Images 0 4:20 PM LABORER SYRUP MACHINE DERMATOPATHOLOGY LABORATORY Pathology/Cytolog y TISSUE SPECIMEN FROM SKIN / Unknown 02/09/2020 02/10/2020 12:55 PM LABORER SYRUP MACHINE Ghassan Morgan MD LAB - PATHOLOGY/CYTO LOGY ORDERABLES DERMATOPATHOLOGY LABORATORY [facility] - Department of Dermatology [address], [address] [phone] documented in this encounter Visit Diagnoses Not on filedocumented in this encounter Care Teams Factory Expert Relationship Specialty Start Date End Date Aravind Morales MD [address] [place] [address] PCP - General 01/01/18 11/16/21 Deborah Llamas MD [address] [place] [address] PCP - General 11/17/21 documented as of this encounter
--- OUTSIDE RECORDS SUMMARY | 2024-04-20 16:05 | XMS_ITS | Encounter Summary ---
Author Organization [facility] Address [address] [place] [address] Care Team Providers Care Human Services Supervisor Name Role Phone Aravind Morales MD Primary Care Provider [phone] [phone] Deborah Llamas MD Primary Care Provider + Encounter Details Date Type Department Care Team (Late st Contact Info) Description 11/26/2018 Lab Requisition [facility] Care DermPath Lab [address] [facility] [place] [phone] Ghassan Morgan MD [address] [place] [address] Social History Tobacco Use Types Packs/Day Years [...] CDT) Case Report Dermatopathology Report ? Case: [id number] ? Authorizing Provider: ??Ghassan Morgan MD ?Collected: ? 11/25/2018 12:00 AM ? Ordering Location: ? [facility] DermPath Lab ?Received: ?11/26/2018 11:47 AM ? [...] of a curettage and desiccation biopsy measuring [id number]. Jar 0. Specimen B: Received is one formalin filled container labeled with the patient's name and designated left lower anteromedial leg. The specimen consists of a curettage and desiccation biopsy measuring 95h71z9rs. Jar 0. Specimen C: Received is one formalin filled container labeled with the patient's name and designated left lower triceps. The specimen consists of a curettage and desiccation biopsy measuring 77p99c5zv. Jar 0. 2:20 PM CDT DERMATOPATHOLOGY LABORATORY [...] determined by the Dermatopathology Laboratory at [facility], directed by Dr. Tasha Nielsen. These tests need not be, and therefore are not, approved by the [place] Food and Drug Administration. The tests are used for clinical purposes. Billing Codes Specimen Charges Stain Charges 97104 27801 51699 1 1 1 2:20 PM CDT DERMATOPATHOLOGY [...] DERMATOPATHOLOGY LABORATORY [facility] - Department of Dermatology [address] [place] [address] 5th Floor Lab [address] [phone] documented in this encounter Visit Diagnoses Not on filedocumented in this encounter Care Teams Human Services Supervisor Relationship Specialty Start Date End Date Aravind Morales MD [address] [facility] [address] [place] [address] PCP - General 01/01/18 11/16/21 Deborah Llamas MD [address] [facility] [address] [place] [address] PCP - General 11/17/21 documented as of this encounter
--- OUTSIDE RECORDS SUMMARY | 2024-04-20 16:05 | XMS_ITS | Encounter Summary ---
Author Organization [facility] Address [address] [facility] [place] [address] Care Team Providers Care Flare Man Name Role Phone Aravind Morales MD Primary Care Provider [phone] [phone] Deborah Llamas MD Primary Care Provider + Encounter Details Date Type Department Care Team (Late st Contact Info) Description 10/12/2020 Lab Requisition [facility] Care DermPath Lab [address] [facility] [place] [phone] Ghassan Morgan MD [address] [place] [address] Social History Tobacco Use Types Packs/Day Years [...] CDT) Case Report Dermatopathology Report ? Case: [id number] ? Authorizing Provider: ??Ghassan Morgan MD ?Collected: ? 10/11/2020 12:00 AM ? Ordering Location: ? [facility] Derm[facility] Lab ?Received: ?10/12/2020 02:29 PM ? Pathologist: ? Pam Orourke MD ? Specimens: ?? A) - Skin, right medial lower calf superior ? B) - Skin, right medial lower calf inferior ? 1 4:07 PM [facility] DERMATOPATHOLOGY LABORATORY Final Diagnosis Specimen A. SKIN, right medial lower calf superior: SQUAMOUS CELL CARCINOMA, WELL DIFFERENTIATED (C44.722) Specimen B. SKIN, right medial lower calf inferior: SQUAMOUS CELL CARCINOMA, WELL DIFFERENTIATED (C44.722) 1 4:07 PM [facility] DERMATOPATHOLOGY LABORATORY Clinical History A-B: R/O SCC. 1 4:07 PM [facility] DERMATOPATHOLOGY LABORATORY Gross Description Specimen A: Received is one formalin filled container labeled with the patient's name and designated right medial lower calf superior. The specimen consists of a curettage and desiccation biopsy measuring [id number], bisected. Jar 0. Specimen B: Received is one formalin filled container labeled with the patient's name and designated right medial lower calf inferior. The specimen consists of a curettage and desiccation biopsy measuring 42q79q0cy. Jar 0. 1 4:07 PM [facility] DERMATOPATHOLOGY LABORATORY Microscopic Description Specimen A. [...] purposes. Billing Codes Specimen Charges Stain Charges 97870 27411 1 1 1 4:07 PM CDT DERMATOPATHOLOGY LABORATORY Embedded Images 1 4:07 PM CDT DERMATOPATHOLOGY LABORATORY Pathology/Cytology TISSUE SPECIMEN FROM SKIN / Unknown 10/11/2020 10/12/2020 2:29 PM CDT Miscellaneous samples (specimen) TISSUE SPECIMEN FROM SKIN / Unknown 10/11/2020 10/12/2020 2:29 PM CDT Ghassan Morgan MD LAB - PATHOLOGY/CYTO LOGY ORDERABLES Performing Organization Address [facility]/State/ZIP Co de Phone Number DERMATOPATHOLOGY LABORATORY [facility] - Department of Dermatology [facility] Medicine [address] [place] [address], [address]rd [address] [phone] documented in this encounter Visit Diagnoses Not on filedocumented in this encounter Care Teams Flare Man Relationship Specialty Start Date End Date Aravind Morales MD [address] [place] [address] PCP - General 01/01/18 11/16/21 Deborah Llamas MD [address] [place] [address] PCP - General 11/17/21 documented as of this encounter
[2024-04-20 16:26] LABS: Glucose Point of Care 235 mg/dl (65-105)
[2024-04-20 16:40] LABS: Glucose Point of Care 220 mg/dl (65-105)
[2024-04-20] MEDS: INSULIN ASPART (*BKC) 100 UNITS/ML SUB-Q ×2 (16:43→22:05)
[2024-04-20 20:18] LABS: Glucose Point of Care 215 mg/dl (65-105)
[2024-04-20] MEDS: rOPINIRole HCL 1 MG TABLET 2 MG BY MOUTH (22:02)
[2024-04-20] MEDS: QUEtiapine FUMARATE 25 MG TABLET 50 MG BY MOUTH (22:02)
[2024-04-20] MEDS: HEPARIN SODIUM 5,000 UNITS/ML VIAL 5000 UNITS SUB-Q (22:04)
[2024-04-20] MEDS: INSULIN GLARGINE (*BKC) 100 UNITS/ML 27 UNITS SUB-Q (22:06)
[2024-04-21] VITALS (12 sets, daily range): BP systolic 98–133; BP diastolic 53–90; PULSE 79–102; RESP 18–28; TEMP 36.4–36.7; O2SAT 92–96
[2024-04-21 04:46] LABS: Basophils Percent Auto 0.3 % (0.2-1.2); Eosinophils Absolute Auto 0.1 K/mm3 (0-0.3); Eosinophils Percent Auto 1.5 % (0-4.4); Hematocrit 30.2 % (37.0-47.0); Hemoglobin 9.5 g/dL (12.0-15.0); Immature Granulocyte Absolute 0.01 K/mm3 (0.00-0.031); Immature Granulocyte Percent A 0.1 % (0-0.5); Lymphocytes Absolute Auto 1.82 K/mm3 (0.9-3.2); Mean Corpuscular HGB Conc 31.5 g/dl (32-36); Mean Corpuscular Hemoglobin 34.4 pg (26-34); Mean Corpuscular Volume 109.4 fl (80-100); Mean Platelet Volume 10.1 fl (7.4-10.4); Monocytes Absolute Auto 0.6 K/mm3 (0.1-0.6); Monocytes Percent Auto 8.8 % (2.6-8.5); Neutrophils Absolute Auto 4.2 K/mm3 (1.3-6.7); Neutrophils Percent Auto 62.3 % (45.5-73.1); Platelet Count Result 170 k/mm3 (150-375); Red Blood Count 2.76 M/mm3 (4.2-5.4); Red Cell Distribution Width 13.6 % (11.5-14.5); White Blood Count 6.7 K/mm3 (4.5-10.0)
[2024-04-21 05:02] LABS: Anion Gap 8 mmol/L (4-12); Blood Urea Nitrogen 28 mg/dL (7-17); Calcium 8.7 mg/dL (8.4-10.2); Carbon Dioxide 26 mmol/L (22-30); Chloride 106 mmol/L (98-107); Estimated CRCL calculation 22 ml/min; Estimated Glomerular Filt Rate 35; Glucose 140 mg/dL (65-110); Potassium 3.9 mmol/L (3.4-5.0); Sodium 140 mmol/L (137-145)
[2024-04-21 05:31] LABS: Anisocytosis 1+; Macrocytosis 1+ (NORMAL); Platelet Estimate Adequate (Adequate); Schistocytes None Seen
[2024-04-21] MEDS: rOPINIRole HCL 1 MG TABLET 2 MG BY MOUTH ×3 (06:19→20:42)
[2024-04-21 07:26] LABS: Glucose Point of Care 122 mg/dl (65-105)
--- NOTE | 2024-04-21 08:26 | P.PNIM_ITS ---
Progress Note: A&P Assessment and Plan (1) Acute HFrEF (heart failure with reduced ejection fraction): Code(s): I50.21 - Acute systolic (congestive) heart failure Status: Acute Assessment and Plan: Echocardiogram April 2021 EF 40-45% Cardiology consulted ANKIT Oliva b.i.d. Daily weight Low-sodium diet and fluid restriction Echocardiogram pending Continue statin (2) Type 2 diabetes mellitus with diabetic chronic kidney disease: Onset Date: Unknown Qualifiers: Chronic kidney disease stage: stage 3 (moderate) Chronic kidney disease stage 3 subtype: stage 3b (GFR 30-44) Diabetes mellitus intermediate project manager insulin use: with mcc use Qualified Code(s): E11.22 - Type 2 diabetes mellitus with diabetic chronic kidney disease; N18.32 - Chronic kidney disease, stage 3b; Z79.4 - custodial (current) use of insulin Code(s): E11.22 - Type 2 diabetes mellitus with diabetic chronic kidney disease Status: Acute Assessment and Plan: Diabetic diet SSI Accu-Cheks a.c. HS Plan Restart home antidepressant and Seroquel Subjective Date/time seen: 04/21/24 08:26 Interval history: 81-year-old female with past medical history of CHF, CKD, skin cancer, hypertension, diabetes, and hyperlipidemia presents to the hospital for shortness of breath. Patient has been complaining of shortness of breath for the last couple weeks with edema. She has been to her central office associate and has medication changes. However last night she was still unable to sleep and lay flat she was up several times throughout the night. Her son felt that she needed to come to the hospital for further management. Patient is extremely hard of hearing.Patient denies fevers chills nausea or vomiting. In the ED she has elevated troponin at 0.056, BNP of 5740, and pulmonary edema on chest x-ray. In the ED she was given 40 mg IV Lasix and 5 mg of metoprolol IV. Patient was evaluated by the central office associate. Patient had abnormal nuclear stress test in 2021 but not did have a follow-up angiogram. Ejection fraction 40-45%. Echocardiogram is ordered. Also hold benazepril her to start Entresto about 36 hours. During the evaluation his son was present. He reported patient didnt follow-up with Cardiology and that was the reason she is here today. Patient uses walker in the home, no home oxygen, no CVA in the past. Review of Systems Review of Systems: 12 systems were reviewed and are negativ e except for as per HPI. Exam Narrative: General: Chronically ill, hard of hearing HEENT: normocephalic, atraumatic. Mucous membranes moist. EOMI, PERRLA, bilateral sclera anicteric, no conjunctival injection. Neck supple without JVD, lymphadenopathy, or bruit. Respiratory: clear to ascultation bilaterally. No rales/rhonic/wheezes. Cardiovascular: Regular rate and rhythm, normal S1-S2 upon ascultation. No murmurs, rubs, or clicks. PMI is nondisplaced, capillary refill less than 3 sec ond. Abdomen: Soft, round, no pulsatile masses, nondistended and nontender. No rebound, no guarding. No CVA tenderness, no hepatosplenomegaly. Bowel sounds present to all four quadrants. No high pitch or tinkling sounds, resonant to percussion. Extremities: No cyanosis, clubbing, or edema present. Pulses are palpable 2/2. Active ROM to all four extremities. Neuro: Alert and orientated x 4. PERRLA. Cranial nerves 2-12 intact without focal deficit. Skin: Warm, dry, and intact, without rash, erythema, or lesion. Psych: pleasant, cooperative, normal speech, normal affect, no hallucinations, no dysarthia Objective Data Vital Signs Vital Signs: Vital Signs - 24 hr 04/20/24 08:40 04/20/24 08:52 04/20/24 08:52 Temperature 97.7 F Pulse Rate 114 H 117 H Respiratory Rate 26 H Blood Pressure 138/91 H Pulse Oximetry 96 97 Oxygen Delivery Room Air Room Air 04/20/24 09:54 04/20/24 09:57 04/20/24 11:21 Temperature Pulse Rate 107 H 90 89 Respiratory Rate 26 H 20 Blood Pressure 141/108 H 134/79 Pulse Oximetry 95 95 Oxygen Delivery 04/20/24 13:01 04/20/24 13:15 04/20/24 13:18 Temperature 97.5 F L 97.6 F Pulse Rate 89 101 H 94 Respiratory Rate 26 H 20 20 Blood Pressure 120/89 119/69 Pulse Oximetry 96 94 94 Oxygen Delivery Room Air 04/20/24 14:00 04/20/24 16:00 04/20/24 16:00 Temperature 98 F Pulse Rate 117 H 117 H 93 Respiratory Rate 20 20 Blood Pressure 119/76 Pulse Oximetry 94 96 Oxygen Delivery Room Air 04/20/24 16:00 04/20/24 18:00 04/20/24 20:00 Temperature Pulse Rate 94 88 97 Respiratory Rate Blood Pressure Pulse Oximetry Oxygen Delivery 04/20/24 20:00 04/20/24 20:23 04/20/24 22:00 Temperature 97.6 F Pulse Rate 98 107 H Respiratory Rate 20 Blood Pressure 153/62 H Pulse Oximetry 95 Oxygen Delivery Room Air 04/21/24 00:00 04/21/24 00:00 04/21/24 00:28 Temperature 97.6 F Pulse Rate 96 91 Respiratory Rate 20 Blood Pressure 99/61 L Pulse Oximetry 92 Oxygen Delivery Room Air 04/21/24 02:00 04/21/24 03:48 04/21/24 04:00 Temperature 97.6 F Pulse Rate 98 99 Respiratory Rate 18 Blood Pressure 133/90 Pulse Oximetry 92 Oxygen Delivery Room Air 04/21/24 04:00 04/21/24 06:00 04/21/24 07:44 Temperature 98.0 F Pulse Rate 87 92 88 Respiratory Rate 20 Blood Pressure 124/64 Pulse Oximetry 93 Oxygen Delivery Intake/Output Intake/Output: Intake & Output 04/18/24 04/19/24 04/20/24 04/21/24 23:59 23:59 23:59 23:59 Intake Total 120 250 Output Total 400 450 Balance -280 -200 Meds/Results Medications: Active Medications Generic Name Dose Route Start Last Admin Trade Name Freq PRN Reason Stop Dose Admin Acetaminophen 650 mg 04/20/24 11:52 Acetaminophen 325 Mg Tablet PO Q4H PRN Mild Pain (1-3) or Fever Hydrocodone Bitart/Acetaminophen 1 tab 04/20/24 11:52 Hydrocodone/Acetaminophen (*Crx) 5-325 Mg Tablet PO Q4H PRN Pain Rated 4-6 Aripiprazole 5 mg 04/21/24 09:00 Aripiprazole 5 Mg Tablet BY MOUTH DAILY [facility] Atorvastatin Calcium 20 mg 04/21/24 09:00 Atorvastatin 20 Mg Tablet BY MOUTH DAILY SKY Celecoxib 200 mg 04/21/24 09:00 Celecoxib 200 Mg Capsule PO Q24H SKY Dextrose 12.5 gm 04/20/24 13:42 Dextrose 50% 25 Gm/50 Ml Syringe IV PUSH PRN PRN Hypoglycemia Protocol Furosemide 40 mg 04/20/24 21:00 04/20/24 22:03 Furosemide Inj 40 Mg/4 Ml Vial IV PUSH 40 mg Q12HR SKY Administration Glucagon 1 mg 04/20/24 13:42 Glucagon For Inj 1 Mg Vial IM PRN PRN Hypoglycemia Protocol Glucose 15 gm 04/20/24 13:42 Glucose Oral Gel 15 Gm Of Glucse In 37.5 Gm Tube PO PRN PRN Hypoglycemia Protocol Heparin Sodium (Porcine) 5,000 units 04/20/24 21:00 04/20/24 22:04 Heparin Sodium 5,000 Units/Ml Vial SUB-Q 5,000 units Q12HR SKY Administration Dextrose 1,000 mls @ 100 mls/hr 04/20/24 13:42 Dextrose 5% 1,000 Ml IVPB PRN PRN Hypoglycemia Protocol Insulin Aspart 2 - 5 units 04/20/24 17:00 04/20/24 16:43 Insulin Aspart (*Bkc) 100 Units/Ml SUB-Q 2 units TIDWM SKY Administration Protocol Insulin Aspart 1 - 2 units 04/20/24 21:00 04/20/24 22:05 Insulin Aspart (*Bkc) 100 Units/Ml SUB-Q 1 units HS SKY Administration Protocol Insulin Glargine 27 units 04/20/24 21:00 04/20/24 22:06 Insulin Glargine (*Bkc) 100 Units/Ml SUB-Q 27 units Q12HR SKY Administration Metoprolol Succinate 12.5 mg 04/21/24 09:00 Metoprolol Succinate Ext Rel 12.5 Mg Tabcr PO QAM SKY Ondansetron HCl 4 mg 04/20/24 11:52 Ondansetron Inj 4 Mg/2 Ml Vial IV PUSH Q4H PRN Nausea Perflutren Lipid Microsphere 0 ml 04/20/24 13:37 Perflutren Lipid Microspheres 1.5 Ml Vial Diluted To 10 Ml Total Volume IV PUSH 04/23/24 13:40 ONCE PRN adequate visualization Protocol Quetiapine Fumarate 50 mg 04/20/24 21:00 04/20/24 22:02 Quetiapine Fumarate 25 Mg Tablet BY MOUTH 50 mg Q12HR SKY Administration Ropinirole HCl 2 mg 04/20/24 22:00 04/21/24 06:19 Ropinirole Hcl 1 Mg Tablet BY MOUTH 2 mg Q8HR SKY Administration Radiology Results: ITS Impressions Chest X-Ray 04/20/24 10:16 Impression: Moderate to advanced pulmonary edema pattern. Findings are mildly worsened from prior exam. Labs Labs: Laboratory Results - last 24 hr 04/20/24 04/20/24 04/20/24 08:54 11:57 14:42 WBC 7.5 RBC 3.18 L Hgb 11.1 L Hct 35.6 L MCV 111.9 H MCH 34.9 H MCHC 31.2 L RDW 13.8 Plt Count 228 MPV 10.3 Immature Gran % (Auto) 0.3 Neut % (Auto) 55.9 Lymph % (Auto) 32.9 [place] % (Auto) 7.6 Eos % (Auto) 2.9 Baso % (Auto) 0.4 Lymph # (Auto) 2.46 [place] # (Auto) 0.6 Eos # (Auto) 0.2 Baso # (Auto) 0.0 Abs Immat Gran (auto) 0.02 Absolute Neuts (auto) 4.2 Absolute Nucleated RBC 0.000 Nucleated RBC % 0.0 Platelet Estimate Adequate Anisocytosis 1+ Macrocytosis 1+ [place] Cells 1+ Schistocytes None seen PT 14.3 INR 1.1 APTT 27.0 Sodium 143 Potassium 4.1 Chloride 104 Carbon Dioxide 24 Anion Gap 15 H BUN 24 H Creatinine 1.40 H Estim Creat Clear Calc 21 Estimated GFR 35 L Glucose 141 H POC Capillary Glucose Calcium 8.6 Total Bilirubin 0.5 AST 27 ALT 23 Alkaline Phosphatase 90 Troponin I 0.065 H* 0.056 H* 0.050 H* NT-Pro-B Natriuret Pep 5740 H Total Protein 8.0 Albumin 4.1 04/20/24 04/20/24 04/20/24 15:39 16:38 20:06 WBC RBC Hgb Hct MCV MCH MCHC RDW Plt Count MPV Immature Gran % (Auto) Neut % (Auto) Lymph % (Auto) [place] % (Auto) Eos % (Auto) Baso % (Auto) Lymph # (Auto) [place] # (Auto) Eos # (Auto) Baso # (Auto) Abs Immat Gran (auto) Absolute Neuts (auto) Absolute Nucleated RBC Nucleated RBC % Platelet Estimate Anisocytosis Macrocytosis Jessy Cells Schistocytes PT INR APTT Sodium Potassium Chloride Carbon Dioxide Anion Gap BUN Creatinine Estim Creat Clear Calc Estimated GFR Glucose POC Capillary Glucose 235 H 220 H 215 H Calcium Total Bilirubin AST ALT Alkaline Phosphatase Troponin I NT-Pro-B Natriuret Pep Total Protein Albumin 04/21/24 04/21/24 04:37 07:23 WBC 6.7 RBC 2.76 L Hgb 9.5 L Hct 30.2 L MCV 109.4 H MCH 34.4 H MCHC 31.5 L RDW 13.6 Plt Count 170 MPV 10.1 Immature Gran % (Auto) 0.1 Neut % (Auto) 62.3 Lymph % (Auto) 27.0 [place] % (Auto) 8.8 H Eos % (Auto) 1.5 Baso % (Auto) 0.3 Lymph # (Auto) 1.82 [place] # (Auto) 0.6 Eos # (Auto) 0.1 Baso # (Auto) 0.0 Abs Immat Gran (auto) 0.01 Absolute Neuts (auto) 4.2 Absolute Nucleated RBC 0.000 Nucleated RBC % 0.0 Platelet Estimate Adequate Anisocytosis 1+ Macrocytosis 1+ [place] Cells Schistocytes None seen PT INR APTT Sodium 140 Potassium 3.9 Chloride 106 Carbon Dioxide 26 Anion Gap 8 BUN 28 H Creatinine 1.40 H Estim Creat Clear Calc 22 Estimated GFR 35 L Glucose 140 H POC Capillary Glucose 122 H Calcium 8.7 Total Bilirubin AST ALT Alkaline Phosphatase Troponin I NT-Pro-B Natriuret Pep Total Protein Albumin Quality VTE Prophylaxis VTE prophylaxis: mechanical ordered and pharmacologic ordered Hospitalist MIPS Advance Care Plan I have confirmed that the patient's Advanced Care Plan is present, code status is documented, or surrogate decision maker is listed in patient medical record.: Yes Medication Reconciliation I have utilized all available resources to obtain, update and review the patients current medications (includes all prescriptions, OTC, herbals, can nabis, and nutritional supplements).: Yes
[2024-04-21] MEDS: INSULIN GLARGINE (*BKC) 100 UNITS/ML 27 UNITS SUB-Q (08:30)
[2024-04-21] MEDS: QUEtiapine FUMARATE 25 MG TABLET 50 MG BY MOUTH ×2 (08:33→20:42)
[2024-04-21] MEDS: METOPROLOL SUCCINATE EXT REL 12.5 MG TABCR PO (08:33)
[2024-04-21] MEDS: ATORVASTATIN 20 MG TABLET BY MOUTH (08:34)
[2024-04-21] MEDS: CELECOXIB 200 MG CAPSULE PO (08:34)
[2024-04-21] MEDS: HEPARIN SODIUM 5,000 UNITS/ML VIAL 5000 UNITS SUB-Q ×2 (08:34→20:42)
[2024-04-21] MEDS: ARIPiprazole 5 MG TABLET BY MOUTH (08:34)
[2024-04-21] MEDS: FUROSEMIDE INJ 40 MG/4 ML VIAL IV PUSH (08:35)
--- NOTE | 2024-04-21 11:29 | PM.PNCARD ---
Progress Note: A&P Assessment and Plan (1) Acute on chronic HFrEF (heart failure with reduced ejection fraction): Code(s): I50.23 - Acute on chronic systolic (congestive) heart failure Status: Acute Assessment and Plan: Acute on chronic systolic heart failure presenting with orthopnea, PND, edema. She is feeling better after receiving IV furosemide and has no significant peripheral edema. Moderate pulmonary edema on CXR. Will shift to p.o. furosemide today Daily BMP Strict I&O Daily weights Hold benazepril with the intention of shifting to Entresto after 36 hr washout period Continue Toprol XL If BP and renal function tolerate Toprol and Entresto would also recommend spironolactone and jardiance. Can be optimized as outpatient (2) Cardiomyopathy: Qualifiers: Cardiomyopathy type: ischemic Qualified Code(s): I25.5 - Ischemic cardiomyopathy Code(s): I42.9 - Cardiomyopathy, unspecified Status: Acute Assessment and Plan: Probably ischemic (abnormal nuclear stress in 2021, did not have follow up angiogram). EF 40-45% -TTE ordered to reassess LV function, last echo in 2021. Further recommendations to follow review of echo results (3) Premature atrial contractions: Code(s): I49.1 - Atrial premature depolarization Status: Acute Assessment and Plan: She is in sinus rhythm with frequent PAC's. She also has brief runs of what appears to be atrial tachycardia. Telemetry and ECG's reviewed; no clear evidence of atrial fibrillation. Will continue to monitor on telemetry. Subjective Date/time seen: 04/21/24 11:29 Interval history: Cardiology follow up visit 04/21/2024: She feels better today. Her mild edema has resolved. States she was able to lay flat to sleep last night. No shortness of breath, chest pain, or palpitations. Tele: sinus rhythm with frequent PAC's and short runts of A tach. Review of Systems Review of Systems: All systems reviewed & are unremarkable except as noted in HPI and below Exam Const: General: comfortable, no acute distress, alert and awake Orientation/consciousness: patient oriented x3 HENMT: Head: normal to inspection Eyes: General: appearance normal, both eyes and all related structures Pupils: Equal, round and reactive pupils present Neck: Neck: normal visual inspection, supple and no JVD Carotids: normal carotid upstroke Resp: Effort & Inspection: normal respiratory effort Auscultation: not clear to auscultation bilaterally and rales bilateral at the base Cardio: Rate: regular rate Rhythm: regular rhythm Heart sounds: S1 normal heart sound present, S2 normal heart sound present and no murmurs GI: Auscultation: normal bowel sounds Skin: General skin exam: normal color Neuro: General: patient oriented x3 Cranial nerves: Yes Equal, round and reactive pupils present Extrem: General: normal to inspection Other: no edema Psych: Appearance: grossly normal Mental Status: mental status grossly normal Objective Data Vital Signs Vital Signs: Vital Signs - 24 hr 04/20/24 13:01 04/20/24 13:15 04/20/24 13:18 Temperature 36.4 C L 36.4 C Pulse Rate 89 101 H 94 Respiratory Rate 26 H 20 20 Blood Pressure 120/89 119/69 Pulse Oximetry 96 94 94 Oxygen Delivery Room Air 04/20/24 14:00 04/20/24 16:00 04/20/24 16:00 Temperature 36.6 C Pulse Rate 117 H 117 H 93 Respiratory Rate 20 20 Blood Pressure 119/76 Pulse Oximetry 94 96 Oxygen Delivery Room Air 04/20/24 16:00 04/20/24 18:00 04/20/24 20:00 Temperature Pulse Rate 94 88 97 Respiratory Rate Blood Pressure Pulse Oximetry Oxygen Delivery 04/20/24 20:00 04/20/24 20:23 04/20/24 22:00 Temperature 36.4 C Pulse Rate 98 107 H Respiratory Rate 20 Blood Pressure 153/62 H Pulse Oximetry 95 Oxygen Delivery Room Air 04/21/24 00:00 04/21/24 00:00 04/21/24 00:28 Temperature 36.4 C Pulse Rate 96 91 Respiratory Rate 20 Blood Pressure 99/61 L Pulse Oximetry 92 Oxygen Delivery Room Air 04/21/24 02:00 04/21/24 03:48 04/21/24 04:00 Temperature 36.4 C Pulse Rate 98 99 Respiratory Rate 18 Blood Pressure 133/90 Pulse Oximetry 92 Oxygen Delivery Room Air 04/21/24 04:00 04/21/24 06:00 04/21/24 07:44 Temperature 36.7 C Pulse Rate 87 92 88 Respiratory Rate 20 Blood Pressure 124/64 Pulse Oximetry 93 Oxygen Delivery 04/21/24 08:00 04/21/24 08:00 04/21/24 08:33 Temperature Pulse Rate 102 H 88 90 Respiratory Rate 20 Blood Pressure Pulse Oximetry 93 Oxygen Delivery Room Air Intake/Output Intake/Output: Intake & Output 04/18/24 04/19/24 04/20/24 04/21/24 23:59 23:59 23:59 23:59 Intake Total 120 250 Output Total 400 450 Balance -280 -200 Meds/Results Medications: Active Medications Generic Name Dose Route Start Last Admin Trade Name Yesy PRN Reason Stop Dose Admin Acetaminophen 650 mg 04/20/24 11:52 Acetaminophen 325 Mg Tablet PO Q4H PRN Mild Pain (1-3) or Fever Hydrocodone Bitart/Acetaminophen 1 tab 04/20/24 11:52 Hydrocodone/Acetaminophen (*Crx) 5-325 Mg Tablet PO Q4H PRN Pain Rated 4-6 Aripiprazole 5 mg 04/21/24 09:00 04/21/24 08:34 Aripiprazole 5 Mg Tablet BY MOUTH 5 mg DAILY SKY Administration Atorvastatin Calcium 20 mg 04/21/24 09:00 04/21/24 08:34 Atorvastatin 20 Mg Tablet BY MOUTH 20 mg DAILY SKY Administration Celecoxib 200 mg 04/21/24 09:00 04/21/24 08:34 Celecoxib 200 Mg Capsule PO 200 mg Q24H SKY Administration Dextrose 12.5 gm 04/20/24 13:42 Dextrose 50% 25 Gm/50 Ml Syringe IV PUSH PRN PRN Hypoglycemia Protocol Furosemide 40 mg 04/20/24 21:00 04/21/24 08:35 Furosemide Inj 40 Mg/4 Ml Vial IV PUSH 40 mg Q12HR SKY Administration Glucagon 1 mg 04/20/24 13:42 Glucagon For Inj 1 Mg Vial IM PRN PRN Hypoglycemia Protocol Glucose 15 gm 04/20/24 13:42 Glucose Oral Gel 15 Gm Of Glucse In 37.5 Gm Tube PO PRN PRN Hypoglycemia Protocol Heparin Sodium (Porcine) 5,000 units 04/20/24 21:00 04/21/24 08:34 Heparin Sodium 5,000 Units/Ml Vial SUB-Q 5,000 units Q12HR SKY Administration Dextrose 1,000 mls @ 100 mls/hr 04/20/24 13:42 Dextrose 5% 1,000 Ml IVPB PRN PRN Hypoglycemia Protocol Insulin Aspart 2 - 5 units 04/20/24 17:00 04/21/24 08:30 Insulin Aspart (*Bkc) 100 Units/Ml SUB-Q Not Given TIDWM SKY Protocol Insulin Aspart 1 - 2 units 04/20/24 21:00 04/20/24 22:05 Insulin Aspart (*Bkc) 100 Units/Ml SUB-Q 1 units HS SKY Administration Protocol Insulin Glargine 27 units 04/20/24 21:00 04/21/24 08:30 Insulin Glargine (*Bkc) 100 Units/Ml SUB-Q 27 units Q12HR SKY Administration Metoprolol Succinate 12.5 mg 04/21/24 09:00 04/21/24 08:33 Metoprolol Succinate Ext Rel 12.5 Mg Tabcr PO 12.5 mg QAM SKY Administration Ondansetron HCl 4 mg 04/20/24 11:52 Ondansetron Inj 4 Mg/2 Ml Vial IV PUSH Q4H PRN Nausea Perflutren Lipid Microsphere 0 ml 04/20/24 13:37 Perflutren Lipid Microspheres 1.5 Ml Vial Diluted To 10 Ml Total Volume IV PUSH 04/23/24 13:40 ONCE PRN adequate visualization Protocol Quetiapine Fumarate 50 mg 04/20/24 21:00 04/21/24 08:33 Quetiapine Fumarate 25 Mg Tablet BY MOUTH 50 mg Q12HR SKY Administration Ropinirole HCl 2 mg 04/20/24 22:00 04/21/24 06:19 Ropinirole Hcl 1 Mg Tablet BY MOUTH 2 mg Q8HR SKY Administration Radiology Results: ITS Impressions Chest X-Ray 04/20/24 10:16 Impression: Moderate to advanced pulmonary edema pattern. Findings are mildly worsened from prior exam. Labs Labs: Laboratory Results - last 24 hr 04/20/24 04/20/24 04/20/24 11:57 14:42 15:39 WBC RBC Hgb Hct MCV MCH MCHC RDW Plt Count MPV Immature Gran % (Auto) Neut % (Auto) Lymph % (Auto) [place] % (Auto) Eos % (Auto) Baso % (Auto) Lymph # (Auto) [place] # (Auto) Eos # (Auto) Baso # (Auto) Abs Immat Gran (auto) Absolute Neuts (auto) Absolute Nucleated RBC Nucleated RBC % Platelet Estimate Anisocytosis Macrocytosis Schistocytes Sodium Potassium Chloride Carbon Dioxide Anion Gap BUN Creatinine Estim Creat Clear Calc Estimated GFR Glucose POC Capillary Glucose 235 H Calcium Troponin I 0.056 H* 0.050 H* 04/20/24 04/20/24 04/21/24 16:38 20:06 04:37 WBC 6.7 RBC 2.76 L Hgb 9.5 L Hct 30.2 L MCV 109.4 H MCH 34.4 H MCHC 31.5 L RDW 13.6 Plt Count 170 MPV 10.1 Immature Gran % (Auto) 0.1 Neut % (Auto) 62.3 Lymph % (Auto) 27.0 [place] % (Auto) 8.8 H Eos % (Auto) 1.5 Baso % (Auto) 0.3 Lymph # (Auto) 1.82 [place] # (Auto) 0.6 Eos # (Auto) 0.1 Baso # (Auto) 0.0 Abs Immat Gran (auto) 0.01 Absolute Neuts (auto) 4.2 Absolute Nucleated RBC 0.000 Nucleated RBC % 0.0 Platelet Estimate Adequate Anisocytosis 1+ Macrocytosis 1+ Schistocytes None seen Sodium 140 Potassium 3.9 Chloride 106 Carbon Dioxide 26 Anion Gap 8 BUN 28 H Creatinine 1.40 H Estim Creat Clear Calc 22 Estimated GFR 35 L Glucose 140 H POC Capillary Glucose 220 H 215 H Calcium 8.7 Troponin I 04/21/24 07:23 WBC RBC Hgb Hct MCV MCH MCHC RDW Plt Count MPV Immature Gran % (Auto) Neut % (Auto) Lymph % (Auto) [place] % (Auto) Eos % (Auto) Baso % (Auto) Lymph # (Auto) [place] # (Auto) Eos # (Auto) Baso # (Auto) Abs Immat Gran (auto) Absolute Neuts (auto) Absolute Nucleated RBC Nucleated RBC % Platelet Estimate Anisocytosis Macrocytosis Schistocytes Sodium Potassium Chloride Carbon Dioxide Anion Gap BUN Creatinine Estim Creat Clear Calc Estimated GFR Glucose POC Capillary Glucose 122 H Calcium Troponin I Quality VTE Prophylaxis VTE prophylaxis: mechanical ordered and pharmacologic ordered
[2024-04-21 11:48] LABS: Glucose Point of Care 196 mg/dl (65-105)
--- NOTE | 2024-04-21 13:40 | ECHO_ITS ---
Patient Info Name: Lyndsay Manriquez Age: 89 years : 1935 Gender: Female Ht: 66 in Wt: 124 lbs BSA: 1.61 m2 HR: 87 bpm BP: 99 / 61 mmHg Technical Quality: Fair Exam Date: 04/21/2024 11:09 AM Exam Location: Echo Lab Patient Status: Inpatient Admit Date: 04/21/2024 Staff Ordering Physician: Vero Castañeda APRN Sales Representative [employer]: Rupesh Melchor RDCS Attending Provider: Robinson Langston MD Referring Physician: Maddy CHEUNG; Exam Type: CA echo doppler color flow Study Info Indications - CHF Complete two-dimensional, color flow and Doppler transthoracic echocardiogram is performed. Summary 1. Left ventricular chamber dimension is mildly enlarged. 2. Left ventricular systolic function is moderately reduced, estimated at 35-40%. 3. There is mildly increased left ventricular wall thickness. 4. The left ventricular diastolic function is grade I diastolic dysfunction. 5. Right ventricular chamber dimension is normal. 6. Right ventricular systolic function is reduced. 7. Left atrial chamber dimension is severely enlarged. 8. Right atrial chamber dimension is moderately enlarged. 9. There is mild aortic valve stenosis. 10. There is moderate mitral valve regurgitation, which may be underestimated due to eccentricity of the jet. 11. There is mild tricuspid valve regurgitation. Left Ventricle Left ventricular chamber dimension is mildly enlarged. Left ventricular systolic function is moderately reduced, estimated at 35-40%. There is mildly increased left ventricular wall thickness. The left ventricular diastolic function is grade I diastolic dysfunction. Right Ventricle Right ventricular chamber dimension is normal. Right ventricular systolic function is reduced. Left Atria Left atrial chamber dimension is severely enlarged. Right Atria Right atrial chamber dimension is moderately enlarged. Atrial Septum Intact interatrial septum visualized by color flow imaging. Aortic Valve The aortic valve is trileaflet. There is mild aortic valve stenosis. There is no aortic valve regurgitation. There is moderate aortic valve calcification. Pulmonic Valve The pulmonic valve is not well visualized. There is trace pulmonic regurgitation. Mitral Valve There is moderate mitral valve regurgitation, which may be underestimated due to eccentricity of the jet. The mitral valve annulus is mildly calcified. Tricuspid Valve There is mild tricuspid valve regurgitation. Pericardium/Pleural There is no pericardial effusion. Inferior Vena Cava Normal inferior vena cava with >50% collapse upon inspiration consistent with normal right atrial pressure, 3 mmHg. Aorta The aortic root size at the sinus of Valsalva is normal. Left Ventricular Outflow Tract Name Value Normal LVOT 2D LVOT Diameter 2.1 cm LVOT Doppler LVOT Peak Gradient 2 mmHg LVOT Mean Gradient 1 mmHg LVOT VTI 18 cm LVOT VTI/AV VTI Ratio 0.5 LVOT Stroke Volume 60 ml LVOT CO 3.6 l/min LVOT CI 2.3 l/min/m2 Pulmonic Valve Name Value Normal RVOT Doppler RVOT Peak Gradient 2 mmHg PV Doppler PV Peak Gradient 3 mmHg PV Regurgitation Doppler MD Peak End Diastolic Velocity 82 cm/s Mitral Valve Name Value Normal MV Doppler MV Peak Gradient 10 mmHg MV Mean Gradient 2 mmHg MV Decel [place] 563 cm/s2 MV PHT 52 ms MV Area (PHT) 4.3 cm2 4.0-5.0 MV Area (Cont Eq VTI) 1.5 cm2 MV Regurgitation Doppler MR ERO (PISA) 0.02 cm2 MR Volume (PISA) 3 ml MV Diastolic Function MV E Peak Velocity 100 cm/s MV A Peak Velocity 77 cm/s MV E/A 1.3 MV Decel Time 178 ms MV Annular TDI MV E/e' (Septal) 20.6 <=8.0 MV E/e' (Lateral) 21.6 <=8.0 MV E/e' (Average) 21.1 Tricuspid Valve Name Value Normal TV Regurgitation Doppler TR Peak Velocity 274 cm/s TR Peak Gradient 30 mmHg Estimated PAP/RSVP RA Pressure 3 mmHg <=5 PA Systolic Pressure 33 mmHg <36 RV Systolic Pressure 33 mmHg <36 Aorta Name Value Normal Ascending Aorta Ao Root Diameter (MM) 2.9 cm Ao Root Diam Index (MM) 1.8 cm/m2 Aortic Valve Name Value Normal AV Doppler AV Peak Velocity 145 cm/s AV Peak Gradient 6 mmHg AV Mean Gradient 4 mmHg AV VTI 33 cm AV Area (Cont Eq VTI) 1.8 cm2 >=3.0 AV Area (Cont Eq Bill) 1.7 cm2 AV Regurgitation 2D LVOT Area 3.4 cm2 Ventricles Name Value Normal LV Dimensions 2D/MM IVS Diastolic Thickness (2D) 1.2 cm 0.6-1.0 LVID Diastole (2D) 5.1 cm 3.8-5.2 LVIW Diastolic Thickness (2D) 1.2 cm 0.6-0.9 LVID Systole (2D) 3.9 cm 2.2-3.5 LVOT Diameter 2.1 cm LV Mass (2D Cubed) 252.27 g 67.00-162.00 LV Mass Index (2D Cubed) 156 g/m2 43-95 Relative Wall Thickness (2D) 0.49 LV Fractional Shortening/Ejection Fraction 2D/MM LV Fractional Shortening (2D) 24 % 27-45 LV EF (2D Teicholz) 47 % 54-74 LV Diastolic Volume (4C MOD) 100 ml LV EF (4C MOD) 40 % LV Diastolic Volume (2C MOD) 67 ml LV EF (2C MOD) 23 % LV Diastolic Volume (BP MOD) 81 ml 46-106 LV Diastolic Volume Index (BP MOD) 50 ml/m2 29-61 LV Systolic Volume (BP MOD) 56 ml 14-42 LV Systolic Volume Index (BP MOD) 34 ml/m2 8-24 LV EF (BP MOD) 32 % 54-74 LV Diastolic Length (4C) 7.1 cm LV Systolic Length (4C) 6.4 cm LV Stroke Volume (4C MOD) 40 ml Atria Name Value Normal LA Dimensions LA Dimension (MM) 4.8 cm 2.7-3.8 LA Volume (4C A-L) 75 ml LA Volume (BP A-L) 86 ml RA Dimensions RA Area (4C) 16.2 cm2 <=18.0 Report Signatures
[2024-04-21 16:48] LABS: Glucose Point of Care 119 mg/dl (65-105)
[2024-04-21] MEDS: FUROSEMIDE 20 MG TABLET 60 MG PO (16:59)
[2024-04-21 21:08] LABS: Glucose Point of Care 88 mg/dl (65-105)
[2024-04-22] VITALS (12 sets, daily range): BP systolic 104–115; BP diastolic 48–63; PULSE 72–102; RESP 18–22; TEMP 36.3–36.4; O2SAT 97–99
[2024-04-22 05:14] LABS: Hematocrit 32.9 % (37.0-47.0); Hemoglobin 10.3 g/dL (12.0-15.0); Mean Corpuscular HGB Conc 31.3 g/dl (32-36); Mean Corpuscular Hemoglobin 34.4 pg (26-34); Platelet Count Result 177 k/mm3 (150-375); Red Blood Count 2.99 M/mm3 (4.2-5.4); Red Cell Distribution Width 13.6 % (11.5-14.5); White Blood Count 7.7 K/mm3 (4.5-10.0)
[2024-04-22 05:27] LABS: Alanine Aminotransferase 19 U/L (6-35); Albumin Level 3.7 g/dL (3.5-5.1); Alkaline Phosphatase 73 U/L (38-126); Anion Gap 11 mmol/L (4-12); Aspartate Amino Transferase 22 U/L (14-36); Bilirubin,Total 0.4 mg/dL (0.2-1.3); Blood Urea Nitrogen 43 mg/dL (7-17); Calcium 8.5 mg/dL (8.4-10.2); Carbon Dioxide 28 mmol/L (22-30); Chloride 104 mmol/L (98-107); Estimated CRCL calculation 16 ml/min; Estimated Glomerular Filt Rate 25; Glucose 41 mg/dL (65-110); Potassium 4.5 mmol/L (3.4-5.0); Sodium 143 mmol/L (137-145)
[2024-04-22] MEDS: rOPINIRole HCL 1 MG TABLET 2 MG BY MOUTH ×3 (06:01→21:09)
[2024-04-22 06:06] LABS: Glucose Point of Care 93 mg/dl (65-105)
[2024-04-22 07:46] LABS: Glucose Point of Care 90 mg/dl (65-105)
--- NOTE | 2024-04-22 07:50 | PC.NURSE ---
Notified Dr. Patricia of pt's blood glucose of 90 this AM. New order to hold AM Lantus and to change sliding scale to q4hr from ACHS.
--- NOTE | 2024-04-22 07:53 | P.PNIM_ITS ---
Progress Note: A&P Assessment and Plan (1) Acute HFrEF (heart failure with reduced ejection fraction): Code(s): I50.21 - Acute systolic (congestive) heart failure Status: Acute Assessment and Plan: Echocardiogram April 2021 EF 40-45% 04/21 echocardiogram reveals ejection fraction of 35-40%. Cardiology consulted Lasix 40 p.o. q.d. Will add Entresto once the wash out period for Benazepril ends Do metoprolol succinate 12.5 mg PO QD Daily weight Low-sodium diet and fluid restriction Continue statin (2) Type 2 diabetes mellitus with diabetic chronic kidney disease: Onset Date: Unknown Qualifiers: Chronic kidney disease stage: stage 3 (moderate) Chronic kidney disease stage 3 subtype: stage 3b (GFR 30-44) Diabetes mellitus longterm insulin use: with longterm use Qualified Code(s): E11.22 - Type 2 diabetes mellitus with diabetic chronic kidney disease; N18.32 - Chronic kidney disease, stage 3b; Z79.4 - senior care (current) use of insulin Code(s): E11.22 - Type 2 diabetes mellitus with diabetic chronic kidney disease Status: Acute Assessment and Plan: Diabetic diet SSI Accu-Cheks a.c. HS Plan Restart home antidepressant and Seroquel Subjective Date/time seen: 04/22/24 07:53 Interval history: Patient is currently in the euvolemic status. Her creatinine is trending up. I changed the Lasix 60 b.i.d. to 40 p.o. q.d.. Cardiology will add Entresto once the wash out period for Benazepril ends.Patient had episodes of hypoglycemia, will hold her home insulin glargine 27 units b.i.d.. Patient is currently on low-dose sliding scale. Review of Systems Review of Systems: 12 systems were reviewed and are negativ e except for as per HPI. Exam Narrative: General: Chronically ill, hard of hearing HEENT: normocephalic, atraumatic. Mucous membranes moist. EOMI, PERRLA, bilateral sclera anicteric, no conjunctival injection. Neck supple without JVD, lymphadenopathy, or bruit. Respiratory: clear to ascultation bilaterally. No rales/rhonic/wheezes. Cardiovascular: Regular rate and rhythm, normal S1-S2 upon ascultation. No murmurs, rubs, or clicks. PMI is nondisplaced, capillary refill less than 3 second. Abdomen: Soft, round, no pulsatile masses, nondistended and nontender. No rebound, no guarding. No CVA tenderness, no hepatosplenomegaly. Bowel sounds present to all four quadrants. No high pitch or tinkling sounds, resonant to percussion. Extremities: No cyanosis, clubbing, or edema present. Pulses are palpable 2/2. Active ROM to all four extremities. Neuro: Alert and orientated x 4. PERRLA. Cranial nerves 2-12 intact without focal deficit. Skin: Warm, dry, and intact, without rash, erythema, or lesion. Psych: pleasant, cooperative, normal speech, normal affect, no hallucinations, no dysarthia Objective Data Vital Signs Vital Signs: Vital Signs - 24 hr 04/21/24 08:00 04/21/24 08:00 04/21/24 08:33 Temperature Pulse Rate 102 H 88 90 Respiratory Rate 20 Blood Pressure Pulse Oximetry 93 Oxygen Delivery Room Air 04/21/24 12:00 04/21/24 13:04 04/21/24 16:00 Temperature Pulse Rate 88 93 Respiratory Rate Blood Pressure Pulse Oximetry Oxygen Delivery Room Air 04/21/24 16:00 04/21/24 20:00 04/21/24 20:00 Temperature 97.8 F Pulse Rate 82 79 Respiratory Rate 28 H Blood Pressure 98/53 L Pulse Oximetry 96 93 Oxygen Delivery Room Air 04/22/24 00:00 04/22/24 00:21 04/22/24 04:00 Temperature 97.6 F Pulse Rate 95 102 H 88 Respiratory Rate 22 H Blood Pressure 104/61 Pulse Oximetry 97 Oxygen Delivery Intake/Output Intake/Output: Intake & Output 04/19/24 04/20/24 04/21/24 04/22/24 23:59 23:59 23:59 23:59 Intake Total 120 490 100 Output Total 400 450 700 Balance -280 40 -600 Meds/Results Medications: Active Medications Generic Name Dose Route Start Last Admin Trade Name Freq PRN Reason Stop Dose Admin Acetaminophen 650 mg 04/20/24 11:52 Acetaminophen 325 Mg Tablet PO Q4H PRN Mild Pain (1-3) or Fever Hydrocodone Bitart/Acetaminophen 1 tab 04/20/24 11:52 Hydrocodone/Acetaminophen (*Crx) 5-325 Mg Tablet PO Q4H PRN Pain Rated 4-6 Aripiprazole 5 mg 04/21/24 09:00 04/21/24 08:34 Aripiprazole 5 Mg Tablet BY MOUTH 5 mg DAILY SKY Administration Atorvastatin Calcium 20 mg 04/21/24 09:00 04/21/24 08:34 Atorvastatin 20 Mg Tablet BY MOUTH 20 mg DAILY SKY Administration Celecoxib 200 mg 04/21/24 09:00 04/21/24 08:34 Celecoxib 200 Mg Capsule PO 200 mg Q24H SKY Administration Dextrose 12.5 gm 04/20/24 13:42 Dextrose 50% 25 Gm/50 Ml Syringe IV PUSH PRN PRN Hypoglycemia Protocol Furosemide 60 mg 04/21/24 17:00 04/21/24 16:59 Furosemide 20 Mg Tablet PO 60 mg BID SKY Administration Glucagon 1 mg 04/20/24 13:42 Glucagon For Inj 1 Mg Vial IM PRN PRN Hypoglycemia Protocol Glucose 15 gm 04/20/24 13:42 Glucose Oral Gel 15 Gm Of Glucse In 37.5 Gm Tube PO PRN PRN Hypoglycemia Protocol Heparin Sodium (Porcine) 5,000 units 04/20/24 21:00 04/21/24 20:42 Heparin Sodium 5,000 Units/Ml Vial SUB-Q 5,000 units Q12HR SKY Administration Dextrose 1,000 mls @ 100 mls/hr 04/20/24 13:42 Dextrose 5% 1,000 Ml IVPB PRN PRN Hypoglycemia Protocol Insulin Aspart 1 - 2 units 04/20/24 21:00 04/21/24 21:38 Insulin Aspart (*Bkc) 100 Units/Ml SUB-Q Not Given HS [facility] Protocol Insulin Aspart 2 - 5 units 04/22/24 12:00 Insulin Aspart (*Bkc) 100 Units/Ml SUB-Q Q4H [facility] Protocol Insulin Glargine 20 units 04/22/24 09:00 Insulin Glargine (*Bkc) 100 Units/Ml SUB-Q Q12HR [facility] Metoprolol Succinate 12.5 mg 04/21/24 09:00 04/21/24 08:33 Metoprolol Succinate Ext Rel 12.5 Mg Tabcr PO 12.5 mg QAM SKY Administration Ondansetron HCl 4 mg 04/20/24 11:52 Ondansetron Inj 4 Mg/2 Ml Vial IV PUSH Q4H PRN Nausea Perflutren Lipid Microsphere 0 ml 04/20/24 13:37 Perflutren Lipid Microspheres 1.5 Ml Vial Diluted To 10 Ml Total Volume IV PUSH 04/23/24 13:40 ONCE PRN adequate visualization Protocol Quetiapine Fumarate 50 mg 04/20/24 21:00 04/21/24 20:42 Quetiapine Fumarate 25 Mg Tablet BY MOUTH 50 mg Q12HR SKY Administration Ropinirole HCl 2 mg 04/20/24 22:00 04/22/24 06:01 Ropinirole Hcl 1 Mg Tablet BY MOUTH 2 mg Q8HR SKY Administration Radiology Results: ITS Impressions Chest X-Ray 04/20/24 10:16 Impression: Moderate to advanced pulmonary edema pattern. Findings are mildly worsened from prior exam. Labs Labs: Laboratory Results - last 24 hr 04/21/24 04/21/24 04/21/24 11:41 16:44 21:04 WBC RBC Hgb Hct MCV MCH MCHC RDW Plt Count MPV Sodium Potassium Chloride Carbon Dioxide Anion Gap BUN Creatinine Estim Creat Clear Calc Estimated GFR Glucose POC Capillary Glucose 196 H 119 H 88 Calcium Total Bilirubin AST ALT Alkaline Phosphatase Total Protein Albumin 04/22/24 04/22/24 04/22/24 04:36 06:01 07:28 WBC 7.7 RBC 2.99 L Hgb 10.3 L Hct 32.9 L MCV 110.0 H MCH 34.4 H MCHC 31.3 L RDW 13.6 Plt Count 177 MPV 10.0 Sodium 143 Potassium 4.5 Chloride 104 Carbon Dioxide 28 Anion Gap 11 BUN 43 H D Creatinine 1.92 H Estim Creat Clear Calc 16 Estimated GFR 25 L Glucose 41 L* POC Capillary Glucose 93 90 Calcium 8.5 Total Bilirubin 0.4 AST 22 ALT 19 Alkaline Phosphatase 73 Total Protein 7.0 Albumin 3.7 Quality VTE Prophylaxis VTE prophylaxis: mechanical ordered and pharmacologic ordered Hospitalist MIPS Advance Care Plan I have confirmed that the patient's Advanced Care Plan is present, code status is documented, or surrogate decision maker is listed in patient medical record.: Yes Medication Reconciliation I have utilized all available resources to obtain, update and review the patien ts current medications (includes all prescriptions, OTC, herbals, cannabis, and nutritional supplements).: Yes
[2024-04-22] MEDS: ARIPiprazole 5 MG TABLET BY MOUTH (08:44)
[2024-04-22] MEDS: CELECOXIB 200 MG CAPSULE PO (08:44)
[2024-04-22] MEDS: ATORVASTATIN 20 MG TABLET BY MOUTH (08:44)
[2024-04-22] MEDS: FUROSEMIDE 20 MG TABLET 60 MG PO (08:44)
[2024-04-22] MEDS: HEPARIN SODIUM 5,000 UNITS/ML VIAL 5000 UNITS SUB-Q ×2 (08:44→21:09)
[2024-04-22] MEDS: QUEtiapine FUMARATE 25 MG TABLET 50 MG BY MOUTH ×2 (08:44→20:57)
[2024-04-22] MEDS: METOPROLOL SUCCINATE EXT REL 12.5 MG TABCR PO (08:44)
[2024-04-22] MEDS: ACETAMINOPHEN 325 MG TABLET 650 MG PO (10:13)
[2024-04-22 15:58] LABS: Glucose Point of Care 158 mg/dl (65-105)
[2024-04-22 16:26] LABS: Glucose Point of Care 265 mg/dl (65-105)
[2024-04-22] MEDS: INSULIN ASPART (*BKC) 100 UNITS/ML SUB-Q (16:58)
[2024-04-22 17:01] LABS: Glucose Point of Care 202 mg/dl (65-105)
--- NOTE | 2024-04-22 18:45 | PC.NURSE ---
Updated Dr. Patricia on pt not voiding since 0800 today. Voided 475 at that time. Bladder scan at 1840 revealed >740. Pt attempting to void at this moment with no success. New order to straight cath now and may straight cath PRN if pt hasn't voided in 10 hrs and bladder scan is >400
[2024-04-22 19:53] LABS: Glucose Point of Care 109 mg/dl (65-105)
[2024-04-23] VITALS (10 sets, daily range): BP systolic 101–120; BP diastolic 47–67; PULSE 70–96; RESP 18; TEMP 36.3–36.7; O2SAT 94–100
[2024-04-23 05:26] LABS: Hematocrit 33.2 % (37.0-47.0); Hemoglobin 10.3 g/dL (12.0-15.0); Mean Corpuscular Hemoglobin 34.4 pg (26-34); Mean Platelet Volume 10.1 fl (7.4-10.4); Platelet Count Result 166 k/mm3 (150-375); Red Blood Count 2.99 M/mm3 (4.2-5.4); Red Cell Distribution Width 13.7 % (11.5-14.5); White Blood Count 7.1 K/mm3 (4.5-10.0)
[2024-04-23 05:38] LABS: Alanine Aminotransferase 19 U/L (6-35); Albumin Level 3.7 g/dL (3.5-5.1); Alkaline Phosphatase 73 U/L (38-126); Anion Gap 11 mmol/L (4-12); Aspartate Amino Transferase 21 U/L (14-36); Bilirubin,Total 0.4 mg/dL (0.2-1.3); Blood Urea Nitrogen 46 mg/dL (7-17); Calcium 9.1 mg/dL (8.4-10.2); Carbon Dioxide 28 mmol/L (22-30); Chloride 104 mmol/L (98-107); Estimated CRCL calculation 17 ml/min; Estimated Glomerular Filt Rate 27; Glucose 97 mg/dL (65-110); Sodium 143 mmol/L (137-145)
[2024-04-23 07:52] LABS: Glucose Point of Care 112 mg/dl (65-105)
[2024-04-23] MEDS: rOPINIRole HCL 1 MG TABLET 2 MG BY MOUTH ×3 (08:56→20:40)
[2024-04-23] MEDS: ARIPiprazole 5 MG TABLET BY MOUTH (08:56)
[2024-04-23] MEDS: METOPROLOL SUCCINATE EXT REL 12.5 MG TABCR PO (08:56)
[2024-04-23] MEDS: CELECOXIB 200 MG CAPSULE PO (08:57)
[2024-04-23] MEDS: ATORVASTATIN 20 MG TABLET BY MOUTH (08:57)
[2024-04-23] MEDS: HEPARIN SODIUM 5,000 UNITS/ML VIAL 5000 UNITS SUB-Q ×2 (08:58→20:40)
[2024-04-23] MEDS: QUEtiapine FUMARATE 25 MG TABLET 50 MG BY MOUTH ×2 (08:58→20:40)
--- NOTE | 2024-04-23 11:01 | PM.PNCARD ---
Progress Note: A&P Assessment and Plan (1) HFrEF (heart failure with reduced ejection fraction): Code(s): I50.20 - Unspecified systolic (congestive) heart failure Status: Acute Assessment and Plan: Acute on chronic systolic heart failure presenting with orthopnea, PND, edema. She is feeling better after receiving IV furosemide and has no significant peripheral edema. Moderate pulmonary edema on CXR. Continue furosemide 20mg daily at discharge BMP in one week Continue Toprol XL Will optimize GDMT as outpatient depending on renal function and BP (2) Cardiomyopathy: Qualifiers: Cardiomyopathy type: ischemic Qualified Code(s): I25.5 - Ischemic cardiomyopathy Code(s): I42.9 - Cardiomyopathy, unspecified Status: Acute Assessment and Plan: Probably ischemic (abnormal nuclear stress in 2021, did not have follow up angiogram). EF 40-45% -EF 35-40% on repeat FRANCISCA. As above, will titrate GDMT as outpatient (3) Premature atrial contractions: Code(s): I49.1 - Atrial premature depolarization Status: Acute Assessment and Plan: She is in sinus rhythm with frequent PAC's. She also has brief runs of what appears to be atrial tachycardia. Telemetry and ECG's reviewed; no clear evidence of atrial fibrillation. Subjective Date/time seen: 04/23/24 11:01 Interval history: Cardiology follow up visit 04/21/2024: She feels better today. Her mild edema has resolved. States she was able to lay flat to sleep last night. No shortness of breath, chest pain, or palpitations. Tele: sinus rhythm with frequent PAC's and short runts of A tach. 04/23/2024: She feels well today and has no complaints. Denies shortness of breath. Swelling resolved. Review of Systems Review of Systems: All systems reviewed & are unremarkable except as noted in HPI and below Exam Const: General: comfortable, no acute distress, alert and awake Orientation/consciousness: patient oriented x3 HENMT: Head: normal to inspection Eyes: General: appearance normal, both eyes and all related structures Pupils: Equal, round and reactive pupils present Neck: Neck: normal visual inspection, supple and no JVD Carotids: normal carotid upstroke Resp: Effort & Inspection: normal respiratory effort Cardio: Rate: regular rate Rhythm: regular rhythm Heart sounds: S1 normal heart sound present, S2 normal heart sound present and no murmurs GI: Auscultation: normal bowel sounds Skin: General skin exam: normal color Neuro: General: patient oriented x3 Cranial nerves: Yes Equal, round and reactive pupils present Extrem: General: normal to inspection Other: no edema Psych: Appearance: grossly normal Mental Status: mental status grossly normal Objective Data Vital Signs Vital Signs: Vital Signs - 24 hr 04/22/24 12:00 04/22/24 16:00 04/22/24 16:00 Temperature 36.3 C L Pulse Rate 87 78 72 Respiratory Rate 18 Blood Pressure 108/48 L Pulse Oximetry 99 Oxygen Delivery Fraction of Inspired Oxygen 04/22/24 19:32 04/22/24 19:48 04/22/24 19:52 Temperature 36.4 C L Pulse Rate 82 79 79 Respiratory Rate 18 18 Blood Pressure 110/59 L Pulse Oximetry 98 98 Oxygen Delivery Room Air Fraction of Inspired Oxygen 04/22/24 20:28 04/23/24 00:00 04/23/24 00:00 Temperature 36.3 C L Pulse Rate 70 74 Respiratory Rate 18 Blood Pressure 101/49 L Pulse Oximetry 98 100 Oxygen Delivery Room Air Fraction of Inspired Oxygen 04/23/24 04:00 04/23/24 04:26 04/23/24 07:53 Temperature 36.6 C 36.6 C Pulse Rate 83 84 78 Respiratory Rate 18 18 Blood Pressure 120/60 110/67 Pulse Oximetry 94 97 Oxygen Delivery Fraction of Inspired Oxygen 04/23/24 08:56 04/23/24 10:11 Temperature Pulse Rate 94 Respiratory Rate Blood Pressure Pulse Oximetry Oxygen Delivery Room Air Fraction of Inspired Oxygen Intake/Output Intake/Output: Intake & Output 04/20/24 04/21/24 04/22/24 04/23/24 23:59 23:59 23:59 23:59 Intake Total 991 241 0824 240 Output Total 214 423 4457 500 Balance -280 88 -466 -260 Meds/Results Medications: Active Medications Generic Name Dose Route Start Last Admin Trade Name Freq PRN Reason Stop Dose Admin Acetaminophen 650 mg 04/20/24 11:52 04/22/24 10:13 Acetaminophen 325 Mg Tablet PO 650 mg Q4H PRN Administration Mild Pain (1-3) or Fever Hydrocodone Bitart/Acetaminophen 1 tab 04/20/24 11:52 Hydrocodone/Acetaminophen (*Crx) 5-325 Mg Tablet PO Q4H PRN Pain Rated 4-6 Aripiprazole 5 mg 04/21/24 09:00 04/23/24 08:56 Aripiprazole 5 Mg Tablet BY MOUTH 5 mg DAILY SKY Administration Atorvastatin Calcium 20 mg 04/21/24 09:00 04/23/24 08:57 Atorvastatin 20 Mg Tablet BY MOUTH 20 mg DAILY SKY Administration Celecoxib 200 mg 04/21/24 09:00 04/23/24 08:57 Celecoxib 200 Mg Capsule PO 200 mg Q24H SKY Administration Dextrose 12.5 gm 04/20/24 13:42 Dextrose 50% 25 Gm/50 Ml Syringe IV PUSH PRN PRN Hypoglycemia Protocol Furosemide 40 mg 04/23/24 09:00 04/23/24 08:59 Furosemide 40 Mg Tablet PO Not Given DAILY SKY Glucagon 1 mg 04/20/24 13:42 Glucagon For Inj 1 Mg Vial IM PRN PRN Hypoglycemia Protocol Glucose 15 gm 04/20/24 13:42 Glucose Oral Gel 15 Gm Of Glucse In 37.5 Gm Tube PO PRN PRN Hypoglycemia Protocol Heparin Sodium (Porcine) 5,000 units 04/20/24 21:00 04/23/24 08:58 Heparin Sodium 5,000 Units/Ml Vial SUB-Q 5,000 units Q12HR SKY Administration Dextrose 1,000 mls @ 100 mls/hr 04/20/24 13:42 Dextrose 5% 1,000 Ml IVPB PRN PRN Hypoglycemia Protocol Insulin Aspart 1 - 2 units 04/20/24 21:00 04/22/24 21:28 Insulin Aspart (*Bkc) 100 Units/Ml SUB-Q Not Given HS [facility] Protocol Insulin Aspart 2 - 5 units 04/22/24 12:00 04/23/24 08:00 Insulin Aspart (*Bkc) 100 Units/Ml SUB-Q Not Given Q4H [facility] Protocol Insulin Glargine 20 units 04/22/24 09:00 04/22/24 08:44 Insulin Glargine (*Bkc) 100 Units/Ml SUB-Q Not Given Q12HR [facility] Metoprolol Succinate 12.5 mg 04/21/24 09:00 04/23/24 08:56 Metoprolol Succinate Ext Rel 12.5 Mg Tabcr PO 12.5 mg QAM SKY Administration Ondansetron HCl 4 mg 04/20/24 11:52 Ondansetron Inj 4 Mg/2 Ml Vial IV PUSH Q4H PRN Nausea Perflutren Lipid Microsphere 0 ml 04/20/24 13:37 Perflutren Lipid Microspheres 1.5 Ml Vial Diluted To 10 Ml Total Volume IV PUSH 04/23/24 13:40 ONCE PRN adequate visualization Protocol Quetiapine Fumarate 50 mg 04/20/24 21:00 04/23/24 08:58 Quetiapine Fumarate 25 Mg Tablet BY MOUTH 50 mg Q12HR SKY Administration Ropinirole HCl 2 mg 04/20/24 22:00 04/23/24 08:56 Ropinirole Hcl 1 Mg Tablet BY MOUTH 2 mg Q8HR SKY Administration Radiology Results: ITS Impressions Chest X-Ray 04/20/24 10:16 Impression: Moderate to advanced pulmonary edema pattern. Findings are mildly worsened from prior exam. Labs Labs: Laboratory Results - last 24 hr 04/22/24 04/22/24 04/22/24 11:21 15:26 16:39 WBC RBC Hgb Hct MCV MCH MCHC RDW Plt Count MPV Sodium Potassium Chloride Carbon Dioxide Anion Gap BUN Creatinine Estim Creat Clear Calc Estimated GFR Glucose POC Capillary Glucose 158 H 265 H 202 H Calcium Total Bilirubin AST ALT Alkaline Phosphatase Total Protein Albumin 04/22/24 04/23/24 04/23/24 19:48 05:15 07:32 WBC 7.1 RBC 2.99 L Hgb 10.3 L Hct 33.2 L MCV 111.0 H MCH 34.4 H MCHC 31.0 L RDW 13.7 Plt Count 166 MPV 10.1 Sodium 143 Potassium 5.0 Chloride 104 Carbon Dioxide 28 Anion Gap 11 BUN 46 H Creatinine 1.80 H Estim Creat Clear Calc 17 Estimated GFR 27 L Glucose 97 POC Capillary Glucose 109 H 112 H Calcium 9.1 Total Bilirubin 0.4 AST 21 ALT 19 Alkaline Phosphatase 73 Total Protein 7.0 Albumin 3.7 Quality VTE Prophylaxis VTE prophylaxis: mechanical ordered and pharmacologic ordered
[2024-04-23 11:36] LABS: Glucose Point of Care 133 mg/dl (65-105)
[2024-04-23 16:25] LABS: Glucose Point of Care 157 mg/dl (65-105)
--- NOTE | 2024-04-23 16:30 | P.PNIM_ITS ---
Progress Note: A&P Assessment and Plan (1) Acute HFrEF (heart failure with reduced ejection fraction): Code(s): I50.21 - Acute systolic (congestive) heart failure Status: Inactive Assessment and Plan: Echocardiogram April 2021 EF 40-45% 04/21 echocardiogram reveals ejection fraction of 35-40%. Cardiology consulted Lasix 40 p.o. q.d. Will add Entresto once the wash out period for Benazepril ends Do metoprolol succinate 12.5 mg PO QD Daily weight Low-sodium diet and fluid restriction Continue statin (2) Type 2 diabetes mellitus with diabetic chronic kidney disease: Onset Date: Unknown Qualifiers: Chronic kidney disease stage: stage 3 (moderate) Chronic kidney disease stage 3 subtype: stage 3b (GFR 30-44) Diabetes mellitus buttermaker continuous churn insulin use: with buttermaker continuous churn use Qualified Code(s): E11.22 - Type 2 diabetes mellitus with diabetic chronic kidney disease; N18.32 - Chronic kidney disease, stage 3b; Z79.4 - senior living (current) use of insulin Code(s): E11.22 - Type 2 diabetes mellitus with diabetic chronic kidney disease Status: Acute Assessment and Plan: Diabetic diet SSI Accu-Cheks a.c. HS Plan Restart home antidepressant and Seroquel Subjective Date/time seen: 04/23/24 16:30 Interval history: Holding Lasix. No evidence of volume overload. Will restart Lasix in day or 2 if creatinine improves. Review of Systems Review of Systems: 12 systems were reviewed and are negativ e except for as per HPI. Exam Narrative: General: Chronically ill, hard of hearing HEENT: normocephalic, atraumatic. Mucous membranes moist. EOMI, PERRLA, bilateral sclera anicteric, no conjunctival injection. Neck supple without JVD, lymphadenopathy, or bruit. Respiratory: clear to ascultation bilaterally. No rales/rhonic/wheezes. Cardiovascular: Regular rate and rhythm, normal S1-S2 upon ascultation. No murmurs, rubs, or clicks. PMI is nondisplaced, capillary refill less than 3 second. Abdomen: Soft, round, no pulsatile masses, nondistended and nontender. No rebound, no guarding. No CVA tenderness, no hepatosplenomegaly. Bowel sounds present to all four quadrants. No high pitch or tinkling sounds, resonant to percussion. Extremities: No cyanosis, clubbing, or edema present. Pulses are palpable 2/2. Active ROM to all four extremities. Neuro: Alert and orientated x 4. PERRLA. Cranial nerves 2-12 intact without focal deficit. Skin: Warm, dry, and intact, without rash, erythema, or lesion. Psych: pleasant, cooperative, normal speech, normal affect, no hallucinations, no dysarthia Objective Data Vital Signs Vital Signs: Vital Signs - 24 hr 04/22/24 19:32 04/22/24 19:48 04/22/24 19:52 Temperature 97.5 F L Pulse Rate 82 79 79 Respiratory Rate 18 18 Blood Pressure 110/59 L Pulse Oximetry 98 98 Oxygen Delivery Room Air Fraction of Inspired Oxygen 04/22/24 20:28 04/23/24 00:00 04/23/24 00:00 Temperature 97.4 F L Pulse Rate 70 74 Respiratory Rate 18 Blood Pressure 101/49 L Pulse Oximetry 98 100 Oxygen Delivery Room Air Fraction of Inspired Oxygen 21 04/23/24 04:00 04/23/24 04:26 04/23/24 07:53 Temperature 97.9 F 97.9 F Pulse Rate 83 84 78 Respiratory Rate 18 18 Blood Pressure 120/60 110/67 Pulse Oximetry 94 97 Oxygen Delivery Fraction of Inspired Oxygen 04/23/24 08:00 04/23/24 08:56 04/23/24 10:11 Temperature Pulse Rate 96 94 Respiratory Rate Blood Pressure Pulse Oximetry Oxygen Delivery Room Air Fraction of Inspired Oxygen 04/23/24 12:00 04/23/24 16:00 Temperature 98.1 F Pulse Rate 79 94 Respiratory Rate 18 Blood Pressure 105/62 Pulse Oximetry 100 Oxygen Delivery Fraction of Inspired Oxygen Intake/Output Intake/Output: Intake & Output 04/20/24 04/21/24 04/22/24 04/23/24 23:59 23:59 23:59 23:59 Intake Total 566 952 0940 480 Output Total 558 161 8858 500 Balance -280 40 -255 -20 Meds/Results Medications: Active Medications Generic Name Dose Route Start Last Admin Trade Name Freq PRN Reason Stop Dose Admin Acetaminophen 650 mg 04/20/24 11:52 04/22/24 10:13 Acetaminophen 325 Mg Tablet PO 650 mg Q4H PRN Administration Mild Pain (1-3) or Fever Hydrocodone Bitart/Acetaminophen 1 tab 04/20/24 11:52 Hydrocodone/Acetaminophen (*Crx) 5-325 Mg Tablet PO Q4H PRN Pain Rated 4-6 Aripiprazole 5 mg 04/21/24 09:00 04/23/24 08:56 Aripiprazole 5 Mg Tablet BY MOUTH 5 mg DAILY SKY Administration Atorvastatin Calcium 20 mg 04/21/24 09:00 04/23/24 08:57 Atorvastatin 20 Mg Tablet BY MOUTH 20 mg DAILY SKY Administration Celecoxib 200 mg 04/21/24 09:00 04/23/24 08:57 Celecoxib 200 Mg Capsule PO 200 mg Q24H SKY Administration Dextrose 12.5 gm 04/20/24 13:42 Dextrose 50% 25 Gm/50 Ml Syringe IV PUSH PRN PRN Hypoglycemia Protocol Furosemide 40 mg 04/23/24 09:00 04/23/24 08:59 Furosemide 40 Mg Tablet PO Not Given DAILY SKY Glucagon 1 mg 04/20/24 13:42 Glucagon For Inj 1 Mg Vial IM PRN PRN Hypoglycemia Protocol Glucose 15 gm 04/20/24 13:42 Glucose Oral Gel 15 Gm Of Glucse In 37.5 Gm Tube PO PRN PRN Hypoglycemia Protocol Heparin Sodium (Porcine) 5,000 units 04/20/24 21:00 04/23/24 08:58 Heparin Sodium 5,000 Units/Ml Vial SUB-Q 5,000 units Q12HR SKY Administration Dextrose 1,000 mls @ 100 mls/hr 04/20/24 13:42 Dextrose 5% 1,000 Ml IVPB PRN PRN Hypoglycemia Protocol Insulin Aspart 1 - 2 units 04/20/24 21:00 04/22/24 21:28 Insulin Aspart (*Bkc) 100 Units/Ml SUB-Q Not Given HS [facility] Protocol Insulin Aspart 2 - 5 units 04/22/24 12:00 04/23/24 11:56 Insulin Aspart (*Bkc) 100 Units/Ml SUB-Q Not Given Q4H [facility] Protocol Insulin Glargine 20 units 04/22/24 09:00 04/22/24 08:44 Insulin Glargine (*Bkc) 100 Units/Ml SUB-Q Not Given Q12HR [facility] Metoprolol Succinate 12.5 mg 04/21/24 09:00 04/23/24 08:56 Metoprolol Succinate Ext Rel 12.5 Mg Tabcr PO 12.5 mg QAM SKY Administration Ondansetron HCl 4 mg 04/20/24 11:52 Ondansetron Inj 4 Mg/2 Ml Vial IV PUSH Q4H PRN Nausea Quetiapine Fumarate 50 mg 04/20/24 21:00 04/23/24 08:58 Quetiapine Fumarate 25 Mg Tablet BY MOUTH 50 mg Q12HR SKY Administration Ropinirole HCl 2 mg 04/20/24 22:00 04/23/24 08:56 Ropinirole Hcl 1 Mg Tablet BY MOUTH 2 mg Q8HR SKY Administration Radiology Results: ITS Impressions Chest X-Ray 04/20/24 10:16 Impression: Moderate to advanced pulmonary edema pattern. Findings are mildly worsened from prior exam. Labs Labs: Laboratory Results - last 24 hr 04/22/24 04/22/24 04/23/24 16:39 19:48 05:15 WBC 7.1 RBC 2.99 L Hgb 10.3 L Hct 33.2 L MCV 111.0 H MCH 34.4 H MCHC 31.0 L RDW 13.7 Plt Count 166 MPV 10.1 Sodium 143 Potassium 5.0 Chloride 104 Carbon Dioxide 28 Anion Gap 11 BUN 46 H Creatinine 1.80 H Estim Creat Clear Calc 17 Estimated GFR 27 L Glucose 97 POC Capillary Glucose 202 H 109 H Calcium 9.1 Total Bilirubin 0.4 AST 21 ALT 19 Alkaline Phosphatase 73 Total Protein 7.0 Albumin 3.7 04/23/24 04/23/24 04/23/24 07:32 11:32 16:10 WBC RBC Hgb Hct MCV MCH MCHC RDW Plt Count MPV Sodium Potassium Chloride Carbon Dioxide Anion Gap BUN Creatinine Estim Creat Clear Calc Estimated GFR Glucose POC Capillary Glucose 112 H 133 H 157 H Calcium Total Bilirubin AST ALT Alkaline Phosphatase Total Protein Albumin Quality VTE Prophylaxis VTE prophylaxis: mechanical ordered and pharmacologic ordered Hospitalist MIPS Advance Care Plan I have confirmed that the patient's Advanced Care Plan is present, code status is documented, or surrogate decision maker is listed in patient medical record.: Yes Medication Reconciliation I have utilized all available resources to obtain, update and review the patients current medications (includes all prescriptions, OTC, herbals, cannabis, and nutritional supplements).: Yes
[2024-04-23 20:06] LABS: Glucose Point of Care 315 mg/dl (65-105)
[2024-04-23] MEDS: INSULIN ASPART (*BKC) 100 UNITS/ML SUB-Q (20:41)
[2024-04-24] VITALS (11 sets, daily range): BP systolic 102–125; BP diastolic 52–66; PULSE 64–79; RESP 16–20; TEMP 36.3–36.7; O2SAT 96–99
[2024-04-24 04:17] LABS: Glucose Point of Care 151 mg/dl (65-105)
[2024-04-24 05:15] LABS: Hematocrit 31.6 % (37.0-47.0); Hemoglobin 9.8 g/dL (12.0-15.0); Mean Corpuscular Hemoglobin 34.6 pg (26-34); Mean Corpuscular Volume 111.7 fl (80-100); Mean Platelet Volume 10.4 fl (7.4-10.4); Platelet Count Result 163 k/mm3 (150-375); Red Blood Count 2.83 M/mm3 (4.2-5.4); Red Cell Distribution Width 13.5 % (11.5-14.5); White Blood Count 5.1 K/mm3 (4.5-10.0)
[2024-04-24 05:48] LABS: Alanine Aminotransferase 20 U/L (6-35); Albumin Level 3.6 g/dL (3.5-5.1); Alkaline Phosphatase 73 U/L (38-126); Aspartate Amino Transferase 22 U/L (14-36); Bilirubin,Total 0.4 mg/dL (0.2-1.3); Blood Urea Nitrogen 47 mg/dL (7-17); Carbon Dioxide 28 mmol/L (22-30); Chloride 106 mmol/L (98-107); Estimated CRCL calculation 21 ml/min; Estimated Glomerular Filt Rate 32; Glucose 140 mg/dL (65-110)
[2024-04-24 06:00] LABS: Anion Gap 7 mmol/L (4-12); Calcium 9.1 mg/dL (8.4-10.2); Potassium 5.3 mmol/L (3.4-5.0); Sodium 141 mmol/L (137-145)
[2024-04-24 06:42] LABS: Glucose Point of Care 137 mg/dl (65-105)
[2024-04-24] MEDS: rOPINIRole HCL 1 MG TABLET 2 MG BY MOUTH ×3 (07:34→21:06)
[2024-04-24 07:55] LABS: Glucose Point of Care 165 mg/dl (65-105)
[2024-04-24] MEDS: QUEtiapine FUMARATE 25 MG TABLET 50 MG BY MOUTH ×2 (08:34→21:06)
[2024-04-24] MEDS: METOPROLOL SUCCINATE EXT REL 12.5 MG TABCR PO (08:35)
[2024-04-24] MEDS: CELECOXIB 200 MG CAPSULE PO (08:35)
[2024-04-24] MEDS: ATORVASTATIN 20 MG TABLET BY MOUTH (08:35)
[2024-04-24] MEDS: ARIPiprazole 5 MG TABLET BY MOUTH (08:35)
[2024-04-24] MEDS: HEPARIN SODIUM 5,000 UNITS/ML VIAL 5000 UNITS SUB-Q ×2 (08:55→21:05)
[2024-04-24] MEDS: SODIUM ZIRCONIUM CYCLOSILICATE 10 GM POWD.PACK PO (10:35)
--- NOTE | 2024-04-24 11:56 | WPDURCON ---
Assessment and Plan Assessment and plan (1) Acute urinary retention: Code(s): R33.8 - Other retention of urine Status: Acute Assessment and Plan: - s/p indwelling Iqbal placement 04/23/24 for PVR bladder scan >700mL - Risk factors include severe lumbar spondylosis, limited mobility, constipation, advanced age, acute illness (2) CKD (chronic kidney disease): Code(s): N18.9 - Chronic kidney disease, unspecified Status: Acute Assessment and Plan: - Baseline Cr 1.2, current Cr 1.55 likely 2/2 diuresis for CHF exac Plan - KUB today shows moderate colonic fecal loading. Severe lumbar spondylosis. - Recommend scheduled bowel regimen with daily MiraLax, HS Senna - OK to discharge with Iqbal catheter as she recovers from CHF exacerbation - Anticipate return to baseline voiding pattern as she is more ambulatory and with resolution of constipation. - Follow-up with outpatient urology for void trial or if she remains inpatient through the weekend, can attempt void trial prior to discharge. - No plan for inpatient urologic surgical intervention Urology Consult Note HPI Date Seen: 04/24/24 Requesting Physician: Robinson Langston MD Primary Care Provider: Tj Pino MD Consult Narrative Narrative: Lyndsay Manriquez is a very pleasant 89 year old female admitted 04/20/24 with shortness of breath, CHF exacerbation. Medical history significant for CHF, CKD, HTN, DM. Urology consulted today for evaluation of acute urinary retention. Indwelling Iqbal catheter placed 04/23/24 for PVR bladder scan 740mL. She required straight catheterization two times prior to Iqbal placement. Patient is [place] at baseline. Alert and oriented to person, place, time, situation. Lives with family. On exam today, indwelling Iqbal draining clear yellow urine. She denies previous retention issues, UTIs, hematuria, kidney stones, malignancy. Last documented BM 04/20/24. She has not been evaluated by urology in the past. Baseline Cr 1.2-1.3, current Cr 1.55. PERTINENT IMAGIN08/2022 CT AP WO CON - Bilateral renal atrophy with focal cortical scarring at the upper pole the right kidney. 1 cm exophytic cyst at the upper pole the right kidney. 7 mm high attenuation proteinaceous/hemorrhagic exophytic cyst at the lower pole of the left kidney. Review of Systems Constitutional: Constitutional: Reports lethargy and Reports weakness Eyes: Eyes: Reports no additional eye complaints ENT: Comments: [place], better on the right side Cardiovascular: Cardiovascular: Denies chest pain Respiratory: Respiratory: Denies cough and Reports dyspnea on exertion Gastrointestinal: Gastrointestinal: Denies abdominal pain, Denies nausea and Denies vomiting Genitourinary: Genitourinary: Reports as per HPI Psychiatric: Psychiatric: Reports no additional psychiatric complaints [facility] Past Medical History Medical History (Updated 04/24/24 @ 12:42 by Radha Us APRN) Mitral regurgitation moderate Afib CHF (congestive heart failure) Skin cancer Hypertension High cholesterol Diabetes Glaucoma Macular degeneration Hx of fracture of femur [place] (hard of hearing) Benign reactive hypertension Diabetic neuropathy Surgical History Surgical History History of open reduction and internal fixation (ORIF) procedure Hx of cholecystectomy Hx of hysterectomy Family History Family History Mother Diabetes mellitus Social History Social History Social History: Smoking packs per day: 0.5 Smoking cigarettes per day: 10.0 Years smoked: 30 Smoking pack-years: 15.00 Smoking status: Never smoker Tobacco type: cigarettes Second hand tobacco smoke exposure: No Smoking end date: 03/25/16 Alcohol intake: never Substance use: never Substance use type: does not use Do You Feel Safe in your Home?: Yes Lack of Transportation: No Lack of Food: Never True Current Housing: I Have Housing Concerned About Future Housing: No Difficulty Paying Gas/Electric Bills: No Difficulty Paying for Meds: No Currently Unemployed: No Education: High School Diploma/GED Difficulty w/ Childcare or Family Care: No Living arrangements: with family Additional living arrangements comments: PT LIVES WITH DAUGHTER - BRETT Occupation/Education: retired Gender identity (if verbalized by the patient): Female Sexual Orientation (if Verbalized by the Patient): Straight or Heterosexual Spiritual care concerns: No Meds Home Medications and Allergies Home Medications ?Medication ?Instructions ?Recorded ?Confirmed ?Type lancets (Accu-Chek Softclix #100 ea 08/22/21 04/20/24 Rx Lancets) multivitamin 1 tablet PO DAILY 04/30/22 04/20/24 History blood sugar diagnostic (Accu-Chek #200 strips 09/10/22 04/20/24 Rx Guide test strips) pen needle, diabetic 31 gauge x #100 ea 10/08/22 04/20/24 Rx 3/16 (BD Ultra-Fine Mini Pen Needle) atorvastatin 20 mg tablet See Rx Instructions .Route 10/08/23 04/20/24 Rx .COMPLEX #90 tabs ropinirole 2 mg tablet See Rx Instructions .Route 11/12/23 04/20/24 Rx .COMPLEX #200 tabs aripiprazole 5 mg tablet See Rx Instructions .Route 01/02/24 04/20/24 Rx .COMPLEX #90 tabs quetiapine 50 mg tablet See Rx Instructions .Route 01/02/24 04/20/24 Rx .COMPLEX #180 tabs benazepril 40 mg tablet See Rx Instructions .Route 03/09/24 04/20/24 Rx .COMPLEX #90 tabs furosemide 40 mg tablet 40 mg PO QAM #90 tabs 04/16/24 04/20/24 Rx alendronate 70 mg tablet 70 mg PO WEEKLY 04/20/24 04/20/24 History celecoxib 200 mg capsule 200 mg PO Q24H 04/20/24 04/20/24 History cyanocobalamin (vitamin B-12) 1,000 mcg IM WEEKLY 04/20/24 04/20/24 History 1,000 mcg/mL injection solution insulin glargine 100 unit/mL (3 27 unit subcut BID 04/20/24 04/20/24 History mL) subcutaneous pen (Basaglar KwikPen U-100 Insulin) Allergies Allergy/AdvReac Type Severity Reaction Status Date / Time No Known Allergies Allergy Verified 04/20/24 08:51 Vital Signs Vital Signs - 24 hr 04/23/24 12:00 04/23/24 16:00 04/23/24 16:00 Temperature 98.1 F Pulse Rate 79 94 89 Respiratory Rate 18 Blood Pressure 105/62 Pulse Oximetry 100 Oxygen Delivery 04/23/24 20:00 04/23/24 20:00 04/23/24 20:15 Temperature 98.1 F Pulse Rate 78 78 77 Respiratory Rate 18 18 Blood Pressure 104/47 L Pulse Oximetry 100 96 Oxygen Delivery Room Air 04/24/24 00:00 04/24/24 02:57 04/24/24 03:59 Temperature 98.1 F Pulse Rate 67 73 76 Respiratory Rate 18 Blood Pressure 120/62 Pulse Oximetry 96 Oxygen Delivery 04/24/24 07:57 04/24/24 08:35 04/24/24 08:40 Temperature 97.6 F Pulse Rate 74 77 77 Respiratory Rate 18 Blood Pressure 102/66 125/52 L Pulse Oximetry 99 Oxygen Delivery Exam Const: General: comfortable and no acute distress HENMT: Face/Nose/Sinus: Normal nares present Results Labs 04/24/24 04:36 04/24/24 04:36 Labs: Short CBC 04/24/24 Range/Units 04:36 WBC 5.1 (4.5-10.0) K/mm3 Hgb 9.8 L (12.0-15.0) g/dL Hct 31.6 L (37.0-47.0) % Plt Count 163 (150-375) k/mm3 [facility] 04/24/24 04:36 Sodium 141 Potassium 5.3 H Chloride 106 Carbon Dioxide 28 BUN 47 H Creatinine 1.55 H Glucose 140 H Calcium 9.1 Liver Function 04/24/24 Range/Units 04:36 Total Bilirubin 0.4 (0.2-1.3) mg/dL AST 22 (14-36) U/L ALT 20 (6-35) U/L Alkaline Phosphatase 73 (38-126) U/L Albumin 3.6 (3.5-5.1) g/dL
[2024-04-24 12:02] LABS: Glucose Point of Care 195 mg/dl (65-105)
[2024-04-24] MEDS: polyethylene glycoL 3350 17 GM POWD.PACK PO (12:48)
--- NOTE | 2024-04-24 13:42 | PC.NURSE ---
On 04/24/24, the student, [Stacey Dos Santos], provided care and completed [facility] documentation on this patient. I have reviewed the student's documentation and agree with the findings.
--- NOTE | 2024-04-24 14:51 | P.PNIM_ITS ---
Progress Note: A&P Assessment and Plan (1) Acute HFrEF (heart failure with reduced ejection fraction): Code(s): I50.21 - Acute systolic (congestive) heart failure Status: Inactive Assessment and Plan: Echocardiogram April 2021 EF 40-45% 04/21 echocardiogram reveals ejection fraction of 35-40%. Cardiology consulted Lasix 40 p.o. q.d. Will add Entresto once the wash out period for Benazepril ends Do metoprolol succinate 12.5 mg PO QD Daily weight Low-sodium diet and fluid restriction Continue statin (2) Type 2 diabetes mellitus with diabetic chronic kidney disease: Onset Date: Unknown Qualifiers: Chronic kidney disease stage: stage 3 (moderate) Chronic kidney disease stage 3 subtype: stage 3b (GFR 30-44) Diabetes mellitus terminal supervisor insulin use: with terminal supervisor use Qualified Code(s): E11.22 - Type 2 diabetes mellitus with diabetic chronic kidney disease; N18.32 - Chronic kidney disease, stage 3b; Z79.4 - senior living (current) use of insulin Code(s): E11.22 - Type 2 diabetes mellitus with diabetic chronic kidney disease Status: Acute Assessment and Plan: Diabetic diet SSI Accu-Cheks a.c. HS Plan Restart home antidepressant and Seroquel Subjective Date/time seen: 04/24/24 14:51 Interval history: Cr continue to trend down. Patient has diaz . Unable to void .Will try void trial. Review of Systems Review of Systems: 12 systems were reviewed and are negativ e except for as per HPI. Exam Narrative: General: Chronically ill, hard of hearing HEENT: normocephalic, atraumatic. Mucous membranes moist. EOMI, PERRLA, bilateral sclera anicteric, no conjunctival injection. Neck supple without JVD, lymphadenopathy, or bruit. Respiratory: clear to ascultation bilaterally. No rales/rhonic/wheezes. Cardiovascular: Regular rate and rhythm, normal S1-S2 upon ascultation. No murmurs, rubs, or clicks. PMI is nondisplaced, capillary refill less than 3 second. Abdomen: Soft, round, no pulsatile masses, nondistended and nontender. No rebound, no guarding. No CVA tenderness, no hepatosplenomegaly. Bowel sounds present to all four quadrants. No high pitch or tinkling sounds, resonant to percussion. Extremities: No cyanosis, clubbing, or edema present. Pulses are palpable 2/2. Active ROM to all four extremities. Neuro: Alert and orientated x 4. PERRLA. Cranial nerves 2-12 intact without focal deficit. Skin: Warm, dry, and intact, without rash, erythema, or lesion. Psych: pleasant, cooperative, normal speech, normal affect, no hallucinations, no dysarthia Objective Data Vital Signs Vital Signs: Vital Signs - 24 hr 04/23/24 16:00 04/23/24 16:00 04/23/24 20:00 Temperature 98.1 F Pulse Rate 94 89 78 Respiratory Rate 18 18 Blood Pressure 105/62 Pulse Oximetry 100 100 Oxygen Delivery Room Air 04/23/24 20:00 04/23/24 20:15 04/24/24 00:00 Temperature 98.1 F Pulse Rate 78 77 67 Respiratory Rate 18 Blood Pressure 104/47 L Pulse Oximetry 96 Oxygen Delivery 04/24/24 02:57 04/24/24 03:59 04/24/24 07:57 Temperature 98.1 F 97.6 F Pulse Rate 73 76 74 Respiratory Rate 18 18 Blood Pressure 120/62 102/66 Pulse Oximetry 96 99 Oxygen Delivery 04/24/24 08:35 04/24/24 08:40 Temperature Pulse Rate 77 77 Respiratory Rate Blood Pressure 125/52 L Pulse Oximetry Oxygen Delivery Intake/Output Intake/Output: Intake & Output 04/21/24 04/22/24 04/23/24 04/24/24 23:59 23:59 23:59 23:59 Intake Total 490 1420 720 480 Output Total 030 9300 1000 1150 Balance 40 -255 -280 -670 Meds/Results Medications: Active Medications Generic Name Dose Route Start Last Admin Trade Name Yesy PRN Reason Stop Dose Admin Acetaminophen 650 mg 04/20/24 11:52 04/22/24 10:13 Acetaminophen 325 Mg Tablet PO 650 mg Q4H PRN Administration Mild Pain (1-3) or Fever Hydrocodone Bitart/Acetaminophen 1 tab 04/20/24 11:52 Hydrocodone/Acetaminophen (*Crx) 5-325 Mg Tablet PO Q4H PRN Pain Rated 4-6 Aripiprazole 5 mg 04/21/24 09:00 04/24/24 08:35 Aripiprazole 5 Mg Tablet BY MOUTH 5 mg DAILY SKY Administration Atorvastatin Calcium 20 mg 04/21/24 09:00 04/24/24 08:35 Atorvastatin 20 Mg Tablet BY MOUTH 20 mg DAILY SKY Administration Celecoxib 200 mg 04/21/24 09:00 04/24/24 08:35 Celecoxib 200 Mg Capsule PO 200 mg Q24H SKY Administration Dextrose 12.5 gm 04/20/24 13:42 Dextrose 50% 25 Gm/50 Ml Syringe IV PUSH PRN PRN Hypoglycemia Protocol Furosemide 40 mg 04/23/24 09:00 04/23/24 08:59 Furosemide 40 Mg Tablet PO Not Given DAILY SKY Glucagon 1 mg 04/20/24 13:42 Glucagon For Inj 1 Mg Vial IM PRN PRN Hypoglycemia Protocol Glucose 15 gm 04/20/24 13:42 Glucose Oral Gel 15 Gm Of Glucse In 37.5 Gm Tube PO PRN PRN Hypoglycemia Protocol Heparin Sodium (Porcine) 5,000 units 04/20/24 21:00 04/24/24 08:55 Heparin Sodium 5,000 Units/Ml Vial SUB-Q 5,000 units Q12HR SKY Administration Dextrose 1,000 mls @ 100 mls/hr 04/20/24 13:42 Dextrose 5% 1,000 Ml IVPB PRN PRN Hypoglycemia Protocol Insulin Aspart 2 - 5 units 04/24/24 08:00 04/24/24 12:06 Insulin Aspart (*Bkc) 100 Units/Ml SUB-Q Not Given TIDWM SKY Protocol Insulin Glargine 20 units 04/22/24 09:00 04/22/24 08:44 Insulin Glargine (*Bkc) 100 Units/Ml SUB-Q Not Given Q12HR [facility] Metoprolol Succinate 12.5 mg 04/21/24 09:00 04/24/24 08:35 Metoprolol Succinate Ext Rel 12.5 Mg Tabcr PO 12.5 mg QAM SKY Administration Ondansetron HCl 4 mg 04/20/24 11:52 Ondansetron Inj 4 Mg/2 Ml Vial IV PUSH Q4H PRN Nausea Quetiapine Fumarate 50 mg 04/20/24 21:00 04/24/24 08:34 Quetiapine Fumarate 25 Mg Tablet BY MOUTH 50 mg Q12HR SKY Administration Ropinirole HCl 2 mg 04/20/24 22:00 04/24/24 13:36 Ropinirole Hcl 1 Mg Tablet BY MOUTH 2 mg Q8HR [facility] Administration Senna 8.6 mg 04/24/24 21:00 Sennosides 8.6 Mg Tablet PO HS [facility] Radiology Results: ITS Impressions Chest X-Ray 04/20/24 10:16 Impression: Moderate to advanced pulmonary edema pattern. Findings are mildly worsened from prior exam. Abdomen X-Ray 04/24/24 12:27 Impression: 1: Nonobstructive bowel gas pattern. Labs Labs: Laboratory Results - last 24 hr 04/23/24 04/23/24 04/23/24 16:10 19:31 23:54 WBC RBC Hgb Hct MCV MCH MCHC RDW Plt Count MPV Sodium Potassium Chloride Carbon Dioxide Anion Gap BUN Creatinine Estim Creat Clear Calc Estimated GFR Glucose POC Capillary Glucose 157 H 315 H 137 H Calcium Total Bilirubin AST ALT Alkaline Phosphatase Total Protein Albumin 04/24/24 04/24/24 04/24/24 04:14 04:36 07:40 WBC 5.1 RBC 2.83 L Hgb 9.8 L Hct 31.6 L MCV 111.7 H MCH 34.6 H MCHC 31.0 L RDW 13.5 Plt Count 163 MPV 10.4 Sodium 141 Potassium 5.3 H Chloride 106 Carbon Dioxide 28 Anion Gap 7 BUN 47 H Creatinine 1.55 H Estim Creat Clear Calc 21 Estimated GFR 32 L Glucose 140 H POC Capillary Glucose 151 H 165 H Calcium 9.1 Total Bilirubin 0.4 AST 22 ALT 20 Alkaline Phosphatase 73 Total Protein 7.0 Albumin 3.6 04/24/24 11:52 WBC RBC Hgb Hct MCV MCH MCHC RDW Plt Count MPV Sodium Potassium Chloride Carbon Dioxide Anion Gap BUN Creatinine Estim Creat Clear Calc Estimated GFR Glucose POC Capillary Glucose 195 H Calcium Total Bilirubin AST ALT Alkaline Phosphatase Total Protein Albumin Quality VTE Prophylaxis VTE prophylaxis: mechanical ordered and pharmacologic ordered Hospitalist MIPS Advance Care Plan I have confirmed that the patient's Advanced Care Plan is present, code status is documented, or surrogate decision maker is listed in patient medical record.: Yes Medication Reconciliation I have utilized all available resources to obtain, update and review the patients current medications (includes all prescriptions, OTC, herbals, cannabis, and nutritional supplements).: Yes
[2024-04-24 17:19] LABS: Glucose Point of Care 256 mg/dl (65-105)
[2024-04-24] MEDS: INSULIN ASPART (*BKC) 100 UNITS/ML SUB-Q (17:25)
[2024-04-24 19:49] LABS: Glucose Point of Care 206 mg/dl (65-105)
[2024-04-24] MEDS: SENNOSIDES 8.6 MG TABLET PO (21:06)
[2024-04-24] MEDS: ACETAMINOPHEN 325 MG TABLET 650 MG PO (21:07)
[2024-04-25] VITALS (8 sets, daily range): BP systolic 122–134; BP diastolic 62–64; PULSE 65–78; RESP 14–79; TEMP 36.3–37.2; O2SAT 94–96
[2024-04-25 01:25] LABS: Glucose Point of Care 169 mg/dl (65-105)
[2024-04-25 05:01] LABS: Hematocrit 30.4 % (37.0-47.0); Hemoglobin 9.4 g/dL (12.0-15.0); Mean Corpuscular HGB Conc 30.9 g/dl (32-36); Mean Corpuscular Hemoglobin 34.1 pg (26-34); Mean Corpuscular Volume 110.1 fl (80-100); Mean Platelet Volume 10.4 fl (7.4-10.4); Platelet Count Result 147 k/mm3 (150-375); Red Blood Count 2.76 M/mm3 (4.2-5.4); Red Cell Distribution Width 13.6 % (11.5-14.5); White Blood Count 4.9 K/mm3 (4.5-10.0)
[2024-04-25 05:21] LABS: Alanine Aminotransferase 22 U/L (6-35); Albumin Level 3.4 g/dL (3.5-5.1); Alkaline Phosphatase 77 U/L (38-126); Anion Gap 11 mmol/L (4-12); Aspartate Amino Transferase 23 U/L (14-36); Bilirubin,Total 0.5 mg/dL (0.2-1.3); Blood Urea Nitrogen 48 mg/dL (7-17); Calcium 8.7 mg/dL (8.4-10.2); Carbon Dioxide 25 mmol/L (22-30); Chloride 106 mmol/L (98-107); Estimated CRCL calculation 22 ml/min; Estimated Glomerular Filt Rate 34; Glucose 228 mg/dL (65-110); Potassium 4.7 mmol/L (3.4-5.0); Sodium 142 mmol/L (137-145)
[2024-04-25 07:32] LABS: Glucose Point of Care 208 mg/dl (65-105)
--- NOTE | 2024-04-25 08:00 | PC.NURSE ---
pj requests diaz be removed and voiding trial attempted, he is aware urology wanted her discharged with the diaz for retention, diaz to be replaced if pt is unable to void by this afternoon
[2024-04-25] MEDS: ARIPiprazole 5 MG TABLET BY MOUTH (08:25)
[2024-04-25] MEDS: QUEtiapine FUMARATE 25 MG TABLET 50 MG BY MOUTH (08:25)
[2024-04-25] MEDS: CELECOXIB 200 MG CAPSULE PO (08:25)
[2024-04-25] MEDS: ATORVASTATIN 20 MG TABLET BY MOUTH (08:25)
[2024-04-25] MEDS: rOPINIRole HCL 1 MG TABLET 2 MG BY MOUTH ×2 (08:26→15:42)
[2024-04-25] MEDS: METOPROLOL SUCCINATE EXT REL 12.5 MG TABCR PO (08:26)
[2024-04-25] MEDS: HEPARIN SODIUM 5,000 UNITS/ML VIAL 5000 UNITS SUB-Q (08:27)
[2024-04-25] MEDS: polyethylene glycoL 3350 17 GM POWD.PACK PO (08:27)
[2024-04-25] MEDS: INSULIN ASPART (*BKC) 100 UNITS/ML SUB-Q ×2 (08:30→12:11)
[2024-04-25 12:11] LABS: Glucose Point of Care 222 mg/dl (65-105)
--- NOTE | 2024-04-25 14:34 | PC.NURSE ---
pt attempted to void with no results, will bladder scan, returned to bed with x1 assist, no s/sx of distress
--- NOTE | 2024-04-25 15:08 | PC.NURSE ---
gave pj update on inability to void at this time, bladder scan of 87mL, hospitalist would like diaz put in and will d/c pt with diaz, son is in room
--- NOTE | 2024-04-25 16:06 | P.DS_ITS ---
DS: Admitting Diagnosis Discharge Date 04/25/2024 Admitting Diagnosis Shortness of breath DS: Discharge Diagnosis Discharge Diagnosis (1) Acute HFrEF (heart failure with reduced ejection fraction): Code(s): I50.21 - Acute systolic (congestive) heart failure Status: Inactive Assessment and Plan: Echocardiogram April 2021 EF 40-45% 04/21 echocardiogram reveals ejection fraction of 35-40%. 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 Patient has been complaining of shortness of breath for the last couple weeks with edema. She has been to her x ray tech and has medication changes. However last night she was still unable to sleep and lay flat she was up several times throughout the night. Her son felt that she needed to come to the hospital for further management. Patient is extremely hard of hearing Patient denies fevers chills nausea or vomiting. In the ED she has elevated troponin at 0.056, BNP of 5740, and pulmonary edema on chest x-ray. In the ED she was given 40 mg IV Lasix and 5 mg of metoprolol IV. 04/21: Patient was evaluated by the x ray tech. Patient had abnormal nuclear stress test in 2021 but not did have a follow-up angiogram. Ejection fraction 40-45%. Echocardiogram is ordered. Also hold benazepril her to start Entresto about 36 hours. During the evaluation his son was present. He reported patient didnt follow-up with Cardiology and that was the reason she is here today. Patient uses walker in the home, no home oxygen, no CVA in the past. 04/22: Patient is currently in the euvolemic status. Her creatinine is trending up. I changed the Lasix 60 b.i.d. to 40 p.o. q.d.. Cardiology will add Entresto once the wash out period for Benazepril ends.Patient had episodes of hypoglycemia, will hold her home insulin glargine 27 units b.i.d.. Patient is currently on low-dose sliding scale. 04/23-04/25: Patient is currently doing well. Patient can be discharged home with the following recommendations. Patient can continue furosemide 20 mg p.o. q.d., BMP in 1 week and continue Toprol. Patient needs to follow-up with the x ray tech and the GDM T will be optimized as outpatient. Patient will be discharged with the Iqbal and needs to follow-up with urology for further recommendation. Time Spent with Patient Time attestation: Total time spent providing and/or coordinating discharge services: Exam Narrative: General: Chronically ill, hard of hearing HEENT: normocephalic, atraumatic. Mucous membranes moist. EOMI, PERRLA, bilateral sclera anicteric, no conjunctival injection. Neck supple without JVD, lymphadenopathy, or bruit. Respiratory: clear to ascultation bilaterally. No rales/rhonic/wheezes. Cardiovascular: Regular rate and rhythm, normal S1-S2 upon ascultation. No murmurs, rubs, or clicks. PMI is nondisplaced, capillary refill less than 3 second. Abdomen: Soft, round, no pulsatile masses, nondistended and nontender. No rebound, no guarding. No CVA tenderness, no hepatosplenomegaly. Bowel sounds present to all four quadrants. No high pitch or tinkling sounds, resonant to percussion. Extremities: No cyanosis, clubbing, or edema present. Pulses are palpable 2/2. Active ROM to all four extremities. Neuro: Alert and orientated x 4. PERRLA. Cranial nerves 2-12 intact without focal deficit. Skin: Warm, dry, and intact, without rash, erythema, or lesion. Psych: pleasant, cooperative, normal speech, normal affect, no hallucinations, no dysarthia DS: Data Data Completed and Pending Labs on day of discharge: Labs from last 24 hours 04/25/24 04/25/24 04/25/24 11:33 07:24 04:38 WBC 4.9 RBC 2.76 L Hgb 9.4 L Hct 30.4 L MCV 110.1 H MCH 34.1 H MCHC 30.9 L RDW 13.6 Plt Count 147 L MPV 10.4 Sodium 142 Potassium 4.7 Chloride 106 Carbon Dioxide 25 Anion Gap 11 BUN 48 H Creatinine 1.47 H Estim Creat Clear Calc 22 Estimated GFR 34 L Glucose 228 H POC Capillary Glucose 222 H 208 H Calcium 8.7 Total Bilirubin 0.5 AST 23 ALT 22 Alkaline Phosphatase 77 Total Protein 7.0 Albumin 3.4 L 04/24/24 04/24/24 04/24/24 23:53 19:32 16:20 WBC RBC Hgb Hct MCV MCH MCHC RDW Plt Count MPV Sodium Potassium Chloride Carbon Dioxide Anion Gap BUN Creatinine Estim Creat Clear Calc Estimated GFR Glucose POC Capillary Glucose 169 H 206 H 256 H Calcium Total Bilirubin AST ALT Alkaline Phosphatase Total Protein Albumin Discharge Plan Discharge Attending physician on discharge: Clay Patricia Consulting providers: Yulia Horton Demetrios A. Discharging Clinician: Clay Patricia Patient Disposition: Home, Self-Care Activity: as tolerated Diet: heart healthy and diabetic Discharge Instructions: Patient needs BMP as an outpatient within a week upon discharge Check blood pressure 1 to 2 times a day. Record and bring into your doctor for review. Call your doctor if your blood pressure is greater than 180/110 or less than 90/45. Walk with cane or other assist device. Take precautions to avoid falls. Rise slowly from a lying or sitting position. Pause before standing or walking. Contact your doctor or call 911 and come to the Emergency Room if you have any type of trauma, lightheadedness with standing or other worrisome symptoms. Avoid NSAIDs (ibuprofen, naproxen, Aleve). Tylenol is safe to take. Follow-up with your primary care provider in 1-2 weeks. Please call for appointment. Follow-up with Cardiology in 2-4 weeks. Please call for an appointment. Follow-up with urology within a week upon discharge. Thank you for using [facility] for your health care needs. Patient Instructions: Antibiotic Form, Furosemide (By mouth), Diabetic Neuropathy (GEN), Acute Urinary Retention in Women (GEN), Fall Prevention (GEN) Patient Language: Cymraes Stand Alone Forms: General Discharge Information Follow-up/Referrals: Selina Stahl APN-C [Advanced Practice Nurse] - Call for Appointment Discharge Medications: New metoprolol succinate [Toprol XL] 25 mg tablet extended release 24 hr 12.5 mg PO QAM Qty: 30 0RF sennosides [Senokot] 8.6 mg Tablet 8.6 mg PO HS Qty: 30 0RF polyethylene glycol 3350 [Miralax] 17 gram Powder In Packet 17 g PO QAM Qty: 30 0RF furosemide [Lasix] 20 mg tablet 20 mg PO DAILY Qty: 30 0RF Continued multivitamin Tablet 1 tablet PO DAILY celecoxib 200 mg capsule 200 mg PO Q24H alendronate 70 mg tablet 70 mg PO WEEKLY cyanocobalamin (vitamin B-12) 1,000 mcg/mL solution 1,000 mcg IM WEEKLY insulin glargine [Basaglar KwikPen U-100 Insulin] 100 unit/mL (3 mL) insulin pen 27 unit SUBCUT BID (DME) lancets [Accu-Chek Softclix Lancets] Misc See Rx Instructions .Route Qty: 100 0RF Rx Instructions: check BS BID (DME) Accu-Chek Guide test strips Strip See Rx Instructions .ROUTE .COMPLEX Qty: 200 2RF Dose Instruction: USE TO CHECK BLOOD SUGAR TWICE A DAY Rx Instructions: USE TO CHECK BLOOD SUGAR TWICE A DAY (DME) pen needle, diabetic [BD Ultra-Fine Mini Pen Needle] 31 gauge x 3/16 needle See Rx Instructions .Route Qty: 100 3RF Rx Instructions: use to administer insulin atorvastatin 20 mg tablet See Rx Instructions .ROUTE .COMPLEX Qty: 90 3RF Dose Instruction: TAKE 1 TABLET BY MOUTH EVERY DAY Rx Instructions: TAKE 1 TABLET BY MOUTH EVERY DAY ropinirole 2 mg tablet See Rx Instructions .ROUTE .COMPLEX Qty: 200 1RF Dose Instruction: 2 MG ORALLY THREE TIMES A DAY Rx Instructions: 2 MG ORALLY THREE TIMES A DAY quetiapine 50 mg tablet See Rx Instructions .ROUTE .COMPLEX Qty: 180 1RF Dose Instruction: TAKE 1 TABLET BY MOUTH TWICE A DAY Rx Instructions: TAKE 1 TABLET BY MOUTH TWICE A DAY aripiprazole 5 mg tablet See Rx Instructions .ROUTE .COMPLEX Qty: 90 3RF Dose Instruction: TAKE 1 TABLET BY MOUTH DAILY Rx Instructions: TAKE 1 TABLET BY MOUTH DAILY benazepril 40 mg tablet See Rx Instructions .ROUTE .COMPLEX Qty: 90 3RF Dose Instruction: 40 MG ORALLY DAILY Rx Instructions: 40 MG ORALLY DAILY Other Ambulatory Orders: Basic Metabolic Panel (Routine) Timeframe: 1 Week Location: Determined by Patient Ordered By: Selina Stahl Date of admission: 04/21/24 10:03 Primary Care Provider: Tj Pino Admitting Provider: Robinson Langston Attending physician on admission: Robinson Langston Condition: Stable Hospitalist MIPS Heart Failure (Qualifier) Patient has current or prior documentation of LVEF less than or equal to 40%, or mod/servere depressed LVSF?: Yes IF NO, STOP HERE If Yes, Heart Failure (Qualifier) Patient was prescribed or already taking an Angiotensin-Converting Enzyme (CAIT) Inhibitor, or Antiotensin Receptor Alea (ARB): No Patient was prescribed or already taking bisoprolol, carvedilol, or sustained release metoprolol succinate: Yes If Medications not prescribed/taking Reason patient not prescribed/taking CAIT or ARB: Medical reasons: allergy, intolerance, contraindication or other (Will be started as OP with Cardiology)
--- NOTE | 2024-04-25 16:40 | PC.NURSE ---
pt refuses diaz placement, son lisset is in room and states that is fine with him since he is here to witness her refusal
== END 2024-04-25 17:00 | disposition home or self-care (01) | DRG 291 ==
LOC: ANHED 09:03 → ANHIMU 15:17
PROVIDERS: Internal Medicine; Nurse Practitioner Gerontology; Admitting Provider Internal Medicine; Emergency Provider Emergency Medicine; PCP Family Medicine; Visit Provider General Practice
DX: I13.0 Hypertensive heart and chronic kidney disease with heart failure and stage 1 through stage 4 chronic kidney disease, or unspecified chronic kidney disease (principal); I50.23 Acute on chronic systolic (congestive) heart failure; N18.32 Chronic kidney disease, stage 3b; I48.91 Unspecified atrial fibrillation; I49.1 Atrial premature depolarization; I42.9 Cardiomyopathy, unspecified; E11.40 Type 2 diabetes mellitus with diabetic neuropathy, unspecified; E11.22 Type 2 diabetes mellitus with diabetic chronic kidney disease; E11.649 Type 2 diabetes mellitus with hypoglycemia without coma; E78.00 Pure hypercholesterolemia, unspecified; R33.9 Retention of urine, unspecified; M47.816 Spondylosis without myelopathy or radiculopathy, lumbar region; H35.30 Unspecified macular degeneration; H40.9 Unspecified glaucoma; Z87.891 Personal history of nicotine dependence; Z79.4 Long term (current) use of insulin
CPT/HCPCS: 36415; 71046; 74018; 80048; 80053; 82948; 83880; 84484; 85025; 85027; 85610; 85730; 93005; 93306; 96374; 96375; 96376; 97110; 97116; 97161; 97165; 97530; 97535; 99285; A9270; G0378; J1644; J1815; J1940

== ENCOUNTER → 2024-08-10 15:52 | Outpatient (REF) | payer OTHER, SELFPAY ==
--- OUTSIDE RECORDS SUMMARY | 2024-08-10 15:54 | XMS_ITS | Encounter Summary ---
Author Organization [facility] Address [address] [place] [address] Care Team Providers Care Auto Body Repair Technician Name Role Phone Aravind Morales MD Primary Care Provider [phone] Deborah Llamas MD Primary Care Provider + Encounter Details Date Type Department Care Team (Late st Contact Info) Description 07/19/2021 Lab Requisition [facility] DermPath Lab [address] [place] [address] Ghassan Morgan MD [address] [place] [address] Social History Tobacco Use Types Packs/Day Years Used Date Smoking Tobacco: Never Assessed Comments Unknown Sex and Gender Information Value Date Recorded Sex Assigned at Not on file 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 Gender Identity Not on file Sexual Orientation Not on file documented as of this encounter Plan of Treatment Not on file documented as of this encounter Procedures Procedure Name Priority Date/Time Associated Diagnosis Comments DERMATOPATHOLOGY Routine 07/18/2021 12:0 0 AM CDT documented in this encounter Results * DERMATOPATHOLOGY (07/18/2021 12:00 AM CDT) Case Report Dermatopathology Report Case: [id number] Authorizing Provider: Ghassan Morgan MD Collected: 07/18/2021 12:00 AM Ordering Location: [facility] DermPath Lab Received: 07/19/2021 02:02 PM Pathologist: Daphne Reddy MD Specimens: A) - Skin, right calf B) - Skin, left sup deltoid 1:33 PM CDT DERMATOPATHOLOGY LABORATORY Final Diagnosis Specimen A. 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 SKIN, left sup deltoid: ACTINIC KERATOSIS (L57.0) DERMAL SCAR (L90.5) 2 1:33 PM T DERMATOPATHOLOGY LABORATORY at 1333 CDT Clinical History A: R/O: KA, SCC B: R/O: SCC 2 1:33 PM CDT DERMATOPATHOLOGY LABORATORY Gross Description Specimen A: Received is one formalin filled container labeled with the patient's name and designated right calf. The specimen consists of a shave biopsy measuring [id number]. Jar 0. Specimen B: Received is one formalin filled container labeled with the patient's name and designated left sup deltoid. The specimen consists of a shave biopsy measuring [id number]. There is an additional piece of tissue measuring [id number]. Jar 0. 2 1:33 PM [facility] DERMATOPATHOLOGY LABORATORY Microscopic Description Specimen [...] to the skin surface. 2 1:33 PM T DERMATOPATHOLOGY LABORATORY Disclaimer An external and internal positive and negative controls are appropriate for the histochemical, immunohistochemical and immunofluorescence stain(s) in this case (if any), except where stated explicitly. The performance characteristics of the stain(s) cited in this report were developed and its performance characteristic determined by the Dermatopathology Laboratory at [facility], directed by Dr. Tasha Nielsen. These tests need not be, and therefore are not, approved by the [place] Food and Drug Administration. The tests are used for clinical purposes. Billing Codes Specimen Charges Stain Charges 91183 54945 1 1 2 1:33 PM CDT DERMATOPATHOLOGY LABORATORY Embedded Images 2 1:33 PM CDT DERMATOPATHOLOGY LABORATORY Pathology/Cytology TISSUE SPECIMEN FROM SKIN / Unknown 07/18/2021 07/19/2021 2:02 PM CDT Miscellaneous samples (specimen) TISSUE SPECIMEN FROM SKIN / Unknown 07/18/2021 07/19/2021 2:02 PM CDT Ghassan Morgan MD LAB - PATHOLOGY/CYTOLOGY ORD ERABLES Final Result DERMATOPATHOLOGY LABORATORY [facility] - Department of Dermatology [facility] Medicine [address] [place] [address], [address] [phone] documented in this encounter Visit Diagnoses Not on filedocumented in this encounter Care Teams Auto Body Repair Technician Relationship Specialty Start Date End Date Aravind Morales MD [address] [place] [address] PCP - General 01/01/18 11/16/21 Deborah Llamas MD [address] [place] [address] PCP - General 11/17/21 documented as of this encounter
--- OUTSIDE RECORDS SUMMARY | 2024-08-10 15:54 | XMS_ITS | Encounter Summary ---
Author Organization [facility] Address [address] [place] [address] Care Team Providers Care Dental Hygiene Teacher Name Role Phone Aravind Morales MD Primary Care Provider [phone] Deborah Llamas MD Primary Care Provider + Encounter Details Date Type Department Care Team (Late st Contact Info) Description 05/03/[address] 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 Received: 05/03/2021 12:34 PM Pathologist: Alondra Nielsen MD Specimen: Skin, left superior deltoid 6:39 PM SYSTEMS TECHNOLOGIST DERMATOPATHOLOGY LABORATORY Final Diagnosis Specimen A. SKIN, left superior deltoid: SQUAMOUS CELL CARCINOMA, WELL DIFFERENTIATED (C44.529) 2 6:39 PM [facility] DERMATOPATHOLOGY LABORATORY at [address] [facility] Clinical History R/O SCCA. 2 6:39 PM [facility] DERMATOPATHOLOGY LABORATORY Gross Description Specimen A: Received is one formalin filled container labeled with the patient's name and designated left superior deltoid. The specimen consists of a curettage and desiccation biopsy measuring [id number], trisected, & [id number]. Jar 0. 2 6:39 PM [facility] DERMATOPATHOLOGY LABORATORY Microscopic Description Specimen A. SKIN, left superior deltoid: Arising in the epidermis and extending into the dermis there are irregularly shaped aggregates of keratinocytes showing evidence of premature cornification. 2 6:39 PM [facility] DERMATOPATHOLOGY LABORATORY Disclaimer An external and internal positive and negative controls are appropriate for the histochemical, immunohistochemical and immunofluorescence stain(s) in this case (if any), except where stated explicitly. The performance characteristics of the stain(s) cited in this report were developed and its performance characteristic determined by the Dermatopathology Laboratory at [facility], directed by Dr. Tasha Nielsen. These tests need not be, and therefore are not, approved by the [place] Food and Drug Administration. The tests are used for clinical purposes. Billing Codes Specimen Charges Stain Charges 51417 1 2 6:39 PM SYSTEMS TECHNOLOGIST DERMATOPATHOLOGY LABORATORY Embedded Images 2 6:39 PM [facility] DERMATOPATHOLOGY LABORATORY Pathology/Cytolog y TISSUE SPECIMEN FROM SKIN / Unknown 05/02/2021 05/03/2021 12:34 PM SYSTEMS TECHNOLOGIST Ghassan Morgan MD LAB - PATHOLOGY/CYTOLOGY ORD ERABLES Final Result DERMATOPATHOLOGY LABORATORY [facility] - Department of Dermatology [address] [place] [address], [facility] [phone] documented in this encounter Visit Diagnoses Not on filedocumented in this encounter Care Teams Dental Hygiene Teacher Relationship Specialty Start Date End Date Aravind Morales MD [address] [place] [address] PCP - General 01/01/18 11/16/21 Deborah Llamas MD [address] [place] [address] PCP - General 11/17/21 documented as of this encounter
--- OUTSIDE RECORDS SUMMARY | 2024-08-10 15:54 | XMS_ITS | Clinical Summary ---
Author Organization [facility] [employer] Address [address] [place] [address] Care Team Providers Care Records Assistant Name Role Phone Deborah Llamas MD Primary Care Provider + Source Comments [facility] [employer] [facility] [employer],non-owned Affiliates and Associated Physician Practices is amultiple site organization consisting of ambulatory clinics and hospital sitesin [place], [place], [place] and [place]. This disclosure is being madepursuant to the Care Everywhere program and may not contain all information available regarding this patient. 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 Gender Identity Not on file Sexual Orientation [...] VACCINE ( - 2023-2 5 season) 2023 DEPRESSION SCREENING 03/25/2024 INFLUENZA VACCINE (Season Ended) 2024 HEPATITIS B VACCINE Aged Out No longe r eligible based on patient's age to complete this topic HIB VACCINE Aged Out No longer eligi ble based on patient's age to complete this topic HPV VACCINE Aged Out No longer eligi ble based on patient's age to complete this topic MENINGOCOCCAL (Group B) VACC INE SHARED DECISION-MAKING Aged Out No longer eligibl e based on patient's age to complete this topic MENINGOCOCCAL GROUPS A/C/Y/W VACCINE Aged Out No longer eligible b ased on patient's age to complete this [place] [address] [employer] Care Teams Records Assistant Relationship Specialty Start Date End Date Deborah Llamas MD [address] [place] [address] PCP - General 11/17/21
--- OUTSIDE RECORDS SUMMARY | 2024-08-10 15:54 | XMS_ITS | Encounter Summary ---
Author Organization [facility] Address [address] [place] [address] Care Team Providers Care Operations Support Coordinator Name Role Phone Aravind Morales MD Primary Care Provider [phone] Deborah Llamas MD Primary Care Provider + Encounter Details Date Type Department Care Team (Late st Contact Info) Description 07/05/2021 Lab Requisition [facility] DermPath Lab [address] [facility] 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 Gender Identity Not on file Sexual Orientation Not on file documented as of this encounter Plan of Treatment Not on file documented as of this encounter Procedures Procedure Name Priority Date/Time Associated Diagnosis Comments DERMATOPATHOLOGY Routine 07/04/2021 12:0 0 AM CDT documented in this encounter Results * DERMATOPATHOLOGY (07/04/2021 12:00 AM CDT) Case Report Dermatopathology Report Case: [id number] Authorizing Provider: Ghassan Morgan MD Collected: 07/04/2021 12:00 AM Ordering Location: [facility] DermPath Lab Received: 07/05/2021 02:53 PM Pathologist: Pam Orourke MD Specimen: Skin, left dorsal ulnar proximal hand 1:56 PM CDT DERMATOPATHOLOGY LABORATORY Final Diagnosis Specimen A. 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 The specimen consists of a shave biopsy measuring [id number] mm,inked and trisected. Jar 0. 1:56 PM CDT DERMATOPATHOLOGY LABORATORY Microscopic Description Specimen [...] the dermis. There is focal dermal fibrosis. 1:56 PM CDT DERMATOPATHOLOGY LABORATORY Disclaimer An external and internal positive and negative controls are appropriate for the histochemical, immunohistochemical and immunofluorescence stain(s) in this case (if any), except where stated explicitly. The performance characteristics of the stain(s) cited in this report were developed and its performance characteristic determined by the Dermatopathology Laboratory at [facility], directed by Dr. Tasha Nielsen. These tests need not be, and therefore are not, approved by the [place] Food and Drug Administration. The tests are used for clinical purposes. Billing Codes Specimen Charges Stain Charges 29201 1 2 1:56 PM CDT DERMATOPATHOLOGY LABORATORY Embedded Images 1:56 PM CDT DERMATOPATHOLOGY LABORATORY Pathology/Cytolog y TISSUE SPECIMEN FROM SKIN / Unknown 07/04/2021 07/05/2021 2:53 PM CDT Ghassan Morgan MD LAB - PATHOLOGY/CYTOLOGY ORD ERABLES Final Result DERMATOPATHOLOGY LABORATORY [facility] - Department of Dermatology [facility] Medicine [address] [place] [address], [address] [phone] documented in this encounter Visit Diagnoses Not on filedocumented in this encounter Care Teams Operations Support Coordinator Relationship Specialty Start Date End Date Aravind Morales MD [address] [place] [address] PCP - General 01/01/18 11/16/21 Deborah Llamas MD [address] [place] [address] PCP - General 11/17/21 documented as of this encounter
--- OUTSIDE RECORDS SUMMARY | 2024-08-10 15:54 | XMS_ITS | Encounter Summary ---
Author Organization [facility] Address [address] [facility] [place] [address] Care Team Providers Care Slip Laster Name Role Phone Aravind Morales MD Primary Care Provider +1 [phone] Deborah Llamas MD Primary Care Provider + Encounter Details Date Type Department Care Team (Late st Contact Info) Description 09/21/2021 Lab Requisition [facility] Derm[facility] Lab [address] [place] [address] Ghassan Morgan MD [address] [address] Social History Tobacco Use Types Packs/Day Years Used Date Smoking Tobacco: Never Assessed Comments Unknown Sex and Gender Information Value Date Recorded Sex Assigned at Not on file 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 Gender Identity Not on file Sexual Orientation Not on file documented as of this encounter Plan of Treatment Not on file documented as of this encounter Procedures Procedure Name Priority Date/Time Associated Diagnosis Comments DERMATOPATHOLOGY Routine 09/20/2021 12:0 0 AM CDT documented in this encounter Results * DERMATOPATHOLOGY (09/20/2021 12:00 AM CDT) Case Report Dermatopathology Report Case: [id number] Authorizing Provider: Ghassan Morgan MD Collected: 09/20/2021 12:00 AM Ordering Location: [facility] Received: 09/21/2021 12:08 PM Pathologist: Alondra Nielsen MD Specimens: A) - Skin, right mid pretibia B) - Skin, right superior lateral right lower leg C) - Skin, right posterior superior lateral right lower leg 2 5:11 PM T DERMATOPATHOLOGY LABORATORY Final Diagnosis Specimen A. 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 SKIN, right superior lateral right lower leg: HYPERPLASTIC (HYPERTROPHIC) ACTINIC KERATOSIS WITH ASSOCIATED CHANGES OF PRURIGO NODULARIS (L57.0) Specimen C. 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 2 5:11 PM T DERMATOPATHOLOGY LABORATORY Gross Description Specimen A: Received is one formalin filled container labeled with the patient's name and designated right mid pretibia. The specimen consists of a shave biopsy measuring [id number], bisected. Jar 0+. Specimen B: Received is one formalin filled container labeled with the patient's name and designated right superior lateral right lower leg. The specimen consists of a shave biopsy measuring [id number]. Jar 0. Specimen C: Received is one formalin filled container labeled with the patient's name and designated right posterior superior lateral right lower leg. The specimen consists of a shave biopsy measuring [id number]. Jar 0. 2 5:11 PM CDT DERMATOPATHOLOGY LABORATORY Microscopic Description Specimen [...] levels, and dyskeratotic cells. 2 5:11 PM CDT DERMATOPATHOLOGY LABORATORY Disclaimer An external [...] purposes. Billing Codes Specimen Charges Stain Charges 84681 56783 89233 1 1 1 2 5:11 PM CDT DERMATOPATHOLOGY LABORATORY Embedded Images 2 5:11 PM CDT DERMATOPATHOLOGY LABORATORY Pathology/Cytology TISSUE SPECIMEN FROM SKIN / Unknown 09/20/2021 09/21/2021 12:08 PM CDT Miscellaneous samples (specimen) TISSUE SPECIMEN FROM SKIN / Unknown 09/20/2021 09/21/2021 12:08 PM CDT Miscellaneous samples (specimen) TISSUE SPECIMEN FROM SKIN / Unknown 09/20/2021 09/21/2021 12:08 PM CDT Ghassan Morgan MD LAB - PATHOLOGY/CYTOLOGY ORD ERABLES Final Result DERMATOPATHOLOGY LABORATORY [facility] - Department of Dermatology [facility] Medicine [address] [place] [address], [address] [phone] documented in this encounter Visit Diagnoses Not on filedocumented in this encounter Care Teams Slip Laster Relationship Specialty Start Date End Date Aravind Morales MD [address] [place] [address] PCP - General 01/01/18 11/16/21 Deborah Llamas MD [address] [place] [address] PCP - General 11/17/21 documented as of this encounter
--- OUTSIDE RECORDS SUMMARY | 2024-08-10 15:54 | XMS_ITS | Encounter Summary ---
Author Organization [facility] Address [address] [facility] [place] [address] Care Team Providers Care Electrical Accessories Assembler Name Role Phone Aravind Morales MD Primary Care Provider [phone] [phone] Deborah Llamas MD Primary Care Provider + Encounter Details Date Type Department Care Team (Late st Contact Info) Description 01/01/2018 Lab Requisition [facility] DermPath Lab [address] [place] [address] Ghassan Morgan MD [address] [place] [address] Social History Tobacco Use Types Packs/Day Years Used Date Smoking Tobacco: Never Assessed Comments Unknown Sex and Gender Information Value Date Recorded Sex Assigned at Not on file 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 Gender Identity Not on file Sexual Orientation Not on file documented as of this encounter Plan of Treatment Not on file documented as of this encounter Procedures Procedure Name Priority Date/Time Associated Diagnosis Comments DERMATOPATHOLOGY Routine 12/31/2017 12:0 0 AM CDT documented in this encounter Results * DERMATOPATHOLOGY (12/31/2017 12:00 AM CDT) Case Report Dermatopathology Report Case: [id number] Authorizing Provider: Ghassan Morgan MD Collected: 12/31/2017 12:00 AM Pathologist: Alondra Nielsen MD Received: 01/01/2018 12:22 PM Specimens: A) - Skin, right distal ext ulnar FA B) - Skin, dorsal left hand 8 5:03 PM CDT DERMATOPATHOLOGY LABORATORY Final Diagnosis Specimen A. 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 SKIN, dorsal left hand: HYPERPLASTIC (HYPERTROPHIC) ACTINIC KERATOSIS (L57.0) OVERLYING CUTANEOUS HORN (L85.8) 5:03 PM T DERMATOPATHOLOGY LABORATORY at 1703 CDT Clinical History A-B: R/O SCC-KA, BCC. 5:03 PM CDT DERMATOPATHOLOGY LABORATORY Gross Description Specimen A: Received is one formalin filled container labeled with the patient's name and designated right distal ext ulnar FA. The specimen consists of a shave biopsy measuring [id number]. Jar 0+. Specimen B: Received is one formalin filled container labeled with the patient's name and designated dorsal left hand. The specimen consists of a shave biopsy measuring 4w7b4qm. Jar 0+. 5:03 PM T DERMATOPATHOLOGY LABORATORY Microscopic Description Specimen [...] is a column of marked compact hyperkeratosis. 5:03 PM T DERMATOPATHOLOGY LABORATORY Disclaimer An external and internal positive and negative controls are appropriate for the histochemical, immunohistochemical and immunofluorescence stain(s) in this case (if any), except where stated explicitly. The performance characteristics of the stain(s) cited in this report were developed and its performance characteristic determined by the Dermatopathology Laboratory at [facility]. These tests need not be, and therefore are not, approved by the [place] Food and Drug Administration. The tests are used for clinical purposes. Billing Codes Specimen Charges Stain Charges 35402 34537 1 1 5:03 PM CDT DERMATOPATHOLOGY LABORATORY Embedded Images 10/11/201 8 5:03 PM CDT DERMATOPATHOLOGY LABORATORY Pathology/Cytology TISSUE SPECIMEN FROM SKIN / Unknown 12/31/2017 01/01/2018 12:22 PM CDT Miscellaneous samples (specimen) TISSUE SPECIMEN FROM SKIN / Unknown 12/31/2017 01/01/2018 12:22 PM CDT Ghassan Morgan MD LAB - PATHOLOGY/CYTOLOGY ORD ERABLES Final Result DERMATOPATHOLOGY LABORATORY [facility] - Department of Dermatology [address] [facility], 5th Floor Lab [address] [phone] documented in this encounter Visit Diagnoses Not on filedocumented in this encounter Care Teams Electrical Accessories Assembler Relationship Specialty Start Date End Date Aravind Morales MD [address] [facility] [address] [place] [address] PCP - General 01/01/18 11/16/21 Deborah Llamas MD [address] [place] [address] PCP - General 11/17/21 documented as of this encounter
--- OUTSIDE RECORDS SUMMARY | 2024-08-10 15:54 | XMS_ITS | Encounter Summary ---
Author Organization [facility] Address [address] [facility] [place] [address] Care Team Providers Care Jockey Room Custodian Name Role Phone Deborah Llamas MD Primary Care Provider + Encounter Details Date Type Department Care Team (Late st Contact Info) Description 04/11/2022 Lab Requisition [facility] DermPath Lab [address] [facility] [place] [address] Ghassan Morgan MD [address] [place], [place] [id number] Social History Tobacco Use Types Packs/Day Years Used Date Smoking Tobacco: Never Assessed Comments Unknown Sex and Gender Information Value Date Recorded Sex Assigned at Not on file 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 Gender Identity Not on file Sexual Orientation Not on file documented as of this encounter Plan of Treatment Not on file documented as of this encounter Procedures Procedure Name Priority Date/Time Associated Diagnosis Comments DERMATOPATHOLOGY Routine 04/10/2022 12:0 0 AM [employer] FLATBED DRIVER documented in this encounter Results * DERMATOPATHOLOGY (04/10/2022 12:00 AM [employer] FLATBED DRIVER) Case Report Dermatopathology Report Case: [id number] Authorizing Provider: Ghassan Morgan MD Collected: 04/10/2022 12:00 AM Ordering Location: [facility] DermPath Lab Received: 04/11/2022 02:15 PM Pathologist: Pam Orourke MD Specimen: Skin, left distal medial leg 1:57 PM [employer] FLATBED DRIVER DERMATOPATHOLOGY LABORATORY Final Diagnosis Specimen A. 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 The specimen consists of a shave biopsy measuring 69h13x4 mm. Jar 0. 3 1:57 PM [facility] DERMATOPATHOLOGY LABORATORY Microscopic Description Specimen A. SKIN, left distal medial leg: The epidermis shows parakeratosis, full thickness disorderly maturation of keratinocytes, mitoses at different levels, and dyskeratotic cells. 3 1:57 PM [facility] DERMATOPATHOLOGY LABORATORY Disclaimer An external and [...] purposes. Billing Codes Specimen Charges Stain Charges 94521 1 3 1:57 PM [facility] DERMATOPATHOLOGY LABORATORY Embedded Images 3 1:57 PM [facility] DERMATOPATHOLOGY LABORATORY Pathology/Cytolog y TISSUE SPECIMEN FROM SKIN / Unknown 04/10/2022 04/11/2022 2:15 PM [facility] us Ghassan Mrogan MD LAB - PATHOLOGY/CYTOLOGY ORD ERABLES Final Result DERMATOPATHOLOGY LABORATORY [facility] - Department of Dermatology [facility] Medicine [address] [place] [address], [address] [phone] documented in this encounter Visit Diagnoses Not on filedocumented in this encounter Care Teams Jockey Room Custodian Relationship Specialty Start Date End Date Deborah Llamas MD [address] [place] [address] PCP - General 11/17/21 documented as of this encounter
--- OUTSIDE RECORDS SUMMARY | 2024-08-10 15:54 | XMS_ITS | Encounter Summary ---
Author Organization [facility] Address [address] [facility] [place] [address] Care Team Providers Care Object Oriented Developer Name Role Phone Aravind Morales MD Primary Care Provider [phone] [phone] Deborah Llamas MD Primary Care Provider + Encounter Details Date Type Department Care Team (Late st Contact Info) Description 07/24/2018 Lab Requisition [facility] Care DermPath Lab [address] [place] [address] Ghassan Morgan MD [address] [place] [address] Social History Tobacco Use Types Packs/Day Years Used Date Smoking Tobacco: Never Assessed Comments Unknown Sex and Gender Information Value Date Recorded Sex Assigned at Not on file 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 Gender Identity Not on file Sexual Orientation Not on file documented as of this encounter Plan of Treatment Not on file documented as of this encounter Procedures Procedure Name Priority Date/Time Associated Diagnosis Comments DERMATOPATHOLOGY Routine 07/23/2018 12:0 0 AM CDT documented in this encounter Results * DERMATOPATHOLOGY (07/23/2018 12:00 AM CDT) Case Report Dermatopathology Report Case: [id number] Authorizing Provider: Ghassan Morgan MD Collected: 07/23/2018 12:00 AM Pathologist: Thania Shepherd MD Received: 07/24/2018 02:04 PM Specimen: Skin, left lower medial calf 2:04 PM CDT DERMATOPATHOLOGY LABORATORY Final Diagnosis Specimen A. SKIN, left lower medial calf: SQUAMOUS CELL CARCINOMA, WELL DIFFERENTIATED (C44.729) 9 2:04 PM CDT DERMATOPATHOLOGY LABORATORY at 1404 CDT Clinical History R/O SCC. 9 2:04 PM CDT DERMATOPATHOLOGY LABORATORY Gross Description Specimen A: Received is one formalin filled container labeled with the patient's name and designated left lower medial calf. The specimen consists of a curettage and desiccation biopsy measuring [id number]. Jar 0. 9 2:04 PM CDT DERMATOPATHOLOGY LABORATORY Microscopic Description Specimen A. SKIN, left lower medial calf: Arising in the epidermis and extending into the dermis there are irregularly shaped aggregates of keratinocytes showing evidence of premature cornification. 9 2:04 PM CDT DERMATOPATHOLOGY LABORATORY Disclaimer An external and internal positive and negative controls are appropriate for the histochemical, immunohistochemical and immunofluorescence stain(s) in this case (if any), except where stated explicitly. The performance characteristics of the stain(s) cited in this report were developed and its performance characteristic determined by the Dermatopathology Laboratory at [facility], directed by Dr. Tasha Nielsen. These tests need not be, and therefore are not, approved by the [place] Food and Drug Administration. The tests are used for clinical purposes. Billing Codes Specimen Charges Stain Charges 38800 1 9 2:04 PM CDT DERMATOPATHOLOGY LABORATORY Embedded Images 2:04 PM CDT DERMATOPATHOLOGY LABORATORY Pathology/Cytolog y TISSUE SPECIMEN FROM SKIN / Unknown 07/23/2018 07/24/2018 2:04 PM CDT us Ghassan Morgan MD LAB - PATHOLOGY/CYTOLOGY ORD ERABLES Final Result DERMATOPATHOLOGY LABORATORY [facility] - Department of Dermatology [address] [facility], 5th [place] [address], [facility] [phone] documented in this encounter Visit Diagnoses Not on filedocumented in this encounter Care Teams Object Oriented Developer Relationship Specialty Start Date End Date Aravind Morales MD [address] [place] [id number] PCP - General 01/01/18 11/16/21 Deborah Llamas MD [address] [facility] [address] [place] [address] PCP - General 11/17/21 documented as of this encounter
--- OUTSIDE RECORDS SUMMARY | 2024-08-10 15:54 | XMS_ITS | Encounter Summary ---
Author Organization [facility] Address [address] [facility] [place] [address] Care Team Providers Care Digital Content Producer Name Role Phone Aravind Morales MD Primary Care Provider [phone] [phone] Deborah Llamas MD Primary Care Provider + Encounter Details Date Type Department Care Team (Late st Contact Info) Description 04/10/2018 Lab Requisition [facility] Care DermPath Lab [address] [place] [address] Ghassan Morgan MD [address] [place] [address] Social History Tobacco Use Types Packs/Day Years Used Date Smoking Tobacco: Never Assessed Comments Unknown Sex and Gender Information Value Date Recorded Sex Assigned at Not on file Legal Sex Female 7:46 PM EXTENDED DAY TEACHER Gender Identity Not on file Sexual Orientation Not on file documented as of this encounter Plan of Treatment Not on file documented as of this encounter Procedures Procedure Name Priority Date/Time Associated Diagnosis Comments DERMATOPATHOLOGY Routine 04/09/2018 12:0 0 AM EXTENDED DAY TEACHER documented in this encounter Results * DERMATOPATHOLOGY (04/09/2018 12:00 AM EXTENDED DAY TEACHER) Case Report Dermatopathology Report Case: [id number] Authorizing Provider: Ghassan Morgan MD Collected: 04/09/2018 12:00 AM Pathologist: Thania Shepherd MD Received: 04/10/2018 12:20 PM Specimens: A) - Skin, left med calf B) - Skin, left ditsal med calf 9 1:19 PM EXTENDED DAY TEACHER DERMATOPATHOLOGY LABORATORY Final Diagnosis Specimen A. 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 SKIN, left ditsal med calf: SQUAMOUS CELL CARCINOMA, WELL DIFFERENTIATED (C44.729) 1:19 PM [facility] DERMATOPATHOLOGY LABORATORY at 13[address] EXTENDED DAY TEACHER Clinical History A-B: R/O KA. 1:19 PM [facility] DERMATOPATHOLOGY LABORATORY Gross Description Specimen A: Received is one formalin filled container labeled with the patient's name and designated left med calf. The specimen consists of a curettage and desiccation biopsy measuring [id number], bisected. Jar 0+. Specimen B: Received is one formalin filled container labeled with the patient's name and designated left ditsal med calf. The specimen consists of a curettage and desiccation biopsy measuring 72p53m8nm, bisected. Jar 0. 1:19 PM [facility] DERMATOPATHOLOGY LABORATORY [...] of keratinocytes showing evidence of premature cornification. 1:19 PM [facility] DERMATOPATHOLOGY LABORATORY Disclaimer An external and internal positive and negative controls are appropriate for the histochemical, immunohistochemical and immunofluorescence stain(s) in this case (if any), except where stated explicitly. The performance characteristics of the stain(s) cited in this report were developed and its performance characteristic determined by the Dermatopathology Laboratory at [facility], directed by Dr. Tasha Nielsen. These tests need not be, and therefore are not, approved by the [place] Food and Drug Administration. The tests are used for clinical purposes. Billing Codes Specimen Charges Stain Charges 83256 30418 1 1 1:19 PM [facility] DERMATOPATHOLOGY LABORATORY Embedded Images 1:19 PM [facility] DERMATOPATHOLOGY LABORATORY Pathology/Cytology TISSUE SPECIMEN FROM SKIN / Unknown 04/09/2018 04/10/2018 12:20 PM EXTENDED DAY TEACHER Miscellaneous samples (specimen) TISSUE SPECIMEN FROM SKIN / Unknown 04/09/2018 04/10/2018 12:20 PM EXTENDED DAY TEACHER Ghassan Morgan MD LAB - PATHOLOGY/CYTOLOGY ORD ERABLES Final Result DERMATOPATHOLOGY LABORATORY [facility] - Department of Dermatology [address] [place] [address] 5th Floor Lab [address] [phone] documented in this encounter Visit Diagnoses Not on filedocumented in this encounter Care Teams Digital Content Producer Relationship Specialty Start Date End Date Aravind Morales MD [address] [facility] [address] [place] [address] PCP - General 01/01/18 11/16/21 Deborah Llamas MD [address] [place] [address] PCP - General 11/17/21 documented as of this encounter
--- OUTSIDE RECORDS SUMMARY | 2024-08-10 15:55 | XMS_ITS | Encounter Summary ---
Author Organization [facility] Address [address] [facility] [place] [address] Care Team Providers Care Interlocking Pavement Installer Name Role Phone Aravind Morales MD Primary Care Provider [phone] [phone] Deborah Llamas MD Primary Care Provider + Encounter Details Date Type Department Care Team (Late st Contact Info) Description 02/10/2020 Lab Requisition [facility] DermPath Lab [address] [place] [address] Ghassan Morgan MD [address] [place] [address] Social History Tobacco Use Types Packs/Day Years Used Date Smoking Tobacco: Never Assessed Comments Unknown Sex and Gender Information Value Date Recorded Sex Assigned at Not on file Legal Sex Female 7:46 PM POUCH MAKING MACHINE OPERATOR Gender Identity Not on file Sexual Orientation Not on file documented as of this encounter Plan of Treatment Not on file documented as of this encounter Procedures Procedure Name Priority Date/Time Associated Diagnosis Comments DERMATOPATHOLOGY Routine 02/09/2020 12:0 0 AM POUCH MAKING MACHINE OPERATOR documented in this encounter Results * DERMATOPATHOLOGY (02/09/2020 12:00 AM POUCH MAKING MACHINE OPERATOR) Case Report Dermatopathology Report Case: [id number] Authorizing Provider: Ghassan Morgan MD Collected: 02/09/2020 12:00 AM Ordering Location: [facility] DermPath Lab Received: 02/10/2020 12:55 PM Pathologist: Pam Orourke MD Specimen: Skin, left distal lateral lower leg 0 4:20 PM POUCH MAKING MACHINE OPERATOR DERMATOPATHOLOGY LABORATORY Final Diagnosis Specimen A. SKIN, left distal lateral lower leg: SQUAMOUS PROLIFERATION (D48.5) (see microscopic description and comment) 0 4:20 PM [facility] DERMATOPATHOLOGY LABORATORY at 16[address] POUCH MAKING MACHINE OPERATOR Clinical History R/O KA. 0 4:20 PM [facility] DERMATOPATHOLOGY LABORATORY Gross Description Specimen A: Received is one formalin filled container labeled with the patient's name and designated left distal lateral lower leg. The specimen consists of a curettage and desiccation biopsy measuring [id number], bisected. Jar 0. 0 4:20 PM [facility] DERMATOPATHOLOGY [...] features of regression. 0 4:20 PM [facility] DERMATOPATHOLOGY LABORATORY Disclaimer An external and internal positive and negative controls are appropriate for the histochemical, immunohistochemical and immunofluorescence stain(s) in this case (if any), except where stated explicitly. The performance characteristics of the stain(s) cited in this report were developed and its performance characteristic determined by the Dermatopathology Laboratory at [facility], directed by Dr. Tasha Nielsen. These tests need not be, and therefore are not, approved by the [place] Food and Drug Administration. The tests are used for clinical purposes. Billing Codes Specimen Charges Stain Charges 02090 1 0 4:20 PM [facility] DERMATOPATHOLOGY LABORATORY Embedded Images 0 4:20 PM [facility] DERMATOPATHOLOGY LABORATORY Pathology/Cytolog y TISSUE SPECIMEN FROM SKIN / Unknown 02/09/2020 02/10/2020 12:55 PM [facility] Ghassan Morgan MD LAB - PATHOLOGY/CYTOLOGY ORD ERABLES Final Result DERMATOPATHOLOGY LABORATORY [facility] - Department of Dermatology [address], [address] [phone] documented in this encounter Visit Diagnoses Not on filedocumented in this encounter Care Teams Interlocking Pavement Installer Relationship Specialty Start Date End Date Aravind Morales MD [address] [place] [address] PCP - General 01/01/18 11/16/21 Deborah Llamas MD [address] [place] [address] PCP - General 11/17/21 documented as of this encounter
--- OUTSIDE RECORDS SUMMARY | 2024-08-10 15:55 | XMS_ITS | Encounter Summary ---
Author Organization [facility] Address [address] [place] [address] Care Team Providers Care Equipment Sales Specialist Name Role Phone Aravind Morales MD Primary Care Provider [phone] [phone] Deborah Llamas MD Primary Care Provider + Encounter Details Date Type Department Care Team (Late st Contact Info) Description 11/26/2018 Lab Requisition [facility] DermPath Lab [address] [place] [address] Ghassan Morgan MD [address] [place] [address] Social History Tobacco Use Types Packs/Day Years Used Date Smoking Tobacco: Never Assessed Comments Unknown Sex and Gender Information Value Date Recorded Sex Assigned at Not on file Legal Sex Female 7:46 PM COAT EXAMINER Gender Identity Not on file Sexual Orientation Not on file documented as of this encounter Plan of Treatment Not on file documented as of this encounter Procedures Procedure Name Priority Date/Time Associated Diagnosis Comments DERMATOPATHOLOGY Routine 11/25/2018 12:0 0 AM CDT documented in this encounter Results * DERMATOPATHOLOGY (11/25/2018 12:00 AM CDT) Case Report Dermatopathology Report Case: [id number] Authorizing Provider: Ghassan Morgan MD Collected: 11/25/2018 12:00 AM Ordering Location: [facility] DermPath Lab Received: 11/26/2018 11:47 AM Pathologist: Alondra Nielsen MD Specimens: A) - Skin, left lower midline pretibia B) - Skin, left lower anteromedial leg C) - Skin, left lower triceps 2:20 PM CDT DERMATOPATHOLOGY LABORATORY Final Diagnosis Specimen A. 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 SKIN, left lower anteromedial leg: HYPERPLASTIC (HYPERTROPHIC) ACTINIC KERATOSIS (L57.0) Specimen C. SKIN, left lower triceps: SQUAMOUS CELL CARCINOMA, KERATOACANTHOMA TYPE (C44.629) 2:20 PM CDT DERMATOPATHOLOGY LABORATORY at 1420 T Clinical History A-C: R/O SCC. 2:20 PM CDT DERMATOPATHOLOGY LABORATORY Gross Description Specimen A: Received is one formalin filled container labeled with the patient's name and designated left lower midline pretibia. The specimen consists of a curettage and desiccation biopsy measuring [id number]. Jar 0. Specimen B: Received is one formalin filled container labeled with the patient's name and designated left lower anteromedial leg. The specimen consists of a curettage and desiccation biopsy measuring [id number]. Jar 0. Specimen C: Received is one formalin filled container labeled with the patient's name and designated left lower triceps. The specimen consists of a curettage and desiccation biopsy measuring [id number]. Jar 0. 2:20 PM CDT DERMATOPATHOLOGY LABORATORY [...] characteristic determined by the Dermatopathology Laboratory at [facility], directed by Dr. Tasha Nielsen. These tests need not be, and therefore are not, approved by the [place] Food and Drug Administration. The tests are used for clinical purposes. Billing Codes Specimen Charges Stain Charges 43505 05354 46178 1 1 1 9 2:20 PM CDT DERMATOPATHOLOGY LABORATORY Embedded Images 9 2:20 PM CDT DERMATOPATHOLOGY LABORATORY Pathology/Cytology TISSUE SPECIMEN FROM SKIN / Unknown 11/25/2018 11/26/2018 11:47 AM CDT Miscellaneous samples (specimen) TISSUE SPECIMEN FROM SKIN / Unknown 11/25/2018 11/26/2018 11:47 AM CDT Miscellaneous samples (specimen) TISSUE SPECIMEN FROM SKIN / Unknown 11/25/2018 11/26/2018 11:47 AM CDT Ghassan Morgan MD LAB - PATHOLOGY/CYTOLOGY ORD ERABLES Final Result DERMATOPATHOLOGY LABORATORY [facility] - Department of Dermatology [address] [place] [address], 5th Floor Lab [address] [phone] documented in this encounter Visit Diagnoses Not on filedocumented in this encounter Care Teams Equipment Sales Specialist Relationship Specialty Start Date End Date Aravind Morales MD [address] [place] [address] PCP - General 01/01/18 11/16/21 Deborah Llamas MD [address] [place] [address] PCP - General 11/17/21 documented as of this encounter
--- OUTSIDE RECORDS SUMMARY | 2024-08-10 15:55 | XMS_ITS | Referral Summary ---
Author Organization [facility] [address] [place] [address] [place] [address] [address] [place] [address] Care Team Providers Care Motel Food Service Supervisor Name Role Phone Tj Pino MD Primary Care Provider Encounters Date Type Department Care Team Description 08/05/2024 11:15 AM CDT Ancillary Procedure [facility] Medical [facility] Cardiology [address] [place] [address] [address] [place] [address] Chronic HFrEF (heart failure with reduced ejection fraction) ([facility]) 06/09/2024 Results Follow-Up [facility] Medical [facility] Cardiology [address] [place] [address] [address] [place] [address] Zoe Gary NP Basic metabolic panel, Transthoracic Echo (TTE) Limited/Followup from Last 3 Months Allergies No known active allergies Medications cyanocobalamin (Vitamin B-12) 1,000 mcg tabletIndications:Pr evention of Vitamin B12 Deficiency Take 1 tablet (1,000 mcg total) by mouth daily Active LEVEMIR 100 unit/mL (3 mL) pen for injection INJECT 20 UNITS SUBCTANEOUS EVERY MORNING AND 10 UNITS EVERY EVENING 03/25/19 22 Active rOPINIRole (REQUIP) 2 mg tablet Take 1 tablet (2 mg total) by mouth 3 (three) times a day 04/19/19 22 Active aspirin 81 mg enteric coated tablet Take 1 tablet (81 mg total) by mouth every morning 90 tablet 3 07/26/19 22 Active Additional Information Patient not taking.Reported on 05/12/2024 atorvastatin (LIPITOR) 20 mg tablet Take 1 tablet (20 mg total) by mouth daily 90 tablet 3 07/26/19 22 Active polysaccharide iron complex (NU-IRON) 150 mg iron capsule Take by mouth daily 10/03/19 22 Active QUEtiapine (SEROquel) 50 mg tablet Take 1 tablet (50 mg total) by mouth nightly at bedtime. 09/25/19 22 Active metoprolol XL (TOPROL-XL) 25 mg extended release tabletIndications:Ch ronic systolic congestive heart failure (HCC),PSVT (paroxysmal supraventricular tachycardia) Take 1 tablet (25 mg total) by mouth daily 90 tablet 3 11/21/19 22 Active ARIPiprazole (ABILIFY) 5 mg tablet Take 1 tablet (5 mg total) by mouth daily 04/02/19 25 Active furosemide (LASIX) 20 mg tablet Take 1 tablet (20 mg total) by mouth daily 04/25/19 25 Active sacubitriL-valsartan (Entresto) 24-26 mg tabletIndications:ch ronic heart failure Take 1 tablet by mouth 2 (two) times a day 60 tablet 11 05/12/19 25 Active Active Problems Problem Noted Date Diagnosed Date Chronic HFrEF (heart failure with reduced ejection fraction) 02/22/2022 Cardiomyopathy, ischemic 02/22/2022 PSVT (paroxysmal supraventricular [...] on file Legal Sex Female 10:44 AM ROLLER SKATER Gender Identity Not on file Sexual Orientation Not on file Last Filed Vital Signs Vital Sign Reading Time Taken Comments Blood Pressure 132/60 05/12/2024 11:29 AM ROLLER SKATER Pulse 65 05/12/2024 11:04 AM ROLLER SKATER Temperature - - Respiratory Rate - - Oxygen Saturation 95% 05/12/2024 11:04 AM ROLLER SKATER Inhaled Oxygen Concentration - - Weight 55.8 kg (123 lb) 05/12/2024 11:04 AM ROLLER SKATER Height 167.6 cm (5' 6 ) 05/12/2024 11:04 AM ROLLER SKATER Body Mass Index 19.85 05/12/2024 11:04 AM ROLLER SKATER Plan of Treatment Not on file Procedures Procedure Name Priority Date/Time Associated Diagnosis Comments TRANSTHORACIC ECHO (TTE) LIMITED/FOLLOW UP WO DOPPLER/CF WO CONTRAST Routine 08/05/2024 11:42 AM CDT Chronic HFrEF (heart failure with reduced ejection fraction) (HCC) BASIC METABOLIC PANEL Routine 06/08/2024 9:15 AM CDT Chronic HFrEF (heart failure with reduced ejection fraction) (HCC) POCT LIPID PANEL Routine 02/22/2022 12:2 0 PM ROLLER SKATER Mixed diabetic hyperlipidemia associated with type 2 diabetes mellitus (HCC) from Last 3 Months or Most Recently Relevant to Health Maintenance Results * TRANSTHORACIC ECHO (TTE) LIMITED/FOLLOW UP WO DOPPLER/CF WO CONTRAST (08/05/2024 11:42 AM CDT) Estimated EF 45-50 % CONS SCIMAGE EF Mod BP 51 % CONS SCIMAGE Anatomical Region Laterality Modality Ultrasound 08/05/2024 11:2 3 AM CDT Narrative 08/05/2024 2:18 PM CDT [facility] Medical [facility] Cardiology [address] [facility] [address] [address] [address] [facility] [address] [place] [address], [place] [address] P:[phone] P:[phone] Echocardiographic Report Patient Name: JORDANA MATT R : 1935 Study Date: 08/05/2024 11:23:34 AM Gender: F Tech: Location: [place] Ref Provider: ZOE GARY Height(Cm): 168 BSA: 1.61 Weight(Kg): 55.8 Heart Rate: 111 BP: 132 / 60 Quality: Good Order Provider: ZOE GARY PROCEDURES: Echocardiographic Report: Limited Transthoracic echocardiogram with 2D, M-Mode imaging. INDICATIONS: Cardiomyopathy, Assess Left Ventricular Function and Ejection Fraction, and I50.22 Chronic systolic (congestive) heart failure. MEASUREMENTS: 2D/MM Value Range EF Mod BP 51 % [ 54 - 74 ] Estimated EF 45-50 % LVIDd 2D 5.80 cm [ 3.80 - 5.20 ] LVIDd MM 5.77 cm [ 3.80 - 5.20 ] LVIDs 2D 4.61 cm [ 2.20 - 3.50 ] LVIDs MM 4.05 cm [ 2.20 - 3.50 ] LVPWd MM 1.01 cm [ 0.60 - 0.90 ] IVSd 2D 1.34 cm [ 0.60 - 0.90 ] IVSd MM 0.94 cm [ 0.60 - 0.90 ] LA Dimension MM 4.22 cm [ 2.70 - 3.80 ] AoR Diam MM 3.70 cm [ 2.70 - 3.70 ] LA Volume Index 45 cc/m2 [ 16 - 34 ] 2D/MM Value Range - FINDINGS: Interpretation Site: Exam was interpreted at [facility]. Left Ventricle: Mild concentric left ventricular hypertrophy. Mild enlargement of left ventricle cavity. Mild global left ventricular systolic dysfunction. Ejection fraction is measured at 51 %. Ejection Fraction is visually estimated to be 45-50 %. Right Ventricle: Normal right ventricular size. Normal right ventricular systolic function. Left Atrium: There is moderate enlargement of left atrium. Right Atrium: There is mild enlargement of right atrium. Atrial Septum: Normal atrial septum. Mitral Valve: Mitral valve leaflets appear mildly thickened. Mild mitral annular calcification. Aortic Valve: Aortic cusps appear mildly calcified. Trileaflet aortic valve. Tricuspid Valve: Normal appearance of the tricuspid valve. Pulmonic Valve: Normal appearance of the pulmonic valve. Pericardium: Normal pericardium with no significant pericardial effusion. Aorta: Mild aortic root calcification. IVC: Normal size and normal respiratory collapse consistent with normal right atrial pressure (<5 mmHg). CONCLUSIONS: Mild concentric left ventricular hypertrophy. Mild enlargement of left ventricle cavity. Mild global left ventricular systolic dysfunction. Ejection fraction is measured at 51 %. Ejection Fraction is visually estimated to be 45-50 %. There is moderate enlargement of left atrium. There is mild enlargement of right atrium. Mitral valve leaflets appear mildly thickened. Mild mitral annular calcification. Aortic cusps appear mildly calcified. Normal sinus rhythm. Electronically Signed By: Dao Mcelroy MD 08/05/2024 2:17:56 PM CDT Procedure Note Dao Mcelroy MD - 08/05/2024 [facility] Cardiology [address] [facility] [address] [address] [address] [facility] [address] [place] [address] P:[phone] P:[phone] Echocardiographic Report Patient Name: JORDANA MATT R : 1935 Study Date: 08/05/2024 11:23:34 AM Gender: F Tech: Location: [facility] Provider: ZOE GARY Height(Cm): 168 BSA: 1.61 Weight(Kg): 55.8 Heart Rate: 111 BP: 132 / 60 Quality: Good Order Provider: ZOE GARY PROCEDURES: Echocardiographic Report: Limited Transthoracic echocardiogram with 2D, M-Mode imaging. INDICATIONS: Cardiomyopathy, Assess Left Ventricular Function and Ejection Fraction,and I50.22 Chronic systolic (congestive) heart failure. MEASUREMENTS: 2D/MM Value Range EF Mod BP 51 % [ 54 - 74 ] Estimated EF 45-50 % LVIDd 2D 5.80 cm [ 3.80 - 5.20 ] LVIDd MM 5.77 cm [ 3.80 - 5.20 ] LVIDs 2D 4.61 cm [ 2.20 - 3.50 ] LVIDs MM 4.05 cm [ 2.20 - 3.50 ] LVPWd MM 1.01 cm [ 0.60 - 0.90 ] IVSd 2D 1.34 cm [ 0.60 - 0.90 ] IVSd MM 0.94 cm [ 0.60 - 0.90 ] LA Dimension MM 4.22 cm [ 2.70 - 3.80 ] AoR Diam MM 3.70 cm [ 2.70 - 3.70 ] LA Volume Index 45 cc/m2 [ 16 - 34 ] 2D/MM Value Range - FINDINGS: Interpretation Site: Exam was interpreted at [facility]. Left Ventricle: Mild concentric left ventricular hypertrophy. Mild enlargement of leftventricle cavity. Mild global left ventricular systolic dysfunction. Ejection fraction ismeasured at 51 %. Ejection Fraction is visually estimated to be 45-50 %. Right Ventricle: Normal right ventricular size. Normal right ventricular systolicfunction. Left Atrium: There is moderate enlargement of left atrium. Right Atrium: There is mild enlargement of right atrium. Atrial Septum: Normal atrial septum. Mitral Valve: Mitral valve leaflets appear mildly thickened. Mild mitral annularcalcification. Aortic Valve: Aortic cusps appear mildly calcified. Trileaflet aortic valve. Tricuspid Valve: Normal appearance of the tricuspid valve. Pulmonic Valve: Normal appearance of the pulmonic valve. Pericardium: Normal pericardium with no significant pericardial effusion. Aorta: Mild aortic root calcification. IVC: Normal size and normal respiratory collapse consistent with normal rightatrial pressure (<5 mmHg). CONCLUSIONS: Mild concentric left ventricular hypertrophy. Mild enlargement of leftventricle cavity. Mild global left ventricular systolic dysfunction. Ejection fraction ismeasured at 51 %. Ejection Fraction is visually estimated to be 45-50 %. There is moderate enlargement of left atrium. There is mild enlargement of right atrium. Mitral valve leaflets appear mildly thickened. Mild mitral annularcalcification. Aortic cusps appear mildly calcified. Normal sinus rhythm. Electronically Signed By: Dao Mcelroy MD 08/05/2024 2:17:56 PM CDT Zoe Laly Linsey PARACHUTIST/COMBATANT DIVER QUALIFIED CV ECHO PROCEDURES Final Result * (ABNORMAL) Basic metabolic panel (06/08/2024 9:15 AM CDT) Glucose 276(H) 65 - 99 mg/dL [facility] Comment: Fasting reference interval For someone without known diabetes, a glucose value >125 mg/dL indicates that they may have diabetes and this should be confirmed with a follow-up test. BUN 48(H) 7 - 25 mg/dL [facility] Creatinine 1.64(H) 0.60 - 0.95 mg/dL [facility] eGFR 30(L) > OR = 60 mL/min/1.7 3m2 [facility] BUN/creat ratio 29(H) 6 - 22 (calc) [facility] Sodium 140 135 - 146 mmol/L [facility] Potassium, pl 5.1 3.5 - 5.3 mmol/L [facility] Chloride 106 98 - 110 mmol/L [facility] CO2 24 20 - 32 mmol/L [facility] Calcium 9.0 8.6 - 10.4 mg/dL [facility] Blood 06/08/2024 9:15 AM CDT 06/08/2024 9:16 AM CDT Zoe Gary PARACHUTIST/COMBATANT DIVER QUALIFIED LAB BLOOD ORDERABLES Beatriz l Result [facility] [address] [place] [address] * POCT lipid panel (02/22/2022 12:20 PM ROLLER SKATER) Cholesterol, POC 109 mg/dL Comment:GLU = 150 HDL, POC 50 mg/dL Triglycerides, POC 150 mg/dL LDL Cholesterol POC 29 mg/dL Chol/HDL Ratio, POC 0.6 Non-HDL Cholesterol, POC 59 mg/dL Cholesterol Total, POC 109 mg/dL Capillary blood 02/22/2022 1 2:20 PM ROLLER SKATER Mario Bustamante MD POINT OF CARE TEST ORDER GAGE Final Result from Last 3 Months or Most Recently Relevant to Health Maintenance Insurance [place] [address] [employer] Care Teams Motel Food Service Supervisor Relationship Specialty Start Date End Date Tj Pino MD [address] [facility] [address] [place] [id number] PCP - General Family Medicine 05/12/24
--- OUTSIDE RECORDS SUMMARY | 2024-08-10 15:55 | XMS_ITS | Encounter Summary ---
Author Organization [facility] Address [address] [facility] [place] [address] Care Team Providers Care Marketing Specialist Name Role Phone Aravind Morales MD Primary Care Provider [phone] Deborah Llamas MD Primary Care Provider + Encounter Details Date Type Department Care Team (Late st Contact Info) Description 10/12/2020 Lab Requisition [facility] DermPath Lab [address] [facility] [place] [address] Ghassan Morgan MD [address] [address] Social History Tobacco Use Types Packs/Day Years Used Date Smoking Tobacco: Never Assessed Comments Unknown Sex and Gender Information Value Date Recorded Sex Assigned at Not on file Legal Sex Female 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 Gender Identity Not on file Sexual Orientation Not on file documented as of this encounter Plan of Treatment Not on file documented as of this encounter Procedures Procedure Name Priority Date/Time Associated Diagnosis Comments DERMATOPATHOLOGY Routine 10/11/2020 12:0 0 AM CDT documented in this encounter Results * DERMATOPATHOLOGY (10/11/2020 12:00 AM CDT) Case Report Dermatopathology Report Case: [id number] Authorizing Provider: Ghassan Morgan MD Collected: 10/11/2020 12:00 AM Ordering Location: [facility] DermPath Lab Received: 10/12/2020 02:29 PM Pathologist: Pam Orourke MD Specimens: A) - Skin, right medial lower calf superior B) - Skin, right medial lower calf inferior 4:07 PM CDT DERMATOPATHOLOGY LABORATORY Final Diagnosis Specimen A. SKIN, right medial lower calf superior: SQUAMOUS CELL CARCINOMA, WELL DIFFERENTIATED (C44.722) Specimen B. SKIN, right medial lower calf inferior: SQUAMOUS CELL CARCINOMA, WELL DIFFERENTIATED (C44.722) 4:07 PM T DERMATOPATHOLOGY LABORATORY at 1607 CDT Clinical History A-B: R/O SCC. 4:07 PM T DERMATOPATHOLOGY LABORATORY Gross Description Specimen A: Received is one formalin filled container labeled with the patient's name and designated right medial lower calf superior. The specimen consists of a curettage and desiccation biopsy measuring [id number], bisected. Jar 0. Specimen B: Received is one formalin filled container labeled with the patient's name and designated right medial lower calf inferior. The specimen consists of a curettage and desiccation biopsy measuring [id number]. Jar 0. 4:07 PM [facility] DERMATOPATHOLOGY LABORATORY Microscopic Description Specimen A. SKIN, right medial lower calf superior: Arising in the epidermis and extending into the dermis there are irregularly shaped aggregates of keratinocytes showing evidence of premature cornification. Specimen B. SKIN, right medial lower calf inferior: Arising in the epidermis and extending into the dermis there are irregularly shaped aggregates of keratinocytes showing evidence of premature cornification. 4:07 PM T DERMATOPATHOLOGY LABORATORY Disclaimer An external and internal positive and negative controls are appropriate for the histochemical, immunohistochemical and immunofluorescence stain(s) in this case (if any), except where stated explicitly. The performance characteristics of the stain(s) cited in this report were developed and its performance characteristic determined by the Dermatopathology Laboratory at [facility], directed by Dr. Tasha Nielsen. These tests need not be, and therefore are not, approved by the [place] Food and Drug Administration. The tests are used for clinical purposes. Billing Codes Specimen Charges Stain Charges 53503 97445 1 1 4:07 PM CDT DERMATOPATHOLOGY LABORATORY Embedded Images 4:07 PM T DERMATOPATHOLOGY LABORATORY Pathology/Cytology TISSUE SPECIMEN FROM SKIN / Unknown 10/11/2020 10/12/2020 2:29 PM CDT Miscellaneous samples (specimen) TISSUE SPECIMEN FROM SKIN / Unknown 10/11/2020 10/12/2020 2:29 PM CDT Ghassan Morgan MD LAB - PATHOLOGY/CYTOLOGY ORD ERABLES Final Result DERMATOPATHOLOGY LABORATORY [facility] - Department of Dermatology [facility] Specialized Medicine [address] [place] [address], [address] [phone] documented in this encounter Visit Diagnoses Not on filedocumented in this encounter Care Teams Marketing Specialist Relationship Specialty Start Date End Date Aravind Morales MD [address] [facility] [address] [place] [address] PCP - General 01/01/18 11/16/21 Deborah Llamas MD [address] [facility] [address] [place] [address] PCP - General 11/17/21 documented as of this encounter
--- OUTSIDE RECORDS SUMMARY | 2024-08-10 15:55 | XMS_ITS | Encounter Summary ---
Author Organization [facility] Address [address] [place] [address] Care Team Providers Care Medical Secretary Teacher Name Role Phone Aravind Mroales MD Primary Care Provider [phone] Deborah Llamas MD Primary Care Provider + Encounter Details Date Type Department Care Team (Late st Contact Info) Description 03/03/2021 Lab Requisition [facility] Derm[facility] Lab [address] [place] [address] Ghassan Morgan MD [address] [place] [address] Social History Tobacco Use Types Packs/Day Years Used Date Smoking Tobacco: Never Assessed Comments Unknown Sex and Gender Information Value Date Recorded Sex Assigned at Not on file 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 Gender Identity Not on file Sexual Orientation Not on file documented as of this encounter Plan of Treatment Not on file documented as of this encounter Procedures Procedure Name Priority Date/Time Associated Diagnosis Comments DERMATOPATHOLOGY Routine 03/01/2021 12:0 0 AM GAS OR WATER METER INSTALLER documented in this encounter Results * DERMATOPATHOLOGY (03/01/2021 12:00 AM GAS OR WATER METER INSTALLER) Case Report Dermatopathology Report Case: [id number] Authorizing Provider: Ghassan Morgan MD Collected: 03/01/2021 12:00 AM Ordering Location: [facility] Lab Received: 03/03/2021 12:35 PM Pathologist: Kierra Meadows MD Specimen: Skin, left medial calf 1:47 PM GAS OR WATER METER INSTALLER DERMATOPATHOLOGY LABORATORY Final Diagnosis Specimen A. SKIN, left medial calf: SQUAMOUS CELL CARCINOMA, WELL DIFFERENTIATED (C44.729) NOT PRESENT AT SAMPLED MARGIN 1 1:47 PM [facility] DERMATOPATHOLOGY LABORATORY at [address] GAS OR WATER METER INSTALLER Clinical History R/O KA. Check margins. 1 1:47 PM [facility] DERMATOPATHOLOGY LABORATORY Gross Description Specimen A: Received is one formalin filled container labeled with the patient's name and designated left medial calf. The specimen consists of a curettage and desiccation biopsy measuring [id number], serially sectioned and submitted in cassettes 1-2. The margin is inked green. Jar 0+. 1 1:47 PM [facility] DERMATOPATHOLOGY LABORATORY Microscopic Description Specimen A. SKIN, left medial calf: Arising in the epidermis and extending into the dermis there are irregularly shaped aggregates of keratinocytes showing evidence of premature cornification. This lesion is not present at the sampled margin of the specimen. 1 1:47 PM [facility] DERMATOPATHOLOGY LABORATORY Disclaimer An external and internal positive and negative controls are appropriate for the histochemical, immunohistochemical and immunofluorescence stain(s) in this case (if any), except where stated explicitly. The performance characteristics of the stain(s) cited in this report were developed and its performance characteristic determined by the Dermatopathology Laboratory at [facility], directed by Dr. Tasha Nielsen. These tests need not be, and therefore are not, approved by the [place] Food and Drug Administration. The tests are used for clinical purposes. Billing Codes Specimen Charges Stain Charges 14937 1 1 1:47 PM [facility] DERMATOPATHOLOGY LABORATORY Embedded Images 1 1:47 PM [facility] DERMATOPATHOLOGY LABORATORY Pathology/Cytolog y TISSUE SPECIMEN FROM SKIN / Unknown 03/01/2021 03/03/2021 12:35 PM [facility] Ghassan Morgan MD LAB - PATHOLOGY/CYTOLOGY ORD ERABLES Final Result DERMATOPATHOLOGY LABORATORY [facility] - Department of Dermatology [address], [address] [phone] documented in this encounter Visit Diagnoses Not on filedocumented in this encounter Care Teams Medical Secretary Teacher Relationship Specialty Start Date End Date Aravind Morales MD [address] [place] [address] PCP - General 01/01/18 11/16/21 Deborah Llamas MD [address] [place] [address] PCP - General 11/17/21 documented as of this encounter
--- OUTSIDE RECORDS SUMMARY | 2024-08-10 15:55 | XMS_ITS | Encounter Summary ---
Author Organization [facility] Address [address] [place] [place] [address] Care Team Providers Care Tipple Operator Name Role Phone Aravind Morales MD Primary Care Provider [phone] Deborah Llamas MD Primary Care Provider + Encounter Details Date Type Department Care Team (Late st Contact Info) Description 02/17/2020 Lab Requisition [facility] DermPath Lab [address] [place] [address] Ghassan Morgan MD [address] [place] [address] Social History Tobacco Use Types Packs/Day Years Used Date Smoking Tobacco: Never Assessed Comments Unknown Sex and Gender Information Value Date Recorded Sex Assigned at Not on file Legal Sex Female 7:46 PM DIRECTOR CORPORATE COMPLIANCE Gender Identity Not on file Sexual Orientation Not on file documented as of this encounter Plan of Treatment Not on file documented as of this encounter Procedures Procedure Name Priority Date/Time Associated Diagnosis Comments DERMATOPATHOLOGY Routine 02/16/2020 12:0 0 AM DIRECTOR CORPORATE COMPLIANCE documented in this encounter Results * DERMATOPATHOLOGY (02/16/2020 12:00 AM DIRECTOR CORPORATE COMPLIANCE) Case Report Dermatopathology Report Case: [id number] Authorizing Provider: Ghassan Morgan MD Collected: 02/16/2020 12:00 AM Ordering Location: [facility] DermPath Lab Received: 02/17/2020 11:22 AM Pathologist: Daphne Reddy MD Specimen: Skin, left mid anterior medial pretibia 0 1:42 PM DIRECTOR CORPORATE COMPLIANCE DERMATOPATHOLOGY LABORATORY Final Diagnosis Specimen A. SKIN, left mid anterior medial pretibia: SQUAMOUS CELL CARCINOMA, WELL DIFFERENTIATED (C44.729) 0 1:42 PM DIRECTOR CORPORATE COMPLIANCE DERMATOPATHOLOGY LABORATORY at [address] DIRECTOR CORPORATE COMPLIANCE Clinical History R/O SCC,HAK 0 1:42 PM DIRECTOR CORPORATE COMPLIANCE DERMATOPATHOLOGY LABORATORY Gross Description Specimen A: Received is one formalin filled container labeled with the patient's name and designated left mid anterior medial pretibia. The specimen consists of a curettage and desiccation biopsy measuring [id number] mm. Jar 0. 0 1:42 PM DIRECTOR CORPORATE COMPLIANCE DERMATOPATHOLOGY LABORATORY Microscopic Description Specimen A. SKIN, left mid anterior medial pretibia: Arising in the epidermis and extending into the dermis there are irregularly shaped aggregates of keratinocytes showing evidence of premature cornification. 0 1:42 PM DIRECTOR CORPORATE COMPLIANCE DERMATOPATHOLOGY LABORATORY Disclaimer An external and internal [...] purposes. Billing Codes Specimen Charges Stain Charges 11939 1 0 1:42 PM DIRECTOR CORPORATE COMPLIANCE DERMATOPATHOLOGY LABORATORY Embedded Images 0 1:42 PM DIRECTOR CORPORATE COMPLIANCE DERMATOPATHOLOGY LABORATORY Pathology/Cytolog y TISSUE SPECIMEN FROM SKIN / Unknown 02/16/2020 02/17/2020 11:22 AM DIRECTOR CORPORATE COMPLIANCE us Ghassan Morgan MD LAB - PATHOLOGY/CYTOLOGY ORD ERABLES Final Result DERMATOPATHOLOGY LABORATORY [facility] - Department of Dermatology [facility] Medicine [address] [place] [address], [address] [place] [address], [facility] [phone] documented in this encounter Visit Diagnoses Not on filedocumented in this encounter Care Teams Tipple Operator Relationship Specialty Start Date End Date Aravind Morales MD [address] [place] [address] PCP - General 01/01/18 11/16/21 Deborah Llamas MD [address] [place] [address] PCP - General 11/17/21 documented as of this encounter
--- OUTSIDE RECORDS SUMMARY | 2024-08-10 15:55 | XMS_ITS | Clinical Summary ---
Author Organization [facility] [address] Address [address] [place] [address] Care Team Providers Care Hand Salter Name Role Phone Tj Pino MD Primary Care Provider Allergies No known active allergies Medications cyanocobalamin [...] associated with type 2 diabetes mellitus 02/22/2022 Encounters Date Type Department Care Team Description 08/05/2024 11:15 AM CDT Ancillary Procedure [facility] Cardiology [address] [facility] [address] [place] [phone] Chronic HFrEF (heart failure with reduced ejection fraction) ([facility]) 06/09/2024 Results Follow-Up [facility] Cardiology [address] [facility] [address] [place] [address] Zoe Gary NP Basic metabolic panel, Transthoracic Echo (TTE) Limited/Followup from Last 3 Months Surgical History Surgery Date Site/Laterality Comments ORIF FEMORAL SHAFT FRACTURE W/ PLATES AND SCREWS CHOLECYSTECTOMY HYSTERECTOMY Medical History Medical History Date Comments Covid A-fib (HCC) Hypertension Diabetes mellitus (HCC) Glaucoma Restless leg syndrome Edema COPD (chronic obstructive pulmonary disease) (HC C) CHF (congestive heart failure) ([facility]) 05/10/2021 Tremor Family History Medical History Relation [...] on file Legal Sex Female 10:44 AM BIOLOGIST AIDE Gender Identity Not on file Sexual Orientation Not on file Obstetrics History Last Filed Vital Signs Vital Sign Reading Time Taken Comments Blood Pressure 132/60 05/12/2024 11:29 AM BIOLOGIST AIDE Pulse 65 05/12/2024 11:04 AM BIOLOGIST AIDE Temperature - - Respiratory Rate - - Oxygen Saturation 95% 05/12/2024 11:04 AM BIOLOGIST AIDE Inhaled Oxygen Concentration - - Weight 55.8 kg (123 lb) 05/12/2024 11:04 AM BIOLOGIST AIDE Height 167.6 cm (5' 6 ) 05/12/2024 11:04 AM BIOLOGIST AIDE Body Mass Index 19.85 05/12/2024 11:04 AM BIOLOGIST AIDE Plan of Treatment Health Maintenance Due Date Last Done Comments Albumin Creatinine Ratio, Urine 1935 Depression Screening 1936 Fall Risk Assessment 1935 Hemoglobin A1C 1935 Dilated Eye Exam 1935 Foot Exam 1935 Hepatitis B Screening 1954 Zoster Vaccine (1 of 2) 1986 Well Visit 65+ 2001 Lipid Panel 02/22/2023 02/22/2022 Covid-19 Vaccine (4 - 2023-2 5 season) 2023 02/25/2021, 07/30/2020, 07/04/2020 DTaP/Tdap/Td Vaccine (2 - Td or Tdap) 07/15/2024 07/15/2014, 01/18/2004 Influenza Vaccine (Season Ended) 2024 01/17/2021, 12/24/2019, 01/24/2019, Additional history exists eGFR 06/08/2025 06/08/2024 Pneumococcal vaccine 65+ Completed 01/07/2016, 12/25 Procedures Procedure Name Priority Date/Time Associated Diagnosis Comments TRANSTHORACIC ECHO (TTE) LIMITED/FOLLOW UP WO DOPPLER/CF WO CONTRAST Routine 08/05/2024 11:42 AM CDT Chronic HFrEF (heart failure with reduced ejection fraction) (HCC) BASIC METABOLIC PANEL Routine 06/08/2024 9:15 AM CDT Chronic HFrEF (heart failure with reduced ejection fraction) (HCC) POCT LIPID PANEL Routine 02/22/2022 12:2 0 PM BIOLOGIST AIDE Mixed diabetic hyperlipidemia associated with type 2 [...] AM CDT Narrative 08/05/2024 2:18 PM CDT [facility] Cardiology [address] [facility] [address], [place] [address] [address] [facility] [address], [place] [address] P:[phone] P:[phone] Echocardiographic Report Patient Name: JORDANA MATT R : 1935 Study Date: 08/05/2024 11:23:34 AM Gender: F Tech: Location: [facility] Provider: ZOE GARY Height(Cm): 168 BSA: [...] FINDINGS: Interpretation Site: Exam was interpreted at [facility]. Left Ventricle: Mild concentric left ventricular hypertrophy. [...] Procedure Note Dao Mcelroy MD - 08/05/2024 [facility] Cardiology [address], [place] [address] [address] [facility] [address], [place] [address] P:[phone] P:[phone] Echocardiographic Report Patient Name: JORDANA MATT R : 1935 Study Date: 08/05/2024 11:23:34 AM Gender: F Tech: Location: [facility] Provider: ZOE GARY Height(Cm): 168 BSA: [...] FINDINGS: Interpretation Site: Exam was interpreted at [facility]. Left Ventricle: Mild concentric left ventricular hypertrophy. [...] Mcelroy MD 08/05/2024 2:17:56 PM CDT Zoe Gary NP CV ECHO PROCEDURES Final Result * (ABNORMAL) Basic metabolic panel (06/08/2024 9:15 AM CDT) Pathologist [facility] Glucose 276(H) 65 - 99 mg/dL [facility] [...] 9:15 AM CDT 06/08/2024 9:16 AM CDT us Zoe Gary NP LAB BLOOD ORDERABLES Beatriz alex Result [facility] [address] [place] [address] * POCT lipid panel (02/22/2022 12:20 PM BIOLOGIST AIDE) Cholesterol, POC 109 mg/dL Comment:GLU = 150 HDL, POC 50 mg/dL Triglycerides, POC 150 mg/dL LDL Cholesterol POC 29 mg/dL Chol/HDL Ratio, POC 0.6 Non-HDL Cholesterol, POC 59 mg/dL Cholesterol Total, POC 109 mg/dL Capillary blood 02/22/2022 1 2:20 PM BIOLOGIST AIDE us Mario Bustamante MD POINT OF CARE TEST ORDER GAGE Final Result from Last 3 Months or Most Recently Relevant to Health [place] [address] [place]IC[place] [address] MEDICARE [facility] Care Teams Hand Salter Relationship Specialty Start Date End Date Tj Pino MD [address] [place] [address] PCP - General Family Medicine 05/12/24
--- OUTSIDE RECORDS SUMMARY | 2024-08-10 15:55 | XMS_ITS | Continuity of Care Document ---
Author Organization [facility] Address [address] [place] [address] [place] [address] Phone Care Team Providers Care Oil Well Logger Name Role Phone Blessing Galindo Unavailable Unavailable Procedures Procedure Date Office/outpatient Visit, Est Office/outpatient Visit, Est Eye Exam & Treatment Refraction Advance Directives Directive Yes / No Effective Date File Name No Information Encounters Encounter Description Practice Location Reason(s) For Visit Diagnoses Date Provider Providers Copied on Encounter Office/outpat ient Visit, [facility], [address] [place] [address] [address], [place], [place], [id number], tel:[phone] [facility] No Information 8-201 0 Josie Sheriffn. [address] , [address], [place], [place], [facility], . tel:[phone] Office/outpat ient Visit, [facility], [address] [place] [address] [address], [place], [place], [id number], [place] tel:[phone] [facility] No Information 7-200 8 Josie Sheriffn. [address] , [address], [place], [place], [facility], . tel:[phone] [facility], [address] [place] [address] [address], [place], [place], [id number], tel:[phone] [facility] No Information 0-200 7 Galindo Blessing. [address] , [address], [place], [address], [place]. tel:[phone] Family History Family Member Type Diagnosis Age [...]
== END ==
LOC: ANHLAB 15:52
PROVIDERS: PCP Family Medicine; Visit Provider Plastic Surgery
DX: C44.722 Squamous cell carcinoma of skin of right lower limb, including hip (principal)
CPT/HCPCS: 88305

== ENCOUNTER 2025-01-13 13:11 | Inpatient (IN) | payer MEDICARE, OTHER, SELFPAY ==
--- OUTSIDE RECORDS SUMMARY | 2009-08-30 09:00 | XMS_ITS | Continuity of Care Document ---
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 Name Role Phone Blessing Galindo Unavailable Unavailable Procedures Procedure Date Office/outpatient Visit, Est Office/outpatient Visit, Est Eye Exam & Treatment Refraction Advance Directives Directive Yes / No Effective Date File Name No Information Encounters Encounter Description Practice Location Reason(s) For Visit Diagnoses Date Provider Providers Copied on Encounter Office/outpat ient Visit, [facility] [place], [address] [place] [address] [address], [place], [place], [id number], tel:[phone] [facility] No Information 8-201 0 Josie Sheriffn. [address] , [address], [place], [place], [facility], . tel:[phone] Office/outpat ient Visit, [facility] [place], [address] [place] [address] [address], [place], [place], [id number], tel:[phone] [facility] No Information 7-200 8 Josie Sheriffn. [address] , [address], [place], [place], [facility], . tel:[phone] [facility], [address] [place] [address] [address], [place], [place], [id number], tel:[phone] [facility] No Information 0-200 7 Galindo Blessing. [address] , [address], [place], [address], [place]. tel:[phone] Family History Family Member Type Diagnosis Age At Onset No Information Payers Payer name Insurance type Covered republican ID Authoriza tion(s) No Information Social History Type Description Quantity Date Captured Comments Sex Female Smoking Status No Information Chief Complaint And Reason For Visit No Information Reason For Referral Reason For Referral No Information History Of Present Illness Encounter Date Complaint History Of Prese nt Illness No Information Functional Status Date Functional Assessmen t No Information Instructions Date Instruction Additional Infor mation No Information Assessments Type Assessment Date No Information Patient Care Teams Name Effective Dates (start - stop) Status Members No Information
[2025-01-13] VITALS (18 sets, daily range): BP systolic 78–136; BP diastolic 44–89; PULSE 57–131; RESP 16–30; TEMP 35.2–37.1; O2SAT 92–100; BMI 18.9
--- NOTE | ~2025-01-13 | CT_ITS ---
EXAMINATION: CT thoracic lumbar wo con, 01/14/2025 9:45 CDT HISTORY: fall COMPARISON: No comparisons available. Technique: Axial images were obtained of the spine per protocol. One or more of the following dose reduction techniques were used: automated exposure control, adjustment of the mA and/or kV according to patient size, use of iterative reconstruction technique. Unless otherwise stated, incidental findings do not require dedicated follow up imaging Findings: There is a fracture of the body of T9 which extends anteriorly to involve the cortex and posteriorly to involve the posterior cortex although there is no retropulsion identified. There is no extension of the fracture into the posterior elements appreciated. There is a remote superior endplate fracture of L4 and L4 with loss of height 10%. There is a remote fracture of the anterior superior endplate and body of L2 with loss of height 50%, no retropulsion. There is severe loss of disc height throughout the lumbar spine most marked at L1-2, L2 and L3-4 with severe canal and foraminal stenosis Soft tissues unremarkable The lung bases demonstrate chronic changes with small infiltrates and effusions, correlate for symptoms of bronchopneumonia. Mild cardiomegaly. Calcified mediastinal lymph nodes with calcified hilar nodes probably represent sequelae of previous granulomatous disease Bilateral probable renal cysts but incompletely evaluated, ultrasound is recommended Impression: 1. Acute fracture of T9, no retropulsion. Multiple remote fractures detailed above with severe degenerative changes. MRI is recommended to assess Reviewed, dictated and finalized at location P. Impression: 1. Acute fracture of T9, no retropulsion. Multiple remote fractures detailed ab ove with severe degenerative changes. MRI is recommended to assess
--- NOTE | ~2025-01-13 | MR_ITS ---
EXAMINATION: MR lumbar spine wo con DATE: 01/16/2025 12:42 INDICATION: Back fracture. TECHNIQUE: Magnetic resonance imaging (MRI) of the lumbar spine was performed without intravenous contrast. Sequences included sagittal T2-weighted FSE, sagittal T2-weighted FS FSE, sagittal T1-weighted FSE, and axial T2-weighted FSE. COMPARISON: CT 01/14/2025 FINDINGS: There is 3 mm retrolisthesis of L2 on L3 and L3 on L4. There is an old healed burst fracture of L2 with 2/5 loss of height and retropulsion of bone 3 mm into central spinal canal. There is a superimposed acute/subacute compression fracture of the superior endplate of L2 with visible fracture line and edema- like marrow signal intensity. There is a chronic compression fracture of superior endplate of L4 with 1/5 loss of height. There is an acute/subacute compression fracture of the inferior endplate of L4 with less than 1/5 loss of height, visible fracture line, and edema-like marrow signal intensity. There is severely decreased disc height at L2-L3, moderately decreased disc height at L3-L4, mildly decreased disc height at L4-L5, and moderately decreased disc height at L5-S1. The distal spinal cord signal intensity is normal. The conus medullaris is at L3. The following disc levels are specifically discussed: L1-L2: The disc is bulging and has an annular fissure. There is severe bilateral facet joint osteoarthritis. There is mild bilateral neural foraminal stenosis. There is mild central canal stenosis. L2-L3: The disc is bulging with superimposed central extrusion. There is severe bilateral facet joint osteoarthritis. There is mild bilateral neural foraminal stenosis. There is mild central canal stenosis. L3-L4: The disc is bulging and has an annular fissure. There is mild bilateral facet joint osteoarthritis. There is moderate right and mild left neural foraminal stenosis. There is mild central canal stenosis. L4-L5: The disc is bulging and has an annular fissure. There is moderate right and severe left facet joint osteoarthritis. There is moderate bilateral neural foraminal stenosis. There is mild central canal stenosis. L5-S1: The disc is bulging and has an annular fissure. There is moderate bilateral facet joint osteoarthritis. There is mild right and moderate left neural foraminal stenosis. There is mild central canal stenosis. IMPRESSION: 1. Acute/subacute compression fractures of L2 and L4. 2. Severe lumbar spondylosis. Reviewed, dictated and finalized at location E.
--- NOTE | ~2025-01-13 | MR_ITS ---
EXAMINATION: MR cervical spine wo con DATE: 01/16/2025 12:41 INDICATION: T9 fracture. TECHNIQUE: Magnetic resonance imaging (MRI) of the cervical spine was performed without intravenous contrast. Sequences included sagittal T2-weighted FSE, sagittal T2-weighted FS FSE, sagittal T1-weighted FSE, axial MERGE, and axial T2-weighted FSE. COMPARISON: CT thoracic spine 01/14/2025 FINDINGS: There is 2 mm anterolisthesis of C3 on C4, C5 on C6, and C7 on T1. There is mild chronic height loss of C5 and C6 vertebral bodies. There is mildly decreased disc height at C3-C4, moderately decreased disc height at C5-C6, and severely decreased disc height at C6-C7. The spinal cord signal intensity is normal. The following disc levels are specifically discussed: C2-C3: There is a central extrusion. There is no uncovertebral joint osteoarthritis. There is severe bilateral facet joint osteoarthritis. There is mild bilateral neural foraminal stenosis. There is mild central canal stenosis. C3-C4: The disc is bulging. There is mild bilateral uncovertebral joint osteoarthritis. There is severe bilateral facet joint osteoarthritis. There is mild right and moderate left neural foraminal stenosis. There is mild central canal stenosis. C4-C5: There is a central extrusion. There is mild bilateral uncovertebral joint osteoarthritis. There is severe bilateral facet joint osteoarthritis. There is mild bilateral neural foraminal stenosis. There is mild central canal stenosis. C5-C6: The disc is bulging. There is severe bilateral uncovertebral joint osteoarthritis. There is moderate right insula facet joint osteoarthritis. There is moderate bilateral neural foraminal stenosis. There is mild central canal stenosis. C6-C7: The disc does not extend beyond the endplate margins. There is severe bilateral uncovertebral joint osteoarthritis. There is severe bilateral facet joint osteoarthritis. There is moderate bilateral neural foraminal stenosis. There is mild central canal stenosis. C7-T1: The disc does not extend beyond the endplate margin. There is mild bilateral uncovertebral joint osteoarthritis. There is severe bilateral facet joint osteoarthritis. There is mild bilateral neural foraminal stenosis. There is no central canal stenosis. IMPRESSION: 1. Severe cervical spondylosis. Reviewed, dictated and finalized at location E.
--- NOTE | ~2025-01-13 | CT_ITS ---
EXAMINATION: CT brain wo seng, 01/13/2025 16:34 CDT HISTORY: head injury COMPARISON: No comparisons available. Technique: Axial images obtained of the brain without contrast. One or more of the following dose reduction techniques were used: automated exposure control, adjustment of the mA and/or kV according to patient size, use of iterative reconstruction technique. Findings: No acute infarct or parenchymal hemorrhage. No abnormal mass or mass effect. No midline shift. No extra-axial fluid collections. No hydrocephalus. Mastoid air cells unremarkable. Sinuses and orbits unremarkable. No acute fracture. No significant facial or scalp soft tissue swelling evident. No radiopaque foreign body is seen. Impression: 1.No acute intracranial abnormality. Reviewed, dictated and finalized at location P. Impression: 1.No acute intracranial abnormality.
--- NOTE | ~2025-01-13 | MR_ITS ---
EXAMINATION: MR thoracic spine wo con DATE: 01/16/2025 12:41 INDICATION: T9 fracture. TECHNIQUE: Magnetic resonance imaging (MRI) of the thoracic spine was performed without intravenous contrast. COMPARISON: CT 01/14/2025 FINDINGS: Alignment is normal. There is a fracture of inferior endplate of T8 with 4 mm distraction anteriorly. There is mild chronic anterior wedging of T1 vertebral body. There are bridging endplate osteophytes at from T2 to T12, consistent with diffuse idiopathic skeletal hyperostosis (DISH). There is mildly decreased disc height at T3-T4. There is facet joint osteoarthritis. Many levels, severe at multiple levels in upper thoracic spine. On the right, there is mild neural foraminal stenosis at T1-T2, T4-T5, and T5-T6. On the left, there is mild neural foraminal stenosis at T1-T2. The disc do not extend beyond the endplate margins in the thoracic spine. There is no central canal stenosis in the thoracic spine. 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 IMPRESSION: 1. 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 2. Mild thoracic spondylosis. 3. 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 Reviewed, dictated and finalized at location E.
--- NOTE | ~2025-01-13 | XR_ITS ---
EXAMINATION: XR chest 1V portable COMPARISON: No comparisons available. HISTORY: weakness FINDINGS: Mild pulmonary venous congestion. No pneumothorax. Mild cardiomegaly. Mediastinal and hilar contours are within normal limits. Bony thorax no acute abnormality. Miscellaneous: None Impression: Mild CHF Reviewed, dictated and finalized at location P. Impression: Mild CHF
--- NOTE | ~2025-01-13 | XR_ITS ---
EXAMINATION: XR tibia fibula LT 2V, 01/14/2025 13:15 CDT HISTORY: fall, pain COMPARISON: No comparisons available. Findings: No acute fracture or malalignment. Moderate degenerative changes Soft tissues unremarkable. Impression: No acute fracture or malalignment. Reviewed, dictated and finalized at location P. Impression: No acute fracture or malalignment.
--- NOTE | ~2025-01-13 | XR_ITS ---
EXAMINATION: XR femur RT min 2V, XR tibia fibula RT 2V DATE: 01/14/2025 13:47 INDICATION: Right lower limb injury post fall TECHNIQUE: 1. Overlapping proximal and distal, AP and lateral views of the right femur were obtained. 2. AP and lateral views of the right tibia were obtained also on overlapping proximal and distal images COMPARISON: Right hip radiographs dated 11/29/18 and right tibia and fibula radiographs dated 02/10/2010 FINDINGS: Diffuse osteopenia. Interval healing of the previously seen subtrochanteric fracture of the proximal right femur which has healed in essentially anatomic alignment with no residual deformity. The fractures fixed with a long antegrade intramedullary cristiana, femoral neck dynamic compression screw and distal interlocking screw. There has also been prior internal fixation of the distal fibular and medial malleolus fractures initially seen on radiographs from 2009 which have healed in essentially anatomic. The fibular fracture was fixed with interfragmentary screw and lateral plate and screws in the medial malleolus fracture fixed with a retrograde lag screw. There is suggestion of an additional old healed fracture in essentially anatomic alignment the proximal diaphysis of the right fibula which is new since 2009. No new fractures identified. Mild to moderate medial and lateral compartment predominant tricompartmental osteoarthritis at the right knee. There is mild osteoarthritis at the right hip, right ankle and cervical tarsal metatarsal joints of the right midfoot. Scattered vascular calcifications in the posterior medial thigh and proximal calf. Small right knee joint effusion without layering lipohemarthrosis. No right ankle joint effusion. IMPRESSION: 1. Old healed internally fixed fracture of the proximal right femur in the distal right tibia and fibula which are all in near-anatomic alignment. No acute osseous abnormality. Reviewed, dictated and finalized at location A. IMPRESSION: 1. Old healed internally fixed fracture of the proximal right femur in the dist al right tibia and fibula which are all in near-anatomic alignment. No acute os seous abnormality.
--- NOTE | 2025-01-13 13:30 | ECG_ITS ---
Test Date: 2025-01-13 13:34:20 Measurements Intervals [place] Rate: 106 P: 0 DE: 0 QRS: -18 QRSD: 118 T: 13 QT: 410 QTc: 545 Interpretive Statements PROBABLY ATRIAL FIBRILLATION WITH RAPID VENTRICULAR RESPONSE )BASELINE ATIFACT) RIGHT BUNDLE BRANCH BLOCK ST-T WAVE ABNORMALITY IN ANTEROLATERAL LEADS- CONSIDER ISCHEMIA BASELINE ARTIFACT- I, II, III, AVR, AVL, AVF, V1-V6 ABNORMAL ECG Compared to ECG 04/20/2024 11:59:29 T-wave abnormality now present Possible ischemia now present Sinus rhythm no longer present Electronically Signed On 01-13-2025 13:48:03 CDT by Elmer Coronel D.O.
--- NOTE | 2025-01-13 13:40 | PC.NURSE ---
Pt. hypothermic. Warm blankets applied. Pt. A&Ox3 at this time. Daughter at bedside. When pt. arrived we were unable to capture an oxygen saturation reading. Oxygen sensor applied to nose. Current reading 95% on RA. Pt. tachypneic but not in respiratory distress.
[2025-01-13 14:08] LABS: Add Urine Microscopic? YES; Appearance Urine Turbid (Clear); Glucose Urine UA 2+ mg/dL (Negative); Leukocyte Esterase Ur 3+ LEU/UL (Negative); Need Manual Microscopic Reviewed; Nitrate Urine Negative (Negative); Specific Grav Ur 1.015 (1.001-1.035)
[2025-01-13 14:14] LABS: Hematocrit 38.3 % (37.0-47.0); Hemoglobin 12.2 g/dL (12.0-15.0); Immature Granulocyte Percent A 0.4 % (0-0.5); Lymphocytes Absolute Auto 0.81 K/mm3 (0.9-3.2); Mean Corpuscular HGB Conc 31.9 g/dl (32-36); Mean Corpuscular Hemoglobin 34.7 pg (26-34); Mean Corpuscular Volume 108.8 fl (80-100); Nucleated Red Blood Cells Absolute Auto 0.000 K/mm3 (0.0-0.012); Nucleated Red Blood Cells Perc 0.0 % (0.0-0.2); Platelet Count Result 181 k/mm3 (150-375); Red Blood Count 3.52 M/mm3 (4.2-5.4); White Blood Count 14.8 K/mm3 (4.5-10.0)
[2025-01-13 14:28] LABS: INR 1.1; Prothrombin Time 14.7 Seconds (11.1-14.7)
[2025-01-13 14:29] LABS: Alanine Aminotransferase 33 U/L (6-35); Albumin Level 4.7 g/dL (3.5-5.1); Alkaline Phosphatase 103 U/L (38-126); Anion Gap 23 mmol/L (4-12); Aspartate Amino Transferase 59 U/L (14-36); Bilirubin,Total 0.9 mg/dL (0.2-1.3); Blood Urea Nitrogen 61 mg/dL (7-17); Calcium 9.4 mg/dL (8.4-10.2); Carbon Dioxide 13 mmol/L (22-30); Chloride 109 mmol/L (98-107); Estimated Glomerular Filt Rate 24; Glucose 410 mg/dL (65-110); Partial Thromboplastin Time 24.8 Seconds (22.3-36.8); Potassium 4.9 mmol/L (3.4-5.0); Sodium 145 mmol/L (137-145); Total Protein 8.7 g/dL (6.3-8.2)
[2025-01-13 14:31] LABS: Macrocytosis 1+ (NORMAL)
[2025-01-13 14:32] LABS: Giant Platelets Present; Ovalocytes Occasional; Schistocytes None Seen
--- NOTE | 2025-01-13 14:38 | PC.NURSE ---
Delay in starting IV and drawing labs d/t pt. having poor vasculature.
[2025-01-13] MEDS: SODIUM CHLORIDE 0.9% IV 1,000 ML 999 ML IV CONT ×2 (14:43→15:31)
[2025-01-13] MEDS: cefTRIAXone 1 GM in SODIUM CHLORIDE 0.9% IV 50 ML 100 ML IVPB (14:44)
[2025-01-13] MEDS: INSULIN HUMAN REGULAR (*BKC) 100 UNITS/ML IV PUSH (15:31)
--- NOTE | 2025-01-13 15:51 | ECG_ITS ---
Test Date: 2025-01-13 16:03:55 Measurements Intervals [place] Rate: 145 P: 0 AL: 0 QRS: -18 QRSD: 119 T: -78 QT: 348 QTc: 542 Interpretive Statements ATRIAL FIBRILLATION WITH RAPID VENTRICULAR RESPONSE RIGHT BUNDLE BRANCH BLOCK ST-T WAVE ABNORMALITY IN ANTEROLATERAL LEADS- CONSIDER ISCHEMIA BASELINE ARTIFACT- I, II, III, AVR, AVL, AVF, V1-V6 ABNORMAL ECG Compared to ECG 01/13/2025 13:34:20 NO SIGNIFICANT CHANGE Electronically Signed On 01-13-2025 16:07:07 CDT by Elmer Coronel D.O.
--- NOTE | 2025-01-13 16:00 | PC.NURSE ---
Pt. more alert and requesting something to drink. Pt. able to drink diet lemon [place] soda through a straw with no issues. Pt. HR has increased after becoming more alert. Dr. Whitmore aware and EKG completed. GREGG Eason attempting peripheral IV x2. See MAR for intervention. Daughter remains at bedside.
--- NOTE | 2025-01-13 16:04 | ED.AMS ---
HPI - Altered Mental Status General Chief Complaint: Altered Mental Status Stated Complaint: fall, high blood sugar, altered mental status Time Seen by Provider: 01/13/25 13:33 History of Present Illness HPI narrative: Patient is an 89-year-old female who presents ER with the blood sugars and confusion. She was found on her floor today by her daughter after having spoken to her last night 11:00 p.m.. Patient is alert to self and place. She has difficulty with month a near for me. No obvious evidence of trauma. She appears dry. Related Data Home Medications ?Medication ?Instructions ?Recorded ?Confirmed ?Last Taken ?Type alendronate 70 mg tablet 70 mg PO WEEKLY 04/20/24 01/13/25 Unknown History Held on 05/07/24. Instructions: .Provider Order sacubitril 24 mg-valsartan 26 mg 1 tablet PO BID 07/16/24 01/13/25 01/12/25 20:00 History tablet (Entresto) 1 tablet Allergies Allergy/AdvReac Type Severity Reaction Status Date / Time No Known Allergies Allergy Verified 01/13/25 20:59 Review of Systems Review of Systems: ROS unobtainable: Yes unobtainable due to mental status PMFSH Past Medical History Medical History Mitral regurgitation moderate Afib CHF (congestive heart failure) Skin cancer Hypertension High cholesterol Diabetes Glaucoma Macular degeneration Hx of fracture of femur [place] (hard of hearing) Benign reactive hypertension Diabetic neuropathy Surgical History Surgical History History of open reduction and internal fixation (ORIF) procedure Hx of cholecystectomy Hx of hysterectomy Family History Family History Mother Diabetes mellitus Social History Social History Social History: Smoking packs per day: 0.5 Smoking cigarettes per day: 10.0 Years smoked: 30 Smoking pack-years: 15.00 Smoking status: Former smoker Tobacco type: cigarettes Second hand tobacco smoke exposure: No Smoking end date: 03/25/16 Alcohol intake: never Substance use: never Substance use type: does not use Do You Feel Safe in your Home?: Yes Lack of Transportation: No Lack of Food: Never True Current Housing: I Have Housing Concerned About Future Housing: No Difficulty Paying Gas/Electric Bills: No Difficulty Paying for Meds: No Currently Unemployed: No Education: High School Diploma/GED Difficulty w/ Childcare or Family Care: No Living arrangements: with family Additional living arrangements comments: PT LIVES WITH DAUGHTER - BRETT Occupation/Education: retired Gender identity (if verbalized by the patient): Female Sexual Orientation (if Verbalized by the Patient): Straight or Heterosexual Spiritual care concerns: No Exam Narrative: GENERAL: Well-appearing, well-nourished, and in no acute distress. HEAD: Normocephalic, atraumatic. ENT: Dry mucous membranes NECK: Supple. CHEST: Clear to auscultation. No respiratory distress. HEART: Regular rate and rhythm. Normal peripheral pulses. ABDOMEN: Soft, nontender, nondistended. EXTREMITIES: Normal range of motion. No edema. SKIN: Warm, dry, no rash. NEURO: Alert and oriented x2. PSYCH: Normal mood and affect. Course Course Emergency Course: Blood sugar is gone down to 195 after the initial 5 units of insulin in the a.m. fluid. She has received oral metoprolol for her AFib with RVR and her heart rate is now 87 beats per minute. Family is declining ABG due to recurrent IV sticks. I suspect patient's lab abnormalities are not related to DKA but rather her acute distress from infection/sepsis and rhabdomyolysis. Patient accepted to the hospitalist service. Vital Signs Vital signs: Vital Signs Temperature 95.4 F L 01/13/25 13:15 Pulse Rate 57 L 01/13/25 13:15 Respiratory Rate 20 01/13/25 13:15 Blood Pressure 113/89 01/13/25 13:15 Temperature 98.0 F 01/13/25 20:35 Pulse Rate 75 01/13/25 22:00 Respiratory Rate 27 H 01/13/25 21:00 Blood Pressure 102/50 L 01/13/25 20:35 Pulse Oximetry 95 01/13/25 21:00 Oxygen Delivery Room Air 01/13/25 21:00 MDM - Altered Mental Status Lab Data 01/13/25 14:08 01/13/25 14:08 Labs: Lab Results 01/13/25 01/13/25 01/13/25 Range/Units 13:36 13:48 14:08 WBC 14.8 H (4.5-10.0) K/mm3 RBC 3.52 L (4.2-5.4) M/mm3 Hgb 12.2 (12.0-15.0) g/dL Hct 38.3 (37.0-47.0) % MCV 108.8 H (80-100) fl MCH 34.7 H (26-34) pg MCHC 31.9 L (32-36) g/dl RDW 12.8 (11.5-14.5) % Plt Count 181 (150-375) k/mm3 MPV 10.9 H (7.4-10.4) fl Immature Gran % (Auto) 0.4 (0-0.5) % Neut % (Auto) 86.8 H (45.5-73.1) % Lymph % (Auto) 5.5 L (18.3-44.2) % Morris % (Auto) 7.2 (2.6-8.5) % Eos % (Auto) 0.0 (0-4.4) % Baso % (Auto) 0.1 L (0.2-1.2) % Lymph # (Auto) 0.81 L (0.9-3.2) K/mm3 Morris # (Auto) 1.1 H (0.1-0.6) K/mm3 Eos # (Auto) 0.0 (0-0.3) K/mm3 Baso # (Auto) 0.0 (0.0-0.1) K/mm3 Abs Immat Gran (auto) 0.06 H (0.00-0.031) K/mm3 Absolute Neuts (auto) 12.8 H (1.3-6.7) K/mm3 Absolute Nucleated RBC 0.000 (0.0-0.012) K/mm3 Band Neutrophils % Not Reportable Nucleated RBC % 0.0 (0.0-0.2) % Platelet Estimate Adequate (Adequate) Large Platelets Present Giant Platelets Present Macrocytosis 1+ (NORMAL) Ovalocytes Occasional Schistocytes None seen PT 14.7 (11.1-14.7) Seconds INR 1.1 APTT 24.8 (22.3-36.8) Seconds Sodium 145 (137-145) mmol/L Potassium 4.9 (3.4-5.0) mmol/L Chloride 109 H (98-107) mmol/L Carbon Dioxide 13 L (22-30) mmol/L Anion Gap 23 H (4-12) mmol/L BUN 61 H D (7-17) mg/dL Creatinine 1.95 H (0.7-1.0) mg/dL Estim Creat Clear Calc Not Reportable Estimated GFR 24 L (59 - ) Glucose 410 H (65-110) mg/dL POC Capillary Glucose 392 H (65-105) mg/dl Lactic Acid (0.7-2.0) mmol/L Calcium 9.4 (8.4-10.2) mg/dL Total Bilirubin 0.9 (0.2-1.3) mg/dL AST 59 H (14-36) U/L ALT 33 (6-35) U/L Alkaline Phosphatase 103 (38-126) U/L Total Creatine Kinase 2132 H (30-135) U/L Total Protein 8.7 H (6.3-8.2) g/dL Albumin 4.7 (3.5-5.1) g/dL Urine Color Yellow (Yellow) Urine Appearance Turbid H (Clear) Urine pH 5.5 (5.0-9.0) Ur Specific [employer] 1.015 (1.001-1.035) Urine Protein 3+ H (Negative) mg/dL Urine Glucose (UA) 2+ H (Negative) mg/dL Urine Ketones 1+ H (Negative) mg/dL Ur Blood (Man) 3+ H (Negative) Urine Nitrate Negative (Negative) Urine Bilirubin Negative (Negative) Urine Urobilinogen 0.2 (<2.0) mg/dL Add Ur Microanalysis Reviewed Leukocyte Esterase Rfl 3+ H (Negative) MINH/UL Urine RBC 0-2 (0-2) /hpf Urine WBC >100 H (0-3) /hpf Ur Squamous Epith Cells None seen (Few) /hpf Urine Bacteria 2+ H /hpf Urine Casts 6-10 01/13/25 01/13/25 Range/Units 14:33 15:31 WBC (4.5-10.0) K/mm3 RBC (4.2-5.4) M/mm3 Hgb (12.0-15.0) g/dL Hct (37.0-47.0) % MCV (80-100) fl MCH (26-34) pg MCHC (32-36) g/dl RDW (11.5-14.5) % Plt Count (150-375) k/mm3 MPV (7.4-10.4) fl Immature Gran % (Auto) (0-0.5) % Neut % (Auto) (45.5-73.1) % Lymph % (Auto) (18.3-44.2) % Morris % (Auto) (2.6-8.5) % Eos % (Auto) (0-4.4) % Baso % (Auto) (0.2-1.2) % Lymph # (Auto) (0.9-3.2) K/mm3 Morris # (Auto) (0.1-0.6) K/mm3 Eos # (Auto) (0-0.3) K/mm3 Baso # (Auto) (0.0-0.1) K/mm3 Abs Immat Gran (auto) (0.00-0.031) K/mm3 Absolute Neuts (auto) (1.3-6.7) K/mm3 Absolute Nucleated RBC (0.0-0.012) K/mm3 Band Neutrophils % Nucleated RBC % (0.0-0.2) % Platelet Estimate (Adequate) Large Platelets Giant Platelets Macrocytosis (NORMAL) Ovalocytes Schistocytes PT (11.1-14.7) Seconds INR APTT (22.3-36.8) Seconds Sodium (137-145) mmol/L Potassium (3.4-5.0) mmol/L Chloride (98-107) mmol/L Carbon Dioxide (22-30) mmol/L Anion Gap (4-12) mmol/L BUN (7-17) mg/dL Creatinine (0.7-1.0) mg/dL Estim Creat Clear Calc Estimated GFR (59 - ) Glucose (65-110) mg/dL POC Capillary Glucose 325 H (65-105) mg/dl Lactic Acid 3.1 H (0.7-2.0) mmol/L Calcium (8.4-10.2) mg/dL Total Bilirubin (0.2-1.3) mg/dL AST (14-36) U/L ALT (6-35) U/L Alkaline Phosphatase (38-126) U/L Total Creatine Kinase (30-135) U/L Total Protein (6.3-8.2) g/dL Albumin (3.5-5.1) g/dL Urine Color (Yellow) Urine Appearance (Clear) Urine pH (5.0-9.0) Ur Specific [employer] (1.001-1.035) Urine Protein (Negative) mg/dL Urine Glucose (UA) (Negative) mg/dL Urine Ketones (Negative) mg/dL Ur Blood (Man) (Negative) Urine Nitrate (Negative) Urine Bilirubin (Negative) Urine Urobilinogen (<2.0) mg/dL Add Ur Microanalysis Leukocyte Esterase Rfl (Negative) MINH/UL Urine RBC (0-2) /hpf Urine WBC (0-3) /hpf Ur Squamous Epith Cells (Few) /hpf Urine Bacteria /hpf Urine Casts Imaging Data Radiologist's impression: ITS Impressions Head CT 01/13/25 16:45 Impression: 1.No acute intracranial abnormality. Chest X-Ray 01/13/25 16:46 Impression: Mild CHF ECG Data EKG #1: ECG completion date: 01/13/25 ECG completion time: 18:03 EKG Interpretation: tachycardia (145), atrial fibrillation, non-specific ST changes, normal QRS and normal QT Critical Care Time Critical Care Time Critical Care Time: Yes Total Critical Care Time: 35 Discharge Plan Discharge Clinical Impression: ZIA (acute kidney injury), Acute UTI, Diarrhea, Rhabdomyolysis Patient Disposition: Still a Patient Condition: Serious
--- NOTE | 2025-01-13 16:25 | PC.NURSE ---
Pt. had large brown and yellow BM. Soft, loose, non-formed with a large amount of mucous. Daughter denies pt. being on any antibiotics recently. Dirty depend removed, marcus care performed with soap and water and clean depend applied. Dr. Whitmore notified.
--- NOTE | 2025-01-13 16:31 | PC.NURSE ---
Pt. to CT.
--- NOTE | 2025-01-13 16:50 | PC.NURSE ---
IV metoprolol not administered d/t pt. BP of 115/[address] Whitmore.
[2025-01-13 16:54] LABS: Creatine Kinase 2132 U/L (30-135)
[2025-01-13] MEDS: METOPROLOL TARTRATE 25 MG TABLET PO (16:56)
[2025-01-13] MEDS: SODIUM CHLORIDE 0.9% IV 1,000 ML 125 ML IV CONT (17:57)
--- NOTE | 2025-01-13 18:00 | PC.NURSE ---
RT notified that pt. has ABG ordered.
--- NOTE | 2025-01-13 18:33 | PCRCNOTE ---
Pt family refused ABG.
--- NOTE | 2025-01-13 18:59 | PC.NURSE ---
Daughter left bedside. Daughter's contact info verified in the chart. Pt. is on a bed alarm.
--- NOTE | 2025-01-13 19:00 | PC.NURSE ---
Per RT, pt. refused ABG. Dr. Whitmore made aware of refusal by RT.
--- OUTSIDE RECORDS SUMMARY | 2025-01-13 19:14 | XMS_ITS | Encounter Summary ---
Author Organization [facility] Healthcare Address [address] [place] [address] Care Team Providers Care Campaign Director Name Role Phone Deborah Llamas MD Primary Care Provider Tj Pino MD Primary Care Provider Encounter Details Date Type Department Care Team (Late st Contact Info) Description 04/16/[address] 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 Gender Identity Not on file Sexual Orientation Not on file documented as of this encounter Plan of Treatment Not on file documented as of this encounter Procedures Procedure Name Priority Date/Time Associated Diagnosis Comments SCAN - RADIOLOGY/IMAGING 04/16/2024 SCAN - LABS 04/16/2024 documented in this encounter Results * SCAN - LABS (04/16/2024) us Provider Scanning Final Result * SCAN - RADIOLOGY/IMAGING (04/16/2024) Anatomical Region Laterality Modality Other us Provider Scanning Final Result documented in this encounter Visit Diagnoses Not on filedocumented in this encounter Care Teams Campaign Director Relationship Specialty Start Date End Date Deborah Llamas MD [address] [place] [address] PCP - General Family Medicine 05/03/20 05/11/24 Tj Pino MD [address] [place] [address] PCP - General Family Medicine 05/12/24 documented as of this encounter
--- OUTSIDE RECORDS SUMMARY | 2025-01-13 19:14 | XMS_ITS | Encounter Summary ---
Author Organization [facility] Healthcare Address [address] [place] [address] Care Team Providers Care Funeral Director/Embalmer Name Role Phone Deborah Llamas MD Primary Care Provider Tj Pino MD Primary Care Provider Encounter Details Date Type Department Care Team (Late st Contact Info) Description 04/20/2024 Orders Only [facility] [place] Health Information Management [address] [place] [address] Scanning, Provider Social History Tobacco Use Types Packs/Day Years Used Date Smoking Tobacco: Former Cigarettes Q uit: 2021 Smokeless Tobacco: Never Comments Unknown Sex and Gender Information Value Date Recorded Sex Assigned at Not on file 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 Gender Identity Not on file Sexual Orientation Not on file documented as of this encounter Plan of Treatment Not on file documented as of this encounter Procedures Procedure Name Priority Date/Time Associated Diagnosis Comments SCAN - RADIOLOGY/IMAGING 04/20/2024 documented in this encounter Results * SCAN - RADIOLOGY/IMAGING (04/20/2024) Anatomical Region Laterality Modality Other us Provider Scanning Final Result documented in this encounter Visit Diagnoses Not on filedocumented in this encounter Care Teams Funeral Director/Embalmer Relationship Specialty Start Date End Date Deborah Llamas MD [address] [facility] [address] [place] [address] PCP - General Family Medicine 05/03/20 05/11/24 Tj Pino MD [address] [facility] [address] [place] [address] PCP - General Family Medicine 05/12/24 documented as of this encounter
--- OUTSIDE RECORDS SUMMARY | 2025-01-13 19:14 | XMS_ITS | Encounter Summary ---
Author Organization [facility] Address [address] [place] [address] Care Team Providers Care Railway Switch Operator Name Role Phone Aravind Morales MD Primary Care Provider [phone] Deborah Llamas MD Primary Care Provider + Encounter Details Date Type Department Care Team (Late st Contact Info) Description 09/21/2021 Lab Requisition [facility] [address] [facility] [place] [id number] Ghassan Morgan MD [address] [place] [address] Social History Tobacco Use Types Packs/Day Years Used Date Smoking Tobacco: Never Assessed Comments Unknown Sex and Gender Information Value Date Recorded Sex Assigned at Not on file 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 Gender Identity Not on file Sexual Orientation Not on file documented as of this encounter Plan of Treatment Not on file documented as of this encounter Procedures Procedure Name Priority Date/Time Associated Diagnosis Comments DERMATOPATHOLOGY Routine 09/20/2021 12:0 0 AM CDT documented in this encounter Results * DERMATOPATHOLOGY (09/20/2021 12:00 AM CDT) Case Report Dermatopathology Report Case: [id number] Authorizing Provider: Ghassan Morgan MD Collected: 09/20/2021 12:00 AM Ordering Location: [facility] Received: 09/21/2021 12:08 PM Pathologist: [...] 5:11 PM T DERMATOPATHOLOGY LABORATORY at [address] [place] [facility] Clinical History A-C: R/O SCC. 2 5:11 PM CDT DERMATOPATHOLOGY LABORATORY Gross Description Specimen A: Received is one formalin filled container labeled with the patient's name and designated right mid pretibia. The specimen consists of a shave biopsy measuring [id number], bisected. Jar 0+. Specimen B: Received is one formalin filled container labeled with the patient's name and designated right superior lateral right lower leg. The specimen consists of a shave biopsy measuring [id number]. Jar 0. Specimen C: Received is one formalin filled container labeled with the patient's name and designated right posterior superior lateral right lower leg. The specimen consists of a shave biopsy measuring [id number]. Jar 0. 2 5:11 PM CDT DERMATOPATHOLOGY [...] purposes. Billing Codes Specimen Charges Stain Charges 82905 [id number] 92771 1 1 1 2 5:11 PM CDT [...] ORD ERABLES Final Result DERMATOPATHOLOGY LABORATORY [facility] Department of Dermatology [facility] Medicine [address] [place] [address], [address] [phone] documented in this encounter Visit Diagnoses Not on filedocumented in this encounter Care Teams Railway Switch Operator Relationship Specialty Start Date End Date Aravind Morales MD [address] [place] [address] PCP - General 01/01/18 11/16/21 Deborah Llamas MD [address] [place] [address] PCP - General 11/17/21 documented as of this encounter
--- OUTSIDE RECORDS SUMMARY | 2025-01-13 19:14 | XMS_ITS | Encounter Summary ---
Author Organization [facility] Address [address] [facility] [place] [address] Care Team Providers Care Traffic Control Supervisor Name Role Phone Aravind Morales MD Primary Care Provider [phone] Deborah Llamas MD Primary Care Provider + Encounter Details Date Type Department Care Team (Late st Contact Info) Description 07/19/2021 Lab Requisition [facility] Lab [address] [facility] [place] [phone] Ghassan Morgan MD [address] [place] [address] Social History Tobacco Use Types Packs/Day Years Used Date Smoking Tobacco: Never Assessed Comments Unknown Sex and Gender Information Value Date Recorded Sex Assigned at Not on file 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 Gender Identity Not on file Sexual Orientation Not on file documented as of this encounter Plan of Treatment Not on file documented as of this encounter Procedures Procedure Name Priority Date/Time Associated Diagnosis Comments DERMATOPATHOLOGY Routine 07/18/2021 12:0 0 AM CDT documented in this encounter Results * DERMATOPATHOLOGY (07/18/2021 12:00 AM CDT) Case Report Dermatopathology Report Case: [id number] Authorizing Provider: Ghassan Morgan MD Collected: 07/18/2021 12:00 AM Ordering Location: [facility] Received: 07/19/2021 02:02 PM Pathologist: [...] specimen consists of a shave biopsy measuring [id number]. Jar 0. Specimen B: Received is one formalin filled container labeled with the patient's name and designated left sup deltoid. The specimen consists of a shave biopsy measuring [id number]. There is an additional piece of tissue measuring [id number]. Jar 0. 2 1:33 PM T DERMATOPATHOLOGY LABORATORY Microscopic Description Specimen [...] determined by the Dermatopathology Laboratory at [facility], directed by Dr. Tasha Nieslen. These tests need not be, and therefore are not, approved by the [place] Food and Drug Administration. The tests are used for clinical purposes. Billing Codes Specimen Charges Stain Charges [id number] 1 1 2 1:33 PM CDT DERMATOPATHOLOGY LABORATORY Embedded Images 2 1:33 PM CDT DERMATOPATHOLOGY LABORATORY Pathology/Cytology TISSUE SPECIMEN FROM SKIN / Unknown 07/18/2021 07/19/2021 2:02 PM CDT Miscellaneous samples (specimen) TISSUE SPECIMEN FROM SKIN / Unknown 07/18/2021 07/19/2021 2:02 PM CDT Ghassan Morgan MD LAB - PATHOLOGY/CYTOLOGY ORD ERABLES Final Result DERMATOPATHOLOGY LABORATORY [facility] - Department of Dermatology [facility] Medicine [address] [place] [address], [address] [phone] documented in this encounter Visit Diagnoses Not on filedocumented in this encounter Care Teams Traffic Control Supervisor Relationship Specialty Start Date End Date Aravind Morales MD [address] [place] [address] PCP - General 01/01/18 11/16/21 Deborah Llamas MD [address] [place] [address] PCP - General 11/17/21 documented as of this encounter
--- OUTSIDE RECORDS SUMMARY | 2025-01-13 19:14 | XMS_ITS | Encounter Summary ---
Author Organization [facility] Address [address] [facility] [place] [address] Care Team Providers Care Collator Hand Name Role Phone Aravind Morales MD Primary Care Provider [phone] Deborah Llamas MD Primary Care Provider + Encounter Details Date Type Department Care Team (Late st Contact Info) Description 07/05/2021 Lab Requisition [facility] Lab [address] [facility] [place] [phone] Ghassan Morgan MD [address] [address] Social History Tobacco Use Types Packs/Day Years Used Date Smoking Tobacco: Never Assessed Comments Unknown Sex and Gender Information Value Date Recorded Sex Assigned at Not on file 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 Gender Identity Not on file Sexual Orientation Not on file documented as of this encounter Plan of Treatment Not on file documented as of this encounter Procedures Procedure Name Priority Date/Time Associated Diagnosis Comments DERMATOPATHOLOGY Routine 07/04/2021 12:0 0 AM CDT documented in this encounter Results * DERMATOPATHOLOGY (07/04/2021 12:00 AM CDT) Case Report Dermatopathology Report Case: [id number] Authorizing Provider: Ghassan Morgan MD Collected: 07/04/2021 12:00 AM Ordering Location: [facility] Received: 07/05/2021 02:53 PM Pathologist: [...] specimen consists of a shave biopsy measuring 80x30r0 mm,inked and trisected. Jar 0. 1:56 PM [...] characteristic determined by the Dermatopathology Laboratory at [facility], directed by Dr. Tasha Nielsen. These tests need not be, and therefore are not, approved by the [place] Food and Drug Administration. The tests are used for clinical purposes. Billing Codes Specimen Charges Stain Charges [id number] 1 2 1:56 PM CDT DERMATOPATHOLOGY LABORATORY Embedded Images 1:56 PM CDT DERMATOPATHOLOGY LABORATORY Pathology/Cytolog y TISSUE SPECIMEN FROM SKIN / Unknown 07/04/2021 07/05/2021 2:53 PM CDT Ghassan Morgan MD LAB - PATHOLOGY/CYTOLOGY ORD ERABLES Final Result DERMATOPATHOLOGY LABORATORY [facility] - Department of Dermatology [facility] Medicine [address] [place] [address], [address] [phone] documented in this encounter Visit Diagnoses Not on filedocumented in this encounter Care Teams Collator Hand Relationship Specialty Start Date End Date Aravind Morales MD [address] [place] [address] PCP - General 01/01/18 11/16/21 Deborah Llamas MD [address] [place] [address] PCP - General 11/17/21 documented as of this encounter
--- OUTSIDE RECORDS SUMMARY | 2025-01-13 19:14 | XMS_ITS | Encounter Summary ---
Author Organization [facility] Address [address] [place] [address] Care Team Providers Care Answering Service Agent Name Role Phone Aravind Morales MD Primary Care Provider [phone] Deborah Llamas MD Primary Care Provider + Encounter Details Date Type Department Care Team (Late st Contact Info) Description 05/03/2021 Lab Requisition [facility] DermPath Lab [address] [facility] [place] [id number] Ghassan Morgan MD [address] [place] [address] Social History Tobacco Use Types Packs/Day Years Used Date Smoking Tobacco: Never Assessed Comments Unknown Sex and Gender Information Value Date Recorded Sex Assigned at Not on file Legal Sex Female 7:46 PM SETTER UP Gender Identity Not on file Sexual Orientation Not on file documented as of this encounter Plan of Treatment Not on file documented as of this encounter Procedures Procedure Name Priority Date/Time Associated Diagnosis Comments DERMATOPATHOLOGY Routine 05/02/2021 12:0 0 AM SETTER UP documented in this encounter Results * DERMATOPATHOLOGY (05/02/2021 12:00 AM SETTER UP) Case Report Dermatopathology Report Case: [id number] Authorizing Provider: Ghassan Morgan MD Collected: 05/02/2021 12:00 AM Ordering Location: [facility] DermPath Lab Received: 05/03/2021 12:34 PM Pathologist: Alondra Nielsen MD Specimen: Skin, left superior deltoid 6:39 PM SETTER UP DERMATOPATHOLOGY LABORATORY Final Diagnosis Specimen A. SKIN, left superior deltoid: SQUAMOUS CELL CARCINOMA, WELL DIFFERENTIATED (C44.529) 2 6:39 PM [facility] DERMATOPATHOLOGY LABORATORY at [address] [facility] Clinical History R/O SCCA. 2 6:39 PM [facility] DERMATOPATHOLOGY LABORATORY Gross Description Specimen A: Received is one formalin filled container labeled with the patient's name and designated left superior deltoid. The specimen consists of a curettage and desiccation biopsy measuring [id number], trisected, & [id number]. Jar 0. 2 6:39 PM [facility] DERMATOPATHOLOGY LABORATORY Microscopic Description Specimen A. SKIN, left superior deltoid: Arising in the epidermis and extending into the dermis there are irregularly shaped aggregates of keratinocytes showing evidence of premature cornification. 2 6:39 PM [facility] DERMATOPATHOLOGY LABORATORY Disclaimer An external and internal positive and negative controls are appropriate for the histochemical, immunohistochemical and immunofluorescence stain(s) in this case (if any), except where stated explicitly. The performance characteristics of the stain(s) cited in this report were developed and its performance characteristic determined by the Dermatopathology Laboratory at [facility], directed by Dr. Tasha Nielsen. These tests need not be, and therefore are not, approved by the [place] Food and Drug Administration. The tests are used for clinical purposes. Billing Codes Specimen Charges Stain Charges 27180 1 2 6:39 PM [facility] DERMATOPATHOLOGY LABORATORY Embedded Images 2 6:39 PM [facility] DERMATOPATHOLOGY LABORATORY Pathology/Cytolog y TISSUE SPECIMEN FROM SKIN / Unknown 05/02/2021 05/03/2021 12:34 PM [facility] us Ghassan Morgan MD LAB - PATHOLOGY/CYTOLOGY ORD ERABLES Final Result DERMATOPATHOLOGY LABORATORY [facility] - Department of Dermatology [address] [place] [address], [facility] [phone] documented in this encounter Visit Diagnoses Not on filedocumented in this encounter Care Teams Answering Service Agent Relationship Specialty Start Date End Date Aravind Morales MD [address] [place] [address] PCP - General 01/01/18 11/16/21 Deborah Llamas MD [address] [place] [address] PCP - General 11/17/21 documented as of this encounter
--- OUTSIDE RECORDS SUMMARY | 2025-01-13 19:15 | XMS_ITS | Encounter Summary ---
Author Organization [facility] Address [address] [place] [address] Care Team Providers Care Satellite Tv Technician Installer Name Role Phone Aravind Morales MD Primary Care Provider [phone] Deborah Llamas MD Primary Care Provider + Encounter Details Date Type Department Care Team (Late st Contact Info) Description 04/10/2018 Lab Requisition [facility] Care DermPath Lab [address] [facility] [place] [address] Ghassan Morgan MD [address] [place] [address] Social History Tobacco Use Types Packs/Day Years Used Date Smoking Tobacco: Never Assessed Comments Unknown Sex and Gender Information Value Date Recorded Sex Assigned at Not on file Legal Sex Female 7:46 PM DOG GROOMER Gender Identity Not on file Sexual Orientation Not on file documented as of this encounter Plan of Treatment Not on file documented as of this encounter Procedures Procedure Name Priority Date/Time Associated Diagnosis Comments DERMATOPATHOLOGY Routine 04/09/2018 12:0 0 AM DOG GROOMER documented in this encounter Results * DERMATOPATHOLOGY (04/09/2018 12:00 AM DOG GROOMER) Case Report Dermatopathology Report Case: [id number] Authorizing Provider: Ghassan Morgan MD Collected: 04/09/2018 12:00 AM Pathologist: Thania Shepherd MD Received: 04/10/2018 12:20 PM Specimens: A) - Skin, left med calf B) - Skin, left ditsal med calf 9 1:19 PM DOG GROOMER DERMATOPATHOLOGY LABORATORY Final Diagnosis Specimen A. 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 SKIN, left ditsal med calf: SQUAMOUS CELL CARCINOMA, WELL DIFFERENTIATED (C44.729) 1:19 PM [facility] DERMATOPATHOLOGY LABORATORY at [address] DOG GROOMER Clinical History A-B: R/O KA. 1:19 PM [facility] DERMATOPATHOLOGY LABORATORY Gross Description Specimen A: Received is one formalin filled container labeled with the patient's name and designated left med calf. The specimen consists of a curettage and desiccation biopsy measuring [id number], bisected. Jar 0+. Specimen B: Received is one formalin filled container labeled with the patient's name and designated left ditsal med calf. The specimen consists of a curettage and desiccation biopsy measuring [id number], bisected. Jar 0. 1:19 PM [facility] DERMATOPATHOLOGY LABORATORY Microscopic Description Specimen [...] showing evidence of premature cornification. 1:19 PM [facility] DERMATOPATHOLOGY LABORATORY Disclaimer An external [...] purposes. Billing Codes Specimen Charges Stain Charges 68188 52876 1 1 1:19 PM [facility] DERMATOPATHOLOGY LABORATORY Embedded Images 1:19 PM [facility] DERMATOPATHOLOGY LABORATORY Pathology/Cytology TISSUE SPECIMEN FROM SKIN / Unknown 04/09/2018 04/10/2018 12:20 PM DOG GROOMER Miscellaneous samples (specimen) TISSUE SPECIMEN FROM SKIN / Unknown 04/09/2018 04/10/2018 12:20 PM DOG GROOMER Ghassan Morgan MD LAB - PATHOLOGY/CYTOLOGY ORD ERABLES Final Result DERMATOPATHOLOGY LABORATORY [facility] - Department of Dermatology [address] [place] [address] 5th Floor Lab [address] [phone] documented in this encounter Visit Diagnoses Not on filedocumented in this encounter Care Teams Satellite Tv Technician Installer Relationship Specialty Start Date End Date Aravind Morales MD [address] [facility] [address] [place] [address] PCP - General 01/01/18 11/16/21 Deborah Llamas MD [address] [facility] [address] [place] [address] PCP - General 11/17/21 documented as of this encounter
--- OUTSIDE RECORDS SUMMARY | 2025-01-13 19:15 | XMS_ITS | Clinical Summary ---
Author Organization [facility] Address [address] [place] [address] Care Team Providers Care Senior Electrical Project Manager Name Role Phone Deborah Llamas MD Primary Care Provider + Source Comments [facility],non-owned Affiliates and Associated Physician Practices is amultiple site organization consisting of ambulatory clinics and hospital sitesin [place], [place], [place] and [place]. This disclosure is being madepursuant to the Care Everywhere program and may not contain all information available regarding this patient. Last updated 17.[facility] Social History Tobacco Use Types Packs/Day Years Used Date Smoking Tobacco: Never Assessed Comments Unknown Sex and Gender Information Value Date Recorded Sex Assigned at Not on file Legal Sex Female 7:46 PM BRIDAL SALES CONSULTANT Gender Identity Not on file Sexual Orientation Not on file Plan of Treatment Health Maintenance Due Date Last Done Comments BONE DENSITY TESTING 1936 DTAP/TDAP/TD VACCINES (1 - Tdap) 1955 PNEUMOCOCCAL VACCINE 50+ (1 of 1 - PCV) 1986 ZOSTER VACCINE (1 of 2) 1986 Respiratory Syncytial Virus (RSV) Vaccine Pt: or over 60 yrs (1 - 1-dose 75+ series) 2011 DEPRESSION SCREENING 03/25/2024 COVID-19 VACCINE ( - 2023-2 5 season) 2024 INFLUENZA VACCINE (#1) 2024 HEPATITIS B VACCINE Aged Out No [...] patient's age to complete this topic [place] [address] SELF PAY NO INSURANCE Member Subscriber Plan / Payer (Ef fective for All Dates) Name:Jordana Manriquez Member ID:Not on file Relation to Subscriber:Not on file Name:JORDANA MANRIQUEZ Subscriber ID:Not on file (Home) Address: [address] [place] [address] [place] [address] Payer ID:Not on file Group ID:Not on file Type:Self Pay Address: [place], [place] [employer] [facility] Address: [facility] [address] [place] [address] Care Teams Senior Electrical Project Manager Relationship Specialty Start Date End Date Deborah Llamas MD [address] [place] [address] PCP - General 11/17/21
--- OUTSIDE RECORDS SUMMARY | 2025-01-13 19:15 | XMS_ITS | Encounter Summary ---
Author Organization [facility] Address [address] [place] [address] Care Team Providers Care Barmaid Name Role Phone Arvaind Morales MD Primary Care Provider [phone] Deborah Llamas MD Primary Care Provider + Encounter Details Date Type Department Care Team (Late st Contact Info) Description 07/24/2018 Lab Requisition [facility] Care DermPath Lab [address] [facility] [place] [address] Ghassan Morgan MD [address] [place] [address] Social History Tobacco Use Types Packs/Day Years Used Date Smoking Tobacco: Never Assessed Comments Unknown Sex and Gender Information Value Date Recorded Sex Assigned at Not on file Legal Sex Female 7:46 PM RADIO MECHANIC HELPER Gender Identity Not on file Sexual Orientation Not on file documented as of this encounter Plan of Treatment Not on file documented as of this encounter Procedures Procedure Name Priority Date/Time Associated Diagnosis Comments DERMATOPATHOLOGY Routine 07/23/2018 12:0 0 AM CDT documented in this encounter Results * DERMATOPATHOLOGY (07/23/2018 12:00 AM CDT) Case Report Dermatopathology Report Case: [id number] Authorizing Provider: Ghassan Morgan MD Collected: 07/23/2018 12:00 AM Pathologist: Thania Shepherd MD Received: 07/24/2018 02:04 PM Specimen: Skin, left lower medial calf 9 2:04 PM CDT DERMATOPATHOLOGY LABORATORY Final Diagnosis [...] of a curettage and desiccation biopsy measuring [id number]. Jar 0. 9 2:04 PM CDT DERMATOPATHOLOGY LABORATORY Microscopic Description Specimen A. SKIN, left lower medial calf: Arising in the epidermis and extending into the dermis there are irregularly shaped aggregates of keratinocytes showing evidence of premature cornification. 2:04 PM CDT DERMATOPATHOLOGY LABORATORY Disclaimer An external and internal positive and negative controls are appropriate for the histochemical, immunohistochemical and immunofluorescence stain(s) in this case (if any), except where stated explicitly. The performance characteristics of the stain(s) cited in this report were developed and its performance characteristic determined by the Dermatopathology Laboratory at [facility], directed by Dr. Tasha Nielsen. These tests need not be, and therefore are not, approved by the [place] Food and Drug Administration. The tests are used for clinical purposes. Billing Codes Specimen Charges Stain Charges 74228 1 9 2:04 PM CDT DERMATOPATHOLOGY LABORATORY Embedded Images 2:04 PM CDT DERMATOPATHOLOGY LABORATORY Pathology/Cytolog y TISSUE SPECIMEN FROM SKIN / Unknown 07/23/2018 07/24/2018 2:04 PM CDT us Ghassan Morgan MD LAB - PATHOLOGY/CYTOLOGY ORD ERABLES Final Result DERMATOPATHOLOGY LABORATORY [facility] - Department of Dermatology [address] [facility], 5th [place] [address], [facility] [phone] documented in this encounter Visit Diagnoses Not on filedocumented in this encounter Care Teams Barmaid Relationship Specialty Start Date End Date Aravind Morales MD [address] [place] [address] PCP - General 01/01/18 11/16/21 Deborah Llamas MD [address] [place] [address] PCP - General 11/17/21 documented as of this encounter
--- OUTSIDE RECORDS SUMMARY | 2025-01-13 19:15 | XMS_ITS | Encounter Summary ---
Author Organization [facility] Address [address] [facility] [place] [address] Care Team Providers Care Morals Squad Police Officer Name Role Phone Aravind Morales MD Primary Care Provider [phone] Deborah Llamas MD Primary Care Provider + Encounter Details Date Type Department Care Team (Late st Contact Info) Description 03/03/2021 Lab Requisition [facility] DermPath Lab [address] [facility] [place] [address] Ghassan Morgan MD [address] [place] [address] Social History Tobacco Use Types Packs/Day Years Used Date Smoking Tobacco: Never Assessed Comments Unknown Sex and Gender Information Value Date Recorded Sex Assigned at Not on file Legal Sex Female 7:46 PM FRACTIONATING STILL OPERATOR Gender Identity Not on file Sexual Orientation Not on file documented as of this encounter Plan of Treatment Not on file documented as of this encounter Procedures Procedure Name Priority Date/Time Associated Diagnosis Comments DERMATOPATHOLOGY Routine 03/01/2021 12:0 0 AM FRACTIONATING STILL OPERATOR documented in this encounter Results * DERMATOPATHOLOGY (03/01/2021 12:00 AM FRACTIONATING STILL OPERATOR) Case Report Dermatopathology Report Case: [id number] Authorizing Provider: Ghassan Morgan MD Collected: 03/01/2021 12:00 AM Ordering Location: [facility] DermPath Lab Received: 03/03/2021 12:35 PM Pathologist: Kierra Meadows MD Specimen: Skin, left medial calf 1:47 PM FRACTIONATING STILL OPERATOR DERMATOPATHOLOGY LABORATORY Final Diagnosis Specimen A. SKIN, left medial calf: SQUAMOUS CELL CARCINOMA, WELL DIFFERENTIATED (C44.729) NOT PRESENT AT SAMPLED MARGIN 1 1:47 PM [facility] DERMATOPATHOLOGY LABORATORY at [address] FRACTIONATING STILL OPERATOR Clinical History R/O KA. Check margins. 1 1:47 PM [facility] DERMATOPATHOLOGY LABORATORY Gross Description Specimen A: Received is one formalin filled container labeled with the patient's name and designated left medial calf. The specimen consists of a curettage and desiccation biopsy measuring [id number], serially sectioned and submitted in cassettes 1-2. The margin is inked green. Jar 0+. 1 1:47 PM [facility] DERMATOPATHOLOGY LABORATORY Microscopic Description Specimen A. SKIN, left medial calf: Arising in the epidermis and extending into the dermis there are irregularly shaped aggregates of keratinocytes showing evidence of premature cornification. This lesion is not present at the sampled margin of the specimen. 1 1:47 PM [facility] DERMATOPATHOLOGY LABORATORY Disclaimer An external and internal positive and negative controls are appropriate for the histochemical, immunohistochemical and immunofluorescence stain(s) in this case (if any), except where stated explicitly. The performance characteristics of the stain(s) cited in this report were developed and its performance characteristic determined by the Dermatopathology Laboratory at [facility], directed by Dr. Tasha Nielsen. These tests need not be, and therefore are not, approved by the [place] Food and Drug Administration. The tests are used for clinical purposes. Billing Codes Specimen Charges Stain Charges 33879 1 1 1:47 PM [facility] DERMATOPATHOLOGY LABORATORY Embedded Images 1 1:47 PM [facility] DERMATOPATHOLOGY LABORATORY Pathology/Cytolog y TISSUE SPECIMEN FROM SKIN / Unknown 03/01/2021 03/03/2021 12:35 PM [facility] Ghassan Morgan MD LAB - PATHOLOGY/CYTOLOGY ORD ERABLES Final Result DERMATOPATHOLOGY LABORATORY [facility] - Department of Dermatology [address], [address] [phone] documented in this encounter Visit Diagnoses Not on filedocumented in this encounter Care Teams Morals Squad Police Officer Relationship Specialty Start Date End Date Aravind Morales MD [address] [place] [address] PCP - General 01/01/18 11/16/21 Deborah Llamas MD [address] [place] [address] PCP - General 11/17/21 documented as of this encounter
--- OUTSIDE RECORDS SUMMARY | 2025-01-13 19:15 | XMS_ITS | Clinical Summary ---
Author Organization [facility] [address] Address [address] [place] [address] Care Team Providers Care Plant Guard Name Role Phone Tj Pino MD Primary [...] History Medical History Date Comments Covid A-fib ([facility]) Hypertension Diabetes mellitus Glaucoma Restless leg syndrome Edema COPD (chronic obstructive pulmonary disease) CHF (congestive heart failure) ([facility]) 05/10/2021 Tremor Family History Medical History Relation [...] on file Legal Sex Female 10:44 AM HI RANGER OPERATOR Gender Identity Not on file Sexual Orientation Not on file Obstetrics History Last Filed Vital Signs Vital Sign Reading Time Taken Comments Blood Pressure 132/60 05/12/2024 11:29 AM HI RANGER OPERATOR Pulse 65 05/12/2024 11:04 AM HI RANGER OPERATOR Temperature - - Respiratory Rate - - Oxygen Saturation 95% 05/12/2024 11:04 AM HI RANGER OPERATOR Inhaled Oxygen Concentration - - Weight 55.8 kg (123 lb) 05/12/2024 11:04 AM HI RANGER OPERATOR Height 167.6 cm (5' 6) 05/12/2024 11:04 AM HI RANGER OPERATOR Body Mass Index 19.85 05/12/2024 11:04 AM HI RANGER OPERATOR Plan of Treatment Health Maintenance Due Date Last Done Comments Albumin Creatinine Ratio, Urine 1936 Depression Screening 1936 Fall Risk Assessment 1936 Hemoglobin A1C 1936 Osteoporosis Screening-Bone Density Scan 1936 Dilated Eye Exam 1936 Foot Exam 1936 Hepatitis B Screening 1954 Zoster Vaccine (1 of 2) 1986 Well Visit 65+ 2001 Lipid Panel 02/22/2023 02/22/2022 DTaP/Tdap/Td Vaccine (2 - Td or Tdap) 07/15/2024 07/15/2014, 01/18/2004 Covid-19 Vaccine (4 - 2024-2 6 season) 2024 02/25/2021, 07/30/2020, 07/04/2020 Influenza Vaccine (#1) 2024 , 12/24/2019, 01/24/2019, Additional history exists eGFR 06/08/2025 06/08/2024 Pneumococcal vaccine 65+ Completed 01/07/2016, 12/25 Procedures Procedure Name Priority Date/Time Associated Diagnosis Comments BASIC METABOLIC PANEL Routine 06/08/2024 9:15 AM CDT Chronic HFrEF (heart failure with reduced ejection fraction) (HCC) POCT LIPID PANEL Routine 02/22/2022 12:2 0 PM HI RANGER OPERATOR Mixed diabetic hyperlipidemia associated with type 2 diabetes mellitus (HCC) from Last 3 Months or Most Recently Relevant to Health Maintenance Results * (ABNORMAL) Basic metabolic panel (06/08/2024 9:15 [...] 9:15 AM CDT 06/08/2024 9:16 AM CDT Beatrice Stiles NP LAB BLOOD ORDERABLES Beatriz l Result [facility] [address] [place] [address] * POCT lipid panel (02/22/2022 12:20 PM HI RANGER OPERATOR) Cholesterol, POC 109 mg/dL Comment:GLU = 150 HDL, POC 50 mg/dL Triglycerides, POC 150 mg/dL LDL Cholesterol POC 29 mg/dL Chol/HDL Ratio, POC 0.6 Non-HDL Cholesterol, POC 59 mg/dL Cholesterol Total, POC 109 mg/dL Capillary blood 02/22/2022 1 2:20 PM HI RANGER OPERATOR Mario Bustamante MD POINT OF CARE TEST ORDER GAGE Final Result from Last 3 Months or Most Recently Relevant to Health [place] [address] MEDICARE [facility] MEDICARE [facility] Care Teams Plant Guard Relationship Specialty Start Date End Date Tj Pino MD [address] [facility] [address] [place] [address] PCP - General Family Medicine 05/12/24
--- OUTSIDE RECORDS SUMMARY | 2025-01-13 19:15 | XMS_ITS | Encounter Summary ---
Author Organization [facility] Address [address] [place] [address] Care Team Providers Care Addiction Specialist Name Role Phone Aravind Morales MD Primary Care Provider [phone] Deborah Llamas MD Primary Care Provider + Encounter Details Date Type Department Care Team (Late st Contact Info) Description 11/26/2018 Lab Requisition [facility] [address] [place] [address] Ghassan Morgan MD [address] [place] [address] Social History Tobacco Use Types Packs/Day Years Used Date Smoking Tobacco: Never Assessed Comments Unknown Sex and Gender Information Value Date Recorded Sex Assigned at Not on file Legal Sex Female 7:46 PM DATA MODELING SPECIALIST Gender Identity Not on file Sexual Orientation Not on file documented as of this encounter Plan of Treatment Not on file documented as of this encounter Procedures Procedure Name Priority Date/Time Associated Diagnosis Comments DERMATOPATHOLOGY Routine 11/25/2018 12:0 0 AM CDT documented in this encounter Results * DERMATOPATHOLOGY (11/25/2018 12:00 AM CDT) Case Report Dermatopathology Report Case: [id number] Authorizing Provider: Ghassan Morgan MD Collected: 11/25/2018 12:00 AM Ordering Location: [facility] Received: 11/26/2018 11:47 AM Pathologist: Alondra Nielsen MD Specimens: A) - Skin, left lower midline pretibia B) - Skin, left lower anteromedial leg C) - Skin, left lower triceps 2:20 PM T DERMATOPATHOLOGY LABORATORY Final Diagnosis Specimen A. 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 SKIN, left lower anteromedial leg: HYPERPLASTIC (HYPERTROPHIC) ACTINIC KERATOSIS (L57.0) Specimen C. SKIN, left lower triceps: SQUAMOUS CELL CARCINOMA, KERATOACANTHOMA TYPE (C44.629) 2:20 PM CDT DERMATOPATHOLOGY LABORATORY at 1420 T Clinical History A-C: R/O SCC. 2:20 PM T DERMATOPATHOLOGY LABORATORY Gross Description Specimen A: Received is one formalin filled container labeled with the patient's name and designated left lower midline pretibia. The specimen consists of a curettage and desiccation biopsy measuring [id number]. Jar 0. Specimen B: Received is one formalin filled container labeled with the patient's name and designated left lower anteromedial leg. The specimen consists of a curettage and desiccation biopsy measuring [id number]. Jar 0. Specimen C: Received is one formalin filled container labeled with the patient's name and designated left lower triceps. The specimen consists of a curettage and desiccation biopsy measuring [id number]. Jar 0. 2:20 PM CDT DERMATOPATHOLOGY LABORATORY [...] characteristic determined by the Dermatopathology Laboratory at [facility], directed by Dr. Tasha Nielsen. These tests need not be, and therefore are not, approved by the [place] Food and Drug Administration. The tests are used for clinical purposes. Billing Codes Specimen Charges Stain Charges 49215 11208 09230 1 1 1 9 2:20 PM CDT [...] PATHOLOGY/CYTOLOGY ORD ERABLES Final Result DERMATOPATHOLOGY LABORATORY [facility] - Department of Dermatology [address] [place] [address], 5th Floor Lab [address] [phone] documented in this encounter Visit Diagnoses Not on filedocumented in this encounter Care Teams Addiction Specialist Relationship Specialty Start Date End Date Aravind Morlaes MD [address] [place] [address] PCP - General 01/01/18 11/16/21 Deborah Llamas MD [address] [place] [address] PCP - General 11/17/21 documented as of this encounter
--- OUTSIDE RECORDS SUMMARY | 2025-01-13 19:15 | XMS_ITS | Encounter Summary ---
Author Organization [facility] Address [address] [place] [address] Care Team Providers Care Forest And Conservation Worker Name Role Phone Aravind Morales MD Primary Care Provider [phone] Deborah Llamas MD Primary Care Provider + Encounter Details Date Type Department Care Team (Late st Contact Info) Description 02/10/2020 Lab Requisition [facility] Lab [address] [facility] [place] [address] Ghassan Morgan MD [address] [place] [address] Social History Tobacco Use Types Packs/Day Years Used Date Smoking Tobacco: Never Assessed Comments Unknown Sex and Gender Information Value Date Recorded Sex Assigned at Not on file Legal Sex Female 7:46 PM MOLYBDENUM STEAMER OPERATOR Gender Identity Not on file Sexual Orientation Not on file documented as of this encounter Plan of Treatment Not on file documented as of this encounter Procedures Procedure Name Priority Date/Time Associated Diagnosis Comments DERMATOPATHOLOGY Routine 02/09/2020 12:0 0 AM MOLYBDENUM STEAMER OPERATOR documented in this encounter Results * DERMATOPATHOLOGY (02/09/2020 12:00 AM MOLYBDENUM STEAMER OPERATOR) Case Report Dermatopathology Report [id number]: [id number] Authorizing Provider: Ghassan Morgan MD Collected: 02/09/2020 12:00 AM Ordering Location: [facility] Lab Received: 02/10/2020 12:55 PM Pathologist: Pam Orourke MD Specimen: Skin, left distal lateral lower leg 0 4:20 PM MOLYBDENUM STEAMER OPERATOR DERMATOPATHOLOGY LABORATORY Final Diagnosis Specimen A. SKIN, left distal lateral lower leg: SQUAMOUS PROLIFERATION (D48.5) (see microscopic description and comment) 0 4:20 PM [facility] DERMATOPATHOLOGY LABORATORY at [address] [facility] Clinical History R/O KA. 0 4:20 PM [facility] DERMATOPATHOLOGY LABORATORY Gross Description Specimen A: Received is one formalin filled container labeled with the patient's name and designated left distal lateral lower leg. The specimen consists of a curettage and desiccation biopsy measuring [id number], bisected. Jar 0. 0 4:20 PM [facility] DERMATOPATHOLOGY LABORATORY Microscopic Description Specimen A. SKIN, left distal lateral lower leg: Sections show an endophytic squamous proliferation with maturational disarray and nuclear pleomorphism of keratinocytes predominantly within the lower portion of the epidermis. There is focal parakeratosis. COMMENT: The differential diagnosis includes a hypertrophic actinic keratosis with endophytic features, and a keratoacanthoma with features of regression. 0 4:20 PM [facility] DERMATOPATHOLOGY LABORATORY Disclaimer An external and internal positive and negative controls are appropriate for the histochemical, immunohistochemical and immunofluorescence stain(s) in this case (if any), except where stated explicitly. The performance characteristics of the stain(s) cited in this report were developed and its performance characteristic determined by the Dermatopathology Laboratory at [facility], directed by Dr. Tasha Nielsen. These tests need not be, and therefore are not, approved by the [place] Food and Drug Administration. The tests are used for clinical purposes. Billing Codes Specimen Charges Stain Charges 00956 1 0 4:20 PM [facility] DERMATOPATHOLOGY LABORATORY Embedded Images 0 4:20 PM [facility] DERMATOPATHOLOGY LABORATORY Pathology/Cytolog y TISSUE SPECIMEN FROM SKIN / Unknown 02/09/2020 02/10/2020 12:55 PM [facility] Ghassan Morgan MD LAB - PATHOLOGY/CYTOLOGY ORD ERABLES Final Result DERMATOPATHOLOGY LABORATORY [facility] - Department of Dermatology [address], [address] [phone] documented in this encounter Visit Diagnoses Not on filedocumented in this encounter Care Teams Forest And Conservation Worker Relationship Specialty Start Date End Date Aravind Morales MD [address] [place] [address] PCP - General 01/01/18 11/16/21 Deborah Llamas MD [address] [place] [address] PCP - General 11/17/21 documented as of this encounter
--- OUTSIDE RECORDS SUMMARY | 2025-01-13 19:15 | XMS_ITS | Encounter Summary ---
Author Organization [facility] Address [address] [facility] [place] [address] Care Team Providers Care Big Data Developer Name Role Phone Deborah Llamas MD Primary Care Provider + Encounter Details Date Type Department Care Team (Late st Contact Info) Description 04/11/2022 Lab Requisition [facility] [address] [facility] [place] [address] Ghassan Morgan MD [address] [place] [address] Social History Tobacco Use Types Packs/Day Years Used Date Smoking Tobacco: Never Assessed Comments Unknown Sex and Gender Information Value Date Recorded Sex Assigned at Not on file Legal Sex Female 7:46 PM CARTON FORMING MACHINE TENDER Gender Identity Not on file Sexual Orientation Not on file documented as of this encounter Plan of Treatment Not on file documented as of this encounter Procedures Procedure Name Priority Date/Time Associated Diagnosis Comments DERMATOPATHOLOGY Routine 04/10/2022 12:0 0 AM CARTON FORMING MACHINE TENDER documented in this encounter Results * DERMATOPATHOLOGY (04/10/2022 12:00 AM CARTON FORMING MACHINE TENDER) Case Report Dermatopathology Report Case: [id number] Authorizing Provider: Ghassan Morgan MD Collected: 04/10/2022 12:00 AM Ordering Location: [facility] Received: 04/11/2022 02:15 PM Pathologist: Pam Orourke MD Specimen: Skin, left distal medial leg 1:57 PM CARTON FORMING MACHINE TENDER DERMATOPATHOLOGY LABORATORY Final Diagnosis Specimen A. 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 The specimen consists of a shave biopsy measuring 49u38l3 mm. Jar 0. 3 1:57 PM [facility] DERMATOPATHOLOGY LABORATORY Microscopic Description Specimen A. SKIN, left distal medial leg: The epidermis shows parakeratosis, full thickness disorderly maturation of keratinocytes, mitoses at different levels, and dyskeratotic cells. 3 1:57 PM [facility] DERMATOPATHOLOGY LABORATORY Disclaimer An external and internal positive and negative controls are appropriate for the histochemical, immunohistochemical and immunofluorescence stain(s) in this case (if any), except where stated explicitly. The performance characteristics of the stain(s) cited in this report were developed and its performance characteristic determined by the Dermatopathology Laboratory at [facility], directed by Dr. Tasha Nielsen. These tests need not be, and therefore are not, approved by the [place] Food and Drug Administration. The tests are used for clinical purposes. Billing Codes Specimen Charges Stain Charges 31524 1 3 1:57 PM [facility] DERMATOPATHOLOGY LABORATORY Embedded Images 3 1:57 PM [facility] DERMATOPATHOLOGY LABORATORY Pathology/Cytolog y TISSUE SPECIMEN FROM SKIN / Unknown 04/10/2022 04/11/2022 2:15 PM [facility] us Ghassan Morgan MD LAB - PATHOLOGY/CYTOLOGY ORD ERABLES Final Result DERMATOPATHOLOGY LABORATORY [facility] - Department of Dermatology [facility] [address] [place] [address], [address] [phone] documented in this encounter Visit Diagnoses Not on filedocumented in this encounter Care Teams Big Data Developer Relationship Specialty Start Date End Date Deborah Llamas MD [address] [facility] [address] [place] [address] PCP - General 11/17/21 documented as of this encounter
--- OUTSIDE RECORDS SUMMARY | 2025-01-13 19:15 | XMS_ITS | Data Portability ---
Author Organization [facility] [employer], Main Office Address [address] [place] [address] Care Team Providers Care Audio Visual Facilities Engineer Name Role Phone ALINA HERNANDEZ Primary Care [...] DO Not Attach Compendium, Do Not Delete/merge, [id number] 15:04:53 Surgeries None recorded. Imaging XR, knee 2022 023 [email or web address], [address], [place], [address], 3 09:26:11 Medication Orders Kenalog 10 mg/mL suspension for injection 2022 023 [facility] [address] [facility], [address] [place], [address], 3 15:05:11 ropivacaine (PF) 5 mg/mL (0.5 %) injection solution 2022 023 [facility] [address] [facility]Pharm[facility]2510, [address] [place], [address], 3 15:05:11 celecoxib 200 mg capsule 2022 023 [facility] [address] [facility]arm[facility]2510, [address] [place], [address], 3 15:06:11 Patient TargetsNo targets recorded. Patient InstructionsNo instructions recorded. Reason for Referral None Reported. Results Created Date Observation Date Name Description Value Unit Range Abnormal Flag Note LastModifiedBy Organization Detail LastModifiedTime 07/27/19 21 XR, hand No observ ation record ed. [id number] [facility] [address], [place], [address], 05/23/2022 03:00:57 05/30/19 23 XR, knee No observ ation record ed. [email or web address] [facility] [place] [address], [address], 05/29/2022 15:08:36 Result Notes None recorded. Problems Name Problem SNOMED Code Status Onset Date Resolution Date Notes Provider Name and Address Organization Details Recorded Time Lumbar spondylosi s 996975763 Active Not Available [facility] 3 02:50:36 Low back pain 756309637 Active Not Available [facility] 3 02:50:36 Closed fracture of neck of femur 773632229 Active Not Available [employer] 3 02:50:36 Pain of right knee joint 4663606579298 00 Active 2022 NII Padron [facility], [employer] [facility] [employer] [facility] 3 14:42:11 Problem Notes None recorded. Procedures Surgical History Date Name Laterality Status Provider Name and Address Organization Details Recorded Time 3 Ortho - Cortisone Injection completed Neal Jurado MD [address] [place] [address], [facility] [address], [place], [address], [employer] [facility] 05/29/2022 15:07:11 8 procedure on lower leg completed NII Padron [employer] [facility] [employer] [facility] 05/29/2022 14:48:50 Imaging Results None recorded. Procedure Notes None recorded. Medical Equipment None [...] 20 mg by injection route. [address] [facility]: 0003- 0494- 20 Not Available Not Available [...] injection administe red by the provider active [facility]: 0409- 4276- 17 Not Available Not Available [...] 20 mg by injection route. [address] [facility] [address] -064- 01 Not Available Not Available Not [...] Not Available No t Available Fluzone High-Dose 9743-4020 (PF) 180 mcg/0.5 mL intramuscul ar syringe [...] Updated DateTime 05/29/2022 170.18 cm 21.5 kg/m2 30973.15 g NII Padron [facility] 05/29/2022 14:41:28 Date Recorded Body mass index (BMI) Body height Pain severity - 0-10 verbal numeric rating [Score] - Reported Body weight Provider Name and Address Organization Details Last Updated DateTime 07/26/2020 22.6 kg/m2 167.64 cm 7 88050.93 g Not Available [employer] 05/23/2022 02:46:43 Social History Question Answer Notes LastModified by Organizat ion Details LastModified Time Tobacco Smoking Status Current Every Day Smoker NII Padron [facility] [employer] 05/29/2022 14:48:19 What Was The Date Of Your Most Recent Tobacco Screening? 07/26/2020 [id number] Information not available 05/23/2022 How Much Tobacco Do You Smoke? 0.5 PPD Information not available 05/29/2022 Sex: Unknown Functional Status Question Answer Note LastModified by Organizat ion Details LastModified Time What is your level of alcohol consumption? None [id number] Information not available 05/23/2022 Mental Status None recorded. Family History Relationship [...] Diagnosis SNOMED-CT Code Diagnosis ICD10 Code Diagnosis IMO Codes Diagnosis Note [id number] Avni Rebolledo MD [facility] [address] [place] [address] 07/26/2020 00:00:00 07/26/2020 10:51:43 [id number] Neal Jurado MD [facility] [address] [place] [address] 05/29/2022 14:23:56 05/29/2022 15:41:49 Pain of right knee joint 2477081763 11714 M25.561 Health Concerns Section Related Observation LastModified by Organization Detai ls LastModified Time None Recorded Concern Status LastModified by Organization Details LastModified Time None Recorded Advance Directives Directive None Recorded Payers Insurance Date Sequence Insurance Name Policy Number Policy [place] Covered Member ID Washburn Member ID Guarantor Name 09/11/2022 1 [facility] [employer] BENEFIT PLAN (PPO) 32 Abran Manriquez [id number] Lyndsay Manriquez Notes Date Note Type Note Provider Name and Address Organization Details Recorded Time 05/29/2022 text/html KneeReported by PatientHPIFor associated symptoms, patient reportsswelling,warmth , andgrindingbut reportsno weakness,no numbness,no tingling,no redness,no ecchymosis,no catching/locking,no popping/clicking,no buckling,no instability,no radiation down leg,no drainage,no fever,no chills,no weight loss, andno change in bowel/bladder habits. For location, patient reportsbilateral. For quality, patient reportsaching,throbbin g, anddull. For severity, patient reportsmoderate. For duration, patient reportscontinuous since onset. For timing, patient reportschronic. For alleviating factors, patient reportssitting,lying down,rest, andelevation. For aggravating factors, patient reportsbending/squatti ngandweightbearing. Neal Jurado MD [address] [address], [place], [address], [facility] [employer] 05/29/2022 15:10:03 OBGyn Episode No OBEpisode recorded.
--- OUTSIDE RECORDS SUMMARY | 2025-01-13 19:15 | XMS_ITS | Encounter Summary ---
Author Organization [facility] Address [address] [facility] [place] [address] Care Team Providers Care Aircraft Structural Repair Mechanic Name Role Phone Aravind Morales MD Primary Care Provider [phone] [phone] Deborah Llamas MD Primary Care Provider + Encounter Details Date Type Department Care Team (Late st Contact Info) Description 02/17/2020 Lab Requisition [facility] DermPath Lab [address] [place] [address] Ghassan Morgan MD [address] [place] [address] Social History Tobacco Use Types Packs/Day Years Used Date Smoking Tobacco: Never Assessed Comments Unknown Sex and Gender Information Value Date Recorded Sex Assigned at Not on file Legal Sex Female 7:46 PM ACCOUNTANT CLERK Gender Identity Not on file Sexual Orientation Not on file documented as of this encounter Plan of Treatment Not on file documented as of this encounter Procedures Procedure Name Priority Date/Time Associated Diagnosis Comments DERMATOPATHOLOGY Routine 02/16/2020 12:0 0 AM ACCOUNTANT CLERK documented in this encounter Results * DERMATOPATHOLOGY (02/16/2020 12:00 AM ACCOUNTANT CLERK) Case Report Dermatopathology Report Case: [id number] Authorizing Provider: Ghassan Morgan MD Collected: 02/16/2020 12:00 AM Ordering Location: [facility] Received: 02/17/2020 11:22 AM Pathologist: Daphne Reddy MD Specimen: Skin, left mid anterior medial pretibia 0 1:42 PM ACCOUNTANT CLERK DERMATOPATHOLOGY LABORATORY Final Diagnosis Specimen A. SKIN, left mid anterior medial pretibia: SQUAMOUS CELL CARCINOMA, WELL DIFFERENTIATED (C44.729) 0 1:42 PM ACCOUNTANT CLERK DERMATOPATHOLOGY LABORATORY at 1342 ACCOUNTANT CLERK Clinical History R/O SCC,HAK 0 1:42 PM ACCOUNTANT CLERK DERMATOPATHOLOGY LABORATORY Gross Description Specimen A: Received is one formalin filled container labeled with the patient's name and designated left mid anterior medial pretibia. The specimen consists of a curettage and desiccation biopsy measuring 92n86i1 mm. Jar 0. 0 1:42 PM ACCOUNTANT CLERK DERMATOPATHOLOGY LABORATORY Microscopic Description Specimen A. SKIN, left mid anterior medial pretibia: Arising in the epidermis and extending into the dermis there are irregularly shaped aggregates of keratinocytes showing evidence of premature cornification. 0 1:42 PM ACCOUNTANT CLERK DERMATOPATHOLOGY LABORATORY Disclaimer An external and internal [...] purposes. Billing Codes Specimen Charges Stain Charges 83730 1 0 1:42 PM ACCOUNTANT CLERK DERMATOPATHOLOGY LABORATORY Embedded Images 0 1:42 PM ACCOUNTANT CLERK DERMATOPATHOLOGY LABORATORY Pathology/Cytolog y TISSUE SPECIMEN FROM SKIN / Unknown 02/16/2020 02/17/2020 11:22 AM ACCOUNTANT CLERK us Ghassan Morgan MD LAB - PATHOLOGY/CYTOLOGY ORD ERABLES Final Result DERMATOPATHOLOGY LABORATORY [facility] - Department of Dermatology [facility] Medicine [address] [place] [address], [address] [place] [address], [facility] [phone] documented in this encounter Visit Diagnoses Not on filedocumented in this encounter Care Teams Aircraft Structural Repair Mechanic Relationship Specialty Start Date End Date Aravind Morales MD [address] [place] [address] PCP - General 01/01/18 11/16/21 Deborah Llamas MD [address] [place] [address] PCP - General 11/17/21 documented as of this encounter
--- OUTSIDE RECORDS SUMMARY | 2025-01-13 19:15 | XMS_ITS | Encounter Summary ---
Author Organization [facility] Address [address] [place] [address] Care Team Providers Care Minister Assistant Name Role Phone Aravind Morales MD Primary Care Provider [phone] Deborah Llamas MD Primary Care Provider + Encounter Details Date Type Department Care Team (Late st Contact Info) Description 10/12/2020 Lab Requisition [facility] DermPath Lab [address] 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 Gender Identity Not on file Sexual Orientation Not on file documented as of this encounter Plan of Treatment Not on file documented as of this encounter Procedures Procedure Name Priority Date/Time Associated Diagnosis Comments DERMATOPATHOLOGY Routine 10/11/2020 12:0 0 AM CDT documented in this encounter Results * DERMATOPATHOLOGY (10/11/2020 12:00 AM CDT) Case Report Dermatopathology Report Case: [id number] Authorizing Provider: Ghassan Morgan MD Collected: 10/11/2020 12:00 AM Ordering Location: [facility] Derm[facility] Lab Received: 10/12/2020 02:29 PM Pathologist: Pam Orourke MD Specimens: A) - Skin, right medial lower calf superior B) - Skin, right medial lower calf inferior 4:07 PM T DERMATOPATHOLOGY LABORATORY Final Diagnosis Specimen A. SKIN, right medial lower calf superior: SQUAMOUS CELL CARCINOMA, WELL DIFFERENTIATED (C44.722) Specimen B. SKIN, right medial lower calf inferior: SQUAMOUS CELL CARCINOMA, WELL DIFFERENTIATED (C44.722) 1 4:07 PM T DERMATOPATHOLOGY LABORATORY at 1607 CDT Clinical History A-B: R/O SCC. 1 4:07 PM T DERMATOPATHOLOGY LABORATORY Gross Description Specimen A: Received is one formalin filled container labeled with the patient's name and designated right medial lower calf superior. The specimen consists of a curettage and desiccation biopsy measuring [id number], bisected. Jar 0. Specimen B: Received is one formalin filled container labeled with the patient's name and designated right medial lower calf inferior. The specimen consists of a curettage and desiccation biopsy measuring [id number]. Jar 0. 1 4:07 PM T DERMATOPATHOLOGY LABORATORY Microscopic Description Specimen [...] purposes. Billing Codes Specimen Charges Stain Charges [id number] 1 1 1 4:07 PM CDT DERMATOPATHOLOGY LABORATORY Embedded Images 4:07 PM T DERMATOPATHOLOGY LABORATORY Pathology/Cytology TISSUE SPECIMEN FROM SKIN / Unknown 10/11/2020 10/12/2020 2:29 PM CDT Miscellaneous samples (specimen) TISSUE SPECIMEN FROM SKIN / Unknown 10/11/2020 10/12/2020 2:29 PM CDT Ghassan Morgan MD LAB - PATHOLOGY/CYTOLOGY ORD ERABLES Final Result DERMATOPATHOLOGY LABORATORY [facility] - Department of Dermatology [facility] Specialized Medicine [address] [place] [address], [address]rd [address] [phone] documented in this encounter Visit Diagnoses Not on filedocumented in this encounter Care Teams Minister Assistant Relationship Specialty Start Date End Date Aravind Morales MD [address] [place] [address] PCP - General 01/01/18 11/16/21 Deborah Llamas MD [address] [place] [address] PCP - General 11/17/21 documented as of this encounter
--- OUTSIDE RECORDS SUMMARY | 2025-01-13 19:15 | XMS_ITS | Encounter Summary ---
Author Organization [facility] Address [address] [place] [address] Care Team Providers Care Bullard Operator Name Role Phone Aravind Morales MD Primary Care Provider [phone] [phone] Deborah Llamas MD Primary Care Provider + Encounter Details Date Type Department Care Team (Late st Contact Info) Description 01/01/2018 Lab Requisition [facility] Care DermPath Lab [address] [facility] [place] [address] Ghassan Morgan MD [address] [place] [address] Social History Tobacco Use Types Packs/Day Years Used Date Smoking Tobacco: Never Assessed Comments Unknown Sex and Gender Information Value Date Recorded Sex Assigned at Not on file Legal Sex Female 7:46 PM ADVERTISING CLERK Gender Identity Not on file Sexual Orientation Not on file documented as of this encounter Plan of Treatment Not on file documented as of this encounter Procedures Procedure Name Priority Date/Time Associated Diagnosis Comments DERMATOPATHOLOGY Routine 12/31/2017 12:0 0 AM CDT documented in this encounter Results * DERMATOPATHOLOGY (12/31/2017 12:00 AM CDT) Case Report Dermatopathology Report Case: [id number] Authorizing Provider: Ghassan Morgan MD Collected: 12/31/2017 [...] specimen consists of a shave biopsy measuring [id number]. Jar 0+. Specimen B: Received is one formalin filled container labeled with the patient's name and designated dorsal left hand. The specimen consists of a shave biopsy measuring [id number]. Jar 0+. 5:03 PM T DERMATOPATHOLOGY LABORATORY [...] by the Dermatopathology Laboratory at [facility]. These tests need not be, and therefore are not, approved by the [place] Food and Drug Administration. The tests are used for clinical purposes. Billing Codes Specimen Charges Stain Charges [id number] 1 1 5:03 PM CDT DERMATOPATHOLOGY LABORATORY Embedded Images 10/11/201 8 5:03 PM CDT DERMATOPATHOLOGY LABORATORY Pathology/Cytology TISSUE SPECIMEN FROM SKIN / Unknown 12/31/2017 01/01/2018 12:22 PM CDT Miscellaneous samples (specimen) TISSUE SPECIMEN FROM SKIN / Unknown 12/31/2017 01/01/2018 12:22 PM CDT Ghassan Morgan MD LAB - PATHOLOGY/CYTOLOGY ORD ERABLES Final Result DERMATOPATHOLOGY LABORATORY [facility] - Department of Dermatology [address] [facility], 5th Floor Lab [address] [phone] documented in this encounter Visit Diagnoses Not on filedocumented in this encounter Care Teams Bullard Operator Relationship Specialty Start Date End Date Aravind Morales MD [address] [facility] [address] [place] [address] PCP - General 01/01/18 11/16/21 Deborah Llamas MD [address] [place] [address] PCP - General 11/17/21 documented as of this encounter
--- NOTE | 2025-01-13 19:21 | PCRCNOTE ---
Patient refused ABG during day shift. Dr. Ramos was notified.
--- NOTE | 2025-01-13 19:23 | PC.NURSE ---
Pt. soiled depend. Stool sample collected adn walked down to lab. Jackie care performed with soap and water. Clean depend applied.
--- NOTE | 2025-01-13 19:33 | PC.NURSE ---
Hospitalist paged to notify of pt. hypotension. Pt. remains alert to verbal. A&Ox1. Pt. has difficult time hearing and is struggling to understand my orientation questions.
--- NOTE | 2025-01-13 19:52 | PC.NURSE ---
Received page back from hospitalist. Cb notified of pt. hypotension. No additional interventions at this time.
[2025-01-13 20:19] LABS: Toxigenic C. Diff NEGATIVE (NEGATIVE)
--- NOTE | 2025-01-13 22:23 | P.HP_ITS ---
H&P: HPI History of Present Illness Date/Time: 01/13/25 22:23 Chief Complaint: Ground level fall Narrative: 89-year-old female past medical history insulin-dependent diabetes mellitus, CKD, hard of hearing, hypertension, hypercholesterolemia, glaucoma/macular degeneration, CHF with reduced ejection fraction, presumed CAD with abnormal stress test, history of PACs/atrial tachycardia. Last known well time was on 01/12/2025. Patient lives at home alone, has a daughter nearby. She was found on the floor on the day of admission 01/13/2025. She lives alone, uses a walker to ambulate. Reports she fell in brace herself, falling on her back. No loss of consciousness, no syncope, no seizure, no head injury. ER workup reveals a CT head without acute intracranial abnormality, chest x-ray with mild pulmonary edema, saturating 95% on room air. Blood pressure 100/63, respiratory rate 16, sinus rhythm, afebrile. WBC 14.8, hemoglobin 12.2, BUN 61, serum creatinine 1.95, glucose 410, improved to 195 after insulin, lactic acid 3.1, improved to 1.9 after fluids, AST 59, ALT 33, total creatinine kinase 2132, urinalysis grossly abnormal with bacteria, WBC, leukocyte esterase. Blood culture x2 obtained, urine culture obtained. She was given ceftriaxone 1 g, 2 L normal saline bolus, metoprolol 5 mg IV x1, metoprolol 25 mg p.o. x1, insulin 5 units IV x1. Patient resting comfortably thereafter, reporting no cough, no shortness of breath, no chest pain. Her only complaint is lower back pain when she fell. Review of Systems Review of Systems: All systems reviewed & are unremarkable except as noted in HPI and below (Subjective) [facility] Past Medical History Medical History Mitral regurgitation moderate Afib CHF (congestive heart failure) Skin cancer Hypertension High cholesterol Diabetes Glaucoma Macular degeneration Hx of fracture of femur [place] (hard of hearing) Benign reactive hypertension Diabetic neuropathy Surgical History Surgical History History of open reduction and internal fixation (ORIF) procedure Hx of cholecystectomy Hx of hysterectomy Family History Family History Mother Diabetes mellitus Social History Social History Social History: Smoking packs per day: 0.5 Smoking cigarettes per day: 10.0 Years smoked: 30 Smoking pack-years: 15.00 Smoking status: Former smoker Tobacco type: cigarettes Second hand tobacco smoke exposure: No Smoking end date: 03/25/16 Alcohol intake: never Substance use: never Substance use type: does not use Do You Feel Safe in your Home?: Yes Lack of Transportation: No Lack of Food: Never True Current Housing: I Have Housing Concerned About Future Housing: No Difficulty Paying Gas/Electric Bills: No Difficulty Paying for Meds: No Currently Unemployed: No Education: High School Diploma/GED Difficulty w/ Childcare or Family Care: No Living arrangements: with family Additional living arrangements comments: PT LIVES WITH DAUGHTER - BRETT Occupation/Education: retired Gender identity (if verbalized by the patient): Female Sexual Orientation (if Verbalized by the Patient): Straight or Heterosexual Spiritual care concerns: No Meds Home Medications and Allergies Home Medications ?Medication ?Instructions ?Recorded ?Confirmed ?Type lancets (Accu-Chek Softclix #100 ea 08/22/21 01/13/25 Rx Lancets) aripiprazole 5 mg tablet See Rx Instructions .Route 1 01/13/25 Rx .COMPLEX #90 tabs alendronate 70 mg tablet 70 mg PO WEEKLY 04/20/24 History Held on 05/07/24. Instructions: .Provider Order blood sugar diagnostic (Accu-Chek #200 strips 05/07/24 01/13/25 Rx Guide test strips) furosemide 20 mg tablet (Lasix) 20 mg PO DAILY #30 tab s 05/07/24 01/13/25 Rx quetiapine 50 mg tablet See Rx Instructions .Route 0 06/23/24 01/13/25 Rx .COMPLEX #180 tabs metoprolol succinate 25 mg 25 mg PO QAM 90 days #90 ta bs 07/16/24 01/13/25 Rx tablet,extended release 24 hr (Toprol XL) sacubitril 24 mg-valsartan 26 mg 1 tablet PO BID 07/1601/13/25 History tablet (Entresto) atorvastatin 20 mg tablet See Rx Instructions .Route 0 07/21/24 01/13/25 Rx .COMPLEX #90 tabs ropinirole 2 mg tablet See Rx Instructions .Route 0 09/22/24 01/13/25 Rx .COMPLEX #200 tabs cyanocobalamin (vitamin B-12) See Rx Instructions .Rou te 12/22/24 01/13/25 Rx 1,000 mcg/mL injection solution .COMPLEX #3 mL insulin glargine 100 unit/mL (3 10 unit (0.1 mL) subcu t DAILY #15 12/31/24 01/13/25 Rx mL) subcutaneous pen (Basaglar mL KwikPen U-100 Insulin) pen needle, diabetic 31 gauge x #100 ea 12/31/2401/13 Rx 06/07 Allergies Allergy/AdvReac Type Severity Reaction Status Date / Time No Known Allergies Allergy Verified 01/13/25 20:59 Vital Signs Vital Signs - 24 hr 01/13/25 13:15 01/13/25 13:44 01/13/25 13:45 Temperature 95.4 F L Pulse Rate 57 L 119 H Respiratory Rate 20 27 H Blood Pressure 113/89 136/79 Pulse Oximetry 95 Oxygen Delivery Room Air 01/13/25 15:32 01/13/25 16:01 01/13/25 16:05 Temperature 97.6 F Pulse Rate 114 H 131 H 129 H Respiratory Rate 20 28 H 26 H Blood Pressure 110/69 123/64 123/64 Pulse Oximetry 98 92 92 Oxygen Delivery Room Air 01/13/25 16:43 01/13/25 16:50 01/13/25 16:56 Temperature Pulse Rate 118 H 118 H 115 H Respiratory Rate 29 H Blood Pressure 115/66 Pulse Oximetry 99 Oxygen Delivery 01/13/25 17:10 01/13/25 18:57 01/13/25 18:59 Temperature Pulse Rate 107 H 90 90 Respiratory Rate 27 H 28 H 28 H Blood Pressure 107/63 96/55 L 96/55 L Pulse Oximetry 95 95 98 Oxygen Delivery 01/13/25 19:01 01/13/25 19:36 01/13/25 19:49 Temperature 98.8 F Pulse Rate 88 86 90 Respiratory Rate 30 H 27 H 27 H Blood Pressure 96/48 L 78/44 L 100/63 Pulse Oximetry 95 93 95 Oxygen Delivery 01/13/25 20:35 01/13/25 21:00 01/13/25 22:00 Temperature 98.0 F Pulse Rate 81 90 75 Respiratory Rate 16 27 H Blood Pressure 102/50 L Pulse Oximetry 100 95 Oxygen Delivery Room Air Exam Const: General: comfortable and no acute distress Other: Frail-appearing, weak,. Eyes: Pupils: Equal, round and reactive pupils present Neck: Neck: supple Resp: Effort & Inspection: normal respiratory effort Other: Scant bilateral lower lobe crackles Cardio: Rate: regular rate Rhythm: regular rhythm Heart sounds: no murmurs GI: Inspection: non-distended GI Palp: Yes Soft to palpation Auscultation: normal bowel sounds : General: Yes bladder normal to palpation Neuro: Other: Globally weak, poor hr systems analyst strength bilaterally. Extrem: General: no edema H&P: Results Labs Labs: Short CBC 01/13/25 Range/Units 14:08 WBC 14.8 H (4.5-10.0) K/mm3 Hgb 12.2 (12.0-15.0) g/dL Hct 38.3 (37.0-47.0) % Plt Count 181 (150-375) k/mm3 BMP 01/13/25 14:08 Sodium 145 Potassium 4.9 Chloride 109 H Carbon Dioxide 13 L BUN 61 H D Creatinine 1.95 H Glucose 410 H Calcium 9.4 Cardiac Enzymes 01/13/25 Range/Units 14:08 Total Creatine Kinase 2132 H (30-135) U/L Liver Function 01/13/25 Range/Units 14:08 Total Bilirubin 0.9 (0.2-1.3) mg/dL AST 59 H (14-36) U/L ALT 33 (6-35) U/L Alkaline Phosphatase 103 (38-126) U/L Albumin 4.7 (3.5-5.1) g/dL Urine 01/13/25 Range/Units 13:48 Urine Color Yellow (Yellow) Urine Appearance Turbid H (Clear) Urine pH 5.5 (5.0-9.0) Ur Specific [place] 1.015 (1.001-1.035) Urine Protein 3+ H (Negative) mg/dL Urine Glucose (UA) 2+ H (Negative) mg/dL Assessment and Plan Assessment and plan (1) Failure to thrive in adult: Code(s): R62.7 - Adult failure to thrive Status: Acute (2) CHF (congestive heart failure): Code(s): I50.9 - Heart failure, unspecified Status: Acute (3) Type 2 diabetes mellitus with diabetic chronic kidney disease: Onset Date: Unknown Qualifiers: 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 insulin use: with residential use Chronic kidney disease stage: stage 3 (moderate) Chronic kidney disease stage 3 subtype: stage 3b (GFR 30-44) Qualified Code(s): E11.22 - Type 2 diabetes mellitus with diabetic chronic kidney disease; N18.32 - Chronic kidney disease, stage 3b; Z79.4 - detention (current) use of insulin Code(s): E11.22 - Type 2 diabetes mellitus with diabetic chronic kidney disease Status: Acute (4) CKD (chronic kidney disease): Code(s): N18.9 - Chronic kidney disease, unspecified Status: Acute (5) Rhabdomyolysis: Code(s): M62.82 - Rhabdomyolysis Status: Acute (6) Weakness: Code(s): R53.1 - Weakness Status: Acute (7) Acute UTI: Code(s): N39.0 - Urinary tract infection, site not specified Status: Acute Plan 89-year-old female past medical history insulin-dependent diabetes mellitus, CKD, hard of hearing, hypertension, hypercholesterolemia, glaucoma/macular degeneration, CHF with reduced ejection fraction, presumed CAD with abnormal stress test, history of PACs/atrial tachycardia. Last known well time was on 01/12/2025. Patient lives at home alone, has a daughter nearby. She was found on the floor on the day of admission 01/13/2025. She lives alone, uses a walker to ambulate. Reports she fell in brace herself, falling on her back. No loss of consciousness, no syncope, no seizure, no head injury. ER workup reveals a CT head without acute intracranial abnormality, chest x-ray with mild pulmonary edema, saturating 95% on room air. Blood pressure 100/63, respiratory rate 16, sinus rhythm, afebrile. WBC 14.8, hemoglobin 12.2, BUN 61, serum creatinine 1.95, glucose 410, improved to 195 after insulin, lactic acid 3.1, improved to 1.9 after fluids, AST 59, ALT 33, total creatinine kinase 2132, urinalysis grossly abnormal with bacteria, WBC, leukocyte esterase. Blood culture x2 obtained, urine culture obtained. She was given ceftriaxone 1 g, 2 L normal saline bolus, metoprolol 5 mg IV x1, metoprolol 25 mg p.o. x1, insulin 5 units IV x1. Patient resting comfortably thereafter, reporting no cough, no shortness of breath, no chest pain. Her only complaint is lower back pain when she fell. ----- Fall at home: Ambulate with assistance, fall precautions. She is very deconditioned. Patient globally weak. PT/OT. Care coordination consult for home skilled nursing place. Low back pain, no bony abnormalities or tenderness to palpation on spinal exam. Check CT thoracic and lumbar spine without contrast. Rhabdomyolysis: Trend CK. Decreased fluids from 125 to 75 cc of normal saline and monitor respiratory/volume status. Trend renal function. Heart failure reduced ejection fraction: Hold INTERNET SOURCER Lasix. Daily weights, strict intake/output. Hold INTERNET SOURCER metoprolol and Entresto for now. Restart metoprolol if blood pressure allows. Then, Entresto if blood pressure and renal function allow. Presents with anion gap metabolic acidosis due to lactic acidosis. After fluid resuscitation her lactic acid has decreased to 1.9. Continue to trend. Also had elevated blood sugars which have improved. Insulin-dependent diabetes mellitus. Hold INTERNET SOURCER insulin, Accu-Cheks a.c. HS with hypoglycemia protocol and low-dose insulin sliding scale. Restart home dose insulin as appropriate if patient is eating. Acute UTI: Continue ceftriaxone. Follow-up urine and blood cultures. Trend leukocytosis. Elevated QTC interval. Hold INTERNET SOURCER aripiprazole and quetiapine. Recheck EKG in the morning. Treat tachycardia. ----- Patient wishes to be DNR. Lives at home prior to admission. Will need placement. Discussed with family. SCDs. Fall precautions, ambulate with assistance. Accu-Cheks a.c. HS with hypoglycemia protocol and low-dose insulin sliding scale. Heart healthy diet. Greater than 75 minutes spent on chart review, [id number] time, medical decision making. Discussion with family and patient. Hospitalist [facility] Advance Care Plan I have confirmed that the patient's Advanced Care Plan is present, code status is documented, or surrogate decision maker is listed in patient medical record.: Yes Medication Reconciliation I have utilized all available resources to obtain, update and review the patients current medications (includes all prescriptions, OTC, herbals, cannabis, and nutritional supplements).: Yes
[2025-01-14] VITALS (19 sets, daily range): BP systolic 105–133; BP diastolic 55–89; PULSE 63–92; RESP 16–24; TEMP 36.7–37.6; O2SAT 94–100
[2025-01-14] MEDS: SODIUM CHLORIDE 0.9% IV 1,000 ML 75 ML IV CONT (03:43)
[2025-01-14 04:02] LABS: Hematocrit 32.6 % (37.0-47.0); Hemoglobin 10.2 g/dL (12.0-15.0); Immature Granulocyte Percent A 0.4 % (0-0.5); Lymphocytes Absolute Auto 1.13 K/mm3 (0.9-3.2); Mean Corpuscular HGB Conc 31.3 g/dl (32-36); Mean Corpuscular Hemoglobin 34.7 pg (26-34); Mean Corpuscular Volume 110.9 fl (80-100); Nucleated Red Blood Cells Absolute Auto 0.000 K/mm3 (0.0-0.012); Nucleated Red Blood Cells Perc 0.0 % (0.0-0.2); Platelet Count Result 144 k/mm3 (150-375); Red Blood Count 2.94 M/mm3 (4.2-5.4); White Blood Count 13.0 K/mm3 (4.5-10.0)
[2025-01-14 04:15] LABS: Alanine Aminotransferase 22 U/L (6-35); Albumin Level 3.5 g/dL (3.5-5.1); Alkaline Phosphatase 78 U/L (38-126); Anion Gap 16 mmol/L (4-12); Aspartate Amino Transferase 57 U/L (14-36); Bilirubin,Total 0.5 mg/dL (0.2-1.3); Blood Urea Nitrogen 67 mg/dL (7-17); Calcium 8.0 mg/dL (8.4-10.2); Carbon Dioxide 12 mmol/L (22-30); Chloride 116 mmol/L (98-107); Creatine Kinase 1508 U/L (30-135); Estimated CRCL calculation 16 ml/min; Estimated Glomerular Filt Rate 25; Glucose 213 mg/dL (65-110); Magnesium 2.1 mg/dL (1.6-2.3); Potassium 4.4 mmol/L (3.4-5.0); Sodium 144 mmol/L (137-145); Total Protein 6.6 g/dL (6.3-8.2)
[2025-01-14 04:30] LABS: Macrocytosis 1+ (NORMAL); Schistocytes None Seen
--- NOTE | 2025-01-14 07:45 | PM.IMPN ---
Progress Note: A&P Assessment and Plan (1) Fall: Code(s): W19.XXXA - Unspecified fall, initial encounter Status: Acute Assessment and Plan: -medications were reviewed -evaluate for incidence of hypoglycemia -avoid any sedatives or anxiolytic -will evaluate for any arrhythmias -we evaluate for postural hypertension -labs were reviewed -head CT scan reviewed -reviewed CT thoracic/lumbar which shows acute fracture of T9. -pending MRI cervical, thoracic, and lumbar -physical therapy for balance, gait and strength training -x-ray of the lower extremity do not show any significant finding (2) Failure to thrive in adult: Code(s): R62.7 - Adult failure to thrive Status: Acute Assessment and Plan: Same as above (3) CHF (congestive heart failure): Code(s): I50.9 - Heart failure, unspecified Status: Acute Assessment and Plan: Hold furosemide and Entresto due to low blood pressure and decreased renal function Daily weights Strict I and O's Continue metoprolol succinate 25 mg p.o. q.d. (4) Type 2 diabetes mellitus with diabetic chronic kidney disease: Onset Date: Unknown Qualifiers: Chronic kidney disease stage: stage 3 (moderate) Chronic kidney disease stage 3 subtype: stage 3b (GFR 30-44) Diabetes mellitus fpc insulin use: with dedicated intermodal truck driver use Qualified Code(s): E11.22 - Type 2 diabetes mellitus with diabetic chronic kidney disease; N18.32 - Chronic kidney disease, stage 3b; Z79.4 - superintendent container terminal (current) use of insulin Code(s): E11.22 - Type 2 diabetes mellitus with diabetic chronic kidney disease Status: Acute Assessment and Plan: Holding home insulin regimen Started sliding scale Hypoglycemia protocol (5) CKD (chronic kidney disease): Code(s): N18.9 - Chronic kidney disease, unspecified Status: Acute Assessment and Plan: Avoid nephrotoxic drugs Tract BUN and creatinine (6) Rhabdomyolysis: Code(s): M62.82 - Rhabdomyolysis Status: Acute Assessment and Plan: Continue fluids at 75 cc Monitor renal function Trend CK (7) Weakness: Code(s): R53.1 - Weakness Status: Acute Assessment and Plan: As above (8) Acute UTI: Code(s): N39.0 - Urinary tract infection, site not specified Status: Acute Assessment and Plan: Continue ceftriaxone Monitor urine culture Plan Prolonged QTC interval Hold quetiapine 50 mg p.o. b.i.d. Hold aripiprazole Subjective Date/time seen: 01/14/25 07:45 Interval history: 89-year-old female past medical history insulin-dependent diabetes mellitus, CKD, hard of hearing, hypertension, hypercholesterolemia, glaucoma/macular degeneration, CHF with reduced ejection fraction, presumed CAD with abnormal stress test, history of PACs/atrial tachycardia.Last known well time was on 01/12/2025. Patient lives at home alone, has a daughter nearby. She was found on the floor on the day of admission 01/13/2025. She lives alone, uses a walker to ambulate. Reports she fell in brace herself, falling on her back. No loss of consciousness, no syncope, no seizure, no head injury. 01/14:Patient has evidence of T9 fracture. Ordered MRI of cervical, thoracic and lumbar. Patient also complains of right leg pain which is chronic. Ordered lower extremity x-ray to rule out any fracture. Patient was admitted in March due to CHF exacerbation and ZIA. Review of Systems Review of Systems: All systems reviewed & are unremarkable except as noted in HPI and below (Subjective) Exam Const: General: comfortable and no acute distress Other: Frail-appearing, weak,. Eyes: Pupils: Equal, round and reactive pupils present Neck: Neck: supple Resp: Effort & Inspection: normal respiratory effort Other: Scant bilateral lower lobe crackles Cardio: Rate: regular rate Rhythm: regular rhythm Heart sounds: no murmurs GI: Inspection: non-distended Auscultation: normal bowel sounds : General: Yes bladder normal to palpation Bimanual exam- vagina & uterus: bladder normal to palpation Neuro: Cranial nerves: Yes Equal, round and reactive pupils present Other: Globally weak, poor mathematics improvement teacher strength bilaterally. Extrem: General: no edema Objective Data Vital Signs Vital Signs: Vital Signs - 24 hr 01/13/25 13:15 01/13/25 13:44 01/13/25 13:45 Temperature 95.4 F L Pulse Rate 57 L 119 H Respiratory Rate 20 27 H Blood Pressure 113/89 136/79 Pulse Oximetry 95 Oxygen Delivery Room Air 01/13/25 15:32 01/13/25 16:01 01/13/25 16:05 Temperature 97.6 F Pulse Rate 114 H 131 H 129 H Respiratory Rate 20 28 H 26 H Blood Pressure 110/69 123/64 123/64 Pulse Oximetry 98 92 92 Oxygen Delivery Room Air 01/13/25 16:43 01/13/25 16:50 01/13/25 16:56 Temperature Pulse Rate 118 H 118 H 115 H Respiratory Rate 29 H Blood Pressure 115/66 Pulse Oximetry 99 Oxygen Delivery 01/13/25 17:10 01/13/25 18:57 01/13/25 18:59 Temperature Pulse Rate 107 H 90 90 Respiratory Rate 27 H 28 H 28 H Blood Pressure 107/63 96/55 L 96/55 L Pulse Oximetry 95 95 98 Oxygen Delivery 01/13/25 19:01 01/13/25 19:36 01/13/25 19:49 Temperature 98.8 F Pulse Rate 88 86 90 Respiratory Rate 30 H 27 H 27 H Blood Pressure 96/48 L 78/44 L 100/63 Pulse Oximetry 95 93 95 Oxygen Delivery 01/13/25 20:35 01/13/25 21:00 01/13/25 22:00 Temperature 98.0 F Pulse Rate 81 90 75 Respiratory Rate 16 27 H Blood Pressure 102/50 L Pulse Oximetry 100 95 Oxygen Delivery Room Air 01/13/25 23:38 01/14/25 00:00 01/14/25 00:07 Temperature 98.1 F Pulse Rate 77 77 82 Respiratory Rate 18 16 Blood Pressure 120/87 Pulse Oximetry 96 94 Oxygen Delivery Room Air 01/14/25 02:00 01/14/25 03:13 01/14/25 04:00 Temperature 98.6 F Pulse Rate 69 81 67 Respiratory Rate 16 Blood Pressure 107/55 L Pulse Oximetry 100 Oxygen Delivery 01/14/25 04:15 01/14/25 06:00 Temperature Pulse Rate 67 74 Respiratory Rate 16 Blood Pressure Pulse Oximetry 100 Oxygen Delivery Room Air Intake/Output Intake/Output: Intake & Output 01/11/25 01/12/25 01/13/25 01/14/25 23:59 23:59 23:59 23:59 Intake Total 2758.3 291.7 Balance 2758.3 291.7 Meds/Results Medications: Active Medications Generic Name Dose Route Start Last Admin Trade Name Freq PRN Reason Stop Dose Admin Acetaminophen 650 mg 01/13/25 17:25 Acetaminophen 325 Mg Tablet PO Q4H PRN Mild Pain (1-3) or Fever Atorvastatin Calcium 20 mg 01/14/25 09:00 Atorvastatin 20 Mg Tablet BY MOUTH DAILY SKY Dextrose 12.5 gm 01/13/25 22:16 Dextrose 50% 25 Gm/50 Ml Syringe IV PUSH PRN PRN Hypoglycemia Protocol Glucose 15 gm 01/13/25 22:16 Glucose Oral Gel 15 Gm Of Glucse In 37.5 Gm Tube PO PRN PRN Hypoglycemia Protocol Ceftriaxone Sodium 1 gm/ 50 mls @ 100 mls/hr 01/14/25 14:00 Sodium Chloride IVPB Q24H SKY Sodium Chloride 1,000 mls @ 75 mls/hr 01/13/25 17:25 01/14/25 03:43 Normal Saline Iv IV CONT 75 mls/hr .[id number] SKY Administration Dextrose 1,000 mls @ 100 mls/hr 01/13/25 22:16 Dextrose 5% 1,000 Ml IVPB PRN PRN Hypoglycemia Protocol Insulin Aspart 2 - 5 units 01/14/25 08:00 Insulin Aspart (*Bkc) 100 Units/Ml SUB-Q TIDWM [facility] Protocol Insulin Aspart 1 - 2 units 01/14/25 21:00 Insulin Aspart (*Bkc) 100 Units/Ml SUB-Q HS SKY Protocol Radiology Results: ITS Impressions Head CT 01/13/25 16:45 Impression: 1.No acute intracranial abnormality. Chest X-Ray 01/13/25 16:46 Impression: Mild CHF Labs Labs: Laboratory Results - last 24 hr 01/13/25 01/13/25 01/13/25 13:36 13:48 14:08 WBC 14.8 H RBC 3.52 L Hgb 12.2 Hct 38.3 MCV 108.8 H MCH 34.7 H MCHC 31.9 L RDW 12.8 Plt Count 181 MPV 10.9 H Immature Gran % (Auto) 0.4 Neut % (Auto) 86.8 H Lymph % (Auto) 5.5 L Rusk % (Auto) 7.2 Eos % (Auto) 0.0 Baso % (Auto) 0.1 L Lymph # (Auto) 0.81 L Rusk # (Auto) 1.1 H Eos # (Auto) 0.0 Baso # (Auto) 0.0 Abs Immat Gran (auto) 0.06 H Absolute Neuts (auto) 12.8 H Absolute Nucleated RBC 0.000 Band Neutrophils % Not Reportable Nucleated RBC % 0.0 Platelet Estimate Adequate Large Platelets Present Giant Platelets Present Macrocytosis 1+ Ovalocytes Occasional Schistocytes None seen PT 14.7 INR 1.1 APTT 24.8 Sodium 145 Potassium 4.9 Chloride 109 H Carbon Dioxide 13 L Anion Gap 23 H BUN 61 H D Creatinine 1.95 H Estim Creat Clear Calc Not Reportable Estimated GFR 24 L Glucose 410 H POC Capillary Glucose 392 H Lactic Acid Calcium 9.4 Magnesium Total Bilirubin 0.9 Direct Bilirubin AST 59 H ALT 33 Alkaline Phosphatase 103 Total Creatine Kinase 2132 H Total Protein 8.7 H Albumin 4.7 Urine Color Yellow Urine Appearance Turbid H Urine pH 5.5 Ur Specific Vernal 1.015 Urine Protein 3+ H Urine Glucose (UA) 2+ H Urine Ketones 1+ H Ur Blood (Man) 3+ H Urine Nitrate Negative Urine Bilirubin Negative Urine Urobilinogen 0.2 Add Ur Microanalysis Reviewed Leukocyte Esterase Rfl 3+ H Urine RBC 0-2 Urine WBC >100 H Ur Squamous Epith Cells None seen Urine Bacteria 2+ H Urine Casts 6-10 C. difficile (PCR) 01/13/25 01/13/25 01/13/25 14:33 15:31 17:53 WBC RBC Hgb Hct MCV MCH MCHC RDW Plt Count MPV Immature Gran % (Auto) Neut % (Auto) Lymph % (Auto) Rusk % (Auto) Eos % (Auto) Baso % (Auto) Lymph # (Auto) Rusk # (Auto) Eos # (Auto) Baso # (Auto) Abs Immat Gran (auto) Absolute Neuts (auto) Absolute Nucleated RBC Band Neutrophils % Nucleated RBC % Platelet Estimate Large Platelets Giant Platelets Macrocytosis Ovalocytes Schistocytes PT INR APTT Sodium Potassium Chloride Carbon Dioxide Anion Gap BUN Creatinine Estim Creat Clear Calc Estimated GFR Glucose POC Capillary Glucose 325 H Lactic Acid 3.1 H 1.9 Calcium Magnesium Total Bilirubin Direct Bilirubin AST ALT Alkaline Phosphatase Total Creatine Kinase Total Protein Albumin Urine Color Urine Appearance Urine pH Ur Specific Vernal Urine Protein Urine Glucose (UA) Urine Ketones Ur Blood (Man) Urine Nitrate Urine Bilirubin Urine Urobilinogen Add Ur Microanalysis Leukocyte Esterase Rfl Urine RBC Urine WBC Ur Squamous Epith Cells Urine Bacteria Urine Casts C. difficile (PCR) 01/13/25 01/13/25 01/14/25 17:56 19:21 03:40 WBC 13.0 H RBC 2.94 L Hgb 10.2 L Hct 32.6 L MCV 110.9 H MCH 34.7 H MCHC 31.3 L RDW 13.2 Plt Count 144 L MPV 10.7 H Immature Gran % (Auto) 0.4 Neut % (Auto) 84.9 H Lymph % (Auto) 8.7 L Rusk % (Auto) 5.9 Eos % (Auto) 0.0 Baso % (Auto) 0.1 L Lymph # (Auto) 1.13 Rusk # (Auto) 0.8 H Eos # (Auto) 0.0 Baso # (Auto) 0.0 Abs Immat Gran (auto) 0.05 H Absolute Neuts (auto) 11.1 H Absolute Nucleated RBC 0.000 Band Neutrophils % Not Reportable Nucleated RBC % 0.0 Platelet Estimate Decreased Large Platelets Giant Platelets Macrocytosis 1+ Ovalocytes Schistocytes None seen PT INR APTT Sodium 144 Potassium 4.4 Chloride 116 H Carbon Dioxide 12 L Anion Gap 16 H BUN 67 H Creatinine 1.87 H Estim Creat Clear Calc 16 Estimated GFR 25 L Glucose 213 H POC Capillary Glucose 195 H Lactic Acid Calcium 8.0 L Magnesium 2.1 Total Bilirubin 0.5 Direct Bilirubin 0.0 AST 57 H ALT 22 Alkaline Phosphatase 78 Total Creatine Kinase 1508 H Total Protein 6.6 Albumin 3.5 Urine Color Urine Appearance Urine pH Ur Specific Vernal Urine Protein Urine Glucose (UA) Urine Ketones Ur Blood (Man) Urine Nitrate Urine Bilirubin Urine Urobilinogen Add Ur Microanalysis Leukocyte Esterase Rfl Urine RBC Urine WBC Ur Squamous Epith Cells Urine Bacteria Urine Casts C. difficile (PCR) Negative Hospitalist MIPS Advance Care Plan I have confirmed that the patient's Advanced Care Plan is present, code status is documented, or surrogate decision maker is listed in patient medical record.: Yes Medication Reconciliation I have utilized all available resources to obtain, update and review the patients current medications (includes all prescriptions, OTC, herbals, cannabis, and nutritional supplements).: Yes
[2025-01-14] MEDS: INSULIN ASPART (*BKC) 100 UNITS/ML SUB-Q ×4 (08:46→20:43)
[2025-01-14] MEDS: ATORVASTATIN 20 MG TABLET BY MOUTH (08:46)
[2025-01-14] MEDS: METOPROLOL SUCCINATE EXT REL 25 MG TABCR PO (08:48)
--- NOTE | 2025-01-14 13:23 | PCPTNOTE ---
Attempted PT evaluation, pt getting x-rays to check for further fractures. Pt has a known T9 fracture also. Nursing recommended waiting until testing is completed. Will follow.
[2025-01-14] MEDS: cefTRIAXone 1 GM in SODIUM CHLORIDE 0.9% IV 50 ML 100 ML IVPB (13:46)
[2025-01-14] MEDS: PANTOPRAZOLE SODIUM IV 40 MG VIAL IV PUSH (17:54)
[2025-01-14] MEDS: ACETAMINOPHEN 325 MG TABLET 650 MG PO (18:04)
[2025-01-15] VITALS (17 sets, daily range): BP systolic 117–146; BP diastolic 47–73; PULSE 63–85; RESP 19–23; TEMP 36.4–37.2; O2SAT 93–100
[2025-01-15] MEDS: METOPROLOL SUCCINATE EXT REL 25 MG TABCR PO (08:18)
[2025-01-15] MEDS: PANTOPRAZOLE SODIUM IV 40 MG VIAL IV PUSH (08:19)
[2025-01-15] MEDS: INSULIN ASPART (*BKC) 100 UNITS/ML SUB-Q ×4 (08:19→20:58)
[2025-01-15] MEDS: ATORVASTATIN 20 MG TABLET BY MOUTH (08:19)
--- NOTE | 2025-01-15 08:59 | P.CDI_ITS ---
CDI Query Clarification Request 1) Please clarify type of rhabdomyolysis if known: ? Traumatic or muscle compression (e.g., crush syndrome or prolonged immobilization) ? Non-traumatic exertional (e.g., marked exertion in untrained individuals, hyperthermia, or metabolic myopathies) ? Non-traumatic no exertional (e.g., drugs or toxins, infections, or electrolyte disorders) 2) Please specify type and acuity of heart failure if known. * Acute * Chronic * Acute on Chronic * Unknown * Systolic * Diastolic * Combined Systolic and Diastolic * Unknown Assessment and Plan (1) Fall: Code(s): W19.XXXA - Unspecified fall, initial encounter Status: Acute Assessment and Plan: -medications were reviewed -evaluate for incidence of hypoglycemia -avoid any sedatives or anxiolytic -will evaluate for any arrhythmias -we evaluate for postural hypertension -labs were reviewed -head CT scan reviewed -reviewed CT thoracic/lumbar which shows acute fracture of T9. -pending MRI cervical, thoracic, and lumbar -physical therapy for balance, gait and strength training -x-ray of the lower extremity do not show any significant finding (2) Failure to thrive in adult: Code(s): R62.7 - Adult failure to thrive Status: Acute Assessment and Plan: Same as above (3) CHF (congestive heart failure): Code(s): I50.9 - Heart failure, unspecified Status: Acute Assessment and Plan: Hold furosemide and Entresto due to low blood pressure and decreased renal function Daily weights Strict I and O's Continue metoprolol succinate 25 mg p.o. q.d. (4) Type 2 diabetes mellitus with diabetic chronic kidney disease: Onset Date: Unknown Qualifiers: Chronic kidney disease stage: stage 3 (moderate) Chronic kidney disease stage 3 subtype: stage 3b (GFR 30-44) Diabetes mellitus bed bug exterminator insulin use: with bed bug exterminator use Qualified Code(s): E11.22 - Type 2 diabetes mellitus with diabetic chronic kidney disease; N18.32 - Chronic kidney disease, stage 3b; Z79.4 - keno terminal operator (current) use of insulin Code(s): E11.22 - Type 2 diabetes mellitus with diabetic chronic kidney disease Status: Acute Assessment and Plan: Holding home insulin regimen Started sliding scale Hypoglycemia protocol (5) CKD (chronic kidney disease): Code(s): N18.9 - Chronic kidney disease, unspecified Status: Acute Assessment and Plan: Avoid nephrotoxic drugs Tract BUN and creatinine (6) Rhabdomyolysis: Code(s): M62.82 - Rhabdomyolysis Status: Acute Assessment and Plan: Continue fluids at 75 cc Monitor renal function Trend CK <Radha Ansari RN - Last Filed: 01/15/25 09:01> Clarified Diagnosis Clarified Diagnosis: ?? Traumatic or muscle compression (e.g., crush syndrome or prolonged immobilization) Chronic systolic heart failure <Clay Patricia MD - Last Filed: 01/15/25 16:50>
--- NOTE | 2025-01-15 10:22 | PM.IMPN ---
Progress Note: A&P Assessment and Plan (1) Fall: Code(s): W19.XXXA - Unspecified fall, initial encounter Status: Acute Assessment and Plan: -medications were reviewed -evaluate for incidence of hypoglycemia -avoid any sedatives or anxiolytic -will evaluate for any arrhythmias -we evaluate for postural hypertension -labs were reviewed -head CT scan reviewed -reviewed CT thoracic/lumbar which shows acute fracture of T9. -pending MRI cervical, thoracic, and lumbar -physical therapy for balance, gait and strength training -x-ray of the lower extremity do not show any significant finding (2) Failure to thrive in adult: Code(s): R62.7 - Adult failure to thrive Status: Acute Assessment and Plan: Same as above (3) CHF (congestive heart failure): Code(s): I50.9 - Heart failure, unspecified Status: Acute Assessment and Plan: Hold furosemide and Entresto due to low blood pressure and decreased renal function Daily weights Strict I and O's Continue metoprolol succinate 25 mg p.o. q.d. (4) Type 2 diabetes mellitus with diabetic chronic kidney disease: Onset Date: Unknown Qualifiers: Chronic kidney disease stage: stage 3 (moderate) Chronic kidney disease stage 3 subtype: stage 3b (GFR 30-44) Diabetes mellitus mcfp insulin use: with terminal computer operator use Qualified Code(s): E11.22 - Type 2 diabetes mellitus with diabetic chronic kidney disease; N18.32 - Chronic kidney disease, stage 3b; Z79.4 - salvage determiner (current) use of insulin Code(s): E11.22 - Type 2 diabetes mellitus with diabetic chronic kidney disease Status: Acute Assessment and Plan: Holding home insulin regimen Started sliding scale Hypoglycemia protocol (5) CKD (chronic kidney disease): Code(s): N18.9 - Chronic kidney disease, unspecified Status: Acute Assessment and Plan: Avoid nephrotoxic drugs Tract BUN and creatinine (6) Rhabdomyolysis: Code(s): M62.82 - Rhabdomyolysis Status: Acute Assessment and Plan: Continue fluids at 75 cc Monitor renal function Trend CK (7) Weakness: Code(s): R53.1 - Weakness Status: Acute Assessment and Plan: As above (8) Acute UTI: Code(s): N39.0 - Urinary tract infection, site not specified Status: Acute Assessment and Plan: Continue ceftriaxone Monitor urine culture Plan Prolonged QTC interval Hold quetiapine 50 mg p.o. b.i.d. Hold aripiprazole Subjective Date/time seen: 01/15/25 10:23 Interval history: 89-year-old female past medical history insulin-dependent diabetes mellitus, CKD, hard of hearing, hypertension, hypercholesterolemia, glaucoma/macular degeneration, CHF with reduced ejection fraction, presumed CAD with abnormal stress test, history of PACs/atrial tachycardia.Last known well time was on 01/12/2025. Patient lives at home alone, has a daughter nearby. She was found on the floor on the day of admission 01/13/2025. She lives alone, uses a walker to ambulate. Reports she fell in brace herself, falling on her back. No loss of consciousness, no syncope, no seizure, no head injury. 01/14:Patient has evidence of T9 fracture. Ordered MRI of cervical, thoracic and lumbar. Patient also complains of right leg pain which is chronic. Ordered lower extremity x-ray to rule out any fracture. Patient was admitted in March due to CHF exacerbation and ZIA. 01/15: Patient did not follow-up with the Cardiology after the discharge. Will discuss with Neurosurgery tomorrow after the MRI results. Discussed goals of care including hospice Review of Systems Review of Systems: All systems reviewed & are unremarkable except as noted in HPI and below (Subjective) Exam Const: General: comfortable and no acute distress Other: Frail-appearing, weak,. 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 Extrem: General: no edema Objective Data Vital Signs Vital Signs: Vital Signs - 24 hr 01/14/25 11:49 01/14/25 11:50 01/14/25 12:00 Temperature 98.2 F Pulse Rate 65 68 Respiratory Rate 20 Blood Pressure 117/62 Pulse Oximetry 100 Oxygen Delivery Room Air 01/14/25 14:00 01/14/25 16:00 01/14/25 16:00 Temperature 98.9 F Pulse Rate 73 63 74 Respiratory Rate 24 H Blood Pressure 115/61 Pulse Oximetry 99 Oxygen Delivery 01/14/25 18:00 01/14/25 19:52 01/14/25 20:00 Temperature 99.7 F H Pulse Rate 81 81 71 Respiratory Rate 24 H 24 H Blood Pressure 105/89 Pulse Oximetry 99 97 Oxygen Delivery Room Air 01/14/25 20:00 01/14/25 22:00 01/14/25 23:40 Temperature Pulse Rate 74 64 63 Respiratory Rate 18 Blood Pressure Pulse Oximetry 97 Oxygen Delivery Room Air 01/15/25 00:00 01/15/25 00:00 01/15/25 02:00 Temperature 98.9 F Pulse Rate 70 63 74 Respiratory Rate 22 H Blood Pressure 117/51 L Pulse Oximetry 98 Oxygen Delivery 01/15/25 03:45 01/15/25 04:00 01/15/25 04:00 Temperature 98.7 F Pulse Rate 74 70 64 Respiratory Rate 22 H 20 Blood Pressure 117/53 L Pulse Oximetry 98 96 Oxygen Delivery Room Air 01/15/25 06:00 01/15/25 07:56 01/15/25 08:18 Temperature 97.6 F Pulse Rate 73 85 72 Respiratory Rate 19 Blood Pressure 146/67 H Pulse Oximetry 100 Oxygen Delivery Intake/Output Intake/Output: Intake & Output 01/12/25 01/13/25 01/14/25 01/15/25 23:59 23:59 23:59 23:59 Intake Total 2758.3 951.7 350 Balance 2758.3 951.7 350 Meds/Results Medications: Active Medications Generic Name Dose Route Start Last Admin Trade Name Freq PRN Reason Stop Dose Admin Acetaminophen 650 mg 01/13/25 17:25 01/14/25 18:04 Acetaminophen 325 Mg Tablet PO 650 mg Q4H PRN Administration Mild Pain (1-3) or Fever Atorvastatin Calcium 20 mg 01/14/25 09:00 01/15/25 08:19 Atorvastatin 20 Mg Tablet BY MOUTH 20 mg DAILY SKY Administration Dextrose 12.5 gm 01/13/25 22:16 Dextrose 50% 25 Gm/50 Ml Syringe IV PUSH PRN PRN Hypoglycemia Protocol Glucose 15 gm 01/13/25 22:16 Glucose Oral Gel 15 Gm Of Glucse In 37.5 Gm Tube PO PRN PRN Hypoglycemia Protocol Ceftriaxone Sodium 1 gm/ 50 mls @ 100 mls/hr 01/14/25 14:00 01/14/25 13:46 Sodium Chloride IVPB 100 mls/hr Q24H SKY Administration Dextrose 1,000 mls @ 100 mls/hr 01/13/25 22:16 Dextrose 5% 1,000 Ml IVPB PRN PRN Hypoglycemia Protocol Insulin Aspart 2 - 5 units 01/14/25 08:00 01/15/25 08:19 Insulin Aspart (*Bkc) 100 Units/Ml SUB-Q 2 units TIDWM SKY Administration Protocol Insulin Aspart 1 - 2 units 01/14/25 21:00 01/14/25 20:43 Insulin Aspart (*Bkc) 100 Units/Ml SUB-Q 1 units HS SKY Administration Protocol Metoprolol Succinate 25 mg 01/14/25 09:00 01/15/25 08:18 Metoprolol Succinate Ext Rel 25 Mg Tabcr PO 25 mg QAM SKY Administration Pantoprazole Sodium 40 mg 01/14/25 17:45 01/15/25 08:19 Pantoprazole Sodium Iv 40 Mg Vial IV PUSH 40 mg QAM SKY Administration Ropinirole HCl 2 mg 01/14/25 09:25 01/15/25 06:38 Ropinirole Hcl 1 Mg Tablet PO Not Given Q8HR REPLACED BY [facility] Radiology Results: ITS Impressions Head CT 01/13/25 16:45 Impression: 1.No acute intracranial abnormality. Chest X-Ray 01/13/25 16:46 Impression: Mild CHF Thoracic/Lumbar Spine CT 01/14/25 09:54 Impression: 1. Acute fracture of T9, no retropulsion. Multiple remote fractures detailed above with severe degenerative changes. MRI is recommended to assess Femur X-Ray 01/14/25 13:49 IMPRESSION: 1. Old healed internally fixed fracture of the proximal right femur in the distal right tibia and fibula which are all in near-anatomic alignment. No acute osseous abnormality. Tibia/Fibula X-Ray 01/14/25 13:52 Impression: No acute fracture or malalignment. Labs Labs: Laboratory Results - last 24 hr 01/14/25 01/14/25 01/14/25 10:59 15:40 20:27 POC Capillary Glucose 252 H 265 H 280 H 01/15/25 07:13 POC Capillary Glucose 246 H Hospitalist MIPS Advance Care Plan I have confirmed that the patient's Advanced Care Plan is present, code status is documented, or surrogate decision maker is listed in patient medical record.: Yes Medication Reconciliation I have utilized all available resources to obtain, update and review the patients current medications (includes all prescriptions, OTC, herbals, cannabis, and nutritional supplements).: Yes
[2025-01-15 10:54] LABS: Hematocrit 31.1 % (37.0-47.0); Hemoglobin 9.8 g/dL (12.0-15.0); Mean Corpuscular HGB Conc 31.5 g/dl (32-36); Mean Corpuscular Hemoglobin 34.6 pg (26-34); Mean Corpuscular Volume 109.9 fl (80-100); Platelet Count Result 123 k/mm3 (150-375); Red Blood Count 2.83 M/mm3 (4.2-5.4); White Blood Count 8.5 K/mm3 (4.5-10.0)
[2025-01-15 11:12] LABS: Alanine Aminotransferase 24 U/L (6-35); Albumin Level 3.1 g/dL (3.5-5.1); Alkaline Phosphatase 64 U/L (38-126); Anion Gap 8 mmol/L (4-12); Aspartate Amino Transferase 38 U/L (14-36); Bilirubin,Total 0.3 mg/dL (0.2-1.3); Blood Urea Nitrogen 60 mg/dL (7-17); Calcium 8.0 mg/dL (8.4-10.2); Carbon Dioxide 18 mmol/L (22-30); Chloride 115 mmol/L (98-107); Estimated CRCL calculation 22 ml/min; Estimated Glomerular Filt Rate 32; Glucose 371 mg/dL (65-110); Potassium 4.2 mmol/L (3.4-5.0); Sodium 141 mmol/L (137-145); Total Protein 6.0 g/dL (6.3-8.2)
[2025-01-15] MEDS: INSULIN GLARGINE (*BKC) 100 UNITS/ML 15 UNITS SUB-Q (11:57)
[2025-01-15] MEDS: cefTRIAXone 1 GM in SODIUM CHLORIDE 0.9% IV 50 ML 100 ML IVPB (13:37)
[2025-01-15] MEDS: ACETAMINOPHEN 325 MG TABLET 650 MG PO (13:38)
[2025-01-16] VITALS (11 sets, daily range): BP systolic 117–137; BP diastolic 57–89; PULSE 65–92; RESP 18–24; TEMP 36.6–37.1; O2SAT 95–98
[2025-01-16] MEDS: INSULIN ASPART (*BKC) 100 UNITS/ML SUB-Q ×3 (08:32→20:34)
[2025-01-16] MEDS: METOPROLOL SUCCINATE EXT REL 25 MG TABCR PO (08:32)
[2025-01-16] MEDS: PANTOPRAZOLE SODIUM IV 40 MG VIAL IV PUSH (08:32)
[2025-01-16] MEDS: ATORVASTATIN 20 MG TABLET BY MOUTH (08:32)
[2025-01-16] MEDS: INSULIN GLARGINE (*BKC) 100 UNITS/ML 15 UNITS SUB-Q (08:32)
--- NOTE | 2025-01-16 08:38 | P.PNIM_ITS ---
Progress Note: A&P Assessment and Plan (1) Fall: Code(s): W19.XXXA - Unspecified fall, initial encounter Status: Acute Assessment and Plan: -medications were reviewed -evaluate for incidence of hypoglycemia -avoid any sedatives or anxiolytic -will evaluate for any arrhythmias -we evaluate for postural hypertension -labs were reviewed -head CT scan reviewed -reviewed CT thoracic/lumbar which shows acute fracture of T9. -pending MRI cervical, thoracic, and lumbar -physical therapy for balance, gait and strength training -x-ray of the lower extremity do not show any significant finding (2) Failure to thrive in adult: Code(s): R62.7 - Adult failure to thrive Status: Acute Assessment and Plan: Same as above (3) CHF (congestive heart failure): Code(s): I50.9 - Heart failure, unspecified Status: Acute Assessment and Plan: Hold furosemide and Entresto due to low blood pressure and decreased renal fun ction Daily weights Strict I and O's Continue metoprolol succinate 25 mg p.o. q.d. (4) Type 2 diabetes mellitus with diabetic chronic kidney disease: Onset Date: Unknown Qualifiers: Chronic kidney disease stage: stage 3 (moderate) Chronic kidney disease stage 3 subtype: stage 3b (GFR 30-44) Diabetes mellitus [facility] insulin use: with long term acute care registered nurse use Qualified Code(s): E11.22 - Type 2 diabetes mellitus with diabetic chronic kidney disease; N18.32 - Chronic kidney disease, stage 3b; Z79.4 - FPC (current) use of insulin Code(s): E11.22 - Type 2 diabetes mellitus with diabetic chronic kidney disease Status: Acute Assessment and Plan: Holding home insulin regimen Started sliding scale Hypoglycemia protocol (5) CKD (chronic kidney disease): Code(s): N18.9 - Chronic kidney disease, unspecified Status: Acute Assessment and Plan: Avoid nephrotoxic drugs Tract BUN and creatinine (6) Rhabdomyolysis: Code(s): M62.82 - Rhabdomyolysis Status: Acute Assessment and Plan: Continue fluids at 75 cc Monitor renal function Trend CK (7) Weakness: Code(s): R53.1 - Weakness Status: Acute Assessment and Plan: As above (8) Acute UTI: Code(s): N39.0 - Urinary tract infection, site not specified Status: Acute Assessment and Plan: Continue ceftriaxone Monitor urine culture Plan Prolonged QTC interval Hold quetiapine 50 mg p.o. b.i.d. Hold aripiprazole Subjective Date/time seen: 01/16/25 08:38 Interval history: 89-year-old female past medical history insulin-dependent diabetes mellitus, CKD, hard of hearing, hypertension, hypercholesterolemia, glaucoma/macular degeneration, CHF with reduced ejection fraction, presumed CAD with abnormal s tress test, history of PACs/atrial tachycardia.Last known well time was on 01/12/2025. Patient lives at home alone, has a daughter nearby. She was found on the floor on the day of admission 01/13/2025. She lives alone, uses a walker to ambulate. Reports she fell in brace herself, falling on her back. No loss of consciousness, no syncope, no seizure, no head injury. 01/14:Patient has evidence of T9 fracture. Ordered MRI of cervical, thoracic and lumbar. Patient also complains of right leg pain which is chronic. Ordered lower extremity x-ray to rule out any fracture. Patient was admitted in March due to CHF exacerbation and ZIA. 01/15: Patient did not follow-up with the Cardiology after the discharge. Will discuss with Neurosurgery tomorrow after the MRI results. Discussed goals of care including hospice 01/16: Patient underwent MRI. Will discuss with neurosurgeon after the results Review of Systems Review of Systems: All systems reviewed & are unremarkable except as noted in HPI and below (Subjective) Exam Const: General: comfortable and no acute distress Other: Frail-appearing, weak,. 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 Extrem: General: no edema Objective Data Vital Signs Vital Signs: Vital Signs - 24 hr 01/15/25 10:00 01/15/25 11:35 01/15/25 12:00 Temperature 97.7 F Pulse Rate 80 69 Respiratory Rate 20 Blood Pressure 136/61 Pulse Oximetry 93 Oxygen Delivery Room Air 01/15/25 12:00 01/15/25 14:00 01/15/25 15:39 Temperature 98.2 F Pulse Rate 72 76 75 Respiratory Rate 23 H Blood Pressure 134/73 Pulse Oximetry 99 Oxygen Delivery 01/15/25 16:00 01/15/25 16:00 01/15/25 18:00 Temperature Pulse Rate 85 67 Respiratory Rate Blood Pressure Pulse Oximetry Oxygen Delivery Room Air 01/15/25 20:00 01/15/25 20:00 01/15/25 20:00 Temperature 98.7 F Pulse Rate 76 73 Respiratory Rate 22 H Blood Pressure 130/65 Pulse Oximetry 100 Oxygen Delivery Room Air 01/15/25 22:00 01/15/25 23:54 01/16/25 00:00 Temperature 98.7 F Pulse Rate 71 84 Respiratory Rate 22 H Blood Pressure 136/47 L Pulse Oximetry 100 Oxygen Delivery Room Air 01/16/25 00:00 01/16/25 01:58 01/16/25 04:00 Temperature Pulse Rate 81 74 Respiratory Rate Blood Pressure Pulse Oximetry Oxygen Delivery Room Air 01/16/25 04:00 01/16/25 04:00 01/16/25 06:00 Temperature 98.5 F Pulse Rate 74 65 76 Respiratory Rate 22 H Blood Pressure 124/69 Pulse Oximetry 98 Oxygen Delivery 01/16/25 07:51 Temperature 97.8 F Pulse Rate 84 Respiratory Rate 24 H Blood Pressure 137/89 Pulse Oximetry 97 Oxygen Delivery Intake/Output Intake/Output: Intake & Output 01/13/25 01/14/25 01/15/25 01/16/25 23:59 23:59 23:59 23:59 Intake Total 2758.3 1001.7 830 350 Output Total 150 400 Balance 2758.3 1001.7 680 -50 Meds/Results Medications: Active Medications Generic Name Dose Route Start Last Admin Trade Name Freq PRN Reason Stop Dose Admin Acetaminophen 650 mg 01/13/25 17:25 01/15/25 13:38 Acetaminophen 325 Mg Tablet PO 650 mg Q4H PRN Administration Mild Pain (1-3) or Fever Atorvastatin Calcium 20 mg 01/14/25 09:00 01/15/25 08:19 Atorvastatin 20 Mg Tablet BY MOUTH 20 mg DAILY SKY Administration Dextrose 12.5 gm 01/13/25 22:16 Dextrose 50% 25 Gm/50 Ml Syringe IV PUSH PRN PRN Hypoglycemia Protocol Glucose 15 gm 01/13/25 22:16 Glucose Oral Gel 15 Gm Of Glucse In 37.5 Gm Tube PO PRN PRN Hypoglycemia Protocol Ceftriaxone Sodium 1 gm/ 50 mls @ 100 mls/hr 01/14/25 14:00 01/15/25 13:37 Sodium Chloride IVPB 100 mls/hr Q24H SKY Administration Dextrose 1,000 mls @ 100 mls/hr 01/13/25 22:16 Dextrose 5% 1,000 Ml IVPB PRN PRN Hypoglycemia Protocol Insulin Aspart 2 - 5 units 01/14/25 08:00 01/15/25 16:54 Insulin Aspart (*Bkc) 100 Units/Ml SUB-Q 4 units TIDWM SKY Administration Protocol Insulin Aspart 1 - 2 units 01/14/25 21:00 01/15/25 20:58 Insulin Aspart (*Bkc) 100 Units/Ml SUB-Q 1 units HS SKY Administration Protocol Insulin Glargine 15 units 01/15/25 11:50 01/15/25 11:57 Insulin Glargine (*Bkc) 100 Units/Ml 0.25 units/kg (15 units) 15 units SUB-Q Administration DAILY SKY Metoprolol Succinate 25 mg 01/14/25 09:00 01/15/25 08:18 Metoprolol Succinate Ext Rel 25 Mg Tabcr PO 25 mg QAM SKY Administration Pantoprazole Sodium 40 mg 01/14/25 17:45 01/15/25 08:19 Pantoprazole Sodium Iv 40 Mg Vial IV PUSH 40 mg QAM SKY Administration Ropinirole HCl 2 mg 01/14/25 09:25 01/16/25 05:06 Ropinirole Hcl 1 Mg Tablet PO 2 mg Q8HR SKY Administration Radiology Results: ITS Impressions Head CT 01/13/25 16:45 Impression: 1.No acute intracranial abnormality. Chest X-Ray 01/13/25 16:46 Impression: Mild CHF Thoracic/Lumbar Spine CT 01/14/25 09:54 Impression: 1. Acute fracture of T9, no retropulsion. Multiple remote fractures detailed above with severe degenerative changes. MRI is recommended to assess Femur X-Ray 01/14/25 13:49 IMPRESSION: 1. Old healed internally fixed fracture of the proximal right femur in the distal right tibia and fibula which are all in near-anatomic alignment. No acute osseous abnormality. Tibia/Fibula X-Ray 01/14/25 13:52 Impression: No acute fracture or malalignment. Labs Labs: Laboratory Results - last 24 hr 01/15/25 01/15/25 01/15/25 10:47 11:43 16:06 WBC 8.5 RBC 2.83 L Hgb 9.8 L Hct 31.1 L MCV 109.9 H MCH 34.6 H MCHC 31.5 L RDW 13.7 Plt Count 123 L MPV 10.5 H Sodium 141 Potassium 4.2 Chloride 115 H Carbon Dioxide 18 L Anion Gap 8 BUN 60 H Creatinine 1.52 H Estim Creat Clear Calc 22 Estimated GFR 32 L Glucose 371 H POC Capillary Glucose 386 H 341 H Calcium 8.0 L Total Bilirubin 0.3 AST 38 H ALT 24 Alkaline Phosphatase 64 Total Protein 6.0 L Albumin 3.1 L 01/15/25 01/16/25 20:05 07:32 WBC RBC Hgb Hct MCV MCH MCHC RDW Plt Count MPV Sodium Potassium Chloride Carbon Dioxide Anion Gap BUN Creatinine Estim Creat Clear Calc Estimated GFR Glucose POC Capillary Glucose 293 H 213 H Calcium Total Bilirubin AST ALT Alkaline Phosphatase Total Protein Albumin Hospitalist MIPS Advance Care Plan I have confirmed that the patient's Advanced Care Plan is present, code status is documented, or surrogate decision maker is listed in patient medical record.: Yes Medication Reconciliation I have utilized all available resources to obtain, update and review the patients current medications (includes all prescriptions, OTC, herbals, cannabis, and nutritional supplements).: Yes
[2025-01-16 09:13] LABS: Hematocrit 30.2 % (37.0-47.0); Hemoglobin 9.5 g/dL (12.0-15.0); Mean Corpuscular HGB Conc 31.5 g/dl (32-36); Mean Corpuscular Hemoglobin 34.1 pg (26-34); Mean Corpuscular Volume 108.2 fl (80-100); Platelet Count Result 126 k/mm3 (150-375); Red Blood Count 2.79 M/mm3 (4.2-5.4); White Blood Count 7.8 K/mm3 (4.5-10.0)
--- NOTE | 2025-01-16 09:16 | PCPTNOTE ---
01/16/25 0852 Checked with nursing and still waiting on MRI result and neurosurgery consult. Will attempt again as time allows.
[2025-01-16 09:36] LABS: Alanine Aminotransferase 22 U/L (6-35); Albumin Level 3.0 g/dL (3.5-5.1); Alkaline Phosphatase 68 U/L (38-126); Anion Gap 7 mmol/L (4-12); Aspartate Amino Transferase 28 U/L (14-36); Bilirubin,Total 0.5 mg/dL (0.2-1.3); Blood Urea Nitrogen 47 mg/dL (7-17); Calcium 8.3 mg/dL (8.4-10.2); Carbon Dioxide 19 mmol/L (22-30); Chloride 114 mmol/L (98-107); Estimated CRCL calculation 25 ml/min; Estimated Glomerular Filt Rate 38; Glucose 286 mg/dL (65-110); Potassium 4.1 mmol/L (3.4-5.0); Sodium 140 mmol/L (137-145); Total Protein 5.8 g/dL (6.3-8.2)
[2025-01-16] MEDS: ONDANSETRON INJ 4 MG/2 ML VIAL IV PUSH (11:38)
[2025-01-16] MEDS: cefTRIAXone 1 GM in SODIUM CHLORIDE 0.9% IV 50 ML 100 ML IVPB (14:33)
--- NOTE | 2025-01-16 15:53 | PC.NURSE ---
This patient, Lyndsay Manriquez, was transferred to [[id number] ] on 01/16/25 at 1553. Personal belongings sent with patient. Report given to [JORDAN Richard @[phone]]. Appropriate documentation sent with patient.
--- NOTE | 2025-01-16 16:10 | ADMGEN ---
This patient, Lyndsay Manriquez, was admitted to [facility] Surg Room 303-01. Patient/family oriented to hospital policies and general routines including ID bracelet, bed and alarms, visiting hours, pain management, procedures, bathroom and other care routines, personal items, smoking policy, room service/diet, and visiting hours. Information on how to activate the Rapid Response Team has been discussed. Patient/Family are encouraged to report perceived risks to care and to ask questions if they do not understand what they are told or what they should do. received report from diana and patient arrived to floor at 1600.
[2025-01-17 05:46] VITALS: BP 134/97; PULSE 72; RESP 16; TEMP 36.3; O2SAT 97
[2025-01-17 08:16] VITALS: PULSE 72
[2025-01-17] MEDS: PANTOPRAZOLE 40 MG TABLET PO (08:16)
[2025-01-17] MEDS: METOPROLOL SUCCINATE EXT REL 25 MG TABCR PO (08:16)
[2025-01-17] MEDS: ATORVASTATIN 20 MG TABLET BY MOUTH (08:17)
[2025-01-17] MEDS: INSULIN GLARGINE (*BKC) 100 UNITS/ML 15 UNITS SUB-Q (08:20)
--- NOTE | 2025-01-17 12:11 | PCPTNOTE ---
01/17/25 1211, Patient has had her MRI's looked at, but does not have neurosurgery consult completed yet. Physical therapy will attempt to evaluate patient tomorrow as time allows if seen by neurosurgery.
[2025-01-17] MEDS: INSULIN ASPART (*BKC) 100 UNITS/ML SUB-Q ×3 (12:18→21:16)
--- NOTE | 2025-01-17 12:40 | P.PNIM_ITS ---
Progress Note: A&P Assessment and Plan (1) Fall: Code(s): W19.XXXA - Unspecified fall, initial encounter Status: Acute Assessment and Plan: -medications were reviewed -evaluate for incidence of hypoglycemia -avoid any sedatives or anxiolytic -will evaluate for any arrhythmias -we evaluate for postural hypertension -labs were reviewed -head CT scan reviewed -reviewed CT thoracic/lumbar which shows acute fracture of T9. -pending MRI cervical, thoracic, and lumbar -physical therapy for balance, gait and strength training -x-ray of the lower extremity do not show any significant finding (2) Failure to thrive in adult: Code(s): R62.7 - Adult failure to thrive Status: Acute Assessment and Plan: Same as above (3) CHF (congestive heart failure): Code(s): I50.9 - Heart failure, unspecified Status: Acute Assessment and Plan: Hold furosemide and Entresto due to low blood pressure and decreased renal fun ction Daily weights Strict I and O's Continue metoprolol succinate 25 mg p.o. q.d. 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: with detention use Chronic kidney disease stage: stage 3 (moderate) Chronic kidney disease stage 3 subtype: stage 3b (GFR 30-44) Qualified Code(s): E11.22 - Type 2 diabetes mellitus with diabetic chronic kidney disease; N18.32 - Chronic kidney disease, stage 3b; Z79.4 - retirement (current) use of insulin Code(s): E11.22 - Type 2 diabetes mellitus with diabetic chronic kidney disease Status: Acute Assessment and Plan: Holding home insulin regimen Started sliding scale Hypoglycemia protocol (5) CKD (chronic kidney disease): Code(s): N18.9 - Chronic kidney disease, unspecified Status: Acute Assessment and Plan: Avoid nephrotoxic drugs Tract BUN and creatinine (6) Rhabdomyolysis: Code(s): M62.82 - Rhabdomyolysis Status: Acute Assessment and Plan: Continue fluids at 75 cc Monitor renal function Trend CK (7) Weakness: Code(s): R53.1 - Weakness Status: Acute Assessment and Plan: As above (8) Acute UTI: Code(s): N39.0 - Urinary tract infection, site not specified Status: Acute Assessment and Plan: Continue ceftriaxone Monitor urine culture Plan patient had a fall not sure what happened, patient is found to have There is a fracture of the body of T9 which extends anteriorly to involve the cortex and posteriorly to involve the posterior cortex although there is no retropulsion identified. There is no extension of the fracture into the posterior elements appreciated. There is a remote superior endplate fracture of L4 and L4 with loss of height 10%. There is a remote fracture of the anterior superior endplate and body of L2 with loss of height 50%, no retropulsion. patient is neurological intact and today denies any pain, her daughter is present in the room, to further evaluate patient had MRI of thoracic spine which showed 1. 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 2. Mild thoracic spondylosis. 3. 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 Discussed with the neurosurgeon Dr. Gale stated patient will benefit with surgical intervention however patient is neuralgically intact, elderly and DNR, with osteopenia, surgical outcome would be poor, and does not recommend, will give brace to stabilized the fracture. patient remains clinically stable and working with PT/OT. Prolonged QTC interval Hold quetiapine 50 mg p.o. b.i.d. Hold aripiprazole Subjective Date/time seen: 01/17/25 12:40 Interval history: 89-year-old female past medical history insulin-dependent diabetes mellitus, CKD, hard of hearing, hypertension, hypercholesterolemia, glaucoma/macular degeneration, CHF with reduced ejection fraction, presumed CAD with abnormal stress test, history of PACs/atrial tachycardia.Last known well time was on 01/12/2025. Patient lives at home alone, has a daughter nearby. She was found on the floor on the day of admission 01/13/2025. She lives alone, uses a walker to ambulate. Reports she fell in brace herself, falling on her back. No loss of consciousness, no syncope, no seizure, no head injury. 01/14:Patient has evidence of T9 fracture. Ordered MRI of cervical, thoracic and lumbar. Patient also complains of right leg pain which is chronic. Ordered lower extremity x-ray to rule out any fracture. Patient was admitted in March due to CHF exacerbation and ZIA. 01/15: Patient did not follow-up with the Cardiology after the discharge. Will discuss with Neurosurgery tomorrow after the MRI results. Discussed goals of care including hospice 01/16: Patient underwent MRI. Will discuss with neurosurgeon after the results patient had a fall not sure what happened, patient is found to have There is a fracture of the body of T9 which extends anteriorly to involve the cortex and posteriorly to involve the posterior cortex although there is no retropulsion identified. There is no extension of the fracture into the posterior elements appreciated. There is a remote superior endplate fracture of L4 and L4 with loss of height 10%. There is a remote fracture of the anterior superior endplate and body of L2 with loss of height 50%, no retropulsion. patient is neurological intact and today denies any pain, her daughter is present in the room, to further evaluate patient had MRI of thoracic spine which showed 1. 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 2. Mild thoracic spondylosis. 3. 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 Discussed with the neurosurgeon Dr. Gale stated patient will benefit with surgical intervention however patient is neuralgically intact, elderly and DNR, with osteopenia, surgical outcome would be poor, and does not recommend, will give brace to stabilized the fracture. patient remains clinically stable and working with PT/OT. Review of Systems Review of Systems: All systems reviewed & are unremarkable except as noted in HPI and below (Subjective) Exam Narrative: Elderly frail Patient is comfortable, NAD HEENT: eyes are clear and none icteric LUNGS:CTA HEART: RR S1S2 ABD: BS+, Soft and nontender Lower extremities: no edema SKIN: nonjaundiced Neuro: grossly intact. Objective Data Vital Signs Vital Signs: Vital Signs - 24 hr 01/16/25 12:50 01/16/25 16:08 01/16/25 16:10 Temperature 36.8 C 37.1 C Pulse Rate 92 73 Respiratory Rate 24 H 20 Blood Pressure 131/81 117/74 Pulse Oximetry 95 98 Oxygen Delivery Room Air 01/16/25 20:29 01/16/25 21:08 01/17/25 05:46 Temperature 36.9 C 36.3 C L Pulse Rate 67 72 Respiratory Rate 18 16 Blood Pressure 135/57 L 134/97 H Pulse Oximetry 95 97 Oxygen Delivery Room Air 01/17/25 08:00 01/17/25 08:16 Temperature Pulse Rate 72 Respiratory Rate Blood Pressure Pulse Oximetry Oxygen Delivery Room Air Intake/Output Intake/Output: Intake & Output 10/23/25 10/24/25 10/25/25 10/26/25 23:59 23:59 23:59 23:59 Intake Total 1001.7 880 1120 300 Output Total 150 700 250 Balance 1001.7 730 420 50 Meds/Results Medications: Active Medications Generic Name Dose Route Start Last Admin Trade Name Freq PRN Reason Stop Dose Admin Acetaminophen 650 mg 01/13/25 17:25 01/15/25 13:38 Acetaminophen 325 Mg Tablet PO 650 mg Q4H PRN Administration Mild Pain (1-3) or Fever Atorvastatin Calcium 20 mg 01/14/25 09:00 01/17/25 08:17 Atorvastatin 20 Mg Tablet BY MOUTH 20 mg DAILY SKY Administration Dextrose 12.5 gm 01/13/25 22:16 Dextrose 50% 25 Gm/50 Ml Syringe IV PUSH PRN PRN Hypoglycemia Protocol Glucose 15 gm 01/13/25 22:16 Glucose Oral Gel 15 Gm Of Glucse In 37.5 Gm Tube PO PRN PRN Hypoglycemia Protocol Ceftriaxone Sodium 1 gm/ 50 mls @ 100 mls/hr 01/14/25 14:00 01/16/25 15:21 Sodium Chloride IVPB Infused Q24H SKY Infusion Dextrose 1,000 mls @ 100 mls/hr 01/13/25 22:16 Dextrose 5% 1,000 Ml IVPB PRN PRN Hypoglycemia Protocol Insulin Aspart 2 - 5 units 01/14/25 08:00 01/17/25 12:18 Insulin Aspart (*Bkc) 100 Units/Ml SUB-Q 5 units TIDWM SKY Administration Protocol Insulin Aspart 1 - 2 units 01/14/25 21:00 01/16/25 20:36 Insulin Aspart (*Bkc) 100 Units/Ml SUB-Q Not Given HS [facility] Protocol Insulin Glargine 15 units 01/15/25 11:50 01/17/25 08:20 Insulin Glargine (*Bkc) 100 Units/Ml 0.25 units/kg (15 units) 15 units SUB-Q Administration DAILY SKY Metoprolol Succinate 25 mg 01/14/25 09:00 01/17/25 08:16 Metoprolol Succinate Ext Rel 25 Mg Tabcr PO 25 mg QAM SKY Administration Ondansetron HCl 4 mg 01/16/25 11:32 01/16/25 11:38 Ondansetron Inj 4 Mg/2 Ml Vial IV PUSH 4 mg Q6H PRN Administration Nausea And Vomiting Pantoprazole Sodium 40 mg 01/17/25 09:00 01/17/25 08:16 Pantoprazole 40 Mg Tablet PO 40 mg QAM SKY Administration Ropinirole HCl 2 mg 01/14/25 09:25 01/17/25 05:01 Ropinirole Hcl 1 Mg Tablet PO 2 mg Q8HR SKY Administration Radiology Results: ITS Impressions Head CT 01/13/25 16:45 Impression: 1.No acute intracranial abnormality. Chest X-Ray 01/13/25 16:46 Impression: Mild CHF Thoracic/Lumbar Spine CT 01/14/25 09:54 Impression: 1. Acute fracture of T9, no retropulsion. Multiple remote fractures detailed above with severe degenerative changes. MRI is recommended to assess Femur X-Ray 01/14/25 13:49 IMPRESSION: 1. Old healed internally fixed fracture of the proximal right femur in the distal right tibia and fibula which are all in near-anatomic alignment. No acute osseous abnormality. Tibia/Fibula X-Ray 01/14/25 13:52 Impression: No acute fracture or malalignment. Cervical Spine MRI 01/17/25 08:31 IMPRESSION: 1. Severe cervical spondylosis. Lumbar Spine MRI 01/17/25 08:35 IMPRESSION: 1. Acute/subacute compression fractures of L2 and L4. 2. Severe lumbar spondylosis. ADDENDUM: 01/17/2552 Comparison is made with the thoracic spine MRI from 01/16/2025. The lumbar spine has 4 nonrib-bearing lumbar type segments. L5 is sacralized. The numbering of lumbar segments in this report is incorrect with numbering off by one level. The fractures are at L1 and L3. Thoracic Spine MRI 01/17/25 08:42 IMPRESSION: 1. 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 2. Mild thoracic spondylosis. 3. 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 Labs Labs: Laboratory Results - last 24 hr 01/16/25 01/16/25 01/16/25 12:40 17:07 20:30 POC Capillary Glucose 234 H 167 H 222 H 01/17/25 01/17/25 08:02 12:08 POC Capillary Glucose 168 H 360 H
[2025-01-17] MEDS: cefTRIAXone 1 GM in SODIUM CHLORIDE 0.9% IV 50 ML 100 ML IVPB (13:08)
[2025-01-17 14:00] VITALS: BP 124/59; PULSE 80; RESP 18; TEMP 36.3; O2SAT 98
[2025-01-17 21:03] VITALS: BP 143/61; PULSE 64; RESP 18; TEMP 37.2; O2SAT 94
[2025-01-17] MEDS: ACETAMINOPHEN 325 MG TABLET 650 MG PO (22:01)
[2025-01-18 05:55] LABS: Hematocrit 29.5 % (37.0-47.0); Hemoglobin 9.3 g/dL (12.0-15.0); Immature Platelet Fraction Pct 5.0 % (0.9-11.2); Mean Corpuscular HGB Conc 31.5 g/dl (32-36); Mean Corpuscular Hemoglobin 34.6 pg (26-34); Mean Corpuscular Volume 109.7 fl (80-100); Platelet Count Result 122 k/mm3 (150-375); Red Blood Count 2.69 M/mm3 (4.2-5.4); White Blood Count 7.7 K/mm3 (4.5-10.0)
[2025-01-18 06:00] VITALS: BP 122/55; PULSE 60; RESP 16; TEMP 36.3; O2SAT 95
[2025-01-18 06:22] LABS: Anion Gap 3 mmol/L (4-12); Blood Urea Nitrogen 34 mg/dL (7-17); Calcium 8.3 mg/dL (8.4-10.2); Carbon Dioxide 23 mmol/L (22-30); Chloride 111 mmol/L (98-107); Estimated CRCL calculation 27 ml/min; Estimated Glomerular Filt Rate 42; Glucose 136 mg/dL (65-110); Magnesium 1.9 mg/dL (1.6-2.3); Potassium 4.3 mmol/L (3.4-5.0); Sodium 137 mmol/L (137-145)
--- NOTE | 2025-01-18 07:58 | PCPTNOTE ---
Attempted PT evaluation, pt does not have a TLSO present. Waiting for brace prior to mobilizing pt. Will follow.
--- NOTE | 2025-01-18 08:17 | PCOTNOTE ---
Per RN, patient is waiting for neurosurgeon to provide back brace.
[2025-01-18 08:27] VITALS: PULSE 59
[2025-01-18] MEDS: PANTOPRAZOLE 40 MG TABLET PO (08:27)
[2025-01-18] MEDS: ATORVASTATIN 20 MG TABLET BY MOUTH (08:27)
[2025-01-18] MEDS: METOPROLOL SUCCINATE EXT REL 25 MG TABCR PO (08:27)
[2025-01-18] MEDS: INSULIN GLARGINE (*BKC) 100 UNITS/ML 15 UNITS SUB-Q (08:28)
[2025-01-18] MEDS: INSULIN ASPART (*BKC) 100 UNITS/ML SUB-Q ×2 (12:04→17:20)
--- NOTE | 2025-01-18 12:29 | WPDNEUROSGCN ---
Assessment and Plan Assessment and plan (1) T8 vertebral fracture: Code(s): S22.069A - Unspecified fracture of T7-T8 vertebra, initial encounter for closed fracture Status: Acute Assessment and Plan: Assessment: Lyndsay has an acute T8 fracture with anterior distraction in the setting of DISH and acute superimposed on chronic L1 and L3 compression fractures. The patient is DNR and has extensive medical history. I discussed with the patient and the family that given her age, medical comorbidities, and alert surgery that would be required in order to address the fractures, she is not a candidate and we would instead recommended non operative management with bracing. I ordered her a TLSO brace. I want her to wear it at all times when out of bed. She should avoid bending, twisting, any kind of heavy lifting. We discussed limited role for cement augmentation given her lack of pain and fracture pattern. I will plan to see her in the office in 6 weeks for follow-up with x-rays prior to that visit. She would likely benefit from placement upon discharge. From a neurosurgery standpoint she is stable for discharge once she has received her brace, passed PT, and is cleared medically. Discussed with Dr. Gale who is in agreement. Consult date: 01/18/25 Time Seen: 11:45 HPI: Lyndsay Manriquez is a 89 year old female who was found down at home on 01/13/25 by her daughter and presented to the ED for evaluation. She has extensive medical history and is DNR but does live at home alone and uses a walker for ambulation at baseline. She reports that she fell and landed on her back. 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 MRI demonstrated T8 distraction fracture with mild anterior displacement but no posterior cortical disruption and no retropulsion. Currently, the patient is resting comfortably in bed. Two family members at the bedside. She denies any significant back pain right now. She states that her legs generally feel weak but this is a pre-existing issue for her. She denies any lower extremity pain or numbness. She has not yet received a TLSO brace. [facility] Past Medical History Medical History Mitral regurgitation moderate Afib CHF (congestive heart failure) Skin cancer Hypertension High cholesterol Diabetes Glaucoma Macular degeneration Hx of fracture of femur [place] (hard of hearing) Benign reactive hypertension Diabetic neuropathy Surgical History Surgical History History of open reduction and internal fixation (ORIF) procedure Hx of cholecystectomy Hx of hysterectomy Family History Family History Mother Diabetes mellitus Social History Social History Social History: Smoking packs per day: 0.5 Smoking cigarettes per day: 10.0 Years smoked: 30 Smoking pack-years: 15.00 Smoking status: Former smoker Tobacco type: cigarettes Second hand tobacco smoke exposure: No Smoking end date: 03/25/16 Alcohol intake: never Substance use: never Substance use type: does not use Do You Feel Safe in your Home?: Yes Lack of Transportation: No Lack of Food: Never True Current Housing: I Have Housing Concerned About Future Housing: No Difficulty Paying Gas/Electric Bills: No Difficulty Paying for Meds: No Currently Unemployed: No Education: High School Diploma/GED Difficulty w/ Childcare or Family Care: No Living arrangements: with family Additional living arrangements comments: PT LIVES WITH DAUGHTER - BRETT Occupation/Education: retired Gender identity (if verbalized by the patient): Female Sexual Orientation (if Verbalized by the Patient): Straight or Heterosexual Spiritual care concerns: No Meds Home Medications and Allergies Home Medications ?Medication ?Instructions ?Recorded ?Confirmed ?Type lancets (Accu-Chek Softclix #100 ea 08/22/21 01/13/25 Rx Lancets) aripiprazole 5 mg tablet See Rx Instructions .Route 01/02/24 01/13/25 Rx .COMPLEX #90 tabs alendronate 70 mg tablet 70 mg PO WEEKLY 04/20/24 01/13/25 History Held on 05/07/24. Instructions: .Provider Order blood sugar diagnostic (Accu-Chek #200 strips 05/07/24 01/13/25 Rx Guide test strips) furosemide 20 mg tablet (Lasix) 20 mg PO DAILY #30 tabs 05/07/24 01/13/25 Rx quetiapine 50 mg tablet See Rx Instructions .Route 06/23/24 01/13/25 Rx .COMPLEX #180 tabs metoprolol succinate 25 mg 25 mg PO QAM 90 days #90 tabs 07/16/24 01/13/25 Rx tablet,extended release 24 hr (Toprol XL) sacubitril 24 mg-valsartan 26 mg 1 tablet PO BID 07/16/24 01/13/25 History tablet (Entresto) atorvastatin 20 mg tablet See Rx Instructions .Route 07/21/24 01/13/25 Rx .COMPLEX #90 tabs ropinirole 2 mg tablet See Rx Instructions .Route 09/22/24 01/13/25 Rx .COMPLEX #200 tabs cyanocobalamin (vitamin B-12) See Rx Instructions .Route 12/22/24 01/13/25 Rx 1,000 mcg/mL injection solution .COMPLEX #3 mL pen needle, diabetic 31 gauge x #100 ea 12/31/24 01/13/25 Rx 3/16 insulin glargine 100 unit/mL (3 20 unit subcut DAILY 01/15/25 01/15/25 History mL) subcutaneous pen (Basaglar KwikPen U-100 Insulin) Allergies Allergy/AdvReac Type Severity Reaction Status Date / Time No Known Allergies Allergy Verified 01/13/25 20:59 Vital Signs Vital Signs - 24 hr 01/17/25 14:00 01/17/25 21:03 01/18/25 06:00 Temperature 97.4 F L 98.9 F 97.3 F L Pulse Rate 80 64 60 Respiratory Rate 18 18 16 Blood Pressure 124/59 L 143/61 H 122/55 L Pulse Oximetry 98 94 95 Oxygen Delivery 01/18/25 08:00 01/18/25 08:27 Temperature Pulse Rate 59 L Respiratory Rate Blood Pressure Pulse Oximetry Oxygen Delivery Room Air Exam Narrative: A&O to self, place, and situation. Calm, cooperative, no acute distress. Appears frail. Facial movement symmetric. Facial sensation intact. EOM. PERRLA. Shoulder shrug symmetric. No drift. Tenderness to palpation over the midthoracic spine. Gait and station not tested. Full motor strength and sensation in bilateral lower extremities. No ankle clonus. Results Labs 01/18/25 05:02 01/18/25 05:02 Labs: Short CBC 10/27/25 Range/Units 05:02 WBC 7.7 (4.5-10.0) K/mm3 Hgb 9.3 L (12.0-15.0) g/dL Hct 29.5 L (37.0-47.0) % Plt Count 122 L (150-375) k/mm3 [facility] 01/18/25 05:02 Sodium 137 Potassium 4.3 Chloride 111 H Carbon Dioxide 23 BUN 34 H D Creatinine 1.21 H Glucose 136 H Calcium 8.3 L Imaging My impression: Reviewed entire spine MRI from 01/17/2025 which demonstrates T8 anterior distraction fracture. There is DISH from T2-T12. There is chronic wedging at T1. 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 There are acute superimposed on chronic fractures of L1 and L3 without retropulsion. There is diffuse lumbar spondylosis and degenerative changes. Cervical MRI demonstrates degenerative changes. The changes on the thoracic and lumbar MRI are consistent with the thoracic and lumbar CT obtained on 01/14/2025.
[2025-01-18] MEDS: DOCUSATE SODIUM 100 MG CAPSULE PO (13:37)
[2025-01-18 14:00] VITALS: BP 140/61; PULSE 69; RESP 18; TEMP 36.3; O2SAT 97
--- NOTE | 2025-01-18 15:41 | PM.IMPN ---
Progress Note: A&P Assessment and Plan (1) Fall: Code(s): W19.XXXA - Unspecified fall, initial encounter Status: Acute Assessment and Plan: -medications were reviewed -evaluate for incidence of hypoglycemia -avoid any sedatives or anxiolytic -will evaluate for any arrhythmias -we evaluate for postural hypertension -labs were reviewed -head CT scan reviewed -reviewed CT thoracic/lumbar which shows acute fracture of T9. -pending MRI cervical, thoracic, and lumbar -physical therapy for balance, gait and strength training -x-ray of the lower extremity do not show any significant finding (2) Failure to thrive in adult: Code(s): R62.7 - Adult failure to thrive Status: Acute Assessment and Plan: Same as above (3) CHF (congestive heart failure): Code(s): I50.9 - Heart failure, unspecified Status: Acute Assessment and Plan: Hold furosemide and Entresto due to low blood pressure and decreased renal function Daily weights Strict I and O's Continue metoprolol succinate 25 mg p.o. q.d. (4) Type 2 diabetes mellitus with diabetic chronic kidney disease: Onset Date: Unknown Qualifiers: Diabetes mellitus long-term insulin use: with long-term use Chronic kidney disease stage: stage 3 (moderate) Chronic kidney disease stage 3 subtype: stage 3b (GFR 30-44) Qualified Code(s): E11.22 - Type 2 diabetes mellitus with diabetic chronic kidney disease; N18.32 - Chronic kidney disease, stage 3b; Z79.4 - beaver trapper (current) use of insulin Code(s): E11.22 - Type 2 diabetes mellitus with diabetic chronic kidney disease Status: Acute Assessment and Plan: Holding home insulin regimen Started sliding scale Hypoglycemia protocol (5) CKD (chronic kidney disease): Code(s): N18.9 - Chronic kidney disease, unspecified Status: Acute Assessment and Plan: Avoid nephrotoxic drugs Tract BUN and creatinine (6) Rhabdomyolysis: Code(s): M62.82 - Rhabdomyolysis Status: Acute Assessment and Plan: Continue fluids at 75 cc Monitor renal function Trend CK (7) Weakness: Code(s): R53.1 - Weakness Status: Acute Assessment and Plan: As above (8) Acute UTI: Code(s): N39.0 - Urinary tract infection, site not specified Status: Acute Assessment and Plan: Continue ceftriaxone Monitor urine culture Plan patient had a fall not sure what happened, patient is found to have There is a fracture of the body of T9 which extends anteriorly to involve the cortex and posteriorly to involve the posterior cortex although there is no retropulsion identified. There is no extension of the fracture into the posterior elements appreciated. There is a remote superior endplate fracture of L4 and L4 with loss of height 10%. There is a remote fracture of the anterior superior endplate and body of L2 with loss of height 50%, no retropulsion. patient is neurological intact and today denies any pain, her daughter is present in the room, to further evaluate patient had MRI of thoracic spine which showed 1. 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 2. Mild thoracic spondylosis. 3. 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 Discussed with the neurosurgeon Dr. Gale stated patient will benefit with surgical intervention however patient is neuralgically intact, elderly and DNR, with osteopenia, surgical outcome would be poor, and does not recommend, will give brace to stabilized the fracture. patient remains clinically stable and working with PT/OT. Patient stats feeling better and her pain is fine, today patient was seen by neurosurgery and does not recommended any surgical intervention due to her age and commodities, recommended TLSO brace and recommendation to wear the brace when out of the bed, patient will be seen by the neurosurgeon in 6 weeks to discuss possible cement augmentation and further recommendation to follow. patient remains clinically stable, will monitor. Prolonged QTC interval Hold quetiapine 50 mg p.o. b.i.d. Hold aripiprazole Subjective Date/time seen: 01/18/25 15:41 Interval history: 89-year-old female past medical history insulin-dependent diabetes mellitus, CKD, hard of hearing, hypertension, hypercholesterolemia, glaucoma/macular degeneration, CHF with reduced ejection fraction, presumed CAD with abnormal stress test, history of PACs/atrial tachycardia.Last known well time was on 01/12/2025. Patient lives at home alone, has a daughter nearby. She was found on the floor on the day of admission 01/13/2025. She lives alone, uses a walker to ambulate. Reports she fell in brace herself, falling on her back. No loss of consciousness, no syncope, no seizure, no head injury. 01/14:Patient has evidence of T9 fracture. Ordered MRI of cervical, thoracic and lumbar. Patient also complains of right leg pain which is chronic. Ordered lower extremity x-ray to rule out any fracture. Patient was admitted in March due to CHF exacerbation and ZIA. 01/15: Patient did not follow-up with the Cardiology after the discharge. Will discuss with Neurosurgery tomorrow after the MRI results. Discussed goals of care including hospice 01/16: Patient underwent MRI. Will discuss with neurosurgeon after the results patient had a fall not sure what happened, patient is found to have There is a fracture of the body of T9 which extends anteriorly to involve the cortex and posteriorly to involve the posterior cortex although there is no retropulsion identified. There is no extension of the fracture into the posterior elements appreciated. There is a remote superior endplate fracture of L4 and L4 with loss of height 10%. There is a remote fracture of the anterior superior endplate and body of L2 with loss of height 50%, no retropulsion. patient is neurological intact and today denies any pain, her daughter is present in the room, to further evaluate patient had MRI of thoracic spine which showed 1. 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 2. Mild thoracic spondylosis. 3. 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 Discussed with the neurosurgeon Dr. Gale stated patient will benefit with surgical intervention however patient is neuralgically intact, elderly and DNR, with osteopenia, surgical outcome would be poor, and does not recommend, will give brace to stabilized the fracture. patient remains clinically stable and working with PT/OT. Patient stats feeling better and her pain is fine, today patient was seen by neurosurgery and does not recommended any surgical intervention due to her age and commodities, recommended TLSO brace and recommendation to wear the brace when out of the bed, patient will be seen by the neurosurgeon in 6 weeks to discuss possible cement augmentation and further recommendation to follow. patient remains clinically stable, will monitor. Review of Systems Review of Systems: All systems reviewed & are unremarkable except as noted in HPI and below (Subjective) Exam Narrative: Elderly frail Patient is comfortable, NAD HEENT: eyes are clear and none icteric LUNGS:CTA HEART: RR S1S2 ABD: BS+, Soft and nontender Lower extremities: no edema SKIN: nonjaundiced Neuro: grossly intact. Objective Data Vital Signs Vital Signs: Vital Signs - 24 hr 01/17/25 21:03 01/18/25 06:00 01/18/25 08:00 Temperature 37.2 C 36.3 C L Pulse Rate 64 60 Respiratory Rate 18 16 Blood Pressure 143/61 H 122/55 L Pulse Oximetry 94 95 Oxygen Delivery Room Air 01/18/25 08:27 01/18/25 14:00 Temperature 36.3 C L Pulse Rate 59 L 69 Respiratory Rate 18 Blood Pressure 140/61 Pulse Oximetry 97 Oxygen Delivery Intake/Output Intake/Output: Intake & Output 01/15/25 01/16/25 01/17/25 01/18/25 23:59 23:59 23:59 23:59 Intake Total 880 1120 710 760 Output Total 150 700 450 200 Balance 730 420 260 560 Meds/Results Medications: Active Medications Generic Name Dose Route Start Last Admin Trade Name Freq PRN Reason Stop Dose Admin Acetaminophen 650 mg 01/13/25 17:25 01/17/25 22:01 Acetaminophen 325 Mg Tablet PO 650 mg Q4H PRN Administration Mild Pain (1-3) or Fever Atorvastatin Calcium 20 mg 01/14/25 09:00 01/18/25 08:27 Atorvastatin 20 Mg Tablet BY MOUTH 20 mg DAILY SKY Administration Dextrose 12.5 gm 01/13/25 22:16 Dextrose 50% 25 Gm/50 Ml Syringe IV PUSH PRN PRN Hypoglycemia Protocol Docusate Sodium 100 mg 01/18/25 13:27 01/18/25 13:37 Docusate Sodium 100 Mg Capsule PO 100 mg Q12H PRN Administration Constipation Glucose 15 gm 01/13/25 22:16 Glucose Oral Gel 15 Gm Of Glucse In 37.5 Gm Tube PO PRN PRN Hypoglycemia Protocol Dextrose 1,000 mls @ 100 mls/hr 01/13/25 22:16 Dextrose 5% 1,000 Ml IVPB PRN PRN Hypoglycemia Protocol Insulin Aspart 2 - 5 units 01/14/25 08:00 01/18/25 12:04 Insulin Aspart (*Bkc) 100 Units/Ml SUB-Q 3 units TIDWM SKY Administration Protocol Insulin Aspart 1 - 2 units 01/14/25 21:00 01/17/25 21:16 Insulin Aspart (*Bkc) 100 Units/Ml SUB-Q 1 units HS SKY Administration Protocol Insulin Glargine 15 units 01/15/25 11:50 01/18/25 08:28 Insulin Glargine (*Bkc) 100 Units/Ml 0.25 units/kg (15 units) 15 units SUB-Q Administration DAILY SKY Metoprolol Succinate 25 mg 01/14/25 09:00 01/18/25 08:27 Metoprolol Succinate Ext Rel 25 Mg Tabcr PO 25 mg QAM SKY Administration Ondansetron HCl 4 mg 01/16/25 11:32 01/16/25 11:38 Ondansetron Inj 4 Mg/2 Ml Vial IV PUSH 4 mg Q6H PRN Administration Nausea And Vomiting Pantoprazole Sodium 40 mg 01/17/25 09:00 01/18/25 08:27 Pantoprazole 40 Mg Tablet PO 40 mg QAM SKY Administration Polyethylene Glycol 17 gm 01/18/25 13:27 01/18/25 13:37 Polyethylene Glycol 3350 17 Gm Powd.Pack PO 17 gm QAM PRN Administration Constipation Ropinirole HCl 2 mg 01/14/25 09:25 01/18/25 13:39 Ropinirole Hcl 1 Mg Tablet PO 2 mg Q8HR SKY Administration Radiology Results: ITS Impressions Head CT 01/13/25 16:45 Impression: 1.No acute intracranial abnormality. Chest X-Ray 01/13/25 16:46 Impression: Mild CHF Thoracic/Lumbar Spine CT 01/14/25 09:54 Impression: 1. Acute fracture of T9, no retropulsion. Multiple remote fractures detailed above with severe degenerative changes. MRI is recommended to assess Femur X-Ray 01/14/25 13:49 IMPRESSION: 1. Old healed internally fixed fracture of the proximal right femur in the distal right tibia and fibula which are all in near-anatomic alignment. No acute osseous abnormality. Tibia/Fibula X-Ray 01/14/25 13:52 Impression: No acute fracture or malalignment. Cervical Spine MRI 01/17/25 08:31 IMPRESSION: 1. Severe cervical spondylosis. Lumbar Spine MRI 01/17/25 08:35 IMPRESSION: 1. Acute/subacute compression fractures of L2 and L4. 2. Severe lumbar spondylosis. ADDENDUM: 01/17/25 0852 Comparison is made with the thoracic spine MRI from 01/16/2025. The lumbar spine has 4 nonrib-bearing lumbar type segments. L5 is sacralized. The numbering of lumbar segments in this report is incorrect with numbering off by one level. The fractures are at L1 and L3. Thoracic Spine MRI 01/17/25 08:42 IMPRESSION: 1. 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 2. Mild thoracic spondylosis. 3. 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 Labs Labs: Laboratory Results - last 24 hr 01/17/25 01/17/25 01/18/25 16:42 20:35 05:02 WBC 7.7 RBC 2.69 L Hgb 9.3 L Hct 29.5 L MCV 109.7 H MCH 34.6 H MCHC 31.5 L RDW 13.2 Plt Count 122 L MPV 11.2 H % Immature Plt Fraction 5.0 Sodium 137 Potassium 4.3 Chloride 111 H Carbon Dioxide 23 Anion Gap 3 L BUN 34 H D Creatinine 1.21 H Estim Creat Clear Calc 27 Estimated GFR 42 L Glucose 136 H POC Capillary Glucose 248 H 229 H Calcium 8.3 L Magnesium 1.9 01/18/25 01/18/25 07:50 11:34 WBC RBC Hgb Hct MCV MCH MCHC RDW Plt Count MPV % Immature Plt Fraction Sodium Potassium Chloride Carbon Dioxide Anion Gap BUN Creatinine Estim Creat Clear Calc Estimated GFR Glucose POC Capillary Glucose 179 H 285 H Calcium Magnesium
[2025-01-18] MEDS: ACETAMINOPHEN 325 MG TABLET 650 MG PO ×2 (16:36→20:30)
[2025-01-18 20:41] VITALS: BP 127/72; PULSE 60; RESP 18; TEMP 36.9; O2SAT 98
[2025-01-19 04:31] VITALS: BP 121/64; PULSE 62; RESP 20; TEMP 36.7; O2SAT 98
[2025-01-19 05:44] LABS: Hematocrit 29.2 % (37.0-47.0); Hemoglobin 9.2 g/dL (12.0-15.0); Immature Platelet Fraction Pct 4.6 % (0.9-11.2); Mean Corpuscular HGB Conc 31.5 g/dl (32-36); Mean Corpuscular Hemoglobin 34.1 pg (26-34); Mean Corpuscular Volume 108.1 fl (80-100); Platelet Count Result 130 k/mm3 (150-375); Red Blood Count 2.70 M/mm3 (4.2-5.4); White Blood Count 7.5 K/mm3 (4.5-10.0)
[2025-01-19 06:03] LABS: Anion Gap 3 mmol/L (4-12); Blood Urea Nitrogen 31 mg/dL (7-17); Calcium 8.7 mg/dL (8.4-10.2); Carbon Dioxide 25 mmol/L (22-30); Chloride 109 mmol/L (98-107); Estimated CRCL calculation 27 ml/min; Estimated Glomerular Filt Rate 43; Glucose 118 mg/dL (65-110); Magnesium 1.8 mg/dL (1.6-2.3); Potassium 4.4 mmol/L (3.4-5.0); Sodium 137 mmol/L (137-145)
[2025-01-19 08:32] VITALS: PULSE 81
[2025-01-19] MEDS: METOPROLOL SUCCINATE EXT REL 25 MG TABCR PO (08:32)
[2025-01-19] MEDS: ATORVASTATIN 20 MG TABLET BY MOUTH (08:32)
[2025-01-19] MEDS: PANTOPRAZOLE 40 MG TABLET PO (08:33)
[2025-01-19] MEDS: INSULIN GLARGINE (*BKC) 100 UNITS/ML 15 UNITS SUB-Q (09:06)
[2025-01-19] MEDS: ACETAMINOPHEN 325 MG TABLET 650 MG PO ×3 (10:15→18:28)
--- NOTE | 2025-01-19 11:38 | P.PNIM_ITS ---
Progress Note: A&P Assessment and Plan (1) Fall: Code(s): W19.XXXA - Unspecified fall, initial encounter Status: Acute Assessment and Plan: -medications were reviewed -evaluate for incidence of hypoglycemia -avoid any sedatives or anxiolytic -will evaluate for any arrhythmias -we evaluate for postural hypertension -labs were reviewed -head CT scan reviewed -reviewed CT thoracic/lumbar which shows acute fracture of T9. -pending MRI cervical, thoracic, and lumbar -physical therapy for balance, gait and strength training -x-ray of the lower extremity do not show any significant finding (2) Failure to thrive in adult: Code(s): R62.7 - Adult failure to thrive Status: Acute Assessment and Plan: Same as above (3) CHF (congestive heart failure): Code(s): I50.9 - Heart failure, unspecified Status: Acute Assessment and Plan: Hold furosemide and Entresto due to low blood pressure and decreased renal fun ction Daily weights Strict I and O's Continue metoprolol succinate 25 mg p.o. q.d. (4) Type 2 diabetes mellitus with diabetic chronic kidney disease: Onset Date: Unknown Qualifiers: Diabetes mellitus joint terminal attack controller insulin use: with group home use Chronic kidney disease stage: stage 3 (moderate) Chronic kidney disease stage 3 subtype: stage 3b (GFR 30-44) Qualified Code(s): E11.22 - Type 2 diabetes mellitus with diabetic chronic kidney disease; N18.32 - Chronic kidney disease, stage 3b; Z79.4 - retirement (current) use of insulin Code(s): E11.22 - Type 2 diabetes mellitus with diabetic chronic kidney disease Status: Acute Assessment and Plan: Holding home insulin regimen Started sliding scale Hypoglycemia protocol (5) CKD (chronic kidney disease): Code(s): N18.9 - Chronic kidney disease, unspecified Status: Acute Assessment and Plan: Avoid nephrotoxic drugs Tract BUN and creatinine (6) Rhabdomyolysis: Code(s): M62.82 - Rhabdomyolysis Status: Acute Assessment and Plan: Continue fluids at 75 cc Monitor renal function Trend CK (7) Weakness: Code(s): R53.1 - Weakness Status: Acute Assessment and Plan: As above (8) Acute UTI: Code(s): N39.0 - Urinary tract infection, site not specified Status: Acute Assessment and Plan: Continue ceftriaxone Monitor urine culture Plan patient had a fall not sure what happened, patient is found to have There is a fracture of the body of T9 which extends anteriorly to involve the cortex and posteriorly to involve the posterior cortex although there is no retropulsion identified. There is no extension of the fracture into the posterior elements appreciated. There is a remote superior endplate fracture of L4 and L4 with loss of height 10%. There is a remote fracture of the anterior superior endplate and body of L2 with loss of height 50%, no retropulsion. patient is neurological intact and today denies any pain, her daughter is present in the room, to further evaluate patient had MRI of thoracic spine which showed 1. 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 2. Mild thoracic spondylosis. 3. 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 Discussed with the neurosurgeon Dr. Gale stated patient will benefit with surgical intervention however patient is neuralgically intact, elderly and DNR, with osteopenia, surgical outcome would be poor, and does not recommend, will give brace to stabilized the fracture. patient remains clinically stable and working with PT/OT. Patient stats feeling better and her pain is fine, today patient was seen by neurosurgery and does not recommended any surgical intervention due to her age and commodities, recommended TLSO brace and recommendation to wear the brace when out of the bed, patient will be seen by the neurosurgeon in 6 weeks to discuss possible cement augmentation and further recommendation to follow. patient remains clinically stable, will monitor. today patient is sitting in the chair and has her TLSO brace on and eating her breakfast, stats feels better, her son is present in the room, patient is waiting to transferred to [facility]. Prolonged QTC interval Hold quetiapine 50 mg p.o. b.i.d. Hold aripiprazole Subjective Date/time seen: 01/19/25 11:38 Interval history: 89-year-old female past medical history insulin-dependent diabetes mellitus, CKD, hard of hearing, hypertension, hypercholesterolemia, glaucoma/macular degeneration, CHF with reduced ejection fraction, presumed CAD with abnormal stress test, history of PACs/atrial tachycardia.Last known well time was on 01/12/2025. Patient lives at home alone, has a daughter nearby. She was found on the floor on the day of admission 01/13/2025. She lives alone, uses a walker to ambulate. Reports she fell in brace herself, falling on her back. No loss of consciousness, no syncope, no seizure, no head injury. 01/14:Patient has evidence of T9 fracture. Ordered MRI of cervical, thoracic and lumbar. Patient also complains of right leg pain which is chronic. Ordered lower extremity x-ray to rule out any fracture. Patient was admitted in March due to CHF exacerbation and ZIA. 01/15: Patient did not follow-up with the Cardiology after the discharge. Will discuss with Neurosurgery tomorrow after the MRI results. Discussed goals of care including hospice 01/16: Patient underwent MRI. Will discuss with neurosurgeon after the results patient had a fall not sure what happened, patient is found to have There is a fracture of the body of T9 which extends anteriorly to involve the cortex and posteriorly to involve the posterior cortex although there is no retropulsion identified. There is no extension of the fracture into the posterior elements appreciated. There is a remote superior endplate fracture of L4 and L4 with loss of height 10%. There is a remote fracture of the anterior superior endplate and body of L2 with loss of height 50%, no retropulsion. patient is neurological intact and today denies any pain, her daughter is present in the room, to further evaluate patient had MRI of thoracic spine which showed 1. 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 2. Mild thoracic spondylosis. 3. 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 Discussed with the neurosurgeon Dr. Gale stated patient will benefit with surgical intervention however patient is neuralgically intact, elderly and DNR, with osteopenia, surgical outcome would be poor, and does not recommend, will give brace to stabilized the fracture. patient remains clinically stable and working with PT/OT. Patient stats feeling better and her pain is fine, today patient was seen by neurosurgery and does not recommended any surgical intervention due to her age and commodities, recommended TLSO brace and recommendation to wear the brace when out of the bed, patient will be seen by the neurosurgeon in 6 weeks to discuss possible cement augmentation and further recommendation to follow. patient remains clinically stable, will monitor. today patient is sitting in the chair and has her TLSO brace on and eating her breakfast, stats feels better, her son is present in the room, patient is waiting to transferred to [facility]. Review of Systems Review of Systems: All systems reviewed & are unremarkable except as noted in HPI and below (Subjective) Exam Narrative: Elderly frail Patient is comfortable, NAD HEENT: eyes are clear and none icteric LUNGS:CTA HEART: RR S1S2 ABD: BS+, Soft and nontender Lower extremities: no edema SKIN: nonjaundiced Neuro: grossly intact. Objective Data Vital Signs Vital Signs: Vital Signs - 24 hr 01/18/25 14:00 01/18/25 20:41 01/19/25 04:31 Temperature 36.3 C L 36.9 C 36.7 C Pulse Rate 69 60 62 Respiratory Rate 18 18 20 Blood Pressure 140/61 127/72 121/64 Pulse Oximetry 97 98 98 Oxygen Delivery 01/19/25 07:59 01/19/25 08:32 01/19/25 08:37 Temperature Pulse Rate 81 Respiratory Rate Blood Pressure Pulse Oximetry Oxygen Delivery Room Air Room Air 01/19/25 09:02 Temperature Pulse Rate Respiratory Rate Blood Pressure Pulse Oximetry Oxygen Delivery Room Air Intake/Output Intake/Output: Intake & Output 01/16/25 01/17/25 01/18/25 01/19/25 23:59 23:59 23:59 23:59 Intake Total 1120 710 940 120 Output Total 700 450 300 300 Balance 420 260 640 -180 Meds/Results Medications: Active Medications Generic Name Dose Route Start Last Admin Trade Name Freq PRN Reason Stop Dose Admin Acetaminophen 650 mg 01/13/25 17:25 01/19/25 10:15 Acetaminophen 325 Mg Tablet PO 650 mg Q4H PRN Administration Mild Pain (1-3) or Fever Atorvastatin Calcium 20 mg 01/14/25 09:00 01/19/25 08:32 Atorvastatin 20 Mg Tablet BY MOUTH 20 mg DAILY SKY Administration Dextrose 12.5 gm 01/13/25 22:16 Dextrose 50% 25 Gm/50 Ml Syringe IV PUSH PRN PRN Hypoglycemia Protocol Docusate Sodium 100 mg 01/18/25 13:27 01/18/25 13:37 Docusate Sodium 100 Mg Capsule PO 100 mg Q12H PRN Administration Constipation Glucose 15 gm 01/13/25 22:16 Glucose Oral Gel 15 Gm Of Glucse In 37.5 Gm Tube PO PRN PRN Hypoglycemia Protocol Dextrose 1,000 mls @ 100 mls/hr 01/13/25 22:16 Dextrose 5% 1,000 Ml IVPB PRN PRN Hypoglycemia Protocol Insulin Aspart 2 - 5 units 01/14/25 08:00 01/19/25 08:36 Insulin Aspart (*Bkc) 100 Units/Ml SUB-Q Not Given TIDWM SKY Protocol Insulin Aspart 1 - 2 units 01/14/25 21:00 01/18/25 21:00 Insulin Aspart (*Bkc) 100 Units/Ml SUB-Q Not Given HS SKY Protocol Insulin Glargine 15 units 01/15/25 11:50 01/19/25 09:06 Insulin Glargine (*Bkc) 100 Units/Ml 0.25 units/kg (15 units) 15 units SUB-Q Administration DAILY SKY Metoprolol Succinate 25 mg 01/14/25 09:00 01/19/25 08:32 Metoprolol Succinate Ext Rel 25 Mg Tabcr PO 25 mg QAM SKY Administration Ondansetron HCl 4 mg 01/16/25 11:32 01/16/25 11:38 Ondansetron Inj 4 Mg/2 Ml Vial IV PUSH 4 mg Q6H PRN Administration Nausea And Vomiting Pantoprazole Sodium 40 mg 01/17/25 09:00 01/19/25 08:33 Pantoprazole 40 Mg Tablet PO 40 mg QAM SKY Administration Polyethylene Glycol 17 gm 01/18/25 13:27 01/19/25 08:32 Polyethylene Glycol 3350 17 Gm Powd.Pack PO 17 gm QAM PRN Administration Constipation Ropinirole HCl 2 mg 01/14/25 09:25 01/19/25 05:34 Ropinirole Hcl 1 Mg Tablet PO 2 mg Q8HR SKY Administration Radiology Results: ITS Impressions Head CT 01/13/25 16:45 Impression: 1.No acute intracranial abnormality. Chest X-Ray 01/13/25 16:46 Impression: Mild CHF Thoracic/Lumbar Spine CT 01/14/25 09:54 Impression: 1. Acute fracture of T9, no retropulsion. Multiple remote fractures detailed above with severe degenerative changes. MRI is recommended to assess Femur X-Ray 01/14/25 13:49 IMPRESSION: 1. Old healed internally fixed fracture of the proximal right femur in the distal right tibia and fibula which are all in near-anatomic alignment. No acute osseous abnormality. Tibia/Fibula X-Ray 01/14/25 13:52 Impression: No acute fracture or malalignment. Cervical Spine MRI 01/17/25 08:31 IMPRESSION: 1. Severe cervical spondylosis. Lumbar Spine MRI 01/17/25 08:35 IMPRESSION: 1. Acute/subacute compression fractures of L2 and L4. 2. Severe lumbar spondylosis. ADDENDUM: 01/17/2552 Comparison is made with the thoracic spine MRI from 01/16/2025. The lumbar spine has 4 nonrib-bearing lumbar type segments. L5 is sacralized. The numbering of lumbar segments in this report is incorrect with numbering off by one level. The fractures are at L1 and L3. Thoracic Spine MRI 01/17/25 08:42 IMPRESSION: 1. 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 2. Mild thoracic spondylosis. 3. 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 Labs Labs: Laboratory Results - last 24 hr 01/18/25 01/18/25 01/18/25 11:34 16:36 20:27 WBC RBC Hgb Hct MCV MCH MCHC RDW Plt Count MPV % Immature Plt Fraction Sodium Potassium Chloride Carbon Dioxide Anion Gap BUN Creatinine Estim Creat Clear Calc Estimated GFR Glucose POC Capillary Glucose 285 H 284 H 195 H Calcium Magnesium 01/19/25 01/19/25 04:59 07:29 WBC 7.5 RBC 2.70 L Hgb 9.2 L Hct 29.2 L MCV 108.1 H MCH 34.1 H MCHC 31.5 L RDW 13.1 Plt Count 130 L MPV 10.5 H % Immature Plt Fraction 4.6 Sodium 137 Potassium 4.4 Chloride 109 H Carbon Dioxide 25 Anion Gap 3 L BUN 31 H Creatinine 1.19 H Estim Creat Clear Calc 27 Estimated GFR 43 L Glucose 118 H POC Capillary Glucose 140 H Calcium 8.7 Magnesium 1.8
[2025-01-19] MEDS: INSULIN ASPART (*BKC) 100 UNITS/ML SUB-Q ×3 (11:53→21:55)
[2025-01-19 14:00] VITALS: BP 115/65; PULSE 66; RESP 16; TEMP 36.3; O2SAT 96
[2025-01-19 20:00] VITALS: PULSE 60; RESP 18; O2SAT 99
[2025-01-19 21:43] VITALS: BP 126/68; PULSE 60; RESP 18; TEMP 36.4; O2SAT 99
[2025-01-20 04:14] VITALS: BP 148/69; PULSE 70; RESP 20; TEMP 36.4; O2SAT 97
[2025-01-20 06:01] LABS: Hematocrit 28.7 % (37.0-47.0); Hemoglobin 9.1 g/dL (12.0-15.0); Mean Corpuscular HGB Conc 31.7 g/dl (32-36); Mean Corpuscular Hemoglobin 34.3 pg (26-34); Mean Corpuscular Volume 108.3 fl (80-100); Platelet Count Result 134 k/mm3 (150-375); Red Blood Count 2.65 M/mm3 (4.2-5.4); White Blood Count 7.0 K/mm3 (4.5-10.0)
[2025-01-20 06:20] LABS: Anion Gap 6 mmol/L (4-12); Blood Urea Nitrogen 31 mg/dL (7-17); Calcium 8.9 mg/dL (8.4-10.2); Carbon Dioxide 24 mmol/L (22-30); Chloride 106 mmol/L (98-107); Estimated CRCL calculation 26 ml/min; Estimated Glomerular Filt Rate 41; Glucose 166 mg/dL (65-110); Magnesium 1.8 mg/dL (1.6-2.3); Potassium 4.1 mmol/L (3.4-5.0); Sodium 136 mmol/L (137-145)
[2025-01-20 08:29] VITALS: PULSE 70
[2025-01-20] MEDS: METOPROLOL SUCCINATE EXT REL 25 MG TABCR PO (08:29)
[2025-01-20] MEDS: PANTOPRAZOLE 40 MG TABLET PO (08:30)
[2025-01-20] MEDS: INSULIN GLARGINE (*BKC) 100 UNITS/ML 15 UNITS SUB-Q (08:30)
[2025-01-20] MEDS: ATORVASTATIN 20 MG TABLET BY MOUTH (08:30)
--- NOTE | 2025-01-20 10:32 | P.DS_ITS ---
DS: Admitting Diagnosis Discharge Date 01/20/25 Admitting Diagnosis Ground level fall DS: Discharge Diagnosis Discharge Diagnosis (1) Fall: Code(s): W19.XXXA - Unspecified fall, initial encounter Status: Acute Assessment and Plan: -medications were reviewed -evaluate for incidence of hypoglycemia -avoid any sedatives or anxiolytic -will evaluate for any arrhythmias -we evaluate for postural hypertension -labs were reviewed -head CT scan reviewed -reviewed CT thoracic/lumbar which shows acute fracture of T9. -pending MRI cervical, thoracic, and lumbar -physical therapy for balance, gait and strength training -x-ray of the lower extremity do not show any significant finding (2) Failure to thrive in adult: Code(s): R62.7 - Adult failure to thrive Status: Acute Assessment and Plan: Same as above (3) CHF (congestive heart failure): Code(s): I50.9 - Heart failure, unspecified Status: Acute Assessment and Plan: Hold furosemide and Entresto due to low blood pressure and decreased renal function Daily weights Strict I and O's Continue metoprolol succinate 25 mg p.o. q.d. (4) Type 2 diabetes mellitus with diabetic chronic kidney disease: Onset Date: Unknown Qualifiers: Diabetes mellitus jail insulin use: with salvage determiner use Chronic kidney disease stage: stage 3 (moderate) Chronic kidney disease stage 3 subtype: stage 3b (GFR 30-44) Qualified Code(s): E11.22 - Type 2 diabetes mellitus with diabetic chronic kidney disease; N18.32 - Chronic kidney disease, stage 3b; Z79.4 - nursing home (current) use of insulin Code(s): E11.22 - Type 2 diabetes mellitus with diabetic chronic kidney disease Status: Acute Assessment and Plan: Holding home insulin regimen Started sliding scale Hypoglycemia protocol (5) CKD (chronic kidney disease): Code(s): N18.9 - Chronic kidney disease, unspecified Status: Acute Assessment and Plan: Avoid nephrotoxic drugs Tract BUN and creatinine (6) Rhabdomyolysis: Code(s): M62.82 - Rhabdomyolysis Status: Acute Assessment and Plan: Continue fluids at 75 cc Monitor renal function Trend CK (7) Weakness: Code(s): R53.1 - Weakness Status: Acute Assessment and Plan: As above (8) Acute UTI: Code(s): N39.0 - Urinary tract infection, site not specified Status: Acute Assessment and Plan: Continue ceftriaxone Monitor urine culture Plan patient had a fall not sure what happened, patient is found to have There is a f racture of the body of T9 which extends anteriorly to involve the cortex and posteriorly to involve the posterior cortex although there is no retropulsion identified. There is no extension of the fracture into the posterior elements appreciated. There is a remote superior endplate fracture of L4 and L4 with loss of height 10%. There is a remote fracture of the anterior superior endplate and body of L2 with loss of height 50%, no retropulsion. patient is neurological intact and today denies any pain, her daughter is present in the room, to further evaluate patient had MRI of thoracic spine which showed 1. 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 2. Mild thoracic spondylosis. 3. 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 Discussed with the neurosurgeon Dr. Gale stated patient will benefit with surgical intervention however patient is neuralgically intact, elderly and DNR, with osteopenia, surgical outcome would be poor, and does not recommend, will give brace to stabilized the fracture. patient remains clinically stable and working with PT/OT. Patient stats feeling better and her pain is fine, today patient was seen by neurosurgery and does not recommended any surgical intervention due to her age and commodities, recommended TLSO brace and recommendation to wear the brace when out of the bed, patient will be seen by the neurosurgeon in 6 weeks to discuss possible cement augmentation and further recommendation to follow. patient remains clinically stable, will monitor. today patient is sitting in the chair and has her TLSO brace on and eating her breakfast, stats feels better, her son is present in the room, patient is waiting to transferred to [facility]. Prolonged QTC interval Hold quetiapine 50 mg p.o. b.i.d. Hold aripiprazole DS: Summary Hospital Course Hospital Course: patient had a fall not sure what happened, patient is found to have There is a fracture of the body of T9 which extends anteriorly to involve the cortex and posteriorly to involve the posterior cortex although there is no retropulsion identified. There is no extension of the fracture into the posterior elements appreciated. There is a remote superior endplate fracture of L4 and L4 with loss of height 10%. There is a remote fracture of the anterior superior endplate and body of L2 with loss of height 50%, no retropulsion. patient is neurological intact and today denies any pain, her daughter is present in the room, to further evaluate patient had MRI of thoracic spine which showed 1. 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 2. Mild thoracic spondylosis. 3. 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 Discussed with the neurosurgeon Dr. Gale stated patient will benefit with surgical intervention however patient is neuralgically intact, elderly and DNR, with osteopenia, surgical outcome would be poor, and does not recommend, will give brace to stabilized the fracture. patient remains clinically stable and working with PT/OT. Patient stats feeling better and her pain is fine, today patient was seen by neurosurgery and does not recommended any surgical intervention due to her age and commodities, recommended TLSO brace and recommendation to wear the brace when out of the bed, patient will be seen by the neurosurgeon in 6 weeks to discuss possible cement augmentation and further recommendation to follow. patient remains clinically stable, will monitor. today patient is sitting in the chair and has her TLSO brace on and eating her breakfast, stats feels better, her son is present in the room, patient is clinically stable, and her baseline, will discharge patient to [place] facility for rehab. Time Spent with Patient Time attestation: Total time spent providing and/or coordinating discharge services: Exam Narrative: Elderly frail Patient is comfortable, NAD HEENT: eyes are clear and none icteric LUNGS:CTA HEART: RR S1S2 ABD: BS+, Soft and nontender Lower extremities: no edema SKIN: nonjaundiced Neuro: grossly intact. DS: Data Data Completed and Pending Labs on day of discharge: Labs from last 24 hours 01/20/25 01/20/25 01/19/25 07:56 05:07 21:47 WBC 7.0 RBC 2.65 L Hgb 9.1 L Hct 28.7 L MCV 108.3 H MCH 34.3 H MCHC 31.7 L RDW 13.0 Plt Count 134 L MPV 10.8 H Sodium 136 L Potassium 4.1 Chloride 106 Carbon Dioxide 24 Anion Gap 6 BUN 31 H Creatinine 1.23 H Estim Creat Clear Calc 26 Estimated GFR 41 L Glucose 166 H POC Capillary Glucose 185 H 272 H Calcium 8.9 Magnesium 1.8 01/19/25 01/19/25 16:27 11:45 WBC RBC Hgb Hct MCV MCH MCHC RDW Plt Count MPV Sodium Potassium Chloride Carbon Dioxide Anion Gap BUN Creatinine Estim Creat Clear Calc Estimated GFR Glucose POC Capillary Glucose 266 H 240 H Calcium Magnesium Discharge Plan Discharge Attending physician on discharge: Clay Patricia Consulting providers: Esau Gale Discharging Clinician: Rafal Marin Patient Disposition: NH Long Term/Asst Living Activity: as tolerated Diet: heart healthy Discharge Instructions: Patient is being discharged to rehab, patient to follow up with her primary care provider as soon as possible. patient to follow up with neurosurgeon as soon as possible Patient Instructions: Antibiotic Form, Heart Failure (GEN) Patient Language: Malian Stand Alone Forms: General Discharge Information Follow-up/Referrals: Tj Pino MD [Primary Care Provider, [facility]] Esau Gale MD [Physician, Neurosurgery] Discharge Medications: New polyethylene glycol 3350 [Miralax] 17 gram Powder In Packet 17 g PO QAM PRN (Reason: Constipation) Qty: 14 0RF pantoprazole 40 mg Tablet,Delayed Release (Dr/Ec) 40 mg PO QAM Qty: 30 0RF docusate sodium 100 mg Capsule 100 mg PO Q12H PRN (Reason: Constipation) Qty: 30 0RF Continued (DME) pen needle, diabetic 31 gauge x 3/16 needle See Rx Instructions .Route Qty: 100 3RF Rx Instructions: use to administer insulin (DME) Accu-Chek Guide test strips Strip See Rx Instructions .ROUTE .COMPLEX Qty: 200 2RF Dose Instruction: USE TO CHECK BLOOD SUGAR TWICE A DAY Rx Instructions: USE TO CHECK BLOOD SUGAR TWICE A DAY furosemide [Lasix] 20 mg tablet 20 mg PO DAILY Qty: 30 0RF Entresto 24-26 mg tablet 1 tablet PO BID Patient Comments: as per cardio metoprolol succinate [Toprol XL] 25 mg tablet extended release 24 hr 25 mg PO QAM 90 Days Qty: 90 1RF alendronate 70 mg tablet 70 mg PO WEEKLY insulin glargine [Basaglar KwikPen U-100 Insulin] 100 unit/mL (3 mL) insulin pen 20 unit SUBCUT DAILY (DME) lancets [Accu-Chek Softclix Lancets] Misc See Rx Instructions .Route Qty: 100 0RF Rx Instructions: check BS BID aripiprazole 5 mg tablet See Rx Instructions .ROUTE .COMPLEX Qty: 90 3RF Dose Instruction: TAKE 1 TABLET BY MOUTH DAILY Rx Instructions: TAKE 1 TABLET BY MOUTH DAILY quetiapine 50 mg tablet See Rx Instructions .ROUTE .COMPLEX Qty: 180 1RF Dose Instruction: TAKE 1 TABLET BY MOUTH TWICE A DAY Rx Instructions: TAKE 1 TABLET BY MOUTH TWICE A DAY atorvastatin 20 mg tablet See Rx Instructions .ROUTE .COMPLEX Qty: 90 3RF Dose Instruction: TAKE 1 TABLET BY MOUTH EVERY DAY Rx Instructions: TAKE 1 TABLET BY MOUTH EVERY DAY ropinirole 2 mg tablet See Rx Instructions .ROUTE .COMPLEX Qty: 200 1RF Dose Instruction: 2 MG ORALLY THREE TIMES A DAY Rx Instructions: 2 MG ORALLY THREE TIMES A DAY cyanocobalamin (vitamin B-12) 1,000 mcg/mL solution See Rx Instructions .ROUTE .COMPLEX Qty: 3 1RF Dose Instruction: INJECT 1ML INTO THE MUSCLE ONCE WEEKLY Rx Instructions: INJECT 1ML INTO THE MUSCLE ONCE WEEKLY Date of admission: 01/14/25 11:19 Primary Care Provider: Tj Pino Admitting Provider: Clay Patricia Attending physician on admission: Clay Patricia Condition: Stable
--- NOTE | 2025-01-20 11:10 | PCNWS ---
Weekly nutritional screen. Patient is tolerating current Heart healthy diet with adequate intake, 25-100%. Pt says she is doing fine. No weight loss reported. No nutritional needs at this time.
[2025-01-20] MEDS: INSULIN ASPART (*BKC) 100 UNITS/ML SUB-Q (11:37)
== END 2025-01-20 12:20 | DRG 565 ==
LOC: ANHED 14:55 → ANHIMU 18:06 → ANH3MEDSUR 01-16 15:49
PROVIDERS: Emergency Medicine; General Practice; Admitting Provider General Practice; Emergency Provider Emergency Medicine; PCP Family Medicine; Visit Provider Family Medicine
DX: T79.6XXA Traumatic ischemia of muscle, initial encounter (principal); E87.21 Acute metabolic acidosis; N39.0 Urinary tract infection, site not specified; S22.069A Unspecified fracture of T7-T8 vertebra, initial encounter for closed fracture; N17.9 Acute kidney failure, unspecified; I13.0 Hypertensive heart and chronic kidney disease with heart failure and stage 1 through stage 4 chronic kidney disease, or unspecified chronic kidney disease; I50.22 Chronic systolic (congestive) heart failure; W19.XXXA Unspecified fall, initial encounter; M48.10 Ankylosing hyperostosis [Forestier], site unspecified; E11.22 Type 2 diabetes mellitus with diabetic chronic kidney disease; N18.32 Chronic kidney disease, stage 3b; E11.65 Type 2 diabetes mellitus with hyperglycemia; R00.0 Tachycardia, unspecified; I25.10 Atherosclerotic heart disease of native coronary artery without angina pectoris; E11.42 Type 2 diabetes mellitus with diabetic polyneuropathy; I48.91 Unspecified atrial fibrillation; E78.00 Pure hypercholesterolemia, unspecified; R62.7 Adult failure to thrive; H40.9 Unspecified glaucoma; H35.30 Unspecified macular degeneration; Z79.4 Long term (current) use of insulin; Z66 Do not resuscitate; Z85.828 Personal history of other malignant neoplasm of skin; Z90.49 Acquired absence of other specified parts of digestive tract; Z90.710 Acquired absence of both cervix and uterus; Z87.891 Personal history of nicotine dependence
CPT/HCPCS: 36415; 70450; 71045; 72128; 72131; 72141; 72146; 72148; 73552; 73590; 80048; 80053; 80076; 81001; 82550; 82948; 83605; 83735; 85025; 85027; 85055; 85610; 85730; 87040; 87086; 87186; 87493; 93005; 96361; 96365; 96375; 97162; 97166; 97530; 97535; 99285; A9270; G0378; J0696; J1815; J2405; J2470; J7030